=== PATIENT | female | born 1955 | race Caucasian/White ===

== ENCOUNTER 2022-11-05 12:29 | Emergency (ER) | payer MEDICARE, BC, SELFPAY ==
[2022-11-05 12:46] VITALS: BP 137/93; PULSE 81; RESP 20; TEMP 36.7; O2SAT 95; BMI 52.3
--- NOTE | 2022-11-05 12:52 | XR_ITS ---
The [place] [id number] Patient Name: MIGUEL ALCOCER MRN: [id number] date: 1955 Sex: F Assigned Patient Location: ER Current Patient Location: ER Accession/Order Number: [id number] Exam Date: 11/05/2022 13:15 Report Date: 11/05/2022 14:23 At the request of: LEIGH SHI Procedure: XR lumbar spine 2-3V XR lumbar spine 2-3V, 11/05/2022 1:15 PM EDT INDICATION: Low back pain. Fall one week ago COMPARISON: No prior images or reports available for comparison at the time of this dictation. TECHNIQUE: 3 views of the lumbar spine FINDINGS: 5 lumbar vertebrae. Multilevel degenerative disc disease. Mild chronic appearing compression deformity T12 vertebral body. No acute fracture or dislocation. Facet hypertrophy L5/S1. No suspicious osseous lesion. Cholecystectomy clips right upper quadrant. 5.4 cm round calcified nodule left upper quadrant. Calcified phleboliths within the pelvis bilaterally. IMPRESSION: 1. No acute fracture or dislocation. 2. Spondylosis throughout visualized portions of the spine with likely neural foraminal stenosis L5/S1. 3. Calcified left upper quadrant mass likely calcified splenic artery aneurysm. Electronically authenticated by: LAURA ROMANO Date: 11/05/2022 14:23
--- NOTE | 2022-11-05 15:24 | CT_ITS ---
The [address] [address] Patient Name: MIGUEL ALCOCER MRN: [id number] date: 1955 Sex: F Assigned Patient Location: ER Current Patient Location: ER Accession/Order Number: [id number] Exam Date: 11/05/2022 15:35 Report Date: 11/05/2022 15:59 At the request of: LEIGH SHI Procedure: CT lumbar spine wo con EXAM: CT scan of the lumbar spine without contrast. Dose reduction technique used: Automated exposure control and/or adjustment of the mA and/or kV according to patient size and/or use of iterative reconstruction technique. REASON FOR EXAM: Back pain COMPARISON: FINDINGS: T12 inferior endplate compression fracture is acute or subacute and has mild height loss. No lumbar spine fractures. Grade 1 retrolisthesis of L1 on L2 and L2 on L3. Degenerative changes throughout the lumbar spine. Spinal canal stenosis at the L2-L3 level is likely moderate. L4-L5 spinal canal stenosis is likely moderate. No definite severe spinal canal stenoses. Multilevel bilateral mild and moderate neural foraminal stenoses. Peripherally calcified splenic cyst. Remainder unremarkable. IMPRESSION: 1. T12 inferior endplate compression fracture is either acute or subacute. 2. Otherwise, no acute lumbar spine abnormalities. 3. L2-L3 and L4-5 spinal canal stenoses are moderate. Electronically authenticated by: LUCÍA DHALIWAL Date: 11/05/2022 15:59
[2022-11-05 15:58] VITALS: BP 115/74; PULSE 64; RESP 18; O2SAT 99
--- NOTE | 2022-11-05 16:04 | ED_ITS ---
HPI - General Adult General Chief complaint: Fall Stated complaint: BACK PAIN Time Seen by Provider: 11/05/22 15:24 Source: patient Mode of arrival: walk-in Limitations: no limitations History of Present Illness HPI narrative: Patient process the emergency department complaining of low back pain. Patient states she was out in the yard doing yard work and pulling weeds and she was pulling at [place] and fell backwards landing on her back. She did not hit her head or have loss of consciousness. She was able to get up and has been able to walk without any problems. She denies any paresthesias, or weakness. She denies any urinary, or bowel incontinence, retention. She denies any lower extremity edema, or cramping. The patient states that she has pain to her low back and is getting worse as the days go by. She denies any previous injury.She denies any flank pain, hematuria, dysuria. Related Data Previous Rx's Medication Instructions Recorded hydrocodone 5 mg-acetaminophen 325 1 tab PO Q6H PRN pain #15 tabs 11/05/22 mg tablet Allergies Allergy/AdvReac Type Severity Reaction Status Date / Time codeine Allergy Severe Verified 11/05/22 12:46 Review of Systems ROS Status of ROS 10 or more systems reviewed and unremarkable except as noted in history and below [facility] Social History Smoking status: Never smoker Exam Narrative Exam Narrative: Nurses notes and vital signs reviewed and patient is not hypoxic. General: Nontoxic, Well-appearing and in no apparent distress. Skin: Warm, dry, no pallor noted. No Rash Head: Normocephalic, atraumatic. Neck: Supple, non-tender. Eye: Pupils are equal, round and EOMI. No scleral icterus. Ears, Nose, Mouth, and Throat: TM clear, no posterior oropharynx erythema or nasal mucosal hypertrophy, uvula is mid-line Oral mucosa is moist Cardiovascular: Regular Rate and Rhythm without murmur, gallop or rub. Respiratory: No accessory muscle use or respiratory distress. Lungs are clear to auscultation, no wheezing, rales or rhonchi Chest Wall: no tenderness Back: L1 Tenderness to palpation, Mild to moderate L4- L5 lumbar vertebral tenderness.No erythema, ecchymosis, or step-offs noted. No CVA tenderness Musculoskeletal: normal ROM, no calf or popliteal tenderness, no lower extremity edema/swelling GI: Obese,Abdomen is soft, non-distended. Normal bowel sounds. No masses appreciated. No tenderness to palpation. No rebound, guarding, or rigidity noted. Neurological: A&O x4. No cranial nerve dysfunction observed. No truncal ataxia. Moves all extremities. Sensation intact. Psychiatric: Cooperative and interactive. Normal mood and affect. Constitutional Vital Signs - 24 hr 11/05/22 12:46 11/05/22 15:58 Temperature 98.1 F Pulse Rate [Monitor] 81 64 Respiratory Rate 20 18 Blood Pressure [Left Arm] 137/93 H 115/74 Pulse Oximetry 95 99 Oxygen Delivery Method Room Air Room Air Course Course Hospital Course: pt drove herself. She was given an injection of Toradol. The patient had a CT scan and of the lumbar spine which showed a compression fracture. Patient is given a prescription for [place], or sweats checked. She is nontoxic, stable for outpatient follow-up and treatment. At this time the patient is without objective evidence of an acute process requiring hospitalization or inpatient management. The patient has remained hemodynamically stable. No additional indication for emergent studies at this time. I answered all questions. Discussed discharge instructions including standard anticipatory guidance and what should prompt a return to the emergency department, including if they get worse are not getting better or develops any new or concerning symptoms. I've given them specific time frame in which to follow-up, and who to follow-up with. The patient demonstrates understanding. Patient is nontoxic and stable for discharge with outpatient follow-up. This note was created with the assistance of a speech recognition program. Although the intention is to generate documents that actually reflects the content of the visit, no guarantees can be provided that every mistake has been identified and corrected by editing. Vital Signs Vital signs: Vital Signs Temperature 98.1 F 11/05/22 12:46 Pulse Rate 81 11/05/22 12:46 Respiratory Rate 20 11/05/22 12:46 Blood Pressure 137/93 H 11/05/22 12:46 Pulse Oximetry 95 11/05/22 12:46 Oxygen Delivery Method Room Air 11/05/22 12:46 Temperature 98.1 F 11/05/22 12:46 Pulse Rate 64 11/05/22 15:58 Respiratory Rate 18 11/05/22 15:58 Blood Pressure 115/74 11/05/22 15:58 Pulse Oximetry 99 11/05/22 15:58 Oxygen Delivery Method Room Air 11/05/22 15:58 Medical Decision Making Imaging Data CT lumbar spine: Radiologist's impression: The [address] [address] Patient Name: MIGUEL ALCOCER MRN: [id number] date: 1955 Sex: F Assigned Patient Location: ER Current Patient Location: ER Accession/Order Number: [id number] Exam Date: 11/05/2022 15:35 Report Date: 11/05/2022 15:59 At the request of: LEIGH SHI Procedure: CT lumbar spine wo con EXAM: CT scan of the lumbar spine without contrast. Dose reduction technique used: Automated exposure control and/or adjustment of the mA and/or kV according to patient size and/or use of iterative reconstruction technique. REASON FOR EXAM: Back pain COMPARISON: FINDINGS: T12 inferior endplate compression fracture is acute or subacute and has mild height loss. No lumbar spine fractures. Grade 1 retrolisthesis of L1 on L2 and L2 on L3. Degenerative changes throughout the lumbar spine. Spinal canal stenosis at the L2-L3 level is likely moderate. L4-L5 spinal canal stenosis is likely moderate. No definite severe spinal canal stenoses. Multilevel bilateral mild and moderate neural foraminal stenoses. Peripherally calcified splenic cyst. Remainder unremarkable. IMPRESSION: 1. T12 inferior endplate compression fracture is either acute or subacute. 2. Otherwise, no acute lumbar spine abnormalities. 3. L2-L3 and L4-5 spinal canal stenoses are moderate. Electronically authenticated by: LUCÍA DHALIWAL Date: 11/05/2022 15:59 Discharge Plan Discharge Chief Complaint: Fall Clinical Impression: Foraminal stenosis of lumbar region, Compression fracture Patient Disposition: Home, Self-Care Time of Disposition Decision: 16:12 Condition: Good Mode of Transportation: Private Vehicle Prescriptions / Home Meds: New hydrocodone-acetaminophen 5-325 mg tablet 1 tab PO Q6H PRN (Reason: pain) Qty: 15 0RF Instructions: Lumbar Spinal Stenosis (ED) Stand Alone Forms: Portal Instructions Referrals: Klaus Parra MD [Primary Care Provider] - 1 week Discharge Date/Time: 11/05/22 16:33
== END 2022-11-05 16:33 | disposition home or self-care (01) ==
PROVIDERS: Emergency Provider Emergency Medicine; PCP Family Medicine
DX: S22.089A Unspecified fracture of T11-T12 vertebra, initial encounter for closed fracture (principal); M48.061 Spinal stenosis, lumbar region without neurogenic claudication; W19.XXXA Unspecified fall, initial encounter; Y93.H2 Activity, gardening and landscaping
CPT/HCPCS: 72100; 72131; 99284

== ENCOUNTER 2023-02-27 08:47 | Outpatient (OUT) | payer MEDICARE, BC, SELFPAY ==
--- NOTE | 2023-02-27 09:10 | XR_ITS ---
[address] [address] Patient Name: MIGUEL ALCOCER MRN: [id number] date: 1955 Sex: F Assigned Patient Location: [facility] Current Patient Location: [facility] Accession/Order Number: [id number] Exam Date: 02/27/2023 09:00 Report Date: 02/27/2023 09:20 At the request of: TEDDY FINK Procedure: XR DEXA axial skeleton EXAMINATION: XR DEXA axial skeleton HISTORY: M85.80 OSTEOPENIA COMPARISON: DEXA bone densitometry 02/18/2021 TECHNIQUE: Dual-energy X-ray absorptiometry (DXA) was performed. FINDINGS: SPINE ANALYSIS: Average bone mineral density is 1.168 g/cm2. T-score (standard deviation relative to young adult mean): -0.1 . -0.6% change since prior study. HIP ANALYSIS: Lowest bone mineral density is within the right femoral neck, 0.774 g/cm2. T-score (standard deviation relative to young adult mean): -1.9 . -0.2% change since prior study. XR/XR DEXA axial skeleton IMPRESSION: World [employer] Organization Classification: Osteopenia - Moderate Fracture Risk Electronically authenticated by: AMBER JUARES Date: 02/27/2023 09:20
== END 2023-02-27 08:48 | disposition home or self-care (01) ==
LOC: RAD 08:47
PROVIDERS: PCP Family Medicine; Visit Provider Family Medicine
DX: M85.80 Other specified disorders of bone density and structure, unspecified site (principal); M81.0 Age-related osteoporosis without current pathological fracture
CPT/HCPCS: 77080

== ENCOUNTER 2023-08-17 10:56 | Outpatient (OUT) | payer MEDICARE, BC, SELFPAY ==
--- NOTE | 2023-08-17 11:02 | XR_ITS ---
The [place] [id number] Patient Name: MIGUEL ALCOCER MRN: [id number] date: 1955 Sex: F Assigned Patient Location: [facility] Current Patient Location: Accession/Order Number: [id number] Exam Date: 08/17/2023 11:10 Report Date: 08/18/2023 07:55 At the request of: TEDDY FINK Procedure: XR shoulder LT min 2V PROCEDURE: XR shoulder LT min 2V HISTORY: Pain In Left Shoulder M25.512 , chronic pain increasing in severity COMPARISON: None. FINDINGS: BONES:Mild degenerative changes of acromioclavicular joint. Unremarkable humeral head and glenoid. No fracture, dislocation, or bone lesion. SOFT TISSUES:No visible soft tissue swelling. EFFUSION:None visible. OTHER: Negative. XR/XR shoulder LT min 2V IMPRESSION: 1. Mild degenerative changes. Electronically authenticated by: AMBER JUARES Date: 08/18/2023 07:55
--- NOTE | 2023-08-17 11:02 | XR_ITS ---
The [address] [address] Patient Name: MIGUEL ALCOCER MRN: [id number] date: 1955 Sex: F Assigned Patient Location: [facility] Current Patient Location: [facility] Accession/Order Number: [id number] Exam Date: 08/17/2023 11:10 Report Date: 08/18/2023 07:56 At the request of: TEDDY FINK Procedure: XR knee RT 3V PROCEDURE: XR knee RT 3V HISTORY: Knee Pain , chronic pain increasing in severity COMPARISON: None. FINDINGS: BONES:Marked narrowing of the medial joint space and suspected moderate marked narrowing of the anterior joint space. Large periarticular degenerative osteophytes involving all 3 compartments. No fracture, dislocation, bone lesion. SOFT TISSUES:No visible soft tissue swelling. EFFUSION:None visible. OTHER: Negative. XR/XR knee RT 3V IMPRESSION: 1. Marked degenerative joint disease. Electronically authenticated by: AMBER JUARES Date: 08/18/2023 07:56
== END 2023-08-17 10:57 | disposition home or self-care (01) ==
PROVIDERS: PCP Family Medicine; Visit Provider Family Medicine
DX: M25.512 Pain in left shoulder (principal); M19.90 Unspecified osteoarthritis, unspecified site; M17.11 Unilateral primary osteoarthritis, right knee
CPT/HCPCS: 73030; 73562

== ENCOUNTER 2023-08-23 09:26 | Day surgery (SDC) | payer MEDICARE, BC, SELFPAY ==
--- NOTE | 2023-08-23 09:35 | MR_ITS ---
[place] [id number] Patient Name: MIGUEL ALCOCER MRN: [id number] date: 1955 Sex: F Assigned Patient Location: MRI Current Patient Location: MRI Accession/Order Number: [id number] Exam Date: 08/23/2023 10:45 Report Date: 08/23/2023 15:33 At the request of: TEDDY FINK Procedure: MR shoulder LT w con EXAMINATION: MR shoulder LT w con HISTORY: left shoulder pain M25.512 COMPARISON: No relevant comparison available. TECHNIQUE: A variety of imaging planes and parameters were utilized for visualization of suspected pathology. Images were performed without and intra-articular Dotarem. FINDINGS: ROTATOR CUFF REGION CUFF TENDONS: A full thickness tear involves the supraspinatus and subscapularis tendons, measuring 2.9 cm with retraction of the supraspinatus tendon CUFF MUSCLES: Marked supraspinatus atrophy consistent with a chronic tear DELTOID: Normal. No significant atrophy or tear. LONG BICEPS TENDON: Increased signal intensity in the biceps tendon indicates tendon degeneration and/or tendinitis. No amanda tear is seen. LABRUM/BICEPS ANCHOR SUPERIOR: Normal. No visible labral tear or biceps anchor pathology. ANTERIOR/INFERIOR: Attenuation consistent with a patient of this age. POSTERIOR: Normal. No posterior labrum abnormality. CAPSULE ANTERIOR/INFERIOR: Normal. No visible capsular laxity or thickening. Type I origin of the middle glenohumeral ligament. POSTERIOR: Normal. No visible capsular laxity or thickening. AC JOINT REGION AC JOINT: Mild osteoarthropathy with mild narrowing of the underlying coracoacromial arch. AC LIGAMENTS: Normal acromioclavicular ligament. CC LIGAMENTS: Normal coracoclavicular ligaments. ACROMION: Normal horizontal (Type I) configuration. SUBACROMIAL BURSA: IV contrast extending into the bursa from rotator cuff tear HYALINE CARTILAGE: Mild diffuse humeral and glenoid cartilage thinning. OTHER BONES: Normal proximal humerus, glenoid, and coracoid. OTHER OBSERVATIONS: Negative. No other significant findings or glenohumeral effusion. MR/MR shoulder LT w con IMPRESSION: Large full-thickness rotator cuff tear with retraction of the supraspinatus tendon and atrophy of the supraspinatus muscle Mild glenohumeral and acromioclavicular joint osteoarthritis Electronically authenticated by: TERRIE NEW Date: 08/23/2023 15:33
--- NOTE | 2023-08-23 09:35 | FL_ITS ---
[address] [address] Patient Name: MIGUEL ALCOCER MRN: [id number] date: 1955 Sex: F Assigned Patient Location: MRI Current Patient Location: Accession/Order Number: [id number] Exam Date: 08/23/2023 09:45 Report Date: 08/23/2023 11:14 At the request of: TEDDY FINK Procedure: FL arthrogram shoulder EXAMINATION: FL arthrogram shoulder, FL guided needle placement HISTORY: Pain COMPARISON: No relevant comparison available. TECHNIQUE: An arthrogram was performed under fluoroscopic guidance using non-ionic contrast material in the usual sterile manner after obtaining informed consent. Standard level fluoroscopic mode of operation utilized. FINDINGS: JOINT: Shoulder NEEDLE: 25 gauge, 3.5 spinal needle. MEDICATION: 10 mL injected into joint space consisting of a mixture of 10 cc normal saline, 5 cc Omnipaque-300, 5 cc 1% Xylocaine, and 0.2 cc Dotarem. TECHNIQUE: Anterior approach under fluoroscopic guidance. CLINICAL: 5 out of 10 pain before the injection. 3 out of 10 pain following the injection. COMPLICATIONS: None. BONES: No fracture. Extensive osteoarthritis. High riding humeral head. BURSA: Extension of contrast into the subacromial subdeltoid bursa consistent with rotator cuff tear OTHER: Negative. FL/FL arthrogram shoulder IMPRESSION: 1. Technically successful arthrogram without complication. 2. Please see separate MRI report. Electronically authenticated by: TERRIE NEW Date: 08/23/2023 11:14
--- OUTSIDE RECORDS SUMMARY | 2023-08-23 09:39 | XMS_ITS | CCD ---
Author Organization [facility] Care Team Providers Care Ball Maker Name Role Phone JOSEFY ., DR ESPINAL Admitting Unavailable HOY ., DR ESPINAL Attending Unavailable HOY ., DR ESPINAL Primary Care Unavailable HOY ., DR ESPINAL Consulting Unavailable WEST, DR TERRIE Maldonado Consulting Unavailable HOY ., DR ESPINAL Admitting Unavailable HOY ., DR ESPINAL Attending Unavailable HOY ., DR ESPINAL Primary Care Unavailable HOY ., DR ESPINAL Consulting Unavailable HOY ., DR ESPINAL Admitting Unavailable HOY ., DR ESPINAL Attending Unavailable HOY ., DR ESPINAL Primary Care Unavailable HOY ., DR ESPINAL Consulting Unavailable Allergies Allergy Classification Reported Allergen(s) Allergy Type Date of Onset Reaction(s) Facility (1 source) Amoxicillin Drug Allergy 04-25-2014 [facility] Repository (1 source) Codeine Drug Allergy 04-25-2014 [facility] Repository (1 source) Morphine Drug Allergy 04-25-2014 [facility] Repository Problems Active Problems Problem Classification Problem Date Documented Da te Episodic/Chronic Disorders of lipid metabolism (4 sources) Hyperlipidemia, unspecified; Translations: [HYPERLIPIDEMIA UNSPECIFIED] Onset: 10-14-2021 Chronic Nutritional deficiencies (1 source) Vitamin D deficiency, unspecified; Translations: [VITAMIN D DEFICIENCY UNSPECIFIED] Onset: 10-20-2021 Chronic Other screening for suspected conditions (not mental disorders or infectious disease) (5 sources) Encounter for screening mammogram for malignant neoplasm of breast; Translations: [Encounter for screening for malignant neoplasm of rectum] Onset: 10-20-2021 Episodic Residual codes; unclassified (1 source) Family history of malignant neoplasm of breast; Translations: [FAMILY HX MALIG NEOPLASM OF BREAST] Onset: 08-16-2022 Episodic Residual codes; unclassified (1 source) Family history of malignant neoplasm of other organs or systems; Translations: [FAM HX MALIG NEOPLASM OTH ORGN/SYS] Onset: 03-14-2023 Episodic Unclassified (2 sources) CONTACT W/AND (SUSP) EXPOS COVID-19; Translations: [CONTACT W/AND (SUSP) EXPOS COVID-19] Onset: 01-21-2022 Viral infection (1 source) COVID-19; Translations: [COVID-19] Onset: 01-21-2022 Past or Other Problems Problem Classification Problem Date Documented Da te Episodic/Chronic Acute bronchitis (1 source) Acute bronchitis, unspecified; Translations: [ACUTE BRONCHITIS UNSPECIFIED] Onset: 01-21-2022 Episodic Diabetes mellitus without complication (1 source) Other abnormal glucose; Translations: [OTHER ABNORMAL GLUCOSE] Onset: 10-20-2021 Episodic Malaise and fatigue (1 source) Other fatigue; Translations: [OTHER FATIGUE] Onset: 10-20-2021 Episodic Unclassified (1 source) CONTACT W/AND (SUSP) EXPOS COVID-19; Translations: [CONTACT W/AND (SUSP) EXPOS COVID-19] Onset: 01-20-2022 Results Test Name Value Interpretation Reference Range Facility MG MAMM SCREEN 3D NIKKO CADon 08-15-2022 MG MAMM SCREEN 3D NIKKO CAD Patient: MIGUEL ALCOCER Exam Date: 08/15/2022 : 1955 Gender:F Ordering : DR TEDDY FINK . Admission #: [id number] Family : Order #: [id number] CLICK HERE TO VIEW EXAM RADIOLOGY REPORT PROCEDURE: MAMMOGRAM SCREENING 3D BILATERAL CAD COMPARISON: MG MAMM SCREEN NIKKO W CAD, 07/10/2020. MG MAMM SCREEN 3D NIKKO CAD, 08/12/2021. INDICATIONS: Screening mammography Calculator Name NCI Breast Cancer Risk Assessment Tool 5 Year Breast Cancer Risk 3.00% Lifetime Breast Cancer Risk 10.80% Personal Breast Cancer No Personal Ovarian Cancer No Treatments None Family Cancers Sister with breast cancer at age 46; Father with brain cancer at age 49. LOCATION: [facility] BREAST COMPOSITION: Scattered areas fibroglandular density. FINDINGS: DIAGNOSTIC CATEGORY 2--BENIGN FINDING. NO CHANGE FROM COMPARISON. Scattered benign-appearing nodules are present. Scattered benign-appearing calcifications are present. Scattered benign-appearing lymph nodes are present. RIGHT BREAST: No significant suspicious finding. LEFT BREAST: No significant suspicious finding. RECOMMENDATIONS: ROUTINE MAMMOGRAM AND CLINICAL EVALUATION IN 12 MONTHS. PLEASE NOTE: A NORMAL MAMMOGRAM DOES NOT EXCLUDE THE POSSIBILITY OF BREAST CANCER. A CLINICALLY SUSPICIOUS PALPABLE LUMP SHOULD BE BIOPSIED. Dictated by: Terrie Oro MD on 08/15/2022 at 11:13 Approved by: Terrie Oro MD on 08/15/2022 at 11:16 Normal [facility] Covid-19 PCR (CVDTBH)on 01-03 SARS-CoV-2 (COVID-19) RNA MARITZA+probe Ql (Unsp spec) Detected Critically abnormal NOT DETECTED [facility] Comment on above: Result Comment: This test is not yet approved or cleared by the [place] FDA. When there are no FDA-approved or cleared tests available, and other criteria are met, FDA can make tests available under an emergency access mechanism called an Emergency Use Authorization (EUA). The EUA for this test is supported by the [employer] Spr[employer] of Health and Human Service's (HHS's) declaration that circumstances exist to justify the emergency use of in vitro diagnostics for the detection and/or diagnosis of the virus that causes COVID-19. This EUA will remain in effect (meaning this test can be used) for the duration of the COVID-19 declaration justifying emergency of IVDs, unless it is terminated or revoked by FDA (after which the test may no longer be used). Performed By: #### C VDTBH #### [facility] [address] [place] [address] Dr. Tristan Craft CBC AUTO DIFFon 10-14-2021 BASO # 0.1 103/ul Normal 0.0-0.1 [facility] Comment on above: Performed By: #### C BC #### [facility] [address] [place] [address] Dr. Tristan Craft Basophils/100 WBC (Bld) 0.5 % Normal 0.2-2.0 [facility] Comment on above: Performed By: #### C BC #### [facility] [address] [place] [address] Dr. Tristan Craft EO # 0.2 103/ul Normal 0.0-0.7 [facility] Comment on above: Performed By: #### C BC #### [facility] [address] [place] [address] Dr. Tristan Craft Eosinophils/100 WBC (Bld) 1.6 % Normal 0.9-7.0 [facility] Comment on above: Performed By: #### C BC #### [facility] [address] [place] [address] Dr. Tristan Craft Erythrocyte distribution width (RBC) [Ratio] 14.3 % Normal 11.0-15.0 [facility] Comment on above: Performed By: #### C BC #### [facility] [address] [place] [address] Dr. Tristan Craft Hematocrit (Bld) [Volume fraction] 45.7 % Normal 36.0-48.0 [facility] Comment on above: Performed By: #### C BC #### [facility] [address] [place] [address] Dr. Tristan Craft Hemoglobin (Bld) [Mass/Vol] 14.3 g/dL Normal 12.0-16.0 [facility] Comment on above: Performed By: #### C BC #### [facility] [address] [place] [address] Dr. Tristan Craft IG # 0.03 10e3/ul Normal 0.00-0.03 [facility] Comment on above: Performed By: #### C BC #### [facility] [address] [place] [address] Dr. Tristan Craft IG % 0.3 % Normal 0.0-0.5 [facility] Comment on above: Performed By: #### C BC #### [facility] [address] [place] [address] Dr. Tristan Craft LYMPH # 2.5 103/ul Normal 1.2-3.8 [facility] Comment on above: Performed By: #### C BC #### [facility] [address] [place] [address] Dr. Tristan Craft Lymphocytes/100 WBC (Bld) 26.7 % Normal 20.5-60.0 [facility] Comment on above: Performed By: #### C BC #### [facility] [address] [place] [address] Dr. Tristan Craft MANUAL DIFF REQ NO Normal [facility] Comment on above: Performed By: #### C BC #### [facility] [address] [place] [address] Dr. Tristan Craft MCH (RBC) [Entitic mass] 27.8 pg Normal 26.7-34.0 [facility] Comment on above: Performed By: #### C BC #### [facility] [address] [place] [address] Dr. Tristan Craft MCHC (RBC) [Mass/Vol] 31.3 g/dL Normal 29.9-35.2 [facility] Comment on above: Performed By: #### C BC #### [facility] [address] [place] [address] Dr. Tristan Craft MCV (RBC) [Entitic vol] 88.9 fL Normal 81.0-99.0 [facility] Comment on above: Performed By: #### C BC #### [facility] [address] [place] [address] Dr. Tristan Craft MONO # 0.8 103/ul Normal 0.3-0.8 [facility] Comment on above: Performed By: #### C BC #### [facility] [address] [place] [address] Dr. Tristan Craft Monocytes/100 WBC (Bld) 8.0 % Normal 1.7-12.0 [facility] Comment on above: Performed By: #### C BC #### [facility] [address] [place] [address] Dr. Tristan Craft NEUT # 5.9 103/ul Normal 1.4-6.5 [facility] Comment on above: Performed By: #### C BC #### [facility] [address] [place] [address] Dr. Tristan Craft Neutrophils/100 WBC (Bld) 62.9 % Normal 43.0-75.0 [facility] Comment on above: Performed By: #### C BC #### [facility] [address] [place] [address] Dr. Tristan Craft Platelet mean volume (Bld) [Entitic vol] 10.4 fL Normal 9.5-13.5 [facility] Comment on above: Performed By: #### C BC #### [facility] [address] [place] [address] Dr. Tristan Craft PLT 302 103/ul Normal 150-450 [facility] Comment on above: Performed By: #### C BC #### [facility] [address] [address] [address] Tristan Craft RBC 5.14 106/ul Normal 4.20-5.40 [facility] Comment on above: Performed By: #### C BC #### [facility] [address] [address] [address] Tristan Craft WBC 9.3 103/ul Normal 4.0-11.0 [facility] Comment on above: Performed By: #### C BC #### [facility] [address] [place] [address] Dr. Tristan Craft FREE T3on 10-14-2021 FREE T3 2.03 pg/mlL Critically low 2.18-3.98 [facility] Comment on above: Performed By: #### T 4, CMP, TSH, LIPID, FT3 #### [facility] [address] [place] [address] Dr. Tristan Craft GLYCOHEMOGLOBIN A1Con 2021 ADA RECOMMENDATION SEE BELOW Normal [facility] Comment on above: Result Comment: ADA RECOMMENDED LIMIT 4.0 - 6.0 ADA THERAPEUTIC TARGET < 7.0 ACTION SUGGESTED > 7.0 Performed By: #### A 1C #### [facility] [address] [place] [address] Dr. Tristan Craft Glucose [Mass/Vol] 123 mg/dL Normal [facility] Comment on above: Performed By: #### A 1C #### [facility] [address] [place] [address] Dr. Tristan Craft HbA1c (Bld) [Mass fraction] 5.9 % Normal 4.5-6.2 [facility] Comment on above: Performed By: #### A 1C #### [facility] [address] [place] [address] Dr. Tristan Craft LIPID PROFILEon 10-14-2021 CHOL-HDL RATIO NORM SEE BELOW Normal [facility] Comment on above: Result Comment: 3.3 - 4.4 LOW RISK 4.4 - 7.1 AVERAGE RISK 7.1 - 11.0 MODERATE RISK >11.0 HIGH RISK Performed By: #### T 4, CMP, TSH, LIPID, FT3 #### [facility] [address] [address] [address] Tristan Craft Cholesterol [Mass/Vol] 126 mg/dL Normal <=200 [facility] Comment on above: Performed By: #### T 4, CMP, TSH, LIPID, FT3 #### [facility] [address] [address] [address] Tristan Craft Cholesterol in HDL [Mass/Vol] 53 mg/dL Normal 40-60 [facility] Comment on above: Performed By: #### T 4, CMP, TSH, LIPID, FT3 #### [facility] [address] [address] [address] Tristan Craft Cholesterol in LDL [Mass/Vol] 45.0 mg/dL Normal [facility] Comment on above: Performed By: #### T 4, CMP, TSH, LIPID, FT3 #### [facility] [address] [address] [address] Tristan Craft Cholesterol.total/Ch olesterol in HDL [Mass ratio] 2.4 {ratio} Normal [facility] Comment on above: Performed By: #### T 4, CMP, TSH, LIPID, FT3 #### [facility] [address] [address] [address] Tristan Craft HDL NORMAL > or = 60 mg/dl - LOW CARDIOVASCULAR RISK <40 mg/dl - HIGH CARDIOVASCULAR RISK Normal [facility] Comment on above: Performed By: #### T 4, CMP, TSH, LIPID, FT3 #### [facility] [address] [address] [address] Tristan Craft LDL CALC NORMAL SEE BELOW Normal [facility] Comment on above: Result Comment: <100 mg/dl OPTIMAL 100 - 129 mg/dl NEAR OR ABOVE OPTIMAL 130 - 159 mg/dl BORDERLINE HIGH 160 - 189 mg/dl HIGH >190 mg/dl VERY HIGH Performed By: #### T 4, CMP, TSH, LIPID, FT3 #### [facility] [address] [address] [address] Tristan Craft Triglyceride [Mass/Vol] 140 mg/dL Normal <=150 [facility] Comment on above: Performed By: #### T 4, CMP, TSH, LIPID, FT3 #### [facility] [address] [address] [address] Tristan Craft VLDL CALC 28.0 mg/dL Normal [facility] Comment on above: Performed By: #### T 4, CMP, TSH, LIPID, FT3 #### [facility] [address] [address] [address] Tristan Craft PROF 14(COMP METB)on 022 Albumin [Mass/Vol] 3.8 g/dL Normal 3.4-5.0 [facility] Comment on above: Performed By: #### T 4, CMP, TSH, LIPID, FT3 #### [facility] [address] [address] [address] Tristan Craft Albumin/Globulin [Mass ratio] 1.1 {ratio} Normal [facility] Comment on above: Performed By: #### T 4, CMP, TSH, LIPID, FT3 #### [facility] [address] [address] [address] Tristan Craft ALP [Catalytic activity/Vol] 87 U/L Normal 46-116 [facility] Comment on above: Performed By: #### T 4, CMP, TSH, LIPID, FT3 #### [facility] [address] [address] [address] Tristan Craft ALT [Catalytic activity/Vol] 24 U/L Normal 14-59 [facility] Comment on above: Performed By: #### T 4, CMP, TSH, LIPID, FT3 #### [facility] [address] [address] [address] Tristan Craft Anion gap [Moles/Vol] 12.9 mmol/L Normal [facility] Comment on above: Performed By: #### T 4, CMP, TSH, LIPID, FT3 #### [facility] [address] [address] [address] Tristan Craft AST [Catalytic activity/Vol] 20 U/L Normal 15-37 [facility] Comment on above: Performed By: #### T 4, CMP, TSH, LIPID, FT3 #### [facility] [address] [address] [address] Tristan Craft Bilirubin [Mass/Vol] 0.5 mg/dL Normal 0.2-1.0 [facility] Comment on above: Performed By: #### T 4, CMP, TSH, LIPID, FT3 #### [facility] [address] [place] [address] Dr. Tristan Craft Calcium [Mass/Vol] 8.6 mg/dL Normal 8.5-10.1 [facility] Comment on above: Performed By: #### T 4, CMP, TSH, LIPID, FT3 #### [facility] [address] [place] [address] Dr. Tristan Craft Chloride [Moles/Vol] 101 mmol/L Normal 98-107 [facility] Comment on above: Performed By: #### T 4, CMP, TSH, LIPID, FT3 #### [facility] [address] [place] [address] Dr. Tristan Craft CO2 [Moles/Vol] 27.7 mmol/L Normal 21.0-32.0 [facility] Comment on above: Performed By: #### T 4, CMP, TSH, LIPID, FT3 #### [facility] [address] [place] [address] Dr. Tristan Craft Creatinine [Mass/Vol] 0.93 mg/dL Normal 0.55-1.02 [facility] Comment on above: Performed By: #### T 4, CMP, TSH, LIPID, FT3 #### [facility] [address] [place] [address] Dr. Tristan Craft EGFR-AF FINNISH >60 Normal >=60 [facility] Comment on above: Performed By: #### T 4, CMP, TSH, LIPID, FT3 #### [facility] [address] [place] [address] Dr. Tristan Craft EGFR-NON AF FINNISH =60 Normal >=60 [facility] Comment on above: Performed By: #### T 4, CMP, TSH, LIPID, FT3 #### [facility] [address] [place] [address] Dr. Tristan Craft Globulin (S) [Mass/Vol] 3.6 g/dL Normal [facility] Comment on above: Performed By: #### T 4, CMP, TSH, LIPID, FT3 #### [facility] [address] [place] [address] Dr. Tristan Craft Glucose [Mass/Vol] 108 mg/dL Critically high 74-106 [facility] Comment on above: Performed By: #### T 4, CMP, TSH, LIPID, FT3 #### [facility] [address] [place] [address] Dr. Tristan Craft Potassium [Moles/Vol] 3.6 mmol/L Normal 3.5-5.1 [facility] Comment on above: Performed By: #### T 4, CMP, TSH, LIPID, FT3 #### [facility] [address] [place] [address] Dr. Tristan Craft Protein [Mass/Vol] 7.4 g/dL Normal 6.4-8.2 [facility] Comment on above: Performed By: #### T 4, CMP, TSH, LIPID, FT3 #### [facility] [address] [place] [address] Dr. Tristan Craft Sodium [Moles/Vol] 138 mmol/L Normal 136-145 [facility] Comment on above: Performed By: #### T 4, CMP, TSH, LIPID, FT3 #### [facility] [address] [place] [address] Dr. Tristan Craft Urea nitrogen [Mass/Vol] 18.0 mg/dL Normal 7.0-18.0 [facility] Comment on above: Performed By: #### T 4, CMP, TSH, LIPID, FT3 #### [facility] [address] [place] [address] Dr. Tristan Craft Urea nitrogen/Creatinine [Mass ratio] 19.4 mg/mg Normal [facility] Comment on above: Performed By: #### T 4, CMP, TSH, LIPID, FT3 #### [facility] [address] [place] [address] Dr. Tristan Craft T4on 10-14-2021 T4 [Mass/Vol] 6.80 ug/dL Normal 4.80-13.90 [facility] Comment on above: Performed By: #### T 4, CMP, TSH, LIPID, FT3 #### [facility] [address] [place] [address] Dr. Tristan Craft TSHon 10-14-2021 TSH 2.277 uIU/mL Normal 0.358-3.740 [facility] Comment on above: Performed By: #### T 4, CMP, TSH, LIPID, FT3 #### [facility] [address] [place] [address] Dr. Tristan Craft TSH RANGE SEE BELOW Normal [facility] Comment on above: Result Comment: <0.3 4 UIU/ml HYPERTHYROID 0.34-5.60 UIU/ml EUTHYROID >5.60 UIU/ml HYPOTHYROID Performed By: #### T 4, CMP, TSH, LIPID, FT3 #### [facility] [address] [place] [address] Dr. Tristan Craft VITAMIN D 25 OHon 10-14-2021 VIT D 25-OH 37.9 ng/mL Normal [facility] Comment on above: Performed By: #### V ITAD #### [facility] [address] [place] [address] Dr. Tristan Craft VIT D RANGES SEE BELOW Normal [facility] Comment on above: Result Comment: <20 ng/mL Vit D deficient 20 - <30 ng/mL Vit D insufficient 30 - 100 ng/mL Vit D sufficient >100 ng/mL Potential Toxicity Performed By: #### V ITAD #### [facility] [address] [place] [address] Dr. Tristan Craft Encounters Encounter Date Encounter Type Care Provider Facility Start: 08-15-2022 End: 08-16-[address] TEDDY FINK . Facility:[facility] Start: 01-20-2022 End: 01-20-[address] TEDDY FINK . Facility[facility] Start: 10-14-2021 End: 10-15-[address] TEDDY FINK . Facility[facility] Payers Date Payer Category Payer Medicare [id number] 1961 Unknown [id number] 1955 Unknown [id number] 1955 Unknown [id number] [id number] 1955 Unknown [id number] Summary Purpose Family History No Family History Records Found Advance Directives No Advanced Directives Records Found Additional Source Comments INFORMATION SOURCE (unrecogn ized section and content) DATE CREATED AUTHOR 08/16/2022 [facility] FOR RECORDS PERTAINING TO PATIENTS WHO ARE OR HAVE BEEN ENROLLED IN A CHEMICAL DEPENDENCY/SUBSTANCEABUSE PROGRAM, SOME INFORMATION MAY BE OMITTED. This clinical summary was aggregated from multiple sources. Caution should be exercised in using it in the provision of clinical care. This summary normalizes information from multiple sources, and as a consequence, information in this document may materially change the coding, format and clinical context of patient data. In addition, data may be omitted in some cases. CLINICAL DECISIONS SHOULD BE BASED ON THE PRIMARY CLINICAL RECORDS. [facility] [employer] provides no warranty or guarantee of the accuracy or completeness of information in this document.
--- NOTE | 2023-08-23 09:42 | FL_ITS ---
[address] [address] Patient Name: MIGUEL ALCOCER MRN: [id number] date: 1955 Sex: F Assigned Patient Location: MRI Current Patient Location: Accession/Order Number: [id number] Exam Date: 08/23/2023 09:45 Report Date: 08/23/2023 11:14 At the request of: TEDDY FINK Procedure: FL guided needle placement EXAMINATION: FL arthrogram shoulder, FL guided needle placement HISTORY: Pain COMPARISON: No relevant comparison available. TECHNIQUE: An arthrogram was performed under fluoroscopic guidance using non-ionic contrast material in the usual sterile manner after obtaining informed consent. Standard level fluoroscopic mode of operation utilized. FINDINGS: JOINT: Shoulder NEEDLE: 25 gauge, 3.5 spinal needle. MEDICATION: 10 mL injected into joint space consisting of a mixture of 10 cc normal saline, 5 cc Omnipaque-300, 5 cc 1% Xylocaine, and 0.2 cc Dotarem. TECHNIQUE: Anterior approach under fluoroscopic guidance. CLINICAL: 5 out of 10 pain before the injection. 3 out of 10 pain following the injection. COMPLICATIONS: None. BONES: No fracture. Extensive osteoarthritis. High riding humeral head. BURSA: Extension of contrast into the subacromial subdeltoid bursa consistent with rotator cuff tear OTHER: Negative. FL/FL guided needle placement IMPRESSION: 1. Technically successful arthrogram without complication. 2. Please see separate MRI report. Electronically authenticated by: TERRIE NEW Date: 08/23/2023 11:14
[2023-08-23] MEDS: LIDOCAINE HCL 20 ML, SODIUM BICARBONATE 2 MEQ INJ (10:25)
--- NOTE | 2023-08-23 10:59 | SUR.PREOP ---
08/21/23 Pt instructed on procedure, date, time, and prep. Pt made aware to hold Eliquis until after procedure.
== END 2023-08-23 10:45 | disposition home or self-care (01) ==
LOC: MRI 09:27
PROVIDERS: Radiology Diagnostic Radiology; PCP Family Medicine; Visit Provider Family Medicine
DX: M25.512 Pain in left shoulder (principal); M75.102 Unspecified rotator cuff tear or rupture of left shoulder, not specified as traumatic; M19.012 Primary osteoarthritis, left shoulder
CPT/HCPCS: 23350; 73222; 77002; A9575; Q9967

== ENCOUNTER 2023-08-25 09:50 | Outpatient (OUT) | payer MEDICARE, BC, SELFPAY ==
--- NOTE | 2023-08-25 09:53 | MM_ITS ---
Patient Name: MIGUEL ALCOCER MR#: [id number] : 1955 Exam Date: 08/25/2023 Ordering Doctor: DR Klaus Parra . RADIOLOGY REPORT PROCEDURE: MM TOMOSYNTHESIS SCREENING BI COMPARISON: MG MAMM SCREEN 3D NIKKO CAD, 08/15/2022. MG MAMM SCREEN 3D NIKKO CAD, 08/12/2021. MG MAMM SCREEN NIKKO W CAD, 07/10/2020. MG MAMM NIKKO SCRN W CAD DIG, 08/20/2013. INDICATIONS: Screening Calculator Name NCI Breast Cancer Risk Assessment Tool 5 Year Breast Cancer Risk 3.00% Lifetime Breast Cancer Risk 10.30% Personal Breast Cancer No Personal Ovarian Cancer No Treatments None Family Cancers Sister with breast cancer at age 46; Father with brain cancer at age 49. LOCATION: [facility] BREAST COMPOSITION: Scattered areas fibroglandular density. FINDINGS: DIAGNOSTIC CATEGORY 2--BENIGN FINDING: RIGHT BREAST: No significant suspicious finding. Scattered benign-appearing nodules are present. Scattered benign-appearing calcifications are present. No significant change has occurred. LEFT BREAST: No significant suspicious finding. Scattered benign-appearing nodules are present. Scattered benign-appearing calcifications are present. No significant change has occurred. RECOMMENDATIONS: ROUTINE MAMMOGRAM AND CLINICAL EVALUATION IN 12 MONTHS. PLEASE NOTE: A NORMAL MAMMOGRAM DOES NOT EXCLUDE THE POSSIBILITY OF BREAST CANCER. A CLINICALLY SUSPICIOUS PALPABLE LUMP SHOULD BE BIOPSIED. Dictated by: Jesu Bender M.D. on 08/25/2023 at 15:09 Approved by: Jesu Bender M.D. on 08/25/2023 at 15:12
--- OUTSIDE RECORDS SUMMARY | 2023-08-25 09:55 | XMS_ITS | CCD ---
Author Organization [facility] Care Team Providers Care Pastoral Worker Name Role Phone JOSEFY ., DR ESPINAL [...] (1 source) Amoxicillin Drug Allergy 04-25-2014 [facility] Repository (1 source) Codeine Drug Allergy 04-25-2014 [facility] Rep[facility] (1 source) Morphine Drug Allergy 04-25-2014 [facility] Rep[facility] Problems Active Problems Problem [...] : DR TEDDY FINK . Admission #: [id number] Family : Order #: [id number] CLICK HERE TO VIEW EXAM RADIOLOGY REPORT [...] brain cancer at age 47. LOCATION: [facility] BREAST COMPOSITION: Scattered areas fibroglandular [...] MD on 08/15/2022 at 11:16 Normal [facility] Covid-19 PCR (CVDTBH)on 01-03 SARS-CoV-2 (COVID-19) RNA MARITZA+probe Ql (Unsp spec) Detected Critically abnormal NOT DETECTED [facility] Comment on above: Result Comment: This test is not yet approved or cleared by the [place] FDA. When there are no FDA-approved or cleared tests available, and other criteria are met, FDA can make tests available under an emergency access mechanism called an Emergency Use Authorization (EUA). The EUA for this test is supported by the [employer] of Health and Human Service's (HHS's) declaration [...] used). Performed By: #### C VDTBH #### [facility] [address] [place] [address] Dr. Tristan Craft CBC AUTO DIFFon 10-14-2021 BASO # 0.1 103/ul Normal 0.0-0.1 [facility] Comment on above: Performed By: #### C BC #### [facility] [address] [place] [address] Dr. Tristan Craft Basophils/100 WBC (Bld) 0.5 % Normal 0.2-2.0 [facility] Comment on above: Performed By: #### C BC #### [facility] [address] [place] [address] Dr. Tristan Craft EO # 0.2 103/ul Normal 0.0-0.7 [facility] Comment on above: Performed By: #### C BC #### [facility] [address] [place] [address] Dr. Tristan rCaft Eosinophils/100 WBC (Bld) 1.6 % Normal 0.9-7.0 [facility] Comment on above: Performed By: #### C BC #### [facility] [address] [place] [address] Dr. Tristan Craft Erythrocyte distribution width (RBC) [Ratio] 14.3 % Normal 11.0-15.0 [facility] Comment on above: Performed By: #### C BC #### [facility] [address] [place] [address] Dr. Tristan Craft Hematocrit (Bld) [Volume fraction] 45.7 % Normal 36.0-48.0 [facility] Comment on above: Performed By: #### C BC #### [facility] [address] [place] [address] Dr. Tristan Craft Hemoglobin (Bld) [Mass/Vol] 14.3 g/dL Normal 12.0-16.0 [facility] Comment on above: Performed By: #### C BC #### [facility] [address] [place] [address] Dr. Tristan Craft IG # 0.03 10e3/ul Normal 0.00-0.03 [facility] Comment on above: Performed By: #### C BC #### [facility] [address] [place] [address] Dr. Tristan Craft IG % 0.3 % Normal 0.0-0.5 [facility] Comment on above: Performed By: #### C BC #### [facility] [address] [place] [address] Dr. Tristan Craft LYMPH # 2.5 103/ul Normal 1.2-3.8 [facility] Comment on above: Performed By: #### C BC #### [facility] [address] [place] [address] Dr. Tristan Craft Lymphocytes/100 WBC (Bld) 26.7 % Normal 20.5-60.0 [facility] Comment on above: Performed By: #### C BC #### [facility] [address] [place] [address] Dr. Tristan Craft MANUAL DIFF REQ NO Normal [facility] Comment on above: Performed By: #### C BC #### [facility] [address] [place] [address] Dr. Tristan Craft MCH (RBC) [Entitic mass] 27.8 pg Normal 26.7-34.0 [facility] Comment on above: Performed By: #### C BC #### [facility] [address] [place] [address] Dr. Tristan Craft MCHC (RBC) [Mass/Vol] 31.3 g/dL Normal 29.9-35.2 [facility] Comment on above: Performed By: #### C BC #### [facility] [address] [place] [address] Dr. Tristan Craft MCV (RBC) [Entitic vol] 88.9 fL Normal 81.0-99.0 [facility] Comment on above: Performed By: #### C BC #### [facility] [address] [place] [address] Dr. Tristan Craft MONO # 0.8 103/ul Normal 0.3-0.8 [facility] Comment on above: Performed By: #### C BC #### [facility] [address] [place] [address] Dr. Tristan Craft Monocytes/100 WBC (Bld) 8.0 % Normal 1.7-12.0 [facility] Comment on above: Performed By: #### C BC #### [facility] [address] [place] [address] Dr. Tristan Craft NEUT # 5.9 103/ul Normal 1.4-6.5 [facility] Comment on above: Performed By: #### C BC #### [facility] [address] [place] [address] Dr. Tristan Craft Neutrophils/100 WBC (Bld) 62.9 % Normal 43.0-75.0 [facility] Comment on above: Performed By: #### C BC #### [facility] [address] [place] [address] Dr. Tristan Craft Platelet mean volume (Bld) [Entitic vol] 10.4 fL Normal 9.5-13.5 [facility] Comment on above: Performed By: #### C BC #### [facility] [address] [place] [address] Dr. Tristan Craft PLT 302 103/ul Normal 150-450 [facility] Comment on above: Performed By: #### C BC #### [facility] [address] [address] [address] Tristan Craft RBC 5.14 106/ul Normal 4.20-5.40 [facility] Comment on above: Performed By: #### C BC #### [facility] [address] [address] [address] Tristan Craft WBC 9.3 103/ul Normal 4.0-11.0 [facility] Comment on above: Performed By: #### C BC #### [facility] [address] [place] [address] Dr. Tristan Craft FREE T3on 10-14-2021 FREE T3 2.03 pg/mlL Critically low 2.18-3.98 [facility] Comment on above: Performed By: #### T 4, CMP, TSH, LIPID, FT3 #### [facility] [address] [place] [address] Dr. Tristan Craft GLYCOHEMOGLOBIN A1Con 2021 ADA RECOMMENDATION SEE BELOW Normal [facility] Comment on above: Result Comment: ADA RECOMMENDED LIMIT 4.0 - 6.0 ADA THERAPEUTIC TARGET < 7.0 ACTION SUGGESTED > 7.0 Performed By: #### A 1C #### [facility] [address] [place] [address] Dr. Tristan Craft Glucose [Mass/Vol] 123 mg/dL Normal [facility] Comment on above: Performed By: #### A 1C #### [facility] [address] [place] [address] Dr. Tristan Craft HbA1c (Bld) [Mass fraction] 5.9 % Normal 4.5-6.2 [facility] Comment on above: Performed By: #### A 1C #### [facility] [address] [place] [address] Dr. Tristan Craft LIPID PROFILEon 10-14-2021 CHOL-HDL RATIO NORM SEE BELOW Normal [facility] Comment on above: Result Comment: 3.3 - 4.4 LOW RISK 4.4 - 7.1 AVERAGE RISK 7.1 - 11.0 MODERATE RISK >11.0 HIGH RISK Performed By: #### T 4, CMP, TSH, LIPID, FT3 #### [facility] [address] [address] [address] Tristan Craft Cholesterol [Mass/Vol] 126 mg/dL Normal <=200 [facility] Comment on above: Performed By: #### T 4, CMP, TSH, LIPID, FT3 #### [facility] [address] [address] [address] Tristan Craft Cholesterol in HDL [Mass/Vol] 53 mg/dL Normal 40-60 [facility] Comment on above: Performed By: #### T 4, CMP, TSH, LIPID, FT3 #### [facility] [address] [address] [address] Tristan Craft Cholesterol in LDL [Mass/Vol] 45.0 mg/dL Normal [facility] Comment on above: Performed By: #### T 4, CMP, TSH, LIPID, FT3 #### [facility] [address] [address] [address] Tristan Craft Cholesterol.total/Ch olesterol in HDL [Mass ratio] 2.4 {ratio} Normal [facility] Comment on above: Performed By: #### T 4, CMP, TSH, LIPID, FT3 #### [facility] [address] [address] [address] Tristan Craft HDL NORMAL > or = 60 mg/dl - LOW CARDIOVASCULAR RISK <40 mg/dl - HIGH CARDIOVASCULAR RISK Normal [facility] Comment on above: Performed By: #### T 4, CMP, TSH, LIPID, FT3 #### [facility] [address] [address] [address] Tristan Craft LDL CALC NORMAL SEE BELOW Normal [facility] Comment on above: Result Comment: <100 mg/dl OPTIMAL 100 - 129 mg/dl NEAR OR ABOVE OPTIMAL 130 - 159 mg/dl BORDERLINE HIGH 160 - 189 mg/dl HIGH >190 mg/dl VERY HIGH Performed By: #### T 4, CMP, TSH, LIPID, FT3 #### [facility] [address] [address] [address] Tristan Craft Triglyceride [Mass/Vol] 140 mg/dL Normal <=150 [facility] Comment on above: Performed By: #### T 4, CMP, TSH, LIPID, FT3 #### [facility] [address] [address] [address] Tristan Craft VLDL CALC 28.0 mg/dL Normal [facility] Comment on above: Performed By: #### T 4, CMP, TSH, LIPID, FT3 #### [facility] [address] [address] [address] Tristan Craft PROF 14(COMP METB)on 022 Albumin [Mass/Vol] 3.8 g/dL Normal 3.4-5.0 [facility] Comment on above: Performed By: #### T 4, CMP, TSH, LIPID, FT3 #### [facility] [address] [address] [address] Tristan Craft Albumin/Globulin [Mass ratio] 1.1 {ratio} Normal [facility] Comment on above: Performed By: #### T 4, CMP, TSH, LIPID, FT3 #### [facility] [address] [address] [address] Tristan Craft ALP [Catalytic activity/Vol] 87 U/L Normal 46-116 [facility] Comment on above: Performed By: #### T 4, CMP, TSH, LIPID, FT3 #### [facility] [address] [address] [address] Tristan Craft ALT [Catalytic activity/Vol] 24 U/L Normal 14-59 [facility] Comment on above: Performed By: #### T 4, CMP, TSH, LIPID, FT3 #### [facility] [address] [address] [address] Tristan Craft Anion gap [Moles/Vol] 12.9 mmol/L Normal [facility] Comment on above: Performed By: #### T 4, CMP, TSH, LIPID, FT3 #### [facility] [address] [address] [address] Tristan Craft AST [Catalytic activity/Vol] 20 U/L Normal 15-37 [facility] Comment on above: Performed By: #### T 4, CMP, TSH, LIPID, FT3 #### [facility] [address] [address] [address] Tristan Craft Bilirubin [Mass/Vol] 0.5 mg/dL Normal 0.2-1.0 [facility] Comment on above: Performed By: #### T 4, CMP, TSH, LIPID, FT3 #### [facility] [address] [place] [address] Dr. Tristan Craft Calcium [Mass/Vol] 8.6 mg/dL Normal 8.5-10.1 [facility] Comment on above: Performed By: #### T 4, CMP, TSH, LIPID, FT3 #### [facility] [address] [place] [address] Dr. Tristan Craft Chloride [Moles/Vol] 101 mmol/L Normal 98-107 [facility] Comment on above: Performed By: #### T 4, CMP, TSH, LIPID, FT3 #### [facility] [address] [place] [address] Dr. Tristan Craft CO2 [Moles/Vol] 27.7 mmol/L Normal 21.0-32.0 [facility] Comment on above: Performed By: #### T 4, CMP, TSH, LIPID, FT3 #### [facility] [address] [place] [address] Dr. Tristan Craft Creatinine [Mass/Vol] 0.93 mg/dL Normal 0.55-1.02 [facility] Comment on above: Performed By: #### T 4, CMP, TSH, LIPID, FT3 #### [facility] [address] [place] [address] Dr. Tristan Craft EGFR-AF KAZAKH >60 Normal >=60 [facility] Comment on above: Performed By: #### T 4, CMP, TSH, LIPID, FT3 #### [facility] [address] [place] [address] Dr. Tristan Craft EGFR-NON AF KAZAKH =60 Normal >=60 [facility] Comment on above: Performed By: #### T 4, CMP, TSH, LIPID, FT3 #### [facility] [address] [place] [address] Dr. Tristan Craft Globulin (S) [Mass/Vol] 3.6 g/dL Normal [facility] Comment on above: Performed By: #### T 4, CMP, TSH, LIPID, FT3 #### [facility] [address] [place] [address] Dr. Tristan Craft Glucose [Mass/Vol] 108 mg/dL Critically high 74-106 [facility] Comment on above: Performed By: #### T 4, CMP, TSH, LIPID, FT3 #### [facility] [address] [place] [address] Dr. Tristan Craft Potassium [Moles/Vol] 3.6 mmol/L Normal 3.5-5.1 [facility] Comment on above: Performed By: #### T 4, CMP, TSH, LIPID, FT3 #### [facility] [address] [place] [address] Dr. Tristan Craft Protein [Mass/Vol] 7.4 g/dL Normal 6.4-8.2 [facility] Comment on above: Performed By: #### T 4, CMP, TSH, LIPID, FT3 #### [facility] [address] [place] [address] Dr. Tristan Craft Sodium [Moles/Vol] 138 mmol/L Normal 136-145 [facility] Comment on above: Performed By: #### T 4, CMP, TSH, LIPID, FT3 #### [facility] [address] [place] [address] Dr. Tristan Craft Urea nitrogen [Mass/Vol] 18.0 mg/dL Normal 7.0-18.0 [facility] Comment on above: Performed By: #### T 4, CMP, TSH, LIPID, FT3 #### [facility] [address] [place] [address] Dr. Tristan Carft Urea nitrogen/Creatinine [Mass ratio] 19.4 mg/mg Normal [facility] Comment on above: Performed By: #### T 4, CMP, TSH, LIPID, FT3 #### [facility] [address] [place] [address] Dr. Tristan Craft T4on 10-14-2021 T4 [Mass/Vol] 6.80 ug/dL Normal 4.80-13.90 [facility] Comment on above: Performed By: #### T 4, CMP, TSH, LIPID, FT3 #### [facility] [address] [place] [address] Dr. Tristan Craft TSHon 10-14-2021 TSH 2.277 uIU/mL Normal 0.358-3.740 [facility] Comment on above: Performed By: #### T 4, CMP, TSH, LIPID, FT3 #### [facility] [address] [place] [address] Dr. Tristan Craft TSH RANGE SEE BELOW Normal [facility] Comment on above: Result Comment: <0.3 4 UIU/ml HYPERTHYROID 0.34-5.60 UIU/ml EUTHYROID >5.60 UIU/ml HYPOTHYROID Performed By: #### T 4, CMP, TSH, LIPID, FT3 #### [facility] [address] [place] [address] Dr. Tristan Craft VITAMIN D 25 OHon 10-14-2021 VIT D 25-OH 37.9 ng/mL Normal [facility] Comment on above: Performed By: #### V ITAD #### [facility] [address] [place] [address] Dr. Tristan Craft VIT D RANGES SEE BELOW Normal [facility] Comment on above: Result Comment: <20 ng/mL Vit D deficient 20 - <30 ng/mL Vit D insufficient 30 - 100 ng/mL Vit D sufficient >100 ng/mL Potential Toxicity Performed By: #### V ITAD #### [facility] [address] [place] [address] Dr. Tristan Craft Encounters Encounter Date Encounter Type Care Provider Facility Start: 08-15-2022 End: 08-16-[address] TEDDY FINK . Facility[facility] Start: 01-20-2022 End: 01-20-[address] TEDDY FINK . Facility[facility] Start: 10-14-2021 End: 10-15-[address] TEDDY FINK . Facility[facility] Payers Date Payer Category Payer Medicare [id number] 1961 Unknown [id number] 1955 Unknown [id number] [id number] [id number] 1955 Unknown [id number] 1955 Unknown [id number] [id number] Summary Purpose Family History No Family History Records Found Advance Directives No Advanced Directives Records Found Additional Source Comments INFORMATION SOURCE (unrecogn ized section and content) DATE CREATED AUTHOR 08/16/2022 [facility] FOR RECORDS PERTAINING TO PATIENTS WHO ARE [...] BE BASED ON THE PRIMARY CLINICAL RECORDS. [facility] [employer] provides no warranty or guarantee of the accuracy or completeness of information in this document.
== END 2023-08-25 09:51 | disposition home or self-care (01) ==
LOC: MAMMO 09:50
PROVIDERS: PCP Family Medicine; Visit Provider Family Medicine
DX: Z12.31 Encounter for screening mammogram for malignant neoplasm of breast (principal); Z80.3 Family history of malignant neoplasm of breast; Z80.8 Family history of malignant neoplasm of other organs or systems
CPT/HCPCS: 77063; 77067

== ENCOUNTER 2023-10-02 11:55 | Outpatient (OUT) | payer MEDICARE, BC, SELFPAY ==
--- NOTE | 2023-10-02 12:00 | XR_ITS ---
[address] [address] Patient Name: MIGUEL ALCOCER MRN: [id number] date: 1955 Sex: F Assigned Patient Location: [facility] Current Patient Location: Accession/Order Number: [id number] Exam Date: 10/02/2023 12:05 Report Date: 10/03/2023 07:36 At the request of: TEDDY FINK Procedure: XR wrist RT min 3V PROCEDURE: XR wrist RT min 3V COMPARISON: None. HISTORY: right wrist pain M25.531 FINDINGS: BONES:No acute fracture or dislocation. Severe osteoarthritis at the first carpometacarpal joint with joint collapse bony remodeling and marginal osteophyte formation. SOFT TISSUES:Negative. No visible soft tissue swelling. EFFUSION:None visible. OTHER: Negative. XR/XR wrist RT min 3V IMPRESSION: Severe osteoarthritis first carpal metacarpal joint Electronically authenticated by: TERRIE NEW Date: 10/03/2023 07:36
== END 2023-10-02 11:56 | disposition home or self-care (01) ==
LOC: RAD 11:56
PROVIDERS: PCP Family Medicine; Visit Provider Family Medicine
DX: M25.531 Pain in right wrist (principal); M18.9 Osteoarthritis of first carpometacarpal joint, unspecified
CPT/HCPCS: 73110

== ENCOUNTER 2023-10-11 07:53 | Outpatient (RCR) | payer MEDICARE, BC, SELFPAY | END 2023-11-17 11:45 | disposition home or self-care (01) | LOC: PT 07:53 | PROVIDERS: PCP Family Medicine; Visit Provider Family Medicine | DX: R26.89 Other abnormalities of gait and mobility (principal) | CPT/HCPCS: 97110; 97112; 97162; 97530 ==

== ENCOUNTER 2023-10-17 11:21 | Outpatient (OUT) | payer MEDICARE, BC, SELFPAY ==
[2023-10-17 12:05] LABS: Basophils Absolute Auto 0.1 10^3/uL (0.0-0.1); Basophils Percent Auto 0.6 % (0.2-2.0); Eosinophils Absolute Auto 0.2 10^3/uL (0.0-0.7); Eosinophils Percent Auto 2.2 % (0.9-7.0); Hematocrit 41.5 % (36.0-48.0); Hemoglobin 12.7 g/dL (12.0-16.0); Immature Granulocytes Abs Auto 0.04 10^3/uL (0.00-0.03); Immature Granulocytes Pct Auto 0.5 % (0.0-0.5); Lymphocytes Absolute Auto 1.9 10^3/uL (1.2-3.8); Lymphocytes Percent Auto 22.4 % (20.5-60.0); Mean Corpuscular HGB Conc 30.6 g/dL (29.9-35.2); Mean Corpuscular Hemoglobin 27.6 pg (26.7-34.0); Mean Corpuscular Volume 90.2 fL (81.0-99.0); Mean Platelet Volume 10.3 fL (9.5-13.5); Monocytes Absolute Auto 0.7 10^3/uL (0.3-0.8); Monocytes Percent Auto 8.1 % (1.7-12.0); Neutrophils Absolute Auto 5.5 10^3/uL (1.4-6.5); Neutrophils Percent Auto 66.2 % (43.0-75.0); Platelet Count 245 10^3/uL (150-450); Red Cell Distribution Width 15.5 % (11.0-15.0); White Blood Count 8.4 10^3/uL (4.0-11.0)
[2023-10-17 12:19] LABS: Estimated Average Glucose 114 mg/dL; Glycohemoglobin A1C 5.6 % (4.5-6.2)
[2023-10-17 12:36] LABS: Alanine Aminotransferase 24 U/L (14-59); Albumin Globulin Ratio 1.1; Albumin Level 3.9 g/dL (3.4-5.0); Alkaline Phosphatase 107 U/L (46-116); Anion Gap 12.1; Aspartate Amino Transferase 19 U/L (15-37); BUN Creatinine Ratio 20.2; Bilirubin Total 0.5 mg/dL (0.2-1.0); Calcium 9.5 mg/dL (8.5-10.1); Carbon Dioxide 29.9 mmol/L (21.0-32.0); Chloride 101 mmol/L (98-107); Chol HDL Ratio 2.5; Cholesterol 165 mg/dL (<=200); Estimated GFR (African America >60 (>=60); Estimated GFR (Non-African Ame >60 (>=60); Free T3 2.38 pg/mL (2.18-3.98); Globulin 3.5 g/dL; Glucose 97 mg/dL (74-106); HDL Cholesterol 67 mg/dL (40-60); Sodium 139 mmol/L (136-145); Thyroid Stimulating Hormone 1.995 uIU/mL (0.358-3.740); Total Protein 7.4 g/dL (6.4-8.2); Triglycerides 175 mg/dL (<=150)
== END 2023-10-17 11:22 | disposition home or self-care (01) ==
LOC: LAB 11:23
PROVIDERS: PCP Family Medicine; Visit Provider Family Medicine
DX: I48.0 Paroxysmal atrial fibrillation (principal); K21.9 Gastro-esophageal reflux disease without esophagitis; I10 Essential (primary) hypertension; E03.9 Hypothyroidism, unspecified
CPT/HCPCS: 36415; 80053; 80061; 83036; 84436; 84443; 84481; 85025

== ENCOUNTER 2024-03-13 08:15 | Outpatient (OUT) | payer MEDICARE, BC, SELFPAY ==
--- OUTSIDE RECORDS SUMMARY | 2024-03-13 08:19 | XMS_ITS | CCD ---
Author Organization [facility] Care Team Providers Care Forensic Accountant Name Role Phone ALEKS ., DR ESPINAL Admitting Unavailable HOY ., DR ESPINAL Attending Unavailable HOY ., DR ESPINAL Primary Care Unavailable HOY ., DR ESPINAL Consulting Unavailable CENTERTON, DR TERRIE Maldonado Consulting Unavailable HOY ., DR ESPINAL Admitting Unavailable HOY ., DR ESPINAL Attending Unavailable HOY ., DR ESPINAL Primary Care Unavailable HOY ., DR ESPINAL Consulting Unavailable HOY ., DR ESPINAL Admitting Unavailable HOY ., DR ESPINAL Attending Unavailable HOY ., DR ESPINAL Primary Care Unavailable HOY ., DR ESPINAL Consulting Unavailable MD Teddy Fink Primary Care Provider [phone] JUANCARLOS Smith Attending Provider NAGA ANGELES Referring Unavailable HOY, TEDDY M Primary Care Unavailable NAGA ANGELES Referring Unavailable HOY, TEDDY M Primary Care Unavailable NAGA ANGELES Admitting Unavailable NAGA ANGELES Attending Unavailable HOY, TEDDY M Primary Care Unavailable TERRIE JOYCE Attending Unavailable HOY, TEDDY M Primary Care Unavailable HOY, TEDDY M Referring Unavailable HOY, TEDDY M Primary Care Unavailable NAGA ANGELES Admitting Unavailable NAGA ANGELES Attending Unavailable HOY, TEDDY M Primary Care Unavailable TERRIE JOYCE Attending Unavailable HOY, TEDDY M Primary Care Unavailable Allergies Allergy Classification Reported Allergen(s) Allergy Type Date of Onset Reaction(s) Facility (3 sources) Amoxicillin Drug Allergy 4 Unknown Reaction [facility] Repository (4 sources) Codeine; Translations: [CODEINE] Drug Allergy 4 Hives [facility] Repository (3 sources) Morphine Drug Allergy 4 Unknown Reaction [facility] Repository (1 source) Penicillins; Translations: [PENICILLINS] Propensity to adverse reactions to drug (disorder) 3 [facility] Repository Medications Current Medications Medication Drug Class(es) Dates Sig (Normalized) Sig (Original) alendronic acid 70 mg oral tablet (2 sources) Bisphosphonate Start: 09-23-2023 take 70 mg by mouth every week Alendronate Active 70 MG PO every week September 23, 2023 12:00am amitriptyline hydrochloride 25 mg oral tablet (2 sources) Tricyclic Antidepressant Start: 09-23-2023 take 25 mg by mouth once daily at bedtime Amitriptyline Active 25 MG PO Daily at bedtime September 23, 2023 12:00am amLODIPine 2.5 mg oral tablet (2 sources) Dihydropyridine Calcium Channel Job Start: 09-23-2023 take 2.5 mg by mouth twice daily Amlodipine Active 2.5 MG PO Twice daily September 23, 2023 12:00am apixaban 5 mg oral tablet (2 sources) Factor Xa Inhibitor Start: 09-23-2023 take 5 mg by mouth twice daily Apixaban Active 5 MG PO Twice daily September 23, 2023 12:00am atorvastatin 20 mg oral tablet (2 sources) HMG-CoA Reductase Inhibitor Start: 09-23-2023 take 20 mg by mouth once daily Atorvastatin Active 20 MG PO Daily September 23, 2023 12:00am celecoxib 100 mg oral capsule (2 sources) Nonsteroidal Anti-inflammatory Drug Start: 09-23-2023 take 100 mg by mouth once Celecoxib Active 100 MG PO Once September 23, 2023 12:00am cholecalciferol 0.125 mg oral capsule (2 sources) Vitamin D Start: 09-23-2023 take 125 ug by mouth once daily Cholecalciferol (Vitamin D3) Active 125 MCG PO Daily September 23, 2023 12:00am levothyroxine sodium 0.075 mg oral tablet (2 sources) l-Thyroxine Start: 09-23-2023 take 75 ug by mouth once daily Levothyroxine Active 75 MCG PO Daily September 23, 2023 12:00am liothyronine sodium 0.025 mg oral tablet (2 sources) l-Triiodothyronine Start: 09-23-2023 take 25 ug by mouth once daily Liothyronine Active 25 MCG PO Daily September 23, 2023 12:00am minocycline 100 mg oral capsule (2 sources) Tetracycline-class Drug Start: 09-23-2023 take 100 mg by mouth once daily Minocycline Active 100 MG PO Daily September 23, 2023 12:00am pantoprazole 40 mg delayed release oral tablet (2 sources) Proton Pump Inhibitor Start: 09-23-2023 Pantoprazole Active MG PO September 23, 2023 12:00am propranolol hydrochloride 20 mg oral tablet (2 sources) beta-Adrenergic Job Start: 09-23-2023 take 20 mg by mouth once Propranolol Active 20 MG PO Once September 23, 2023 12:00am sertraline 100 mg oral tablet (2 sources) Serotonin Reuptake Inhibitor Start: 09-23-2023 take 200 mg by mouth once daily Sertraline Active 200 MG PO Daily September 23, 2023 12:00am Vitamins A,C,Y-Rvzf-Onfqqg (Preservision Areds) 4,296 mcg-226 mg-90 mg capsule (2 sources) Start: 09-23-2023 take 1 capsule by mouth twice daily Vitamins A,C,X-Sycu-Rtwwkb (Preservision Areds) 4,296 mcg-226 mg-90 mg capsule Active 1 CAP PO Twice daily September 23, 2023 12:00am Problems Active Problems Problem Classification Problem Date Documented Da te Episodic/Chronic Cataract (1 source) Cataract Onset: 01-11-2024 Disorders of lipid metabolism (4 sources) Hyperlipidemia, unspecified; Translations: [HYPERLIPIDEMIA UNSPECIFIED] Onset: 10-14-2021 Chronic Essential hypertension (1 source) Essential (primary) hypertension; Translations: [Essential (primary) hypertension] Onset: 12-26-2023 Chronic Nutritional deficiencies (1 source) Vitamin D [...] : DR TEDDY FINK . Admission #: [id number] Family : Order #: [id number] CLICK HERE TO VIEW EXAM RADIOLOGY REPORT [...] brain cancer at age 47. LOCATION: [facility] BREAST COMPOSITION: Scattered areas fibroglandular [...] MD on 08/15/2022 at 11:16 Normal [facility] Covid-19 PCR (CVDTBH)on 01-03 SARS-CoV-2 (COVID-19) RNA MARITZA+probe Ql (Unsp spec) Detected Critically abnormal NOT DETECTED [facility] Comment on above: Result Comment: This test is not yet approved or cleared by the [place] FDA. When there are no FDA-approved or cleared tests available, and other criteria are met, FDA can make tests available under an emergency access mechanism called an Emergency Use Authorization (EUA). The EUA for this test is supported by the Corporate Relations Manager of Health and Human Service's (HHS's) declaration [...] used). Performed By: #### C VDTBH #### [facility] [address] [place] [address] Dr. Tristan Craft CBC AUTO DIFFon 10-14-2021 BASO # 0.1 103/ul Normal 0.0-0.1 [facility] Comment on above: Performed By: #### C BC #### [facility] [address] [place] [address] Dr. Tristan Craft Basophils/100 WBC (Bld) 0.5 % Normal 0.2-2.0 [facility] Comment on above: Performed By: #### C BC #### [facility] [address] [place] [address] Dr. Tristan Craft EO # 0.2 103/ul Normal 0.0-0.7 [facility] Comment on above: Performed By: #### C BC #### [facility] [address] [place] [address] Dr. Tristan Craft Eosinophils/100 WBC (Bld) 1.6 % Normal 0.9-7.0 [facility] Comment on above: Performed By: #### C BC #### [facility] [address] [place] [address] Dr. Tristan Craft Erythrocyte distribution width (RBC) [Ratio] 14.3 % Normal 11.0-15.0 [facility] Comment on above: Performed By: #### C BC #### [facility] [address] [place] [address] Dr. Tristan Craft Hematocrit (Bld) [Volume fraction] 45.7 % Normal 36.0-48.0 [facility] Comment on above: Performed By: #### C BC #### [facility] [address] [place] [address] Dr. Tristan Craft Hemoglobin (Bld) [Mass/Vol] 14.3 g/dL Normal 12.0-16.0 [facility] Comment on above: Performed By: #### C BC #### [facility] [address] [place] [address] Dr. Tristan Craft IG # 0.03 10e3/ul Normal 0.00-0.03 [facility] Comment on above: Performed By: #### C BC #### [facility] [address] [place] [address] Dr. Tristan Craft IG % 0.3 % Normal 0.0-0.5 [facility] Comment on above: Performed By: #### C BC #### [facility] [address] [place] [address] Dr. Tristan Craft LYMPH # 2.5 103/ul Normal 1.2-3.8 [facility] Comment on above: Performed By: #### C BC #### [facility] [address] [place] [address] Dr. Tristan Craft Lymphocytes/100 WBC (Bld) 26.7 % Normal 20.5-60.0 [facility] Comment on above: Performed By: #### C BC #### [facility] [address] [place] [address] Dr. Tristan Craft MANUAL DIFF REQ NO Normal [facility] Comment on above: Performed By: #### C BC #### [facility] [address] [place] [address] Dr. Tristan Craft MCH (RBC) [Entitic mass] 27.8 pg Normal 26.7-34.0 [facility] Comment on above: Performed By: #### C BC #### [facility] [address] [place] [address] Dr. Tristan Craft MCHC (RBC) [Mass/Vol] 31.3 g/dL Normal 29.9-35.2 [facility] Comment on above: Performed By: #### C BC #### [facility] [address] [place] [address] Dr. Tristan Craft MCV (RBC) [Entitic vol] 88.9 fL Normal 81.0-99.0 [facility] Comment on above: Performed By: #### C BC #### [facility] [address] [place] [address] Dr. Tristan Craft MONO # 0.8 103/ul Normal 0.3-0.8 [facility] Comment on above: Performed By: #### C BC #### [facility] [address] [place] [address] Dr. Tristan Craft Monocytes/100 WBC (Bld) 8.0 % Normal 1.7-12.0 [facility] Comment on above: Performed By: #### C BC #### [facility] [address] [place] [address] Dr. Tristan Craft NEUT # 5.9 103/ul Normal 1.4-6.5 [facility] Comment on above: Performed By: #### C BC #### [facility] [address] [place] [address] Dr. Tristan Craft Neutrophils/100 WBC (Bld) 62.9 % Normal 43.0-75.0 [facility] Comment on above: Performed By: #### C BC #### [facility] [address] [place] [address] Dr. Tristan Craft Platelet mean volume (Bld) [Entitic vol] 10.4 fL Normal 9.5-13.5 [facility] Comment on above: Performed By: #### C BC #### [facility] [address] [place] [address] Dr. Tristan Craft PLT 302 103/ul Normal 150-450 [facility] Comment on above: Performed By: #### C BC #### [facility] [address] [address] [address] Tristan Craft RBC 5.14 106/ul Normal 4.20-5.40 [facility] Comment on above: Performed By: #### C BC #### [facility] [address] [address] [address] Tristan Craft WBC 9.3 103/ul Normal 4.0-11.0 [facility] Comment on above: Performed By: #### C BC #### [facility] [address] [place] [address] Dr. Tristan Craft FREE T3on 10-14-2021 FREE T3 2.03 pg/mlL Critically low 2.18-3.98 [facility] Comment on above: Performed By: #### T 4, CMP, TSH, LIPID, FT3 #### [facility] [address] [place] [address] Dr. Tristan Craft GLYCOHEMOGLOBIN A1Con 2021 ADA RECOMMENDATION SEE BELOW Normal [facility] Comment on above: Result Comment: ADA RECOMMENDED LIMIT 4.0 - 6.0 ADA THERAPEUTIC TARGET < 7.0 ACTION SUGGESTED > 7.0 Performed By: #### A 1C #### [facility] [address] [place] [address] Dr. Tristan Craft Glucose [Mass/Vol] 123 mg/dL Normal [facility] Comment on above: Performed By: #### A 1C #### [facility] [address] [place] [address] Dr. Tristan Craft HbA1c (Bld) [Mass fraction] 5.9 % Normal 4.5-6.2 [facility] Comment on above: Performed By: #### A 1C #### [facility] [address] [place] [address] Dr. Tristan Craft LIPID PROFILEon 10-14-2021 CHOL-HDL RATIO NORM SEE BELOW Normal [facility] Comment on above: Result Comment: 3.3 - 4.4 LOW RISK 4.4 - 7.1 AVERAGE RISK 7.1 - 11.0 MODERATE RISK >11.0 HIGH RISK Performed By: #### T 4, CMP, TSH, LIPID, FT3 #### [facility] [address] [address] [address] Tristan Craft Cholesterol [Mass/Vol] 126 mg/dL Normal <=200 [facility] Comment on above: Performed By: #### T 4, CMP, TSH, LIPID, FT3 #### [facility] [address] [address] [address] Tristan Craft Cholesterol in HDL [Mass/Vol] 53 mg/dL Normal 40-60 [facility] Comment on above: Performed By: #### T 4, CMP, TSH, LIPID, FT3 #### [facility] [address] [address] [address] Tristan Craft Cholesterol in LDL [Mass/Vol] 45.0 mg/dL Normal [facility] Comment on above: Performed By: #### T 4, CMP, TSH, LIPID, FT3 #### [facility] [address] [address] [address] Tristan Craft Cholesterol.total/Ch olesterol in HDL [Mass ratio] 2.4 {ratio} Normal [facility] Comment on above: Performed By: #### T 4, CMP, TSH, LIPID, FT3 #### [facility] [address] [address] [address] Tristan Craft HDL NORMAL > or = 60 mg/dl - LOW CARDIOVASCULAR RISK <40 mg/dl - HIGH CARDIOVASCULAR RISK Normal [facility] Comment on above: Performed By: #### T 4, CMP, TSH, LIPID, FT3 #### [facility] [address] [address] [address] Tristan Craft LDL CALC NORMAL SEE BELOW Normal [facility] Comment on above: Result Comment: <100 mg/dl OPTIMAL 100 - 129 mg/dl NEAR OR ABOVE OPTIMAL 130 - 159 mg/dl BORDERLINE HIGH 160 - 189 mg/dl HIGH >190 mg/dl VERY HIGH Performed By: #### T 4, CMP, TSH, LIPID, FT3 #### [facility] [address] [address] [address] Tristan Craft Triglyceride [Mass/Vol] 140 mg/dL Normal <=150 [facility] Comment on above: Performed By: #### T 4, CMP, TSH, LIPID, FT3 #### [facility] [address] [address] [address] Tristan Craft VLDL CALC 28.0 mg/dL Normal [facility] Comment on above: Performed By: #### T 4, CMP, TSH, LIPID, FT3 #### [facility] [address] [address] [address] Tristan Craft PROF 14(COMP METB)on 022 Albumin [Mass/Vol] 3.8 g/dL Normal 3.4-5.0 [facility] Comment on above: Performed By: #### T 4, CMP, TSH, LIPID, FT3 #### [facility] [address] [address] [address] Tristan Craft Albumin/Globulin [Mass ratio] 1.1 {ratio} Normal [facility] Comment on above: Performed By: #### T 4, CMP, TSH, LIPID, FT3 #### [facility] [address] [address] [address] Tristan Craft ALP [Catalytic activity/Vol] 87 U/L Normal 46-116 [facility] Comment on above: Performed By: #### T 4, CMP, TSH, LIPID, FT3 #### [facility] [address] [address] [address] Tristan Craft ALT [Catalytic activity/Vol] 24 U/L Normal 14-59 [facility] Comment on above: Performed By: #### T 4, CMP, TSH, LIPID, FT3 #### [facility] [address] [address] [address] Tristan Craft Anion gap [Moles/Vol] 12.9 mmol/L Normal [facility] Comment on above: Performed By: #### T 4, CMP, TSH, LIPID, FT3 #### [facility] [address] [address] [address] Tristan Craft AST [Catalytic activity/Vol] 20 U/L Normal 15-37 [facility] Comment on above: Performed By: #### T 4, CMP, TSH, LIPID, FT3 #### [facility] [address] [address] [address] Tristan Craft Bilirubin [Mass/Vol] 0.5 mg/dL Normal 0.2-1.0 [facility] Comment on above: Performed By: #### T 4, CMP, TSH, LIPID, FT3 #### [facility] [address] [place] [address] Dr. Tristan Craft Calcium [Mass/Vol] 8.6 mg/dL Normal 8.5-10.1 [facility] Comment on above: Performed By: #### T 4, CMP, TSH, LIPID, FT3 #### [facility] [address] [place] [address] Dr. Tristan Craft Chloride [Moles/Vol] 101 mmol/L Normal 98-107 [facility] Comment on above: Performed By: #### T 4, CMP, TSH, LIPID, FT3 #### [facility] [address] [place] [address] Dr. Tristan Craft CO2 [Moles/Vol] 27.7 mmol/L Normal 21.0-32.[address] [facility] Comment on above: Performed By: #### T 4, CMP, TSH, LIPID, FT3 #### [facility] [address] [place] [address] Dr. Tristan Craft Creatinine [Mass/Vol] 0.93 mg/dL Normal 0.55-1.02 [facility] Comment on above: Performed By: #### T 4, CMP, TSH, LIPID, FT3 #### [facility] [address] [place] [address] Dr. Tristan Craft EGFR-AF HONG KONGER >60 Normal >=[address] [facility] Comment on above: Performed By: #### T 4, CMP, TSH, LIPID, FT3 #### [facility] [address] [place] [address] Dr. Tristan Craft EGFR-NON AF [place]ER =60 Normal >=60 [facility] Comment on above: Performed By: #### T 4, CMP, TSH, LIPID, FT3 #### [facility] [address] [place] [address] Dr. Tristan Craft Globulin (S) [Mass/Vol] 3.6 g/dL Normal [facility] Comment on above: Performed By: #### T 4, CMP, TSH, LIPID, FT3 #### [facility] [address] [place] [address] Dr. Tristan Craft Glucose [Mass/Vol] 108 mg/dL Critically high 74-106 [facility] Comment on above: Performed By: #### T 4, CMP, TSH, LIPID, FT3 #### [facility] [address] [place] [address] Dr. Tristan Craft Potassium [Moles/Vol] 3.6 mmol/L Normal 3.5-5.1 [facility] Comment on above: Performed By: #### T 4, CMP, TSH, LIPID, FT3 #### [facility] [address] [place] [address] Dr. Tristan Craft Protein [Mass/Vol] 7.4 g/dL Normal 6.4-8.2 [facility] Comment on above: Performed By: #### T 4, CMP, TSH, LIPID, FT3 #### [facility] [address] [place] [address] Dr. Tristan Craft Sodium [Moles/Vol] 138 mmol/L Normal 136-145 [facility] Comment on above: Performed By: #### T 4, CMP, TSH, LIPID, FT3 #### [facility] [address] [place] [address] Dr. Tristan Craft Urea nitrogen [Mass/Vol] 18.0 mg/dL Normal 7.0-18.0 [facility] Comment on above: Performed By: #### T 4, CMP, TSH, LIPID, FT3 #### [facility] [address] [place] [address] Dr. Tristan Craft Urea nitrogen/Creatinine [Mass ratio] 19.4 mg/mg Normal [facility] Comment on above: Performed By: #### T 4, CMP, TSH, LIPID, FT3 #### [facility] [address] [place] [address] Dr. Tristan Craft T4on 10-14-2021 T4 [Mass/Vol] 6.80 ug/dL Normal 4.80-13.90 [facility] Comment on above: Performed By: #### T 4, CMP, TSH, LIPID, FT3 #### [facility] [address] [place] [address] Dr. Tristan Craft TSHon 10-14-2021 TSH 2.277 uIU/mL Normal 0.358-3.740 [facility] Comment on above: Performed By: #### T 4, CMP, TSH, LIPID, FT3 #### [facility] [address] [place] [address] Dr. Tristan Craft TSH RANGE SEE BELOW Normal [facility] Comment on above: Result Comment: <0.3 4 UIU/ml HYPERTHYROID 0.34-5.60 UIU/ml EUTHYROID >5.60 UIU/ml HYPOTHYROID Performed By: #### T 4, CMP, TSH, LIPID, FT3 #### [facility] [address] [place] [address] Dr. Tristan Craft VITAMIN D 25 OHon 10-14-2021 VIT D 25-OH 37.9 ng/mL Normal [facility] Comment on above: Performed By: #### V ITAD #### [facility] [address] [place] [address] Dr. Tristan Craft VIT D RANGES SEE BELOW Normal [facility] Comment on above: Result Comment: <20 ng/mL Vit D deficient 20 - <30 ng/mL Vit D insufficient 30 - 100 ng/mL Vit D sufficient >100 ng/mL Potential Toxicity Performed By: #### V ITAD #### [facility] [address] [place] [address] Dr. Tristan Craft Vital Signs Date Time Vital Sign Value Performing Clinician Faci lity 09-23-2023 09:56-0400 Body height 157.48 cm MD Teddy Fink Work Phone: [facility] 09-23-2023 09:56-0400 Body temperature 97.9 [degF] MD Teddy Fink Work Phone: [facility] 09-23-2023 09:56-0400 Diastolic blood pressure 68 mm[Hg] MD Teddy Fink Work Phone: [facility] 09-23-2023 09:56-0400 Heart rate 59 /min MD Teddy Fink Work Phone: [facility] 09-23-2023 09:56-0400 Respiratory rate 16 /min MD Teddy Fink Work Phone: [facility] 09-23-2023 09:56-0400 SaO2% (BldA) [Mass fraction] 99 % MD Teddy Fink Work Phone: [facility] 09-23-2023 09:56-0400 Systolic blood pressure 116 mm[Hg] MD Teddy Fink Work Phone: [facility] Encounters Encounter Date Encounter Type Care Provider Facility Start: 02-01-2024 End: 02-01-2024 Evaluation and management of inpatient [facility] Start: 02-01-2024 End: 02-01-2024 Evaluation and management of inpatient NAGA E [facility] Start: 01-31-2024 End: 01-31-2024 ambulatory [facility] Start: 01-11-2024 End: 01-11-2024 Evaluation and management of inpatient [facility] Start: 01-11-2024 End: 01-11-2024 Evaluation and management of inpatient N[facility] E [facility] Start: 12-26-2023 End: 12-26-2023 [facility] Start: 12-26-2023 Encounter for other preprocedural examination [facility] Start: 09-23-2023 End: 09-23-2023 ambulatory MD Teddy Fink Work Phone: [facility] Work Phone: Start: 09-23-2023 End: 09-23-2023 Patient encounter procedure MD Teddy Fink Work Phone: [facility] Work Phone: Start: 08-15-2022 End: 08-16-[address] TEDDY FINK . Facility:[facility] Start: 01-20-2022 End: 01-20-[address] TEDDY FINK . Facility:[facility] Start: 10-14-2021 End: 10-15-[address] TEDDY FINK . Facility: Procedures Date Procedure Procedure Detail Performing Clinician Start: 09-23-2023 Plain X-ray of right hand MD Teddy Fink Work Phone: Payers Date Payer Category Payer Medicare [id number] 1961 Unknown [id number] 1955 Unknown [id number] 2.16.84 [id number] 1955 Unknown [id number] 2.16.84 [id number] 1955 Unknown [id number] 2.16.84 [id number] 1953 Unknown [id number] 2.16.8 [id number] 1953 Unknown [id number] 2.16.8 [id number] 1953 Unknown [id number] 2.16.8 [id number] 1953 Unknown [id number] 2.16.8 [id number] 1953 Unknown [id number] 2.16.8 [id number] 1953 Unknown [id number] 2.16.8 [id number] 1953 Unknown [id number] 2.16.8 [id number] 1953 Unknown [id number] 2.16.8 [id number] 1953 Unknown [id number] 2.16.8 [id number] Unknown [facility] [id number] Social History Date Type Detail Facility Start: 09-23-2023 Tobacco smoking stat [facility] Never smoked tobacco (finding) [facility] Start: 1955 Sex Assigned At Female F [facility] Evaluation note Note Date & Type Note Facility Evaluation note No assessment information availa [facility] Work Phone: Summary Purpose Family History No Family History Records Found Relationship Condition Age at Onset Recorded Date/T michelle Not Specified High blood cholesterol Unknown father Unknown family member Unknown Advance Directives No Advanced Directives Records Found Advance Directive Response Recorded Date/ Time Advance Directives No October 29 2:58pm Chief Complaint and Reason for Visit Chief Complaint Right wrist pain, s/ p fall at home W19.XXXA - Unspecified fall, initial encounter Additional Source Comments INFORMATION SOURCE (unrecogn ized section and content) DATE CREATED AUTHOR 08/16/2022 [facility] DATE CREATED AUTHOR AUTHOR'S ORGANIZ ATION 02/02/2024 [facility] Care Teams (unrecognized sec tion and content) Team Status: Active Member Role Status Dates Teddy Fikn MD Primary Care Provider Active Team Status: Inactive Member Role Status Dates Viola Smith APRN Attending Provider Active Start: September 23, 2023 End: September 23, 2023 Teddy Fink MD Primary Care Provider Active Start: September 23, 2023 End: September 23, 2023 Team Status: Active Member Role Status Dates Teddy Fink MD Primary Care Provider Active Start: September 23, 2023 Viola Smith APRN Attending Provider Active Start: September 23, 2023 Team Status: Inactive Member Role Status Dates Teddy Fink MD Primary Care Provider Active Start: September 23, 2023 End: September 23, 2023 Viola Smith APRN Attending Provider Active Start: September 23, 2023 End: September 23, 2023 Goals (unrecognized section and content) Goals may be documented in a n alternate sectionGoals may be documented in an alternate section FOR RECORDS PERTAINING TO PATIENTS WHO ARE [...] BE BASED ON THE PRIMARY CLINICAL RECORDS. [facility] [employer] provides no warranty or guarantee of the accuracy or completeness of information in this document.
[2024-03-13 08:35] LABS: Basophils Percent Auto 0.4 % (0.2-2.0); Eosinophils Absolute Auto 0.2 10^3/uL (0.0-0.7); Eosinophils Percent Auto 1.6 % (0.9-7.0); Hematocrit 41.9 % (36.0-48.0); Hemoglobin 13.5 g/dL (12.0-16.0); Immature Granulocytes Abs Auto 0.04 10^3/uL (0.00-0.03); Immature Granulocytes Pct Auto 0.4 % (0.0-0.5); Lymphocytes Percent Auto 18.7 % (20.5-60.0); Mean Corpuscular HGB Conc 32.2 g/dL (29.9-35.2); Mean Corpuscular Hemoglobin 28.7 pg (26.7-34.0); Mean Platelet Volume 9.9 fL (9.5-13.5); Monocytes Absolute Auto 0.9 10^3/uL (0.3-0.8); Monocytes Percent Auto 7.9 % (1.7-12.0); Neutrophils Absolute Auto 7.7 10^3/uL (1.4-6.5); Platelet Count 210 10^3/uL (150-450); Red Blood Count 4.71 10^6/uL (4.20-5.40); Red Cell Distribution Width 14.6 % (11.0-15.0); White Blood Count 10.9 10^3/uL (4.0-11.0)
[2024-03-13 08:59] LABS: Free T4 1.11 ng/dL (0.76-1.46)
--- NOTE | 2024-03-13 09:00 | CA_ITS ---
Patient Name: MIGUEL ALCOCER MR#: [id number] : 1955 Exam Date: 03/13/2024 Ordering Doctor: DR TDEDY FINK . ECHOCARDIOGRAM REPORT PROCEDURE: CA ECHO DOPPLER COMPLETE INDICATIONS: Atrial fibrillation, hypertension COMPARISON: None. DESCRIPTION: COMPLETE ECHOCARDIOGRAM Real-time transthoracic echocardiography with 2D, M-mode, spectral and color flow Doppler performed. QUALITY: Technical quality was good. LEFT VENTRICLE: Normal chamber size. Proximal septal hypertrophy (sigmoid septum). LV EF: Global left ventricular systolic function is difficult to assess but appears reduced; visually estimated ejection fraction is 40 to 45%. Unable to assess regional wall motion abnormality; consider contrast study for better delineation of endocardial borders. DIASTOLIC: Not adequately assessed due to heart rhythm. ATRIAL SEPTUM: Inadequately seen. LEFT ATRIUM: Normal chamber size. RIGHT ATRIUM: Mild dilatation. RIGHT VENTRICLE: Upper normal limits in size. Decreased right ventricular systolic function. TRICUSPID VALVE: Normal mobility and thickness. Mild regurgitation. Doppler studies reveal moderately (45-60) elevated right sided pressures. RVSP 53 mmHg MITRAL VALVE: Normal mobility and thickness. No evidence of mitral valve stenosis. There is no mitral annular calcification. Mild to moderate mitral regurgitation. AORTIC VALVE: Normal trileaflet appearance. No visible sclerosis. Normal leaflet mobility. No evidence of aortic valve stenosis. No aortic regurgitation. AORTIC ROOT: Normal diameter and appearance. Ascending aorta is normal in size. PULMONIC VALVE: Normal thickness and mobility. No stenosis. No regurgitation. PERICARDIUM: No evidence of pericardial effusion. IVC: IVC is mildly dilated with no collapse. CONCLUSION: 1. Global left ventricular systolic function is difficult to assess but appears reduced; visually estimated ejection fraction is 40 to 45% 2. The right ventricle is upper normal limits in size with reduced systolic function 3. The right atrium is dilated 4. Mild tricuspid regurgitation 5. Moderately elevated right ventricular systolic pressure; RVSP 53 mmHg 6. Mild to moderate mitral regurgitation Adult Echocardiography Procedure Report Left Ventricle LVEDD (3.7 - 5.6 cm): 4.42 cm LVESD (2.2 - 4.0 cm): 3.59 cm LVIVS thickness (0.6 - 1.2 cm): 1.35 cm LVPW thickness (0.5 - 1.0 cm): 0.94 cm LVOT Max Gradient: 3.13 mm[Hg] LVOT Area (cm2): 0.89 m/s Peak Velocity (LVOT): 0.89 m/s LVOT Diameter 1.74 cm Left Atrium LA Volume Index (2D A2C): 28.81 ml/m2 Left Atrium Systolic Dimension: 4.36 cm Mitral Valve Mitral Valve E-Wave Peak Velocity: 0.99 m/s Right Ventricle Aorta AO Root Diam: 2.96 cm Ascending Ao Diam: 2.39 cm Aortic Valve AoV Area (Peak Jerzy): 1.55 cm2, 1.55 cm2 Peak Velocity(Antegrade Flow): 1.35 m/s Peak Gradient(Antegrade Flow): 7.32 mm[Hg] Tricuspid Valve Peak Velocity (Regurgitant Flow): 2.76 m/s, 3.06 m/s Pulmonic Valve Peak Velocity: 0.90 m/s Peak Gradient: 3.53 mm[Hg], 2.92 mm[Hg] Right Atrium Right Atrium Systolic Pressure: 54.35 ml, 54.35 ml Dictated by: Janiya Carlson M.D. on 03/13/2024 at 17:25 Approved by: Janiya Carlson M.D. on 03/13/2024 at 17:30
[2024-03-13 09:33] LABS: Anion Gap 14.3; Carbon Dioxide 26.8 mmol/L (21.0-32.0); Chloride 100 mmol/L (98-107); Glucose 91 mg/dL (74-106); Potassium 4.1 mmol/L (3.5-5.1); Sodium 137 mmol/L (136-145)
[2024-03-13 09:34] LABS: Alanine Aminotransferase 21 U/L (14-59); Albumin Globulin Ratio 1.2; Albumin Level 3.9 g/dL (3.4-5.0); Alkaline Phosphatase 99 U/L (46-116); Aspartate Amino Transferase 18 U/L (15-37); BUN Creatinine Ratio 21.2; Bilirubin Total 0.7 mg/dL (0.2-1.0); Calcium 9.1 mg/dL (8.5-10.1); Estimated GFR (African America >60 (>=60 mL/min/1.73m^2); Estimated GFR (Non-African Ame 55 (>=60 mL/min/1.73m^2); Globulin 3.2 g/dL; Total Protein 7.1 g/dL (6.4-8.2)
[2024-03-13 09:35] LABS: Thyroid Stimulating Hormone 3.446 uIU/mL (0.358-3.740)
== END 2024-03-13 08:16 | disposition home or self-care (01) ==
LOC: CARD 08:16
PROVIDERS: PCP Family Medicine; Visit Provider Family Medicine
DX: I48.0 Paroxysmal atrial fibrillation (principal); I50.30 Unspecified diastolic (congestive) heart failure; I11.0 Hypertensive heart disease with heart failure
CPT/HCPCS: 36415; 80053; 83880; 84439; 84443; 85025; 93306

== ENCOUNTER 2024-05-22 12:24 | Outpatient (OUT) | payer MEDICARE, BC, SELFPAY ==
--- OUTSIDE RECORDS SUMMARY | 2024-05-22 12:47 | XMS_ITS | CCD ---
Author Organization [facility] Care Team Providers Care Club Waiter/Waitress Name Role Phone ALEKS ., DR ESPINAL Admitting Unavailable HOY ., DR ESPINAL Attending Unavailable HOY ., DR ESPINAL Primary Care Unavailable HOY ., DR ESPINAL Consulting Unavailable ALLEN, DR TERRIE Maldonado Consulting Unavailable HOY ., DR ESPINAL Admitting Unavailable HOY ., DR ESPINAL Attending Unavailable HOY ., DR ESPINAL Primary Care Unavailable HOY ., DR ESPINAL Consulting Unavailable HOY ., DR ESPINAL Admitting Unavailable HOY ., DR ESPINAL Attending Unavailable HOY ., DR ESPINAL Primary Care Unavailable HOY ., DR ESPINAL Consulting Unavailable MD Teddy Parra Primary Care Provider [phone] JUANCARLOS Smith Attending Provider [phone] [place], EHAB Attending Unavailable GALE, JEN Referring Unavailable [place]WY, EHAB Admitting Unavailable [place], EHAB Attending Unavailable NAGA ANGELES Referring Unavailable HOY, TEDDY M Primary Care Unavailable NAGA ANGELES Referring Unavailable HOY, TEDDY M Primary Care Unavailable NAGA ANGELES Admitting Unavailable NAGA ANGELES Attending Unavailable HOY, TEDDY M Primary Care Unavailable TERRIE JOYCE Attending Unavailable HOY, TEDDY M Primary Care Unavailable HOY, TEDDY M Referring Unavailable HOY, TEDDY M Primary Care Unavailable BRIDGETTE NAGA E Admitting Unavailable NAGA ANGELES E Attending Unavailable HOY, TEDDY M Primary Care Unavailable TERRIE OJYCE Attending Unavailable HOY, TEDDY M Primary Care Unavailable ELTAHAWY, EHAB A. Referring Unavailable HOY, TEDDY M Primary Care Unavailable HOY, TEDDY M Referring Unavailable HOY, TEDDY M Primary Care Unavailable Allergies Allergy Classification Reported Allergen(s) Allergy Type Date of Onset Reaction(s) Facility (3 sources) Amoxicillin Drug Allergy 4 Unknown Reaction [facility] Repository (5 sources) Codeine; Translations: [CODEINE] Drug Allergy 4 Hives [facility] Repository (3 sources) Morphine Drug Allergy 4 Unknown Reaction [facility] Repository (2 sources) Penicillins; Translations: [PENICILLINS] Propensity to adverse reactions to drug (disorder) 3 [facility] Repository Medications Current Medications Medication Drug Class(es) [...] PO Daily September 23, 2023 12:00am Vitamins A,C,O-Hvra-Snuwom (Preservision Areds) 4,296 mcg-226 mg-90 mg capsule (2 sources) Start: 09-23-2023 take 1 capsule by mouth twice daily Vitamins A,C,X-Yaqu-Oufvsc (Preservision Areds) 4,296 mcg-226 mg-90 mg capsule Active 1 CAP PO Twice daily September 23, 2023 12:00am Problems Active Problems Problem Classification Problem Date Documented Da te Episodic/Chronic Cardiac dysrhythmias (2 sources) Paroxysmal atrial fibrillation; Translations: [Paroxysmal atrial fibrillation] Onset: 04-08-2024 Chronic Cataract (1 source) Cataract Onset: 01-11-2024 Congestive heart failure; nonhypertensive (4 sources) Acute on chronic diastolic (congestive) heart failure; Translations: [Acute systolic (congestive) heart failure] Onset: 04-19-2024 Chronic Coronary atherosclerosis and other heart disease (3 sources) Unstable angina; Translations: [Unstable angina] Onset: 04-08-2024 Chronic Disorders of lipid metabolism (4 sources) Hyperlipidemia, unspecified; Translations: [HYPERLIPIDEMIA UNSPECIFIED] Onset: 10-14-2021 Chronic Essential hypertension (1 source) Essential (primary) hypertension; Translations: [Essential (primary) hypertension] Onset: 12-26-2023 Chronic Nutritional deficiencies (1 source) Vitamin D deficiency, unspecified; Translations: [VITAMIN D DEFICIENCY UNSPECIFIED] Onset: 10-20-2021 Chronic Other gastrointestinal disorders (2 sources) Intra-abdominal and pelvic swelling, mass and lump, unspecified site; Translations: [Intra-abdominal and pelvic swelling, mass and lump, unspecified site] Onset: 04-19-2024 Episodic Other screening for suspected conditions (not mental disorders or infectious disease) (7 sources) Encounter for screening mammogram for malignant [...] [FAM HX MALIG NEOPLASM OTH ORGN/SYS] Onset: 08-16-2022 Episodic Unclassified (2 sources) CONTACT W/AND (SUSP) [...] Test Name Value Interpretation Reference Range Facility BASIC METABOLIC PANLon 04-29 Anion gap [Moles/Vol] 11 mmol/L Normal 5-15 [facility] Comment on above: Performed By: #### B HAZEL #### [facility] ([id number]) [address], [address] [place] [address] Calcium [Mass/Vol] 8.9 mg/dL Normal 8.5-10.5 [facility] Comment on above: Performed By: #### B MP #### [facility] ([id number]) [address], [address] [place] [address] Chloride [Moles/Vol] 104 mmol/L Normal 98-109 [facility] Comment on above: Performed By: #### B MP #### [facility] ([id number]) [address], [address] [place] [address] CO2 [Moles/Vol] 21 mmol/L Low 22-32 [facility] Comment on above: Performed By: #### B MP #### [facility] ([id number]) [address], [address] [place] [address] Creatinine [Mass/Vol] 0.88 mg/dL Normal 0.40-1.00 [facility] Comment on above: Result Comment: METH OD TRACEABLE TO IDMS STANDARD Performed By: #### B MP #### [facility] ([id number]) [address], [address] [place] [address] GFR/1.73 sq M.predicted among non-blacks MDRD (S/P/Bld) [Vol rate/Area] 70 mL/min/{1.73_m2} Normal >59 [facility] Comment on above: Result Comment: Reported eGFR is based on the CKD-EPI 2020 equation that does not use a race coefficient. Performed By: #### B MP #### [facility] ([id number]) [address], [address] [place] [address] Glucose [Mass/Vol] 100 mg/dL High 65-99 [facility] Comment on above: Performed By: #### B MP #### [facility] ([id number]) [address], [address] [place] [address] Potassium [Moles/Vol] 5.3 mmol/L High 3.5-5.0 [facility] Comment on above: Result Comment: SPEC IMEN HEMOLYZED, RESULTS INCREASED MODERATELY HEMOLYZED Performed By: #### B MP #### [facility] ([id number]) [address], [address] [place] [address] Sodium [Moles/Vol] 136 mmol/L Normal 134-146 [facility] Comment on above: Performed By: #### B MP #### [facility] ([id number]) [address], [address] [place] [address] Urea nitrogen [Mass/Vol] 24 mg/dL Normal 5-27 [facility] Comment on above: Performed By: #### B MP #### [facility] ([id number]) [address], [address] [place] [address] [facility] 04-19-2024 ANES Attestation signed by Janiya Jensen MD at 04/19/2024 8:07 AM Janiya Jensen MD, MPH, [facility], [facility], [facility] Interventional Cardiology Pager Email: [email or web address] Patient: Romana Holcomb Nathalia Procedure Information Date/Time: 04/19/24829 Procedure: Coronary angiography Location: [facility] 3 / [facility] (Cath) Providers: Janiya Jensen MD Clinical information reviewed: Allergies Meds OB Status Physical Exam Airway Mallampati: III TM distance: >3 FB Neck ROM: full Cardiovascular Rhythm: regular Rate: normal Dental Pulmonary Abdominal Anesthesia Plan ASA 3 (Conscious sedation) Anesthetic plan and risks discussed with patient. Use of blood products discussed with patient who consented to blood products. Plan discussed with attending. Additional Equipment Requests Normal [facility] Abstracton 04-19-2024 Abstract [id number] Romana Alcocer 1955 F Date Provider Department Center 04/19/2024 3244-WALE MARCANO MC [facility] Family History Problem Relation Age of Onset Coronary artery disease Mother Other Mother Family Status - Relation Status Age at Mother Normal [facility] CT ABDOMEN PELVIS W IV CONTR Goyo 04-19-2024 CT ABDOMEN PELVIS W IV CONTRAST STUDY: ABDOMEN AND PELVIS CT WITH CONTRAST HISTORY: Abdominal mass COMPARISON: None. TECHNIQUE: Routine CT abdomen and pelvis was performed with contrast. All CT scans at this facility use dose modulation, iterative reconstruction, and/or weight based dosing when appropriate to reduce radiation dose to as low as reasonably achievable. FINDINGS: Visualized lung bases are unremarkable. There is a peripherally calcified cystic lesion in the spleen measuring 5.4 cm. The spleen is not enlarged. Status post cholecystectomy. The liver, adrenal glands, pancreas, and kidneys are unremarkable. No enlarged abdominal or pelvic lymph nodes. Small focus of air in the bladder likely related to recent catheterization. Excreted contrast in the collecting systems and bladder. The small and large bowel are of normal caliber with no evidence of bowel wall thickening. Colonic diverticulosis without acute inflammation. No free fluid in the abdomen or pelvis. No free intraperitoneal air. Visualized body wall structures are unremarkable. Multilevel degenerative changes in the spine. IMPRESSION: * Peripherally calcified cystic lesion in the spleen measuring 5.4 cm, which has benign imaging features. * Otherwise unremarkable abdomen/pelvis CT. Electronically signed: Nam Mcintosh MD. Not Vldtd Invalid [facility]ation [facility] HP Attestation signed by Janiya Jensen MD at 04/19/2024 8:06 AM By using the attestations below, the signing clinician agrees that I have read and verify that the documentation has been personally reviewed by me and ensure that the documentation accurately reflects the encounter. GC: I personally saw this patient on the day of the encounter, performed the terry portion(s) of the service and participated in the management and confirm the resident's documentation. Please note there may be an additional personal documentation from me. Additional Comments: Janiya Jensen MD, MPH, [facility], [facility], [facility] Interventional Cardiology Pager Email: [email or web address] H&P reviewed. The patient was examined and there are no changes to the H&P. The procedure was explained to the patient. The risks and benefits of the procedure were explained to the patient who showed understanding and with full capacity elected to proceed with the procedure. All questions were addressed and answered. Jen Gale MD Librarian Assistant - PGY6 [facility] NURSNOTEon 04-19-2024 NURSNOTE RN educated pt on d/c instructions. This included: site care, limited physical activity, resume normal diet, future appointments, medications, and moderate sedation instructions. RN educated pt on when to notify physician and when to go to the hospital. RN encouraged pt to voice any questions or concerns, and answered any questions or concerns if pt verbalized. Pt was wheeled off of unit with all of belongings. [facility] Orders Onlyon 04-19-2024 Orders Only [id number] Romana Alcocer 1955 F Date Provider Department Center 04/19/2024 ALFREDITO BRAMBILA [facility] Family History Problem Relation Age of Onset Coronary artery disease Mother Other Mother Family Status - Relation Status Age at Mother Normal [facility] BASIC METABOLIC PANLon 04-15 Anion gap [Moles/Vol] 10 mmol/L Normal 5-15 [facility] Comment on above: Performed By: #### C BCA, BMP #### [facility] ([id number]) [address], [address] [place] [address] Calcium [Mass/Vol] 9.6 mg/dL Normal 8.5-10.5 [facility] Comment on above: Performed By: #### C BCA, BMP #### [facility] ([id number]) [address], [address] [place] [address] Chloride [Moles/Vol] 102 mmol/L Normal 98-109 [facility] Comment on above: Performed By: #### C BCA, BMP #### [facility] ([id number]) [address], [address] [place] [address] CO2 [Moles/Vol] 28 mmol/L Normal 22-32 [facility] Comment on above: Performed By: #### C BCA, BMP #### [facility] ([id number]) [address], [address] [place] [address] Creatinine [Mass/Vol] 0.88 mg/dL Normal 0.40-1.00 [facility] Comment on above: Result Comment: METH OD TRACEABLE TO IDMS STANDARD Performed By: #### C BCA, BMP #### [facility] ([id number]) [address], [address] [place] [address] GFR/1.73 sq M.predicted among non-blacks MDRD (S/P/Bld) [Vol rate/Area] 70 mL/min/{1.73_m2} Normal >59 [facility] Comment on above: Result Comment: Reported eGFR is based on the CKD-EPI 2020 equation that does not use a race coefficient. Performed By: #### C TEMI, BMP #### [facility] ([id number]) [address], [address] [place] [address] Glucose [Mass/Vol] 88 mg/dL Normal 65-99 [facility] Comment on above: Performed By: #### C TEMI, BMP #### [facility] ([id number]) [address], [address] [place] [address] Potassium [Moles/Vol] 4.1 mmol/L Normal 3.5-5.0 [facility] Comment on above: Performed By: #### C TEMI, BMP #### [facility] ([id number]) [address], [address] [place] [address] Sodium [Moles/Vol] 140 mmol/L Normal 134-146 [facility] Comment on above: Performed By: #### Buster MEMBRENO, BMP #### [facility] ([id number]) [address], [address] [place] [address] Urea nitrogen [Mass/Vol] 24 mg/dL Normal 5-27 [facility] Comment on above: Performed By: #### C TEMI, BMP #### [facility] ([id number]) [address], [address] [place] [address] CBC AND AUTO DIFFon 11-11-20 24 ABSOLUTE BASOPHIL 0.0 X10E9/L Normal 0.0-0.2 [facility] Comment on above: Performed By: #### C BCA, BMP #### [facility] ([id number]) [address] [address] [place] [address] ABSOLUTE NEUTROPHIL 4.5 X10E9/L Normal 1.5-6.6 [facility] Comment on above: Performed By: #### C TEMI, BMP #### [facility] ([id number]) [address], [address] [place] [address] Basophils/100 WBC (Bld) 0.5 % Normal [facility] Comment on above: Performed By: #### C TEMI, BMP #### [facility] ([id number]) [address], [address] [place] [address] Eosinophils (Bld) [#/Vol] 0.1 10*3/uL Normal 0.0-0.4 [facility] Comment on above: Performed By: #### C TEMI, BMP #### [facility] ([id number]) [address], [address] [place] [address] Eosinophils/100 WBC (Bld) 1.8 % Normal [facility] Comment on above: Performed By: #### C TEMI, BMP #### [facility] ([id number]) [address], [address] [place] [address] Erythrocyte distribution width (RBC) [Ratio] 15.7 % High 11.5-15.0 [facility] Comment on above: Performed By: #### C TEMI, BMP #### [facility] ([id number]) [address], [address] [place] [address] Hematocrit (Bld) [Volume fraction] 43.2 % Normal 35-47 [facility] Comment on above: Performed By: #### C TEMI, BMP #### [facility] ([id number]) [address], [address] [place] [address] Hemoglobin (Bld) [Mass/Vol] 13.9 g/dL Normal 11.7-15.5 [facility] Comment on above: Performed By: #### C BCA, BMP #### [facility] ([id number]) [address], [address] [place] [address] Lymphocytes (Bld) [#/Vol] 1.8 10*3/uL Normal 1.0-3.5 [facility] Comment on above: Performed By: #### C TEMI, BMP #### [facility] ([id number]) [address], [address] [place] [address] Lymphocytes/100 WBC (Bld) 24.9 % Normal [facility] Comment on above: Performed By: #### C TEMI, BMP #### [facility] ([id number]) [address], [address] [place] [address] MCH (RBC) [Entitic mass] 28.1 pg Normal 27-34 [facility] Comment on above: Performed By: #### C TEMI, BMP #### [facility] ([id number]) [address], [address] [place] [address] MCHC (RBC) [Mass/Vol] 32.1 g/dL Normal 32-36 [facility] Comment on above: Performed By: #### C TEMI, BMP #### [facility] ([id number]) [address], [address] [place] [address] MCV (RBC) [Entitic vol] 88 fL Normal 80-100 [facility] Comment on above: Performed By: #### C TEMI, BMP #### [facility] ([id number]) [address] [place] [address] Monocytes (Bld) [#/Vol] 0.7 10*3/uL Normal 0-0.9 [facility] Comment on above: Performed By: #### C BCA, BMP #### [facility] ([id number]) [address], [address] [place] [address] Monocytes/100 WBC (Bld) 9.3 % Normal [facility] Comment on above: Performed By: #### C BCA, BMP #### [facility] ([id number]) [address], [address] [place] [address] Neutrophils/100 WBC (Bld) 63.5 % Normal [facility] Comment on above: Performed By: #### Buster MEMBRENO, BMP #### [facility] ([id number]) [address], [facility] [address] [place] [address] Platelet mean volume (Bld) [Entitic vol] 8.9 fL Normal 7-12 [facility] Comment on above: Performed By: #### Buster MEMBRENO, BMP #### [facility] ([id number]) [address] [address] Platelets (Bld) [#/Vol] 234 10*3/uL Normal 150-450 [facility] Comment on above: Performed By: #### Buster MEMBRENO, BMP #### [facility] ([id number]) [address] [address] RBC COUNT 4.94 X10E12/L Normal 3.80-5.20 [facility] Comment on above: Performed By: #### Buster MEMBRENO, BMP #### [facility] ([id number]) [address], [address] [address] WBC (Bld) [#/Vol] 7.2 10*3/uL Normal 4.0-11.0 [facility] Comment on above: Performed By: #### Buster MEMBRENO, BMP #### [facility] ([id number]) [address] [address] [facility] 04-08-2024 [facility] Cardiology Clinic Note Chief Complaint: New patient here to establish care. Ref from Dr. Parra for abnormal echo performed last month. 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 Patient says she gets chest pain every now and then . Dr. Parra recently gave her lasix and potassium for LE edema, but she hasn't had to take any because this has resolved. Admits to LO. Takes Eliquis for afib and says she's had hematuria for years . HPI: Romana Alcocer is a 69 y.o. female With a history of persistent atrial fibrillation, hypothyroidism, hypertension and dyslipidemia here to establish care Apparently, she has known about this atrial fibrillation for at least 2 to 3 years. She has not had the prior LUIS's or attempts at cardioversion. She was placed on Eliquis a number of years ago. She has had a stress test many years ago but denies a history of cardiac catheterization. She has no known history of congestive heart failure, hypertension is an apparently new diagnosis, she is not diabetic. She has never had strokes or transient ischemic attacks. No known history of myocardial infarction. Family history: She has a strong family history of premature coronary artery disease. Cardiology ROS: Review of Systems Cardiovascular: Positive for chest pain and dyspnea on exertion. Genitourinary: Positive for hematuria. Neurological: Positive for loss of balance. All other systems reviewed and are negative. Past Medical History She has no past medical history on file. Surgical History She has no past surgical history on file. Social History She has no history on file for tobacco use, alcohol use, and drug use. Family History No family history on file. Allergies Patient has no allergy information on record. Medications No current outpatient medications on file. Last Recorded Vitals BP (!) 126/92 (BP Location: Right wrist, Patient Position: Sitting) Pulse 98 Ht 1.549 m (5' 1 ) Wt 125 kg (275 lb) SpO2 98% BMI 51.96 kg/m??? Physical Examination: GENERAL: alert and oriented x3, well developed, in no acute distress. HEAD: atraumatic, normocephalic. EYES: DOMI, EOMI. NECK: trachea midline, no JVD present, no carotid bruits present. CARDIAC: S1, S2 present. RRR. No murmur, rubs, or gallops. RESPIRATORY: CTAB, no increased effort of breathing, no rales, rhonchi, or wheezing. ABDOMEN: soft, nontender, nondistended. EXTREMITIES: no lower extremity edema, peripheral pulses are 2+ bilaterally. No rash/skin discoloration present. NEURO: strength/sensation equal and symmetric in bilateral upper and lower extremities. PSYCH: appropriate mood, affect, and judgement. Investigations: Labs 10/2023: BUN 17, creatinine 0.84 HbA1c 5.6 LFTs are normal Triglycerides 175, LDL 63, 67 EKG 12/2023: Atrial fibrillation, anterior infarct age-indeterminate, prolonged QT interval Echocardiogram 04/04/2024: Global left ventricular systolic function is difficult to assess but appears reduced; visually estimated ejection fraction is 40 to 45% The right ventricle is upper normal limits in size with reduced systolic function The right atrium is dilated Mild tricuspid regurgitation Moderately elevated right ventricular systolic pressure; RVSP 53 mmHg Mild to moderate mitral regurgitation Assessment: Persistent atrial fibrillation; the patient is on Eliquis 5 mg twice daily 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) Pulmonary hypertension; RVSP 53 mmHg Mild to moderate mitral regurgitation Chest pain Dyspnea on exertion Dyslipidemia Hypertension Hematuria Morbid obesity; BMI above 50 Plan: Given her risk factor profile, the abnormal EKG and abnormal echocardiogram, I recommended proceeding with cardiac catheterization Routine labs We will schedule her for a right heart catheterization via right internal jugular approach and coronary angiography via left radial approach She will need optimization of medical management for her heart failure after the cardiac catheterization Depending on the findings, she may require further investigations and treatment for her persistent atrial fibrillation namely consideration of A-fib ablation. Her BMI may be prohibitive. Further recommendations pending the cardiac catheterization Janiya Jensen MD, MPH, [facility], [facility], [facility] Interventional Cardiology Pager Email: [email or web address] Normal [facility] Office Visiton 04-08-2024 Follow-up visit [id number] Romana Alcocer 1955 F Date Provider Department Center 04/08/2024 Cody-JANIYA JENSEN ARIELA Doherty Family History Problem Relation Age of Onset Coronary artery disease Mother Other Mother Family Status - Relation Status Age at Mother Level of Service:06278 [place] OFFICE/OUTPATIENT NEW HIGH MDM 60 MINUTES Normal [facility] Orders Onlyon 04-08-2024 Orders Only [id number] Romana Alcocer 1955 F Date Provider Department Center 04/08/2024 TOBI FLORES Family History Problem Relation Age of Onset Coronary artery disease Mother Other Mother Family Status - Relation Status Age at Mother Normal [facility] MG MAMM SCREEN 3D NIKKO CADon 08-15-2022 MG MAMM SCREEN 3D NIKKO CAD Patient: ROMANA ALCOCER Exam Date: 08/15/2022 : 1955 Gender:F Ordering : DR TEDDY PARRA . Admission #: [id number] Family : Order #: [id number] CLICK HERE TO VIEW EXAM RADIOLOGY REPORT [...] brain cancer at age 47. LOCATION: [facility] BREAST COMPOSITION: Scattered areas fibroglandular density. FINDINGS: [...] MD on 08/15/2022 at 11:16 Normal [facility] Covid-19 PCR (CVDTB)on 01-03 SARS-CoV-2 (COVID-19) RNA MARITZA+probe Ql (Unsp spec) Detected Critically abnormal NOT DETECTED [facility] Comment on above: Result Comment: This test is not yet approved or cleared by the [place] FDA. When there are no FDA-approved or cleared tests available, and other criteria are met, FDA can make tests available under an emergency access mechanism called an Emergency Use Authorization (EUA). The EUA for this test is supported by the [place] of Health and Human Service's (HHS's) declaration [...] longer be used). Performed By: #### C VDTB #### [facility] [address] [place] [address] Dr. Tristan Craft CBC AUTO DIFFon 10-14-2021 BASO # 0.1 103/ul Normal 0.0-0.1 [facility] Comment on above: Performed By: #### C BC #### [facility] [address] [place] [address] Dr. Tristan Craft Basophils/100 WBC (Bld) 0.5 % Normal 0.2-2.0 [facility] Comment on above: Performed By: #### C BC #### [facility] [address] [place] [address] Dr. Tristan Craft EO # 0.2 103/ul Normal 0.0-0.7 [facility] Comment on above: Performed By: #### C BC #### [facility] [address] [place] [address] Dr. Tristan Craft Eosinophils/100 WBC (Bld) 1.6 % Normal 0.9-7.0 [facility] Comment on above: Performed By: #### C BC #### [facility] [address] [place] [address] Dr. Tristan Craft Erythrocyte distribution width (RBC) [Ratio] 14.3 % Normal 11.0-15.0 [facility] Comment on above: Performed By: #### C BC #### [facility] [address] [place] [address] Dr. Tristan Craft Hematocrit (Bld) [Volume fraction] 45.7 % Normal 36.0-48.0 [facility] Comment on above: Performed By: #### C BC #### [facility] [address] [place] [address] Dr. Tristan Craft Hemoglobin (Bld) [Mass/Vol] 14.3 g/dL Normal 12.0-16.0 [facility] Comment on above: Performed By: #### C BC #### [facility] [address] [address] [address] Tristan Craft IG # 0.03 10e3/ul Normal 0.00-0.03 [facility] Comment on above: Performed By: #### C BC #### [facility] [address] [address] [address] Tristan Craft IG % 0.3 % Normal 0.0-0.5 [facility] Comment on above: Performed By: #### C BC #### [facility] [address] [place] [address] Dr. Tristan Craft LYMPH # 2.5 103/ul Normal 1.2-3.8 [facility] Comment on above: Performed By: #### C BC #### [facility] [address] [place] [address] Dr. Tristan Craft Lymphocytes/100 WBC (Bld) 26.7 % Normal 20.5-60.0 [facility] Comment on above: Performed By: #### C BC #### [facility] [address] [place] [address] Dr. Tristan Craft MANUAL DIFF REQ NO Normal [facility] Comment on above: Performed By: #### C BC #### [facility] [address] [place] [address] Dr. Tristan Craft MCH (RBC) [Entitic mass] 27.8 pg Normal 26.7-34.0 [facility] Comment on above: Performed By: #### C BC #### [facility] [address] [place] [address] Dr. Tristan Cratf MCHC (RBC) [Mass/Vol] 31.3 g/dL Normal 29.9-35.2 [facility] Comment on above: Performed By: #### C BC #### [facility] [address] [place] [address] Dr. Tristan Craft MCV (RBC) [Entitic vol] 88.9 fL Normal 81.0-99.0 [facility] Comment on above: Performed By: #### C BC #### [facility] [address] [place] [address] Dr. Tristan Craft MONO # 0.8 103/ul Normal 0.3-0.8 [facility] Comment on above: Performed By: #### C BC #### [facility] [address] [place] [address] Dr. Tristan Craft Monocytes/100 WBC (Bld) 8.0 % Normal 1.7-12.0 [facility] Comment on above: Performed By: #### C BC #### [facility] [address] [place] [address] Dr. Tristan Craft NEUT # 5.9 103/ul Normal 1.4-6.5 [facility] Comment on above: Performed By: #### C BC #### [facility] [address] [place] [address] Dr. Tristan Craft Neutrophils/100 WBC (Bld) 62.9 % Normal 43.0-75.0 [facility] Comment on above: Performed By: #### C BC #### [facility] [address] [place] [address] Dr. Tristan Craft Platelet mean volume (Bld) [Entitic vol] 10.4 fL Normal 9.5-13.5 [facility] Comment on above: Performed By: #### C BC #### [facility] [address] [place] [address] Dr. Tristan Craft PLT 302 103/ul Normal 150-450 [facility] Comment on above: Performed By: #### C BC #### [facility] [address] [place] [address] Dr. Tristan Craft RBC 5.14 106/ul Normal 4.20-5.40 [facility] Comment on above: Performed By: #### C BC #### [facility] [address] [place] [address] Dr. Tristan Craft WBC 9.3 103/ul Normal 4.0-11.0 [facility] Comment on above: Performed By: #### C BC #### [facility] [address] [place] [address] Dr. Tristan Craft FREE T3on 10-14-2021 FREE T3 2.03 pg/mlL Critically low 2.18-3.98 [facility] Comment on above: Performed By: #### T 4, CMP, TSH, LIPID, FT3 #### [facility] [address] [address] [address] Tristan Craft GLYCOHEMOGLOBIN A1Con 2021 ADA RECOMMENDATION SEE BELOW Normal [facility] Comment on above: Result Comment: ADA RECOMMENDED LIMIT 4.0 - 6.0 ADA THERAPEUTIC TARGET < 7.0 ACTION SUGGESTED > 7.0 Performed By: #### A 1C #### [facility] [address] [address] [address] Tristan Craft Glucose [Mass/Vol] 123 mg/dL Normal [facility] Comment on above: Performed By: #### A 1C #### [facility] [address] [address] [address] Tristan Craft HbA1c (Bld) [Mass fraction] 5.9 % Normal 4.5-6.2 [facility] Comment on above: Performed By: #### A 1C #### [facility] [address] [address] [address] Tristan Craft LIPID PROFILEon 10-14-2021 CHOL-HDL RATIO NORM SEE BELOW Normal [facility] Comment on above: Result Comment: 3.3 - 4.4 LOW RISK 4.4 - 7.1 AVERAGE RISK 7.1 - 11.0 MODERATE RISK >11.0 HIGH RISK Performed By: #### T 4, CMP, TSH, LIPID, FT3 #### [facility] [address] [address] [address] Tristan Craft Cholesterol [Mass/Vol] 126 mg/dL Normal <=200 [facility] Comment on above: Performed By: #### T 4, CMP, TSH, LIPID, FT3 #### [facility] [address] [address] [address] Tristan Craft Cholesterol in HDL [Mass/Vol] 53 mg/dL Normal 40-60 [facility] Comment on above: Performed By: #### T 4, CMP, TSH, LIPID, FT3 #### [facility] [address] [address] [address] Tristan Craft Cholesterol in LDL [Mass/Vol] 45.0 mg/dL Normal [facility] Comment on above: Performed By: #### T 4, CMP, TSH, LIPID, FT3 #### [facility] [address] [place] [address] Dr. Tristan Craft Cholesterol.total/Ch olesterol in HDL [Mass ratio] 2.4 {ratio} Normal [facility] Comment on above: Performed By: #### T 4, CMP, TSH, LIPID, FT3 #### [facility] [address] [address] [address] Tristan Craft HDL NORMAL > or = 60 mg/dl - LOW CARDIOVASCULAR RISK <40 mg/dl - HIGH CARDIOVASCULAR RISK Normal [facility] Comment on above: Performed By: #### T 4, CMP, TSH, LIPID, FT3 #### [facility] [address] [place] [address] Dr. Tristan Craft LDL CALC NORMAL SEE BELOW Normal [facility] Comment on above: Result Comment: <100 mg/dl OPTIMAL 100 - 129 mg/dl NEAR OR ABOVE OPTIMAL 130 - 159 mg/dl BORDERLINE HIGH 160 - 189 mg/dl HIGH >190 mg/dl VERY HIGH Performed By: #### T 4, CMP, TSH, LIPID, FT3 #### [facility] [address] [place] [address] Dr. Tristan Craft Triglyceride [Mass/Vol] 140 mg/dL Normal <=150 [facility] Comment on above: Performed By: #### T 4, CMP, TSH, LIPID, FT3 #### [facility] [address] [place] [address] Dr. Tristan Craft VLDL CALC 28.0 mg/dL Normal [facility] Comment on above: Performed By: #### T 4, CMP, TSH, LIPID, FT3 #### [facility] [address] [place] [address] Dr. Tristan Craft PROF 14(COMP METB)on 022 Albumin [Mass/Vol] 3.8 g/dL Normal 3.4-5.0 [facility] Comment on above: Performed By: #### T 4, CMP, TSH, LIPID, FT3 #### [facility] [address] [place] [address] Dr. Tristan Craft Albumin/Globulin [Mass ratio] 1.1 {ratio} Normal [facility] Comment on above: Performed By: #### T 4, CMP, TSH, LIPID, FT3 #### [facility] [address] [place] [address] Dr. Tristan Craft ALP [Catalytic activity/Vol] 87 U/L Normal 46-116 [facility] Comment on above: Performed By: #### T 4, CMP, TSH, LIPID, FT3 #### [facility] [address] [place] [address] Dr. Tristan Craft ALT [Catalytic activity/Vol] 24 U/L Normal 14-59 [facility] Comment on above: Performed By: #### T 4, CMP, TSH, LIPID, FT3 #### [facility] [address] [place] [address] Dr. Tristan Craft Anion gap [Moles/Vol] 12.9 mmol/L Normal [facility] Comment on above: Performed By: #### T 4, CMP, TSH, LIPID, FT3 #### [facility] [address] [place] [address] Dr. Tristan Craft AST [Catalytic activity/Vol] 20 U/L Normal 15-37 [facility] Comment on above: Performed By: #### T 4, CMP, TSH, LIPID, FT3 #### [facility] [address] [place] [address] Dr. Tristan Craft Bilirubin [Mass/Vol] 0.5 mg/dL Normal 0.2-1.0 [facility] Comment on above: Performed By: #### T 4, CMP, TSH, LIPID, FT3 #### [facility] [address] [place] [address] Dr. Tristan Craft Calcium [Mass/Vol] 8.6 mg/dL Normal 8.5-10.1 [facility] Comment on above: Performed By: #### T 4, CMP, TSH, LIPID, FT3 #### [facility] [address] [address] [address] Tristan Craft Chloride [Moles/Vol] 101 mmol/L Normal 98-107 [facility] Comment on above: Performed By: #### T 4, CMP, TSH, LIPID, FT3 #### [facility] [address] [place] [address] Dr. Tristan Craft CO2 [Moles/Vol] 27.7 mmol/L Normal 21.0-32.0 [facility] Comment on above: Performed By: #### T 4, CMP, TSH, LIPID, FT3 #### [facility] [address] [place] [address] Dr. Tristan Craft Creatinine [Mass/Vol] 0.93 mg/dL Normal 0.55-1.02 [facility] Comment on above: Performed By: #### T 4, CMP, TSH, LIPID, FT3 #### [facility] [address] [place] [address] Dr. Tristan Craft EGFR-AF ZAMBIAN >60 Normal >=60 [facility] Comment on above: Performed By: #### T 4, CMP, TSH, LIPID, FT3 #### [facility] [address] [place] [address] Dr. Tristan Craft EGFR-NON AF ZAMBIAN =60 Normal >=60 [facility] Comment on above: Performed By: #### T 4, CMP, TSH, LIPID, FT3 #### [facility] [address] [place] [address] Dr. Tristan Craft Globulin (S) [Mass/Vol] 3.6 g/dL Normal [facility] Comment on above: Performed By: #### T 4, CMP, TSH, LIPID, FT3 #### [facility] [address] [place] [address] Dr. Tristan Craft Glucose [Mass/Vol] 108 mg/dL Critically high 74-106 [facility] Comment on above: Performed By: #### T 4, CMP, TSH, LIPID, FT3 #### [facility] [address] [place] [address] Dr. Tristan Craft Potassium [Moles/Vol] 3.6 mmol/L Normal 3.5-5.1 [facility] Comment on above: Performed By: #### T 4, CMP, TSH, LIPID, FT3 #### [facility] [address] [place] [address] Dr. Tristan Craft Protein [Mass/Vol] 7.4 g/dL Normal 6.4-8.2 [facility] Comment on above: Performed By: #### T 4, CMP, TSH, LIPID, FT3 #### [facility] [address] [place] [address] Dr. Tristan Craft Sodium [Moles/Vol] 138 mmol/L Normal 136-145 [facility] Comment on above: Performed By: #### T 4, CMP, TSH, LIPID, FT3 #### [facility] [address] [place] [address] Dr. Tristan Craft Urea nitrogen [Mass/Vol] 18.0 mg/dL Normal 7.0-18.0 [facility] Comment on above: Performed By: #### T 4, CMP, TSH, LIPID, FT3 #### [facility] [address] [place] [address] Dr. Tristan Craft Urea nitrogen/Creatinine [Mass ratio] 19.4 mg/mg Normal [facility] Comment on above: Performed By: #### T 4, CMP, TSH, LIPID, FT3 #### [facility] [address] [place] [address] Dr. Tristan Craft T4on 10-14-2021 T4 [Mass/Vol] 6.80 ug/dL Normal 4.80-13.90 [facility] Comment on above: Performed By: #### T 4, CMP, TSH, LIPID, FT3 #### [facility] [address] [place] [address] Dr. Tristan Craft TSHon 10-14-2021 TSH 2.277 uIU/mL Normal 0.358-3.740 [facility] Comment on above: Performed By: #### T 4, CMP, TSH, LIPID, FT3 #### [facility] [address] [place], [place] [id number] Dr. Tristan Craft TSH RANGE SEE BELOW Normal [facility] Comment on above: Result Comment: <0.3 4 UIU/ml HYPERTHYROID 0.34-5.60 UIU/ml EUTHYROID >5.60 UIU/ml HYPOTHYROID Performed By: #### T 4, CMP, TSH, LIPID, FT3 #### [facility] [address] [place] [address] Dr. Tristan Craft VITAMIN D 25 OHon 10-14-2021 VIT D 25-OH 37.9 ng/mL Normal [facility] Comment on above: Performed By: #### V ITAD #### [facility] [address] [place] [address] Dr. Tristan Craft VIT D RANGES SEE BELOW Normal [facility] Comment on above: Result Comment: <20 ng/mL Vit D deficient 20 - <30 ng/mL Vit D insufficient 30 - 100 ng/mL Vit D sufficient >100 ng/mL Potential Toxicity Performed By: #### V ITAD #### [facility] [address] [place] [address] Dr. Tristan Craft Vital Signs Date Time Vital Sign Value Performing Clinician Faci lity 09-23-2023 09:56-0400 Body height 157.48 cm MD Teddy Parra Work Phone: [facility] 09-23-2023 09:56-0400 Body temperature 97.9 [degF] MD Teddy Parra Work Phone: [facility] 09-23-2023 09:56-0400 Diastolic blood pressure 68 mm[Hg] MD Teddy Parra Work Phone: [facility] 09-23-2023 09:56-0400 Heart rate 59 /min MD Teddy Parra Work Phone: [facility] 09-23-2023 09:56-0400 Respiratory rate 16 /min MD Teddy Parra Work Phone: [facility] 09-23-2023 09:56-0400 SaO2% (BldA) [Mass fraction] 99 % MD Teddy Parra Work Phone: [facility] 09-23-2023 [id number] Systolic blood pressure 116 mm[Hg] MD Teddy Parra Work Phone: [facility] Encounters Encounter Date Encounter Type Care Provider Facility Start: 04-29-2024 End: 04-29-2024 ambulatory [facility] Start: 04-19-2024 End: 04-19-2024 ambulatory [facility] [place] Start: 04-19-2024 End: 04-19-2024 ambulatory [facility] Start: 04-15-2024 End: 04-15-2024 ambulatory [facility] Start: 04-08-2024 End: 04-08-2024 ambulatory [facility] Start: 02-01-2024 End: 02-01-2024 Evaluation and management of inpatient [facility] Start: 02-01-2024 End: 02-01-2024 Evaluation and management of inpatient [facility] Start: 01-31-2024 End: 01-31-2024 ambulatory [facility] Start: 01-11-2024 End: 01-11-2024 Evaluation and management of inpatient [facility] Start: 01-11-2024 End: 01-11-2024 Evaluation and management of inpatient [facility] Start: 12-26-2023 End: 12-26-2023 ambulatory [facility] Start: 12-26-2023 Encounter for other preprocedural examination [facility] Start: 09-23-2023 End: 09-23-2023 ambulatory MD Teddy Parra Work Phone: [facility] Work Phone: Start: 09-23-2023 End: 09-23-2023 Patient encounter procedure MD Teddy Parra Work Phone: [facility] Work Phone: Start: 08-15-2022 End: 08-16-[address] TEDDY PARRA . Facility:[facility] Start: 01-20-2022 End: 01-20-[address] TEDDY PARRA . Facility:[facility] Start: 10-14-2021 End: 10-15-[address] TEDDY PARRA . Facility:[facility] Procedures Date Procedure Procedure Detail Performing Clinician Start: 09-23-2023 Plain X-ray of right hand MD Teddy Parra Work Phone: Payers Date Payer Category Payer Medicare [id number] 1961 Unknown [id number] 1955 Unknown [id number] 2.16.84 [id number] 1955 Unknown [id number] 2.16.84 [id number] 1953 Unknown [id number] 2.16.84 [id number] 1953 Unknown [id number] 2.16.8 [id number] 1953 Unknown [id number] 2.16.8 [id number] 1953 Unknown [id number] 2.16.8 [id number] 1953 Unknown [id number] 2.16.8 [id number] 1953 Unknown [id number] 2.16.8 [id number] 1953 Unknown [id number] 2.16.8 [id number] 1953 Unknown [id number] 2.16.8 [id number] 1953 Unknown [id number] 2.16.8 [id number] 1953 Unknown [id number] 2.16.8 [id number] 1953 Unknown [id number] 2.16.8 [id number] 1953 Unknown [id number] 2.16.8 [id number] Unknown [facility] [id number] Social History Date Type Detail Facility Start: [facility]23-[facility]23 [facility] Start: 1955 Sex Assigned At Female F [facility] Progress note 04-19-2024 Note Date & Type Note Facility 04-19-2024 Note Cardiovascular Labor atory Report FINAL IMPRESSIONS: Mild coronary artery disease Mildly reduced global left ventricular systolic function by noninvasive imaging Mildly elevated right ventricular systolic pressure and pulmonary capillary wedge pressure consistent with biventricular congestive failure Elevated transpulmonary gradient along with elevated wedge consistent with combined pre and postcapillary pulmonary hypertension Mildly reduced cardiac output/cardiac index Fluoroscopic evidence of a calcified circular abdominal mass RECOMMENDATIONS: The patient will undergo an abdominal and pelvic CT scan with and without contrast for further evaluation of the abdominal abnormality seen on fluoroscopy Aggressive cardiovascular risk factor modification Optimal medical therapy for coronary artery disease should include aspirin and moderate intensity statin therapy Guideline directed medical therapy for heart failure with midrange ejection fraction should include a beta-job, a RAAS inhibitor/ARNI, an SGLT2 inhibitor and spironolactone Will start the patient on Lasix 20 mg daily and obtain a BMP in a week Further investigations and management for nonischemic etiologies of the patient's cardiomyopathy as clinically appropriate She is to follow-up with Dr. Jensen in the [facility] in the next 1 to 2 months PROCEDURES: Ultrasound-guided access to the right internal jugular vein, right heart catheterization, ultrasound-guided access to the left radial artery, bilateral selective coronary angiography METHODS: After risks, benefits, and alternatives were explained, written informed consent was obtained. The patient was prepped and draped in usual sterile fashion over the right neck and left radial regions. Using 1% lidocaine solution, local infiltration anesthesia was achieved. Using a modified Seldinger technique, a micropuncture kit, and under ultrasound guidance, access to the right internal jugular vein was obtained. A 6 [place]ander 11 cm sheath was inserted without difficulty. Right heart catheterization was performed using a Waters catheter via the venous sheath. Pressures were measured in the right atrium, right ventricle, pulmonary artery, and pulmonary capillary wedge positions. Oxygen saturations were obtained and cardiac output/cardiac index was calculated using the modified Breann principle. The Waters catheter was removed. The jugular sheath was removed with application of manual pressure to achieve optimal hemostasis. Local infiltration anesthesia was achieved of the left wrist. Using a micropuncture kit, and under ultrasound-guided access of the left radial artery was obtained. A 6 [place] glide sheath was inserted without difficulty. Difficulty advancing the Martinez wire around the left subclavian was encountered; angiography was performed. A soft angled Glidewire was used to traverse the tortuosity. Bilateral selective coronary angiography was performed using JL4 and AL1 catheters. Number of catheters were unsuccessful in engaging the right coronary artery including a JR4 and a 3 DRC. Ultimately the AL-1 was successful in engaging the right coronary artery. Cineangiography was performed in the anteroposterior projection given the appearance of a calcified abnormality in the abdomen. After reviewing the images, it was elected to conclude the procedure. All catheters were removed. The radial sheath was removed with application of a TR band per protocol to achieve optimal hemostasis. Overall the patient tolerated the procedure well. There were no overt complications. He was to be transferred to the holding area in stable condition. FINDINGS: Hemodynamics: RA 14 RV 42/12, 16 PA 42/29 [34] PCWP 17 TPG 17 AO 120/73 [93] Cardiac output /cardiac index 4.34/2.0 AO sat /PA sat 99%/66% LEFT VENTRICULOGRAPHY: This was not performed; ejection fraction is 45% by echocardiography CORONARY ARTERIES: Left main coronary artery: This arises from the left coronary cusp, it bifurcates into the left anterior descending and left circumflex coronary arteries. It is free of significant stenosis Left anterior descending coronary artery: This shows mild plaque and luminal irregularities throughout. There is calcification seen in the midportion. Left circumflex coronary artery: This is angiographically nonobstructive with minimal luminal irregularities. Right coronary artery: This arises from the anterior portion of the right coronary cusp. It is a dominant vessel giving rise to the posterior descending and posterolateral branches. It is angiographically nonobstructive. FLUOROSCOPY: Cine angiography reveals a circular, calcified mass to the left of the spine and just beneath the diaphragm. Differential diagnosis includes a pancreatic cyst, a gastric mass versus a hepatic or splenic abnormality. A CT scan of the abdomen and pelvis was to be ordered. INDICATIONS: (more content not included)... [facility] Progress note 04-08-2024 Note Date & Type Note Facility 04-08-2024 Note [facility] Cardiology Clinic Note Chief Complaint: New patient here to establish care. Ref from Dr. Parra for abnormal echo performed last month. 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 Patient says she gets chest pain every now and then . Dr. Parra recently gave her lasix and potassium for LE edema, but she hasn't had to take any because this has resolved. Admits to LO. Takes Eliquis for afib and says she's had hematuria for years . HPI: Romana Alcocer is a 69 y.o. female With a history of persistent atrial fibrillation, hypothyroidism, hypertension and dyslipidemia here to establish care Apparently, she has known about this atrial fibrillation for at least 2 to 3 years. She has not had the prior LUIS's or attempts at cardioversion. She was placed on Eliquis a number of years ago. She has had a stress test many years ago but denies a history of cardiac catheterization. She has no known history of congestive heart failure, hypertension is an apparently new diagnosis, she is not diabetic. She has never had strokes or transient ischemic attacks. No known history of myocardial infarction. Family history: She has a strong family history of premature coronary artery disease. Cardiology ROS: Review of Systems Cardiovascular: Positive for chest pain and dyspnea on exertion. Genitourinary: Positive for hematuria. Neurological: Positive for loss of balance. All other systems reviewed and are negative. Past Medical History She has no past medical history on file. Surgical History She has no past surgical history on file. Social History She has no history on file for tobacco use, alcohol use, and drug use. Family History No family history on file. Allergies Patient has no allergy information on record. Medications No current outpatient medications on file. Last Recorded Vitals BP (!) 126/92 (BP Location: Right wrist, Patient Position: Sitting) Pulse 98 Ht 1.549 m (5' 1 ) Wt 125 kg (275 lb) SpO2 98% BMI 51.96 kg/m??? Physical Examination: GENERAL: alert and oriented x3, well developed, in no acute distress. HEAD: atraumatic, normocephalic. EYES: DOMI, EOMI. NECK: trachea midline, no JVD present, no carotid bruits present. CARDIAC: S1, S2 present. RRR. No murmur, rubs, or gallops. RESPIRATORY: CTAB, no increased effort of breathing, no rales, rhonchi, or wheezing. ABDOMEN: soft, nontender, nondistended. EXTREMITIES: no lower extremity edema, peripheral pulses are 2+ bilaterally. No rash/skin discoloration present. NEURO: strength/sensation equal and symmetric in bilateral upper and lower extremities. PSYCH: appropriate mood, affect, and judgement. Investigations: Labs 10/2023: BUN 17, creatinine 0.84 HbA1c 5.6 LFTs are normal Triglycerides 175, LDL 63, 67 EKG 12/2023: Atrial fibrillation, anterior infarct age-indeterminate, prolonged QT interval Echocardiogram 04/04/2024: Global left ventricular systolic function is difficult to assess but appears reduced; visually estimated ejection fraction is 40 to 45% The right ventricle is upper normal limits in size with reduced systolic function The right atrium is dilated Mild tricuspid regurgitation Moderately elevated right ventricular systolic pressure; RVSP 53 mmHg Mild to moderate mitral regurgitation Assessment: Persistent atrial fibrillation; the patient is on Eliquis 5 mg twice daily 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) Pulmonary hypertension; RVSP 53 mmHg Mild to moderate mitral regurgitation Chest pain Dyspnea on exertion Dyslipidemia Hypertension Hematuria Morbid obesity; BMI above 50 Plan: Given her risk factor profile, the abnormal EKG and abnormal echocardiogram, I recommended proceeding with cardiac catheterization Routine labs We will schedule her for a right heart catheterization via right internal jugular approach and coronary angiography via left radial approach She will need optimization of medical management for her heart failure after the cardiac catheterization Depending on the findings, she may require further investigations and treatment for her persistent atrial fibrillation namely consideration of A-fib ablation. Her BMI may be prohibitive. Further recommendations pending the cardiac catheterization Janiya Jensen MD, MPH, FACC, [facility], [facility] Interventional Cardiology Pager Email: [email or web address] Evaluation note Note Date & Type Note Facility Evaluation note [facility]: Summary Purpose Family History [...] and content) DATE CREATED AUTHOR 08/16/2022 [facility] DATE CREATED AUTHOR AUTHOR'S ORGANIZ ATION 04/23/2024 [facility] DATE CREATED AUTHOR AUTHOR'S ORGANIZ ATION 05/01/[address] [facility] Care Teams (unrecognized sec tion and content) Team Status: Active Member Role Status Ant Parra MD Primary Care Provider Active Team Status: Inactive Member Role Status Dates Viola Smith APRN Attending Provider Active Start: September 23, 2023 End: September 23, 2023 Teddy Parra MD Primary Care Provider Active Start: September 23, 2023 End: September 23, 2023 Team Status: Active Member Role Status Dates Teddy Parra MD Primary Care Provider Active Start: September 23, 2023 Voila Smith APRN Attending Provider Active Start: September 23, 2023 Team Status: Inactive Member Role Status Dates Teddy Parra MD Primary Care Provider Active Start: September [...] BE BASED ON THE PRIMARY CLINICAL RECORDS. [facility] provides no warranty or guarantee of the accuracy or completeness of information in this document.
--- NOTE | 2024-05-22 12:48 | MR_ITS ---
[address] [address] Patient Name: MIGUEL ALCOCER MRN: [id number] date: 1955 Sex: F Assigned Patient Location: LAB Current Patient Location: Accession/Order Number: [id number] Exam Date: 05/22/2024 13:00 Report Date: 05/23/2024 06:31 At the request of: TEDDY FINK Procedure: MR abdomen wo/w con EXAMINATION: MR abdomen wo/w con HISTORY: lesion of spleen D73.89 COMPARISON: CT lumbar spine 11/05/2022 TECHNIQUE: A comprehensive MRI examination of the abdomen was performed to optimize visualization of suspected pathology. Images were obtained with and/or without intravenous Dotarem contrast as indicated by exam type. FINDINGS: LIVER: No enlargement, atrophy, abnormal signal, or significant focal lesion. BILIARY: Cholecystectomy. PANCREAS: No lesion, fluid collection, ductal dilatation, or atrophy. SPLEEN: 5.2 cm smoothly circumscribed thin-walled, nonenhancing, proteinaceous cyst within posterior spleen. KIDNEYS: No mass or obstruction. ADRENALS: No mass or enlargement. AORTA/VASCULAR: No aneurysm or dissection. RETROPERITONEUM: No mass or adenopathy. BOWEL/MESENTERY: No visible mass, obstruction, or bowel wall thickening. ABDOMINAL WALL: No mass or hernia. BONES: No bony lesion or fracture. LUNG BASES: No visible pleural disease. Lung bases not well assessed with MRI. OTHER: Negative. MR/MR abdomen wo/w con IMPRESSION: 1. Benign-appearing cyst/proteinaceous cyst within spleen favoring benign etiology. Electronically authenticated by: AMBER JUARES Date: 05/23/2024 06:31
[2024-05-22 13:01] LABS: Estimated GFR (African America >60 (>=60 mL/min/1.73m^2); Estimated GFR (Non-African Ame 55 (>=60 mL/min/1.73m^2)
== END 2024-05-22 12:25 | disposition home or self-care (01) ==
LOC: LAB 12:25
PROVIDERS: PCP Family Medicine; Visit Provider Family Medicine
DX: Z01.812 Encounter for preprocedural laboratory examination (principal); D73.89 Other diseases of spleen; I11.9 Hypertensive heart disease without heart failure
CPT/HCPCS: 36415; 74183; 82565; 84132; 84520; A9575

== ENCOUNTER 2024-08-27 10:35 | Outpatient (OUT) | payer MEDICARE, BC, SELFPAY ==
--- NOTE | 2024-08-27 10:37 | MM_ITS ---
Patient Name: MIGUEL ALCOCER MR#: [id number] : 1955 Exam Date: 08/27/2024 Ordering Doctor: DR Klaus Parra . RADIOLOGY REPORT PROCEDURE: MM TOMOSYNTHESIS SCREENING BI COMPARISON: MM TOMOSYNTHESIS SCREENING BI, 08/25/2023. MG MAMM SCREEN 3D NIKKO CAD, 08/15/2022. MG MAMM SCREEN 3D NIKKO CAD, 08/12/2021. MG MAMM NIKKO SCRN W CAD DIG, 08/20/2013. INDICATIONS: Screening Calculator Name NCI Breast Cancer Risk Assessment Tool 5 Year Breast Cancer Risk 3.00% Lifetime Breast Cancer Risk 9.90% Personal Breast Cancer No Personal Ovarian Cancer No Treatments None Family Cancers Sister with breast cancer at age 46; Father with brain cancer at age 49. LOCATION: [facility] BREAST COMPOSITION: There are scattered areas of fibroglandular density. FINDINGS: Scattered benign-appearing nodules are present. Scattered benign-appearing calcifications are present. DIAGNOSTIC CATEGORY 2--BENIGN FINDING: RECOMMENDATIONS: ROUTINE MAMMOGRAM AND CLINICAL EVALUATION IN 12 MONTHS. PLEASE NOTE: A NORMAL MAMMOGRAM DOES NOT EXCLUDE THE POSSIBILITY OF BREAST CANCER. A CLINICALLY SUSPICIOUS PALPABLE LUMP SHOULD BE BIOPSIED. Dictated by: David Jimenez DO on 08/27/2024 at 13:21 Approved by: David Jimenez DO on 08/27/2024 at 13:30
== END 2024-08-27 10:36 | disposition home or self-care (01) ==
LOC: MAMMO 10:35
PROVIDERS: PCP Family Medicine; Visit Provider Family Medicine
DX: Z12.31 Encounter for screening mammogram for malignant neoplasm of breast (principal); Z80.3 Family history of malignant neoplasm of breast; Z80.8 Family history of malignant neoplasm of other organs or systems
CPT/HCPCS: 77063; 77067

== ENCOUNTER 2024-09-19 09:40 | Outpatient (OUT) | payer MEDICARE, BC, SELFPAY ==
--- OUTSIDE RECORDS SUMMARY | 2024-09-19 09:46 | XMS_ITS | CCD ---
Author Organization [facility] CliniSyvt Care Team Providers Care Escrow Processor Name Role Phone ALEKS ., DR ESPINAL Admitting Unavailable HOY ., DR ESPINAL Attending Unavailable HOY ., DR ESPINAL Primary Care Unavailable HOY ., DR ESPINAL Consulting Unavailable [place], DR TERRIE Maldonado Consulting Unavailable HOY ., DR ESPINAL Admitting Unavailable HOY ., DR ESPINAL Attending Unavailable HOY ., DR ESPINAL Primary Care Unavailable HOY ., DR ESPINAL Consulting Unavailable HOY ., DR ESPINAL Admitting Unavailable HOY ., DR ESPINAL Attending Unavailable HOY ., DR ESPINAL Primary Care Unavailable HOY ., DR ESPINAL Consulting Unavailable MD Teddy Parra Primary Care Provider [phone] JUANCARLOS Smith Attending Provider NAGA ANGELES Referring [...] TEDDY M Primary Care Unavailable [place], EHAB Admitting Unavailable [place], EHAB Attending Unavailable JEN GALE Referring Unavailable [place], EHAB Attending Unavailable HEATHER ARROYO Attending Unavailable [place], EHAB Attending Unavailable Allergies Allergy Classification Reported Allergen(s) Allergy Type Date of Onset Reaction(s) Facility (3 sources) Amoxicillin Drug Allergy 4 Unknown Reaction [facility] Repository (5 sources) Codeine; Translations: [CODEINE] Drug Allergy 4 Hives [facility] Repository (3 sources) Morphine Drug Allergy 4 Unknown Reaction [facility] Repository (2 sources) Penicillins; Translations: [PENICILLINS] Propensity [...] PO Daily September 23, 2023 12:00am Vitamins A,C,X-Mhxb-Irhjqo (Preservision Areds) 4,296 mcg-226 mg-90 mg capsule (2 sources) Start: 09-23-2023 take 1 capsule by mouth twice daily Vitamins A,C,B-Cmio-Rdzygk (Preservision Areds) 4,296 mcg-226 mg-90 mg capsule [...] Chronic Coronary atherosclerosis and other heart disease (5 sources) Unstable angina; Translations: [Atherosclerotic heart disease of [place] coronary artery without angina pectoris] Onset: 04-08-2024 Chronic Disorders of lipid metabolism (4 sources) Hyperlipidemia, unspecified; Translations: [HYPERLIPIDEMIA UNSPECIFIED] Onset: 10-14-2021 Chronic Essential hypertension (1 source) Essential (primary) hypertension; Translations: [Essential (primary) hypertension] Onset: 12-26-2023 Chronic Hypertension with complications and secondary hypertension (2 sources) Hypertensive heart disease without heart failure; Translations: [Hypertensive heart disease without heart failure] Onset: 05-22-2024 Chronic Nutritional deficiencies (1 source) Vitamin D deficiency, unspecified; Translations: [VITAMIN D DEFICIENCY UNSPECIFIED] Onset: 10-20-2021 Chronic Residual codes; unclassified (1 source) Family history [...] fatigue; Translations: [OTHER FATIGUE] Onset: 10-20-2021 Episodic Other gastrointestinal disorders (2 sources) Intra-abdominal and pelvic swelling, mass and lump, unspecified site; Translations: [Intra-abdominal and pelvic swelling, mass and lump, unspecified site] Onset: 04-19-2024 Episodic Other screening for suspected conditions (not mental disorders or infectious disease) (7 sources) Encounter for screening mammogram for malignant neoplasm of breast; Translations: [Encounter for screening for malignant neoplasm of rectum] Onset: 10-20-2021 Episodic Unclassified (1 source) CONTACT W/AND (SUSP) EXPOS COVID-19; Translations: [CONTACT W/AND (SUSP) EXPOS COVID-19] Onset: 01-20-2022 Results Test Name Value Interpretation Reference Range Facility Office Visiton 08-13-2024 Follow-up visit [id number] Romana Alcocer 1955 Date Provider Department Center 08/13/2024 HEATHER RIOS ARIELA Doherty Family History Problem Relation Age of Onset Coronary artery disease Mother Other Mother Family Status - Relation Status Age at Mother Level of Service:93227 [place] OFFICE/OUTPATIENT NEW MODERATE MDM 45 MINUTES Normal [facility] [place] [facility] Orders Onlyon 08-13-2024 Orders Only [id number] Romana Alcocer 1955 Date Provider Department Center 08/13/2024 TOBI FLORES ARIELA Doherty Family History Problem Relation Age of Onset Coronary artery disease Mother Other Mother Family Status - Relation Status Age at Mother Normal [facility] [place] [facility] Office Visiton 05-22-2024 Follow-up visit [id number] Romana Alcocer 1955 Date Provider Department Center 05/22/2024 JANIYA TOBIN [facility]ELA [facility] Family History Problem Relation Age of Onset Coronary artery disease Mother Other Mother Family Status - Relation Status Age at Mother Level of Service:25072 [place] OFFICE/OUTPATIENT ESTABLISHED MOD MDM 30 MIN Normal [facility] [place] [facility] BASIC METABOLIC PANLon 04-29 Anion gap [Moles/Vol] 11 mmol/L Normal 5-15 [facility] Comment on above: Performed By: #### B MP #### [facility] ([id number]) [address] [place] [address], [address] [place] [address] Calcium [Mass/Vol] 8.9 mg/dL Normal 8.5-10.5 [facility] Comment on above: Performed By: #### B MP #### [facility] ([id number]) [address] [facility], [address] [place] [address] Chloride [Moles/Vol] 104 mmol/L Normal 98-109 [facility] Comment on above: Performed By: #### B MP #### [facility] ([id number]) [address] [place] [address], [address] [place] [address] CO2 [Moles/Vol] 21 mmol/L Low 22-32 [facility] Comment on above: Performed By: #### B MP #### [facility] ([id number]) [address], [address] [place] [address] Creatinine [Mass/Vol] 0.88 mg/dL Normal 0.40-1.00 [facility] Comment on above: Result Comment: METH OD TRACEABLE TO IDMS STANDARD Performed By: #### B MP #### [facility] ([id number]) [address], [address] [place] [address] GFR/1.73 sq M.predicted among non-blacks MDRD (S/P/Bld) [Vol rate/Area] 70 mL/min/{1.73_m2} Normal >59 [facility] Comment on above: Result Comment: Reported eGFR is based on the CKD-EPI 2020 equation that does not use a race coefficient. Performed By: #### B MP #### [facility] ([id number]) [address], [address] [place] [address] Glucose [Mass/Vol] 100 mg/dL High 65-99 [facility] Comment on above: Performed By: #### B MP #### [facility] ([id number]) [address], [address] [place] [address] Potassium [Moles/Vol] 5.3 mmol/L High 3.5-5.0 [facility] Comment on above: Result Comment: SPEC IMEN HEMOLYZED, RESULTS INCREASED MODERATELY HEMOLYZED Performed By: #### B MP #### [facility] ([id number]) [address], [address] [place] [address] Sodium [Moles/Vol] 136 mmol/L Normal 134-146 [facility] Comment on above: Performed By: #### B MP #### [facility] ([id number]) [address], [address] [place] [address] Urea nitrogen [Mass/Vol] 24 mg/dL Normal 5-27 [facility] Comment on above: Performed By: #### B #### [facility] ([id number]) [address], [address] [place] [address] ANESon 04-19-2024 ANES Attestation signed by Janiya Carlson MD at 04/19/2024 8:07 AM Janiya Carlson MD, MPH, [facility], [facility], [facility] Interventional Cardiology Pager Email: [email or web address] Patient: Romana Alcocer Procedure Information Date/Time: 04/19/24 0830 Procedure: Coronary angiography Location: [facility] 3 / [facility] (Cath) Providers: Janiya Carlson MD Clinical information reviewed: Allergies Meds OB Status Physical Exam Airway Mallampati: III TM distance: >3 FB Neck ROM: full Cardiovascular Rhythm: regular Rate: normal Dental Pulmonary Abdominal Anesthesia Plan ASA 3 (Conscious sedation) Anesthetic plan and risks discussed with patient. Use of blood products discussed with patient who consented to blood products. Plan discussed with attending. Additional Equipment Requests Normal [facility] [place] [facility] Abstracton 04-19-2024 Abstract [id number] Romana Alcocer 1955 F Date Provider Department Center 04/19/2024 [id number] MARCANO [facility] Family History Problem Relation Age of Onset Coronary artery disease Mother Other Mother Family Status - Relation Status Age at Mother Normal [facility] [place] [facility] CT ABDOMEN PELVIS W IV CONTR Goyo [...] Mcintosh MD. Not Vldtd Invalid Interpretation Code [facility] Attestation signed by Janiya Carlson MD at 04/19/2024 8:06 AM By using [...] personal documentation from me. Additional Comments: Janiya Carlson MD, MPH, [facility], [facility], [facility] Interventional Cardiology Pager Email: [email or web address] H&P reviewed. The patient was examined and there are no changes to the H&P. The procedure was explained to the patient. The risks and benefits of the procedure were explained to the patient who showed understanding and with full capacity elected to proceed with the procedure. All questions were addressed and answered. Jen Gale MD Barber Shop Operator - PGY6 [facility] NURSNOTEjose luis 04-19-2024 NURSNOTE RN educated pt on d/c [...] off of unit with all of belongings. [facility] Orders Onlyon 04-19-2024 Orders Only [id number] Romana Alcocer 1955 F Date Provider Department Center 04/19/2024 ALFREDITO BRAMBILA [facility] Family History Problem Relation Age of Onset Coronary artery disease Mother Other Mother Family Status - Relation Status Age at Mother [facility] BASIC METABOLIC PANLon 04-15 Anion gap [Moles/Vol] 10 mmol/L Normal 5-15 [facility] Comment on above: Performed By: #### C BCA, BMP #### [facility] ([id number]) [address] [facility], [address] [place] [address] Calcium [Mass/Vol] 9.6 mg/dL Normal 8.5-10.5 [facility] Comment on above: Performed By: #### C TEMI, BMP #### [facility] ([id number]) [address], [address] [place] [address] Chloride [Moles/Vol] 102 mmol/L Normal 98-109 [facility] Comment on above: Performed By: #### C BCA, BMP #### [facility] ([id number]) [address], [address] [place] [address] CO2 [Moles/Vol] 28 mmol/L Normal 22-32 [facility] Comment on above: Performed By: #### C TEMI, BMP #### [facility] ([id number]) [address], [address] [place] [address] Creatinine [Mass/Vol] 0.88 mg/dL Normal 0.40-1.00 [facility] Comment on above: Result Comment: METH OD TRACEABLE TO IDMS STANDARD Performed By: #### C BCA, BMP #### [facility] ([id number]) [address], [address] [place] [address] GFR/1.73 sq M.predicted among non-blacks MDRD (S/P/Bld) [Vol rate/Area] 70 mL/min/{1.73_m2} Normal >59 [facility] Comment on above: Result Comment: Reported eGFR is based on the CKD-EPI 2020 equation that does not use a race coefficient. Performed By: #### C BCA, BMP #### [facility] ([id number]) [address], [address] [place] [address] Glucose [Mass/Vol] 88 mg/dL Normal 65-99 [facility] Comment on above: Performed By: #### C BCA, BMP #### [facility] ([id number]) [address], [address] [place] [address] Potassium [Moles/Vol] 4.1 mmol/L Normal 3.5-5.0 [facility] Comment on above: Performed By: #### C TEMI, BMP #### [facility] ([id number]) [address], [address] [place] [address] Sodium [Moles/Vol] 140 mmol/L Normal 134-146 [facility] Comment on above: Performed By: #### C TEMI, BMP #### [facility] ([id number]) [address] [address] [place] [address] Urea nitrogen [Mass/Vol] 24 mg/dL Normal 5-27 [facility] Comment on above: Performed By: #### C TEMI, BMP #### [facility] ([id number]) [address] [address] CBC AND AUTO DIFFon 04-15-20 24 ABSOLUTE BASOPHIL 0.0 X10E9/L Normal 0.0-0.2 [facility] Comment on above: Performed By: #### C TEMI, BMP #### [facility] ([id number]) [address], [facility] [address] [place] [address] ABSOLUTE NEUTROPHIL 4.5 X10E9/L Normal 1.5-6.6 [facility] Comment on above: Performed By: #### C TEMI, BMP #### [facility] ([id number]) [address] [address] Basophils/100 WBC (Bld) 0.5 % Normal [facility] Comment on above: Performed By: #### C TEMI, BMP #### [facility] ([id number]) [address] [address] Eosinophils (Bld) [#/Vol] 0.1 10*3/uL Normal 0.0-0.4 [facility] Comment on above: Performed By: #### C TEMI, BMP #### [facility] ([id number]) [address], [address] [place] [address] Eosinophils/100 WBC (Bld) 1.8 % Normal [facility] Comment on above: Performed By: #### C TEMI, BMP #### [facility] ([id number]) [address], [address] [place] [address] Erythrocyte distribution width (RBC) [Ratio] 15.7 % High 11.5-15.0 [facility] Comment on above: Performed By: #### C TEMI, BMP #### [facility] ([id number]) [address], [address] [place] [address] Hematocrit (Bld) [Volume fraction] 43.2 % Normal 35-47 [facility] Comment on above: Performed By: #### C TEMI, BMP #### [facility] ([id number]) [address], [address] [place] [address] Hemoglobin (Bld) [Mass/Vol] 13.9 g/dL Normal 11.7-15.5 [facility] Comment on above: Performed By: #### C TEMI, BMP #### [facility] ([id number]) [address], [address] [place] [address] Lymphocytes (Bld) [#/Vol] 1.8 10*3/uL Normal 1.0-3.5 [facility] Comment on above: Performed By: #### C TEMI, BMP #### [facility] ([id number]) [address], [address] [place] [address] Lymphocytes/100 WBC (Bld) 24.9 % Normal [facility] Comment on above: Performed By: #### C BCA, BMP #### [facility] ([id number]) [address], [address] [place] [address] MCH (RBC) [Entitic mass] 28.1 pg Normal 27-34 [facility] Comment on above: Performed By: #### C TEMI, BMP #### [facility] ([id number]) [address], [address] [place] [address] MCHC (RBC) [Mass/Vol] 32.1 g/dL Normal 32-36 [facility] Comment on above: Performed By: #### C TEMI, BMP #### [facility] ([id number]) [address], [address] [place] [address] MCV (RBC) [Entitic vol] 88 fL Normal 80-100 [facility] Comment on above: Performed By: #### C TEMI, BMP #### [facility] ([id number]) [address], [address] [place] [address] Monocytes (Bld) [#/Vol] 0.7 10*3/uL Normal 0-0.9 [facility] Comment on above: Performed By: #### C TEMI, BMP #### [facility] ([id number]) [address], [address] [place] [address] Monocytes/100 WBC (Bld) 9.3 % Normal [facility] Comment on above: Performed By: #### C TEMI, BMP #### [facility] ([id number]) [address], [address] [place] [address] Neutrophils/100 WBC (Bld) 63.5 % Normal [facility] Comment on above: Performed By: #### C TEMI, BMP #### [facility] ([id number]) [address], [address] [place] [address] Platelet mean volume (Bld) [Entitic vol] 8.9 fL Normal 7-12 [facility] Comment on above: Performed By: #### C TEMI, BMP #### [facility] ([id number]) [address], [address] [place] [address] Platelets (Bld) [#/Vol] 234 10*3/uL Normal 150-450 [facility] Comment on above: Performed By: #### C BCA, BMP #### [facility] ([id number]) [address], [address] [place] [address] RBC COUNT 4.94 X10E12/L Normal 3.80-5.20 [facility] Comment on above: Performed By: #### C BCA, BMP #### [facility] ([id number]) [address], [address] [place] [address] WBC (Bld) [#/Vol] 7.2 10*3/uL Normal 4.0-11.0 [facility] Comment on above: Performed By: #### C BCA, BMP #### [facility] ([id number]) [address], [address] [place] [address] [facility] 04-08-2024 [facility] Cardiology Clinic Note Chief Complaint: New patient here to establish care. Ref from Dr. Parra for abnormal echo performed last month. 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 Patient says she gets chest pain every [...] Further recommendations pending the cardiac catheterization Janiya Carlson MD, MPH, [facility], [facility], [facility] Interventional Cardiology Pager Email: [email or web address] Normal [facility] [place] [facility] Office Visiton 04-08-2024 Follow-up visit [id number] Romana Alcocer 1955 F Date Provider Department Center 04/08/2024 JANIYA TOBIN Family History Problem Relation Age of Onset Coronary artery disease Mother Other Mother Family Status - Relation Status Age at Mother Level of Service:67349 [place] OFFICE/OUTPATIENT [facility] MDM 60 MINUTES Normal [facility] [place] [facility] Orders Onlyon 04-08-2024 Orders Only [id number] Romana Alcocer 1955 F Date Provider Department Center 04/08/2024 TOBI FLORES Family History Problem Relation Age of Onset Coronary artery disease Mother Other Mother Family Status - Relation Status Age at Mother Normal [facility] [place] [facility] MG MAMM SCREEN 3D NIKKO CADon 08-15-2022 MG MAMM SCREEN 3D NIKKO CAD Patient: ROMANA ALCOCER. Exam Date: 08/15/2022 : 1955 Gender:F Ordering : DR TEDDY PARRA . Admission #: [id number] Family : Order #: [id number] CLICK HERE TO VIEW EXAM RADIOLOGY REPORT [...] brain cancer at age 47. LOCATION: [facility] BREAST COMPOSITION: Scattered areas fibroglandular density. FINDINGS: [...] MD on 08/15/2022 at 11:16 Normal [facility] Covid-19 PCR (CVDTBH)on 01-03 SARS-CoV-2 (COVID-19) RNA MARITZA+probe Ql (Unsp spec) Detected Critically abnormal NOT DETECTED [facility] Comment on above: Result Comment: This test is not yet approved or cleared by the [place] FDA. When there are no FDA-approved or cleared tests available, and other criteria are met, FDA can make tests available under an emergency access mechanism called an Emergency Use Authorization (EUA). The EUA for this test is supported by the [place] of Health and Human Service's (HHS's) declaration [...] used). Performed By: #### C VDTBH #### [facility] [address] [place], [place] [address] Dr. Tristan Craft CBC AUTO DIFFon 10-14-2021 BASO # 0.1 103/ul Normal 0.0-0.1 [facility] Comment on above: Performed By: #### C BC #### [facility] [address] [place], [place] [address] Dr. Tristan Craft Basophils/100 WBC (Bld) 0.5 % Normal 0.2-2.0 [facility] Comment on above: Performed By: #### C BC #### [facility] [address] [place] [address] Dr. Tristan Craft EO # 0.2 103/ul Normal 0.0-0.7 [facility] Comment on above: Performed By: #### C BC #### [facility] [address] [place] [address] Dr. Tristan Craft Eosinophils/100 WBC (Bld) 1.6 % Normal 0.9-7.0 [facility] Comment on above: Performed By: #### C BC #### [facility] [address] [place] [address] Dr. Tristan Craft Erythrocyte distribution width (RBC) [Ratio] 14.3 % Normal 11.0-15.0 [facility] Comment on above: Performed By: #### C BC #### [facility] [address] [place] [address] Dr. Tristan Craft Hematocrit (Bld) [Volume fraction] 45.7 % Normal 36.0-48.0 [facility] Comment on above: Performed By: #### C BC #### [facility] [address] [place] [address] Dr. Tristan Craft Hemoglobin (Bld) [Mass/Vol] 14.3 g/dL Normal 12.0-16.0 [facility] Comment on above: Performed By: #### C BC #### [facility] [address] [place] [address] Dr. Tristan Craft IG # 0.03 10e3/ul Normal 0.00-0.03 [facility] Comment on above: Performed By: #### C BC #### [facility] [address] [place] [address] Dr. Tristan Craft IG % 0.3 % Normal 0.0-0.5 [facility] Comment on above: Performed By: #### C BC #### [facility] [address] [place] [address] Dr. Tristan Craft LYMPH # 2.5 103/ul Normal 1.2-3.8 [facility] Comment on above: Performed By: #### C BC #### [facility] [address] [place] [address] Dr. Trisatn Craft Lymphocytes/100 WBC (Bld) 26.7 % Normal 20.5-60.0 [facility] Comment on above: Performed By: #### C BC #### [facility] [address] [place] [address] Dr. Tristan Craft MANUAL DIFF REQ NO Normal [facility] Comment on above: Performed By: #### C BC #### [facility] [address] [place] [address] Dr. Tristan Craft MCH (RBC) [Entitic mass] 27.8 pg Normal 26.7-34.0 [facility] Comment on above: Performed By: #### C BC #### [facility] [address] [place] [address] Dr. Tristan Craft MCHC (RBC) [Mass/Vol] 31.3 g/dL Normal 29.9-35.2 [facility] Comment on above: Performed By: #### C BC #### [facility] [address] [place] [address] Dr. Tristan Craft MCV (RBC) [Entitic vol] 88.9 fL Normal 81.0-99.0 [facility] Comment on above: Performed By: #### C BC #### [facility] [address] [place] [address] Dr. Tristan Craft MONO # 0.8 103/ul Normal 0.3-0.8 [facility] Comment on above: Performed By: #### C BC #### [facility] [address] [place] [address] Dr. Tristan Craft Monocytes/100 WBC (Bld) 8.0 % Normal 1.7-12.0 [facility] Comment on above: Performed By: #### C BC #### [facility] [address] [place] [address] Dr. Tristan Craft NEUT # 5.9 103/ul Normal 1.4-6.5 [facility] Comment on above: Performed By: #### C BC #### [facility] [address] [place] [address] [address] Tristan Craft Neutrophils/100 WBC (Bld) 62.9 % Normal 43.0-75.0 [facility] Comment on above: Performed By: #### C BC #### [facility] [address] [place] [address] [address] Tristan Craft Platelet mean volume (Bld) [Entitic vol] 10.4 fL Normal 9.5-13.5 [facility] Comment on above: Performed By: #### C BC #### [facility] [address] [place] [address] Dr. Tristan Craft PLT 302 103/ul Normal 150-450 [facility] Comment on above: Performed By: #### C BC #### [facility] [facility] [address] [place] [address] Dr. Tristan Craft RBC 5.14 106/ul Normal 4.20-5.40 [facility] Comment on above: Performed By: #### C BC #### [facility] [address] [place] [address] Dr. Tristan Craft WBC 9.3 103/ul Normal 4.0-11.0 [facility] Comment on above: Performed By: #### C BC #### [facility] [address] [place] [address] Dr. Tristan Craft FREE T3on 10-14-2021 FREE T3 2.03 pg/mlL Critically low 2.18-3.98 [facility] Comment on above: Performed By: #### T 4, CMP, TSH, LIPID, FT3 #### [facility] [address] [place] [address] Dr. Tristan Craft GLYCOHEMOGLOBIN A1Con 2021 ADA RECOMMENDATION SEE BELOW Normal [facility] Comment on above: Result Comment: ADA RECOMMENDED LIMIT 4.0 - 6.0 ADA THERAPEUTIC TARGET < 7.0 ACTION SUGGESTED > 7.0 Performed By: #### A 1C #### [facility] [address] [place] [address] Dr. Tristan Craft Glucose [Mass/Vol] 123 mg/dL Normal [facility] Comment on above: Performed By: #### A 1C #### [facility] [address] [address] [address] Tristan Craft HbA1c (Bld) [Mass fraction] 5.9 % Normal 4.5-6.2 [facility] Comment on above: Performed By: #### A 1C #### [facility] [address] [address] [address] Tristan Craft LIPID PROFILEon 10-14-2021 CHOL-HDL RATIO NORM SEE BELOW Normal [facility] Comment on above: Result Comment: 3.3 - 4.4 LOW RISK 4.4 - 7.1 AVERAGE RISK 7.1 - 11.0 MODERATE RISK >11.0 HIGH RISK Performed By: #### T 4, CMP, TSH, LIPID, FT3 #### [facility] [address] [address] [address] Tristan Craft Cholesterol [Mass/Vol] 126 mg/dL Normal <=200 [facility] Comment on above: Performed By: #### T 4, CMP, TSH, LIPID, FT3 #### [facility] [address] [address] [address] Tristan Craft Cholesterol in HDL [Mass/Vol] 53 mg/dL Normal 40-60 [facility] Comment on above: Performed By: #### T 4, CMP, TSH, LIPID, FT3 #### [facility] [address] [address] [address] Tristan Craft Cholesterol in LDL [Mass/Vol] 45.0 mg/dL Normal [facility] Comment on above: Performed By: #### T 4, CMP, TSH, LIPID, FT3 #### [facility] [address] [address] [address] Tristan Craft Cholesterol.total/Ch olesterol in HDL [Mass ratio] 2.4 {ratio} Normal [facility] Comment on above: Performed By: #### T 4, CMP, TSH, LIPID, FT3 #### [facility] [address] [place] [address] Dr. Tristan Craft HDL NORMAL > or = 60 mg/dl - LOW CARDIOVASCULAR RISK <40 mg/dl - HIGH CARDIOVASCULAR RISK Normal [facility] Comment on above: Performed By: #### T 4, CMP, TSH, LIPID, FT3 #### [facility] [address] [address] [address] Tristan Craft LDL CALC NORMAL SEE BELOW Normal [facility] Comment on above: Result Comment: <100 mg/dl OPTIMAL 100 - 129 mg/dl NEAR OR ABOVE OPTIMAL 130 - 159 mg/dl BORDERLINE HIGH 160 - 189 mg/dl HIGH >190 mg/dl VERY HIGH Performed By: #### T 4, CMP, TSH, LIPID, FT3 #### [facility] [address] [address] [address] Tristan Craft Triglyceride [Mass/Vol] 140 mg/dL Normal <=150 [facility] Comment on above: Performed By: #### T 4, CMP, TSH, LIPID, FT3 #### [facility] [address] [address] [address] Tristan Craft VLDL CALC 28.0 mg/dL Normal [facility] Comment on above: Performed By: #### T 4, CMP, TSH, LIPID, FT3 #### [facility] [address] [address] [address] Tristan Craft PROF 14(COMP METB)on 022 Albumin [Mass/Vol] 3.8 g/dL Normal 3.4-5.0 [facility] Comment on above: Performed By: #### T 4, CMP, TSH, LIPID, FT3 #### [facility] [address] [place] [address] Dr. Tristan Craft Albumin/Globulin [Mass ratio] 1.1 {ratio} Normal [facility] Comment on above: Performed By: #### T 4, CMP, TSH, LIPID, FT3 #### [facility] [address] [place] [address] Dr. Tristan Craft ALP [Catalytic activity/Vol] 87 U/L Normal 46-116 [facility] Comment on above: Performed By: #### T 4, CMP, TSH, LIPID, FT3 #### [facility] [address] [place] [address] Dr. Tristan Craft ALT [Catalytic activity/Vol] 24 U/L Normal 14-59 [facility] Comment on above: Performed By: #### T 4, CMP, TSH, LIPID, FT3 #### [facility] [address] [place] [address] Dr. Tristan Craft Anion gap [Moles/Vol] 12.9 mmol/L Normal [facility] Comment on above: Performed By: #### T 4, CMP, TSH, LIPID, FT3 #### [facility] [address] [address] [address] Tristan Craft AST [Catalytic activity/Vol] 20 U/L Normal 15-37 [facility] Comment on above: Performed By: #### T 4, CMP, TSH, LIPID, FT3 #### [facility] [address] [place] [address] Dr. Tristan Craft Bilirubin [Mass/Vol] 0.5 mg/dL Normal 0.2-1.0 [facility] Comment on above: Performed By: #### T 4, CMP, TSH, LIPID, FT3 #### [facility] [address] [place] [address] Dr. Tristan Craft Calcium [Mass/Vol] 8.6 mg/dL Normal 8.5-10.1 [facility] Comment on above: Performed By: #### T 4, CMP, TSH, LIPID, FT3 #### [facility] [address] [place] [address] Dr. Tristan Craft Chloride [Moles/Vol] 101 mmol/L Normal 98-107 [facility] Comment on above: Performed By: #### T 4, CMP, TSH, LIPID, FT3 #### [facility] [address] [place] [address] Dr. Tristan Craft CO2 [Moles/Vol] 27.7 mmol/L Normal 21.0-32.0 [facility] Comment on above: Performed By: #### T 4, CMP, TSH, LIPID, FT3 #### [facility] [address] [place] [address] Dr. Tristan Craft Creatinine [Mass/Vol] 0.93 mg/dL Normal 0.55-1.02 [facility] Comment on above: Performed By: #### T 4, CMP, TSH, LIPID, FT3 #### [facility] [address] [address] [address] Tristan Craft EGFR-AF ZIMBABWEAN >60 Normal >=60 [facility] Comment on above: Performed By: #### T 4, CMP, TSH, LIPID, FT3 #### [facility] [address] [address] [address] Tristan Craft EGFR-NON AF ZIMBABWEAN =60 Normal >=60 [facility] Comment on above: Performed By: #### T 4, CMP, TSH, LIPID, FT3 #### [facility] [address] [place] [address] Dr. Tristan Craft Globulin (S) [Mass/Vol] 3.6 g/dL Normal [facility] Comment on above: Performed By: #### T 4, CMP, TSH, LIPID, FT3 #### [facility] [address] [address] [address] Tristan Craft Glucose [Mass/Vol] 108 mg/dL Critically high 74-106 [facility] Comment on above: Performed By: #### T 4, CMP, TSH, LIPID, FT3 #### [facility] [address] [address] [address] Tristan Craft Potassium [Moles/Vol] 3.6 mmol/L Normal 3.5-5.1 [facility] Comment on above: Performed By: #### T 4, CMP, TSH, LIPID, FT3 #### [facility] [address] [address] [address] Tristan Craft Protein [Mass/Vol] 7.4 g/dL Normal 6.4-8.2 [facility] Comment on above: Performed By: #### T 4, CMP, TSH, LIPID, FT3 #### [facility] [address] [address] [address] Tristan Craft Sodium [Moles/Vol] 138 mmol/L Normal 136-145 [facility] Comment on above: Performed By: #### T 4, CMP, TSH, LIPID, FT3 #### [facility] [address] [place] [address] Dr. Tristan Craft Urea nitrogen [Mass/Vol] 18.0 mg/dL Normal 7.0-18.0 [facility] Comment on above: Performed By: #### T 4, CMP, TSH, LIPID, FT3 #### [facility] [address] [place] [address] Dr. Tristan Craft Urea nitrogen/Creatinine [Mass ratio] 19.4 mg/mg Normal [facility] Comment on above: Performed By: #### T 4, CMP, TSH, LIPID, FT3 #### [facility] [address] [place] [address] Dr. Tristan Craft T4on 10-14-2021 T4 [Mass/Vol] 6.80 ug/dL Normal 4.80-13.90 [facility] Comment on above: Performed By: #### T 4, CMP, TSH, LIPID, FT3 #### [facility] [address] [place] [address] Dr. Tristan Craft TSHon 10-14-2021 TSH 2.277 uIU/mL Normal 0.358-3.740 [facility] Comment on above: Performed By: #### T 4, CMP, TSH, LIPID, FT3 #### [facility] [address] [place] [address] Dr. Tristan Craft TSH RANGE SEE BELOW Normal [facility] Comment on above: Result Comment: <0.3 4 UIU/ml HYPERTHYROID 0.34-5.60 UIU/ml EUTHYROID >5.60 UIU/ml HYPOTHYROID Performed By: #### T 4, CMP, TSH, LIPID, FT3 #### [facility] [address] [place] [address] Dr. Tristan Craft VITAMIN D 25 OHon 10-14-2021 VIT D 25-OH 37.9 ng/mL Normal [facility] Comment on above: Performed By: #### V ITAD #### [facility] [address] [address] [address] Tristan Craft VIT D RANGES SEE BELOW Normal [facility] Comment on above: Result Comment: <20 ng/mL Vit D deficient 20 - <30 ng/mL Vit D insufficient 30 - 100 ng/mL Vit D sufficient >100 ng/mL Potential Toxicity Performed By: #### V ITAD #### [facility] [address] [address] [address] Tristan Craft Vital Signs Date Time Vital Sign Value Performing Clinician Faci lity 09-23-2023 09:56-0400 Body height 157.48 cm MD Teddy Parra Work Phone: [facility] 09-23-2023 09:56-0400 Body temperature 97.9 [degF] MD Teddy Parra Work Phone: [facility] 09-23-2023 09:56-0400 Diastolic blood pressure 68 mm[Hg] MD Teddy Parra Work Phone: [facility] 09-23-2023 09:56-0400 Heart rate 59 /min MD Teddy Parra Work Phone: [facility] 09-23-2023 09:56-0400 Respiratory rate 16 /min MD Teddy Parra Work Phone: [facility] 09-23-2023 09:56-0400 SaO2% (BldA) [Mass fraction] 99 % MD Teddy Parra Work Phone: [facility] 09-23-2023 09:56-0400 Systolic blood pressure 116 mm[Hg] MD Teddy Parra Work Phone: [facility] Encounters Encounter Date Encounter Type Care Provider Facility Start: 08-13-2024 End: 08-13-2024 ambulatory HEATHER ARROYO [facility] Start: 05-22-2024 End: [facility]: 04-29-[facility]24 End: 04-29-2024 ambulatory TEDDY PARRA [facility] Start: 04-19-2024 End: 04-19-2024 ambulatory JEN [facility] Start: 04-19-2024 End: 04-19-2024 ambulatory [facility] Start: 04-15-2024 End: 04-15-2024 ambulatory [facility] Start: 04-08-2024 End: 04-08-2024 ambulatory [facility] Start: 02-01-2024 End: 02-01-2024 Evaluation and management of inpatient [facility] Start: 02-01-2024 End: 02-01-2024 Evaluation and management of inpatient [facility] Start: 01-31-2024 End: 01-31-2024 [facility] Start: 01-11-2024 End: 01-11-2024 Evaluation and management of inpatient [facility] Start: 01-11-2024 End: 01-11-2024 Evaluation and management of inpatient [facility] Start: 12-26-2023 End: 12-26-2023 ambulatory [facility] Start: 12-26-2023 Encounter for other preprocedural examination [facility] Start: 09-23-2023 End: 09-23-2023 ambulatory MD Teddy Parra Work Phone: [facility] Work Phone: Start: 09-23-2023 End: 09-23-2023 Patient encounter procedure MD Teddy Parra Work Phone: [facility] Work Phone: Start: 08-15-2022 End: 08-16-[address] TEDDY PARRA . Facility:[facility] Start: 01-20-2022 End: 01-20-[address] TEDDY PARRA . Facility:[facility] Start: 10-14-2021 End: 10-15-[address] TEDDY PARRA . Facility:[facility] Procedures Date Procedure Procedure Detail Performing Clinician Start: 09-23-2023 Plain X-ray of right hand MD Teddy Parra Work Phone: Payers Date Payer Category Payer Medicare [id number] 1961 Unknown [id number] 1955 Unknown [id number] 2.16.84 [id number] 1955 Unknown [id number] 2.16.84 [id number] 1953 Unknown [id number] 2.16.84 [id number] 1953 Unknown [id number] 2.16.8 [id number] 1953 Unknown [id number] 2.16.8 [id number] 1953 Unknown [id number] 2.16.8 [id number] 1953 Unknown [id number] 2.16.8 [id number] 1953 Unknown [id number] 2.16.8 [id number] 1953 Unknown [id number] 2.16.8 [id number] 1953 Unknown [id number] 2.16.8 [id number] 1953 Unknown [id number] 2.16.8 [id number] 1953 Unknown [id number] 2.16.8 [id number] 1953 Unknown [id number] 2.16.8 [id number] 1953 Unknown [id number] 2.16.8 [id number] Unknown [employer] [id number] Social History Date Type Detail Facility Start: 09-23-2023 Tobacco smoking stat us NHIS Never smoked tobacco (finding) [facility] Start: 1955 Sex Assigned At Female F [facility] Progress note 08-13-2024 Note Date & Type Note Facility 08-13-2024 Note [facility] Electrophysiology Consult Note [facility] Reason for visit: Atrial fibrillation HPI: Romana Alcocer is a 69 y.o. year old with past medical history of atrial fibrillation, hypothyroidism, dyslipidemia was previously seen by Dr. OLIVER. She has been noted to have atrial fibrillation for least 23 years but has not had any prior LUIS so I will consider cardioversion she was placed on Eliquis for the A-fib and had a stress test done few years ago. She has never had a history of stroke or TIAs or any DE in the past but has a family history of premature coronary artery disease she had a recent cardiac catheterization on April 2024 which showed mild CAD. With evidence of HFpEF. Given the evidence of a HFpEF and nonischemic cardiomyopathy she was further referred to me for consideration for treatment of A-fib. PMH: Past Medical History: Diagnosis Date Abnormal ECG Arrhythmia Atrial fibrillation (CMS/HCC) Heart valve disease Hyperlipidemia Hypertension PSH: Past Surgical History: Procedure Laterality Date BREAST SURGERY CARDIAC CATHETERIZATION CHOLECYSTECTOMY FOOT SURGERY KNEE SURGERY TONSILLECTOMY SH: Social Determinants of Health Tobacco Use: Low Risk (04/08/2024) Patient History Smoking Tobacco Use: Never Smokeless Tobacco Use: Never Passive Exposure: Not on file Alcohol Use: Not At Risk (02/20/2018) Received from [employer] [employer] Frequency of Alcohol Consumption: Never Average Number of Drinks: Not on file Frequency of Binge Drinking: Not on file Financial Resource Strain: Not on file Food Insecurity: No Food Insecurity (03/14/2023) Received from [employer], [employer] Hunger Screening Within the past 12 months we worried whether our food would run out before we got money to buy more.: Never True Within the past 12 months the food we bought just didn't last and we didn't have money to get more.: Never True Transportation Needs: Not on file Physical Activity: Not on file Stress: Not on file Social Connections: Not on file Intimate Partner Violence: Unknown (07/27/2023) [place] Safety & [place] Fear of Current or Ex-Partner: Not on file Emotionally Abused: Not on file Physically Abused: Not on file Sexually Abused: Not on file Physically or Sexually Abused: Not on file Depression: Not on file Housing Stability: Not on file Utilities: Not on file Health Literacy: Not on file Allergies: Allergies Allergen Reactions Penicillins Hives and Other Yeast infection Codeine Hives and Rash Weight: 125kg Visit Vitals BP 132/88 (BP Location: Left wrist, Patient Position: Sitting) Pulse 56 Ht 1.575 m (5' 2 ) Wt 125 kg (275 lb) SpO2 95% BMI 50.30 kg/m??? OB Status Postmenopausal Smoking Status Never BSA 2.34 m??? Meds: Current Outpatient Medications on File Prior to Visit Medication Sig Dispense Refill alendronate (Fosamax) 70 mg tablet Take 70 mg by mouth every 7 (seven) days. amitriptyline (Elavil) 25 mg tablet Take 25 mg by mouth in the morning. atorvastatin (Lipitor) 20 mg tablet Take 20 mg by mouth at bedtime. celecoxib (CeleBREX) 100 mg capsule TAKE 1 CAPSULE BY MOUTH EVERY DAY 30 DAYS cholecalciferol (Vitamin D-3) 125 MCG (5000 UT) capsule in the morning. dapagliflozin propanediol (Farxiga) 10 mg Take 1 tablet (10 mg) by mouth in the morning. 90 tablet 3 Eliquis 5 mg tablet Take 5 mg by mouth in the morning and at bedtime. furosemide (Lasix) 20 mg tablet Take 1 tablet (20 mg) by mouth in the morning. 30 tablet 0 levothyroxine (Synthroid, Levoxyl) 75 mcg tablet Take 75 mcg by mouth in the morning. liothyronine (Cytomel) 5 mcg tablet Take 10 mcg by mouth in the morning. losartan (Cozaar) 25 mg tablet Take 1 tablet (25 mg) by mouth in the morning. 90 tablet 3 metoprolol succinate XL (Toprol-XL) 25 mg 24 hr tablet Take 1 tablet (25 mg) by mouth in the morning. Do not crush or chew. 30 tablet 0 minocycline (Dynacin) 100 mg tablet Take 100 mg by mouth once daily as directed. pantoprazole (ProtoNix) 40 mg EC tablet Take 40 mg by mouth in the morning. sertraline (Zoloft) 100 mg tablet Take 200 mg by mouth in the morning. No current facility-administered medications on file prior to visit. ROS: Review of Systems Cardiovascular: Positive for dyspnea on exertion (with exertion) and leg swelling (continues more in right leg than left). Negative for chest pain (when sitting, and with exertion). Respiratory: Positive for cough (s/p covid and flu). Musculoskeletal: Positive for joint pain (bilateral knees). Neurological: Negative for light-headedness (with standing). All other systems reviewed and are negative. Physical Exam: Constitutional General Appearance: well-nourished, well-developed, appears stated age Level of Distress: comfortable Eyes ASHUTOSH Neck Neck: supple, trachea midline Carotid Art (more content not included)... [facility] Progress note 05-22-2024 Note Date & Type Note Facility 05-22-2024 Note [facility] Note Chief Complaint: Patient here for follow up heart cath performed on 04/19/2024. She was started on lasix, and had labs the following week. Chest pain has resolved. She isn't able to tell if lasix has helped her dyspnea, as she is just getting over Covid-19. Still has some hematuria on Eliquis. Denies lightheadedness/syncope. HPI: Romana Alcocer is a 69 y.o. [...] family history of premature coronary artery disease. UPDATE 05/22/2024 Cardiology ROS: Review of Systems Cardiovascular: Positive for dyspnea on exertion and palpitations ( sometimes ). Genitourinary: Positive for hematuria. Neurological: Positive for loss of balance. All other systems reviewed and are negative. Past Medical History She has a past medical history of Abnormal ECG, Arrhythmia, Atrial fibrillation (CMS/HCC), Heart valve disease, Hyperlipidemia, and Hypertension. Surgical History She has a past surgical history that includes Tonsillectomy; Cholecystectomy; Breast surgery; Knee surgery; and Foot surgery. Social History She reports that she has never smoked. She has never used smokeless tobacco. She reports that she does not drink alcohol. No history on file for drug use. Family History Family History Problem Relation Name Age of Onset Coronary artery disease Mother Other (heart valve disease) Mother Allergies Penicillins and Codeine Medications Current Outpatient Medications: alendronate (Fosamax) 70 mg tablet, Take 70 mg by mouth every 7 (seven) days., Disp: , Rfl: amitriptyline (Elavil) 25 mg tablet, Take 25 mg by mouth in the morning., Disp: , Rfl: atorvastatin (Lipitor) 20 mg tablet, Take 20 mg by mouth at bedtime., Disp: , Rfl: celecoxib (CeleBREX) 100 mg capsule, TAKE 1 CAPSULE BY MOUTH EVERY DAY 30 DAYS, Disp: , Rfl: cholecalciferol (Vitamin D-3) 125 MCG (5000 UT) capsule, in the morning., Disp: , Rfl: dapagliflozin propanediol (Farxiga) 10 mg, Take 1 tablet (10 mg) by mouth in the morning., Disp: 90 tablet, Rfl: 3 Eliquis 5 mg tablet, Take 5 mg by mouth in the morning and at bedtime., Disp: , Rfl: furosemide (Lasix) 20 mg tablet, Take 1 tablet (20 mg) by mouth in the morning., Disp: 30 tablet, Rfl: 0 levothyroxine (Synthroid, Levoxyl) 75 mcg tablet, Take 75 mcg by mouth in the morning., Disp: , Rfl: liothyronine (Cytomel) 5 mcg tablet, Take 10 mcg by mouth in the morning., Disp: , Rfl: losartan (Cozaar) 25 mg tablet, Take 1 tablet (25 mg) by mouth in the morning., Disp: 30 tablet, Rfl: 0 metoprolol succinate XL (Toprol-XL) 25 mg 24 hr tablet, Take 1 tablet (25 mg) by mouth in the morning. Do not crush or chew., Disp: 30 tablet, Rfl: 0 minocycline (Dynacin) 100 mg tablet, Take 100 mg by mouth once daily as directed., Disp: , Rfl: pantoprazole (ProtoNix) 40 mg EC tablet, Take 40 mg by mouth in the morning., Disp: , Rfl: sertraline (Zoloft) 100 mg tablet, Take 200 mg by mouth in the morning., Disp: , Rfl: Last Recorded Vitals BP 156/88 (BP Location: Right wrist, Patient Position: Sitting) Pulse 65 Ht 1.549 m (5' 1 ) Wt 123 kg (272 lb) SpO2 97% BMI 51.39 kg/m??? Physical Examination: GENERAL: alert and oriented [...] limits in size with reduced systolic function (more content not included)... [facility] Progress note 04-19-2024 Note Date & Type [...] appropriate She is to follow-up with Dr. Carlson in the [facility] in the next 1 to 2 months [...] internal jugular vein was obtained. A 6 Malian 11 cm sheath was inserted without difficulty. [...] left radial artery was obtained. A 6 Malian glide sheath was inserted without difficulty. Difficulty [...] be ordered. INDICATIONS: (more content not included)... [facility] Progress note 04-08-2024 Note Date & Type Note Facility 04-08-2024 Note [facility] Note Chief Complaint: New patient here to establish care. Ref from Dr. Parra for abnormal echo performed last month. 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 Patient says she gets chest pain every [...] Further recommendations pending the cardiac catheterization Janiya Carlson MD, MPH, FACC, [facility], [facility] Interventional Cardiology Pager Email: [email or web address] Evaluation note Note Date & Type Note Facility Evaluation note No assessment [facility] Work [facility]: Summary Purpose Family History [...] and content) DATE CREATED AUTHOR 08/16/2022 [facility] DATE CREATED AUTHOR AUTHOR'S ORGANIZ ATION 05/01/2024 [facility] DATE CREATED AUTHOR AUTHOR'S ORGANIZ ATION 08/21/2024 [facility] Care Teams (unrecognized sec tion and content) Team Status: Active Member Role Status Dates Teddy Parra MD Primary Care Provider Active Team [...] BE BASED ON THE PRIMARY CLINICAL RECORDS. [facility]. provides no warranty or guarantee of the accuracy or completeness of information in this document.
[2024-09-19 10:22] LABS: Basophils Absolute Auto 0.1 10^3/uL (0.0-0.1); Basophils Percent Auto 0.6 % (0.2-2.0); Eosinophils Absolute Auto 0.1 10^3/uL (0.0-0.7); Hematocrit 44.1 % (36.0-48.0); Hemoglobin 13.9 g/dL (12.0-16.0); Immature Granulocytes Abs Auto 0.05 10^3/uL (0.00-0.03); Immature Granulocytes Pct Auto 0.6 % (0.0-0.5); Mean Corpuscular HGB Conc 31.5 g/dL (29.9-35.2); Mean Corpuscular Hemoglobin 28.4 pg (26.7-34.0); Mean Platelet Volume 10.1 fL (9.5-13.5); Monocytes Absolute Auto 0.7 10^3/uL (0.3-0.8); Monocytes Percent Auto 7.8 % (1.7-12.0); Platelet Count 211 10^3/uL (150-450); Red Cell Distribution Width 14.6 % (11.0-15.0); White Blood Count 8.9 10^3/uL (4.0-11.0)
[2024-09-19 10:58] LABS: Anion Gap 11.2; BUN Creatinine Ratio 17.5; Calcium 9.2 mg/dL (8.5-10.1); Carbon Dioxide 30.7 mmol/L (21.0-32.0); Chloride 101 mmol/L (98-107); Estimated GFR (African America >60 (>=60 mL/min/1.73m^2); Estimated GFR (Non-African Ame 53 (>=60 mL/min/1.73m^2); Glucose 86 mg/dL (74-106); Potassium 3.9 mmol/L (3.5-5.1); Sodium 139 mmol/L (136-145)
== END 2024-09-19 09:41 | disposition home or self-care (01) ==
PROVIDERS: PCP Family Medicine; Visit Provider Internal Medicine Cardiovascular Disease
DX: I48.0 Paroxysmal atrial fibrillation (principal)
CPT/HCPCS: 36415; 80048; 85025

== ENCOUNTER 2024-10-21 11:02 | Outpatient (OUT) | payer MEDICARE, BC, SELFPAY ==
--- NOTE | 2024-10-21 11:09 | XR_ITS ---
The [address] [address] Patient Name: MIGUEL ALCOCER MRN: [id number] date: 1955 Sex: F Assigned Patient Location: LAB Current Patient Location: LAB Accession/Order Number: [id number] Exam Date: 10/21/2024 13:21 Report Date: 10/21/2024 13:29 At the request of: TEDDY FINK MD Procedure: XR hip BI w PEL 1V LUMBAR SPINE - 6 views: CLINICAL HISTORY: Osteoarthritis, Compression Deformity Of Vertebra COMPARISON: 11/05/2022 CT AP, lateral, both oblique and AP and lateral coned-down views of the lumbosacral junction were obtained. There is osteopenia. Study is read with the assumption there are hypoplastic 12th ribs. There is similar compression deformity involving the inferior endplate of T12. No new compression fractures are noted. There is slight retrolisthesis of T12 on L1, L1 on L2 and L2 on L3. There is multilevel disc space narrowing and endplate spurring. Mid and lower lumbar facet hypertrophy is also seen. No pars defects are visualized. There is sclerosis at the SI joints. There are no paraspinal soft tissue abnormalities. There is redemonstration of a rim calcified lesion at the left upper quadrant which was present within the spleen on the comparison CT exam. XR/XR hip BI w PEL 1V IMPRESSION: OSTEOPENIA AND DEGENERATIVE CHANGES, DESCRIBED. 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 ADULT PELVIS WITH BILATERAL HIPS - 5 views CLINICAL HISTORY: Osteoarthritis, Compression Deformity Of Vertebra COMPARISON: 08/14/2019 AP view of the pelvis as well as AP and frog-lateral views of both hips were obtained. There is osteopenia. No fracture, dislocation or bony destruction is seen. The hip joint spaces are symmetric. There is minor marginal spurring at the periphery of the femoral heads and superior acetabula. There are small enthesophytes at the greater trochanters and slightly larger at the iliac crests. Minor sclerosis is present at the SI joints. The soft tissues are unremarkable. IMPRESSION: OSTEOPENIA AND MINOR DEGENERATIVE CHANGES. NO ACUTE PLAIN FILM FINDINGS. Impression dictated by: Ana Cristina Paulson M.D. 10/21/2024 1:29 PM Dictation Location: [place] [address] Electronically authenticated by: [id number] Y Date: 10/21/2024 13:29
--- NOTE | 2024-10-21 11:09 | XR_ITS ---
The [address] [address] Patient Name: MIGUEL ALCOCER MRN: [id number] date: 1955 Sex: F Assigned Patient Location: LAB Current Patient Location: LAB Accession/Order Number: [id number] Exam Date: 10/21/2024 13:21 Report Date: 10/21/2024 13:29 At the request of: TEDDY FINK MD Procedure: XR hip BI w PEL 1V LUMBAR SPINE - 6 views: CLINICAL HISTORY: Osteoarthritis, Compression Deformity Of Vertebra COMPARISON: 11/05/2022 CT AP, lateral, both oblique and AP and lateral coned-down views of the lumbosacral junction were obtained. There is osteopenia. Study is read with the assumption there are hypoplastic 12th ribs. There is similar compression deformity involving the inferior endplate of T12. No new compression fractures are noted. There is slight retrolisthesis of T12 on L1, L1 on L2 and L2 on L3. There is multilevel disc space narrowing and endplate spurring. Mid and lower lumbar facet hypertrophy is also seen. No pars defects are visualized. There is sclerosis at the SI joints. There are no paraspinal soft tissue abnormalities. There is redemonstration of a rim calcified lesion at the left upper quadrant which was present within the spleen on the comparison CT exam. XR/XR lumbar spine min 4V IMPRESSION: OSTEOPENIA AND DEGENERATIVE CHANGES, DESCRIBED. 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 ADULT PELVIS WITH BILATERAL HIPS - 5 views CLINICAL HISTORY: Osteoarthritis, Compression Deformity Of Vertebra COMPARISON: 08/14/2019 AP view of the pelvis as well as AP and frog-lateral views of both hips were obtained. There is osteopenia. No fracture, dislocation or bony destruction is seen. The hip joint spaces are symmetric. There is minor marginal spurring at the periphery of the femoral heads and superior acetabula. There are small enthesophytes at the greater trochanters and slightly larger at the iliac crests. Minor sclerosis is present at the SI joints. The soft tissues are unremarkable. IMPRESSION: OSTEOPENIA AND MINOR DEGENERATIVE CHANGES. NO ACUTE PLAIN FILM FINDINGS. Impression dictated by: Ana Cristina Paulson M.D. 10/21/2024 1:29 PM Dictation Location: [place] [address] Electronically authenticated by: [id number] Y Date: 10/21/2024 13:29
--- OUTSIDE RECORDS SUMMARY | 2024-10-21 11:20 | XMS_ITS | CCD ---
Author Organization [facility] CliniSyfl Care Team Providers Care Radar Air Traffic Controller Name Role Phone ALEKS ., DR ESPINAL Admitting Unavailable HOY ., DR ESPINAL Attending Unavailable HOY ., DR ESPINAL Primary Care Unavailable HOY ., DR ESPNIAL Consulting Unavailable [place], DR TERRIE Maldonado Consulting Unavailable HOY ., DR ESPINAL Admitting Unavailable HOY ., DR ESPINAL Attending Unavailable HOY ., DR ESPINAL Primary Care Unavailable HOY ., DR ESPINAL Consulting Unavailable HOY ., DR ESPINAL Admitting Unavailable HOY ., DR ESPINAL Attending Unavailable HOY ., DR ESPINAL Primary Care Unavailable HOY ., DR ESPINAL Consulting Unavailable MD Teddy Parra Primary Care Provider [phone] JUANCARLOS Smith Attending Provider NAGA ANGELES Referring [...] EHAB Attending Unavailable JEN GALE Referring Unavailable LAMINE SHEEHAN Referring Unavailable ELTAHAWY, EHAB Attending Unavailable LAMINE SHEEHAN Attending Unavailable JOYATAFIDEY, EHAB Attending Unavailable LAMINE SHEEHAN Referring Unavailable LAMINE SHEEHAN Admitting Unavailable LAMINE SHEEHAN Attending Unavailable Allergies Allergy Classification Reported Allergen(s) Allergy Type Date of Onset Reaction(s) Facility (3 sources) Amoxicillin Drug Allergy 4 Unknown Reaction [facility] Repository (5 sources) Codeine; Translations: [CODEINE] Drug Allergy 4 Hives [facility] Repository (3 sources) Morphine Drug Allergy 4 Unknown Reaction [facility] Repository (2 sources) Penicillins; Translations: [PENICILLINS] Propensity [...] PO Daily September 23, 2023 12:00am Vitamins A,C,V-Fiem-Pxrrew (Preservision Areds) 4,296 mcg-226 mg-90 mg capsule (2 sources) Start: 09-23-2023 take 1 capsule by mouth twice daily Vitamins A,C,J-Ybfi-Egaqkp (Preservision Areds) 4,296 mcg-226 mg-90 mg capsule Active 1 CAP PO Twice daily September 23, 2023 12:00am Problems Active Problems Problem Classification Problem Date Documented Da te Episodic/Chronic Cardiac dysrhythmias (2 sources) Paroxysmal atrial fibrillation; Translations: [Paroxysmal atrial fibrillation] Onset: 08-19-2024 Chronic Cataract (1 source) Cataract Onset: 01-11-2024 Congestive heart failure; nonhypertensive (4 sources) Acute on chronic diastolic (congestive) heart failure; Translations: [Acute systolic (congestive) heart failure] Onset: 04-19-2024 Chronic Coronary atherosclerosis and other heart disease (5 sources) Unstable angina; Translations: [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 Sheehan patient is to take Amiodarone 200 mg 1 time per day until instructed to stop, at least until after the ablation. Advised patient, patient verbalized understand and has a follow up appointment with cardiology November 01. Normal [facility] ANESon 09-26-2024 ANES - Attestation signed by Lamine Sheehan MD at 09/26/2024 11:18 PM By using the attestations below, the signing clinician agrees that I have read and verify that the documentation has been personally reviewed by me and ensure that the documentation accurately reflects the encounter. GC: I performed the terry portion(s) of the service and participated in the management and confirm the resident's documentation. Please note there may be an additional personal documentation from me. Patient: Rmoana Alcocer Procedure Information Date/Time: 09/26/24829 Procedure: Cardioversion Location: [facility] HOLDING ROOM / [facility] (Cath) Providers: Lamine Sheehan MD Clinical information reviewed: Allergies Meds Physical Exam Airway Mallampati: III TM distance: >3 FB Neck ROM: full Cardiovascular Rhythm: irregular Rate: normal Dental Pulmonary Breath sounds clear to auscultation Abdominal Anesthesia Plan ASA 3 other (Conscious sedation) Anesthetic plan and risks discussed with patient. Use of blood products discussed with patient who consented to blood products. Plan discussed with attending. Additional Equipment Requests Normal [facility] HPon 09-26-2024 [facility] Electrophysiology Consult Note [place] [facility] - [facility] Reason for visit: Atrial fibrillation HPI: [...] history of stroke or TIAs or any DC in the past but has a family [...] Use: Not At Risk (02/20/2018) Received from [employer], [employer] AUDIT-C Frequency of Alcohol Consumption: Never Average Number of Drinks: Not on file Frequency of Binge Drinking: Not on file Financial Resource Strain: Not on file Food Insecurity: No Food Insecurity (03/14/2023) Received from [employer], [employer] Hunger Screening Within the past 12 months [...] on file Intimate Partner Violence: Unknown (07/27/2023) [place] Safety & Environment Fear of Current or [...] and Rash Weight: 125kg Visit Vitals BP 133/86 Pulse 90 Resp 16 SpO2 100% OB Status Postmenopausal Smoking Status Never Meds: No current facility-administered medications on file prior to encounter. Current Outpatient Medications on File Prior to Encounter Medication Sig Dispense Refill alendronate (Fosamax) 70 mg tablet Take 70 mg by mouth every 7 (seven) days. amiodarone (Pacerone) 200 mg tablet Take 2 tablets (400 mg) by mouth two times daily for 14 days, THEN 1 tablet (200 mg) in the morning. Do not start before August 28, 2024. (Patient taking differently: 1 tablet (200 mg) in the morning. Do not start before August 28, 2024.) 104 tablet 0 amitriptyline (Elavil) 25 mg tablet Take 25 [...] (20 mg) by mouth in the morning. 90 tablet 3 levothyroxine (Synthroid, Levoxyl) 75 mcg tablet Take [...] 200 mg by mouth in the morning. ROS: Review of Systems Cardiovascular: Positive for dyspnea on exertion (with exertion) and leg swelling (continues more in right leg than left). Negative for chest pain (when sitting, and with exertion). Respiratory: Positive for cough (s/p covid and flu). Musculoskeletal: Positive for joint pain (bilateral knees). Neurological: Negative for light-headedness (with standing). All other systems reviewed and are negative. Physical Exam: Consti (more content not included)... Normal [facility] NURSNOTEon 09-26-2024 NURSNOTE RN educated pt on d/ c instructions. This included: site care, limited physical activity, resume normal diet, future appointments, medications, and moderate sedation instructions. RN educated pt on when to notify physician and when to go to the hospital. RN encouraged pt to voice any questions or concerns, and answered any questions or concerns if pt verbalized. Pt was wheeled off of unit with all of belongings. Normal [facility] Orders Onlyon 09-18-2024 Orders Only [id number] Romana Alcocer 1955 Date Provider Department Center 09/18/2024 ERIN GROVER [facility] [place] [facility] Family History Problem Relation Age of Onset Coronary artery disease Mother Other Mother Family Status - Relation Status Age at Mother [facility] Office Visiton 08-13-2024 Follow-up visit [id number] Romana Alcocer 1955 Provider Department Center 08/13/2024 LAMINE RIOS [facility] Family History Problem Relation Age of Onset Coronary artery disease Mother Other Mother Family Status - Relation Status Age at Mother Level of Service:62803 [place] OFFICE/OUTPATIENT NEW MODERATE MDM 45 MINUTES Normal [facility] Orders Onlyon 08-13-2024 Orders Only [id number] Romana Alcocer 1955 Provider Department Center 08/13/2024 TOBI FLORES [facility] Family History Problem Relation Age of Onset Coronary artery disease Mother Other Mother Family Status - Relation Status Age at Mother Normal [facility] Office Visiton 05-22-2024 Follow-up visit [id number] Romana Alcocer 1955 F Date Provider Department Center 05/22/2024 Cody-JANIYA CARLSON Aarti Doherty Family History Problem Relation Age of Onset Coronary artery disease Mother Other Mother Family Status - Relation Status Age at Mother Level of Service:39190 MT OFFICE/OUTPATIENT ESTABLISHED MOD MDM 30 MIN Normal [facility] BASIC METABOLIC PANLon 04-29 Anion gap [Moles/Vol] 11 mmol/L Normal 5-15 [facility] Comment on above: Performed By: #### B MP #### [facility] ([id number]) [address], [address] [place] [address] Calcium [Mass/Vol] 8.9 mg/dL Normal 8.5-10.5 [facility] Comment on above: Performed By: #### B MP #### [facility] ([id number]) [address], [address] [place] [address] Chloride [Moles/Vol] 104 mmol/L Normal 98-109 [facility] Comment on above: Performed By: #### B MP #### [facility] ([id number]) [address], [address] [place] [address] CO2 [Moles/Vol] 21 mmol/L Low 22-32 [facility] Comment on above: Performed By: #### B MP #### [facility] ([id number]) [address], [address] [place] [address] Creatinine [Mass/Vol] 0.88 mg/dL Normal 0.40-1.00 [facility] Comment on above: Result Comment: METH OD TRACEABLE TO IDMS STANDARD Performed By: #### B MP #### [facility] ([id number]) [address], [address] [place] [address] GFR/1.73 sq M.predicted among non-blacks MDRD (S/P/Bld) [Vol rate/Area] 70 mL/min/{1.73_m2} Normal >59 [facility] Comment on above: Result Comment: Reported eGFR is based on the CKD-EPI 2020 equation that does not use a race coefficient. Performed By: #### B MP #### [facility] ([id number]) [address], [address] [place] [address] Glucose [Mass/Vol] 100 mg/dL High 65-99 [facility] Comment on above: Performed By: #### B MP #### [facility] ([id number]) [address], [address] [place] [address] Potassium [Moles/Vol] 5.3 mmol/L High 3.5-5.0 [facility] Comment on above: Result Comment: SPEC IMEN HEMOLYZED, RESULTS INCREASED MODERATELY HEMOLYZED Performed By: #### B MP #### [facility] ([id number]) [address], [address] [place] [address] Sodium [Moles/Vol] 136 mmol/L Normal 134-146 [facility] Comment on above: Performed By: #### B MP #### [facility] ([id number]) [address], [address] [place] [address] Urea nitrogen [Mass/Vol] 24 mg/dL Normal 5-27 [facility] Comment on above: Performed By: #### B MP #### [facility] ([id number]) [address], [address] [place] [address] Sonido 04-19-2024 ANES - Attestation signed by Janiya Carlson MD at 04/19/2024 8:07 AM Janiya Carlson MD, MPH, [facility], [facility], [facility] Interventional Cardiology Pager Email: [email or web address] Patient: Romana Alcocer Procedure Information Date/Time: 04/19/24 0830 Procedure: Coronary angiography Location: [facility] / [facility] (Cath) Providers: Janiya Carlson MD [...] discussed with attending. Additional Equipment Requests Normal [facility] Abstracton 04-19-2024 Abstract [id number] Romana Alcocer 1955 F Date Provider Department Center 04/19/2024 [id number] MARCANO [facility] Family History Problem Relation Age of Onset Coronary artery disease Mother Other Mother Family Status - Relation Status Age at Mother Normal [facility] CT ABDOMEN PELVIS W IV CONTR [...] Mcintosh MD. Not Vldtd Invalid Interpretation Code [facility] HPon 04-19-2024 HP - Attestation signed by Janiya Carlson MD at [...] me. Additional Comments: Janiya Carlson MD, MPH, [facility], [facility], [facility] Interventional Cardiology Pager Email: [email or web address] H&P reviewed. The patient was examined and there are no changes to the H&P. The procedure was explained to the patient. The risks and benefits of the procedure were explained to the patient who showed understanding and with full capacity elected to proceed with the procedure. All questions were addressed and answered. Jen Gale MD Corporate Travel Consultant - PGY6 [facility] NURSNOTEon 04-19-2024 NURSNOTE RN educated pt on d/ c instructions. This included: site care, limited physical activity, resume normal diet, future appointments, medications, and moderate sedation instructions. RN educated pt on when to notify physician and when to go to the hospital. RN encouraged pt to voice any questions or concerns, and answered any questions or concerns if pt verbalized. Pt was wheeled off of unit with all of belongings. [facility] Orders Onlyon 04-19-2024 Orders Only [id number] Romana Alcocer 1955 F Date Provider Department Center 04/19/2024 ALFREDITO BRAMBILA [facility] Family History Problem Relation Age of Onset Coronary artery disease Mother Other Mother Family Status - Relation Status Age at Mother [facility] BASIC METABOLIC PANLon 04-15 Anion gap [Moles/Vol] 10 mmol/L Normal 5-15 [facility] Comment on above: Performed By: #### C BCA, BMP #### [facility] ([id number]) [address], [address] [place] [address] Calcium [Mass/Vol] 9.6 mg/dL Normal 8.5-10.5 [facility] Comment on above: Performed By: #### C BCA, BMP #### [facility] ([id number]) [address] [place] [address] Chloride [Moles/Vol] 102 mmol/L Normal 98-109 [facility] Comment on above: Performed By: #### C BCA, BMP #### [facility] ([id number]) [address], [address] [place] [address] CO2 [Moles/Vol] 28 mmol/L Normal 22-32 [facility] Comment on above: Performed By: #### C BCA, BMP #### [facility] ([id number]) [address], [address] [place] [address] Creatinine [Mass/Vol] 0.88 mg/dL Normal 0.40-1.00 [facility] Comment on above: Result Comment: METH OD TRACEABLE TO IDMS STANDARD Performed By: #### C BCA, BMP #### [facility] ([id number]) [address], [address] [place] [address] GFR/1.73 sq M.predicted among non-blacks MDRD (S/P/Bld) [Vol rate/Area] 70 mL/min/{1.73_m2} Normal >59 [facility] Comment on above: Result Comment: Reported eGFR is based on the CKD-EPI 2020 equation that does not use a race coefficient. Performed By: #### C BCA, BMP #### [facility] ([id number]) [address], [address] [place] [address] Glucose [Mass/Vol] 88 mg/dL Normal 65-99 [facility] Comment on above: Performed By: #### C BCA, BMP #### [facility] ([id number]) [address] [address] [place] [address] Potassium [Moles/Vol] 4.1 mmol/L Normal 3.5-5.0 [facility] Comment on above: Performed By: #### C BCA, BMP #### [facility] ([id number]) [address], [address] [place] [address] Sodium [Moles/Vol] 140 mmol/L Normal 134-146 [facility] Comment on above: Performed By: #### C BCA, BMP #### [facility] ([id number]) [address] [address] [place] [address] Urea nitrogen [Mass/Vol] 24 mg/dL Normal 5-27 [facility] Comment on above: Performed By: #### C BCA, BMP #### [facility] ([id number]) [address], [address] [place] [address] CBC AND AUTO DIFFon 11-11-20 24 ABSOLUTE BASOPHIL 0.0 X10E9/L Normal 0.0-0.2 [facility] Comment on above: Performed By: #### C TEMI, BMP #### [facility] ([id number]) [address], [address] [place] [address] ABSOLUTE NEUTROPHIL 4.5 X10E9/L Normal 1.5-6.6 [facility] Comment on above: Performed By: #### C TEMI, BMP #### [facility] ([id number]) [address], [address] [place] [address] Basophils/100 WBC (Bld) 0.5 % Normal [facility] Comment on above: Performed By: #### C TEMI, BMP #### [facility] ([id number]) [address], [address] [place] [address] Eosinophils (Bld) [#/Vol] 0.1 10*3/uL Normal 0.0-0.4 [facility] Comment on above: Performed By: #### C TEMI, BMP #### [facility] ([id number]) [address], [address] [place] [address] Eosinophils/100 WBC (Bld) 1.8 % Normal [facility] Comment on above: Performed By: #### C TEMI, BMP #### [facility] ([id number]) [address], [address] [place] [address] Erythrocyte distribution width (RBC) [Ratio] 15.7 % High 11.5-15.0 [facility] Comment on above: Performed By: #### C TEMI, BMP #### [facility] ([id number]) [address], [address] [place] [address] Hematocrit (Bld) [Volume fraction] 43.2 % Normal 35-47 [facility] Comment on above: Performed By: #### C BCA, BMP #### [facility] ([id number]) [address] [address] [place] [address] Hemoglobin (Bld) [Mass/Vol] 13.9 g/dL Normal 11.7-15.5 [facility] Comment on above: Performed By: #### C BCA, BMP #### [facility] ([id number]) [address], [address] [place] [address] Lymphocytes (Bld) [#/Vol] 1.8 10*3/uL Normal 1.0-3.5 [facility] Comment on above: Performed By: #### C BCA, BMP #### [facility] ([id number]) [address] [address] [place] [address] Lymphocytes/100 WBC (Bld) 24.9 % Normal [facility] Comment on above: Performed By: #### C BCA, BMP #### [facility] ([id number]) [address], [facility] [address] [place] [address] MCH (RBC) [Entitic mass] 28.1 pg Normal 27-34 [facility] Comment on above: Performed By: #### C BCA, BMP #### [facility] ([id number]) [address], [address] [place] [address] MCHC (RBC) [Mass/Vol] 32.1 g/dL Normal 32-36 [facility] Comment on above: Performed By: #### C BCA, BMP #### [facility] ([id number]) [address], [address] [place] [address] MCV (RBC) [Entitic vol] 88 fL Normal 80-100 [facility] Comment on above: Performed By: #### C BCA, BMP #### [facility] ([id number]) [address], [address] [place] [address] Monocytes (Bld) [#/Vol] 0.7 10*3/uL Normal 0-0.9 [facility] Comment on above: Performed By: #### C TEMI, BMP #### [facility] ([id number]) [address], [address] [place] [address] Monocytes/100 WBC (Bld) 9.3 % Normal [facility] Comment on above: Performed By: #### C TEMI, BMP #### [facility] ([id number]) [address], [address] [place] [address] Neutrophils/100 WBC (Bld) 63.5 % Normal [facility] Comment on above: Performed By: #### C TEMI, BMP #### [facility] ([id number]) [address], [address] [place] [address] Platelet mean volume (Bld) [Entitic vol] 8.9 fL Normal 7-12 [facility] Comment on above: Performed By: #### Buster MEMBRENO, BMP #### [facility] ([id number]) [address] [place] [address] Platelets (Bld) [#/Vol] 234 10*3/uL Normal 150-450 [facility] Comment on above: Performed By: #### C TEMI, BMP #### [facility] ([id number]) [address], [address] [place] [address] RBC COUNT 4.94 X10E12/L Normal 3.80-5.20 [facility] Comment on above: Performed By: #### Buster MEMBRENO, BMP #### [facility] ([id number]) [address], [address] [place] [address] WBC (Bld) [#/Vol] 7.2 10*3/uL Normal 4.0-11.0 [facility] Comment on above: Performed By: #### C BCA, BMP #### [facility] ([id number]) [address] [place] [address] [facility] 04-08-2024 [facility] Cardiology Clinic Note Chief Complaint: New patient here to establish care. Ref from Dr. Parra for abnormal echo performed last month. 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 Patient says she gets chest pain every [...] the cardiac catheterization Janiya Carlson MD, MPH, [facility], [facility], [facility] Interventional Cardiology Pager Email: [email or web address] Office Visiton 04-08-2024 Follow-up visit [id number] Romana Alcocer 1955 F Date Provider Department Center 04/08/2024 271-JANIYA CARLSON [facility] Family History Problem Relation Age of Onset Coronary artery disease Mother Other Mother Family Status - Relation Status Age at Mother Level of Service:63993 MT OFFICE/OUTPATIENT NEW HIGH MDM 60 MINUTES Normal [facility] Orders Onlyon 04-08-2024 Orders Only [id number] Romana Alcocer 1955 F Date Provider Department Center 04/08/2024 Yao-TOBI ANDREW [facility] Family History Problem Relation Age of Onset Coronary artery disease Mother Other Mother Family Status - Relation Status Age at Mother Normal [facility] MG MAMM SCREEN 3D NIKKO CADon 08-15-2022 MG MAMM SCREEN 3D NIKKO CAD Patient: ROMANA ALCOCER. Exam Date: 08/15/2022 : 1955 Gender:F Ordering : DR TEDDY PARRA . Admission #: [id number] Family : Order #: [id number] CLICK HERE TO VIEW EXAM RADIOLOGY REPORT [...] brain cancer at age 47. LOCATION: [facility] BREAST COMPOSITION: Scattered areas fibroglandular [...] MD on 08/15/2022 at 11:16 Normal [facility] Covid-19 PCR (CVDTBH)on 01-03 SARS-CoV-2 (COVID-19) RNA MARITZA+probe Ql (Unsp spec) Detected Critically abnormal NOT DETECTED [facility] Comment on above: Result Comment: This test is not yet approved or cleared by the [place] FDA. When there are no FDA-approved or cleared tests available, and other criteria are met, FDA can make tests available under an emergency access mechanism called an Emergency Use Authorization (EUA). The EUA for this test is supported by the Shell Assembler of Health and Human Service's (HHS's) declaration [...] used). Performed By: #### C VDTB #### [facility] [address] [place] [address] Dr. Tristan Craft CBC AUTO DIFFon 10-14-2021 BASO # 0.1 103/ul Normal 0.0-0.1 [facility] Comment on above: Performed By: #### C BC #### [facility] [address] [place] [address] Dr. Tristan Craft Basophils/100 WBC (Bld) 0.5 % Normal 0.2-2.0 [facility] Comment on above: Performed By: #### C BC #### [facility] [address] [place] [address] Dr. Tristan Craft EO # 0.2 103/ul Normal 0.0-0.7 [facility] Comment on above: Performed By: #### C BC #### [facility] [address] [place] [address] Dr. Tristan Craft Eosinophils/100 WBC (Bld) 1.6 % Normal 0.9-7.0 [facility] Comment on above: Performed By: #### C BC #### [facility] [address] [place] [address] Dr. Tristan Craft Erythrocyte distribution width (RBC) [Ratio] 14.3 % Normal 11.0-15.0 [facility] Comment on above: Performed By: #### C BC #### [facility] [address] [place] [address] Dr. Tristan Craft Hematocrit (Bld) [Volume fraction] 45.7 % Normal 36.0-48.0 [facility] Comment on above: Performed By: #### C BC #### [facility] [address] [place] [address] Dr. Tristan Craft Hemoglobin (Bld) [Mass/Vol] 14.3 g/dL Normal 12.0-16.0 [facility] Comment on above: Performed By: #### C BC #### [facility] [address] [place] [address] Dr. Tristan Craft IG # 0.03 10e3/ul Normal 0.00-0.03 [facility] Comment on above: Performed By: #### C BC #### [facility] [address] [place] [address] Dr. Tristan Craft IG % 0.3 % Normal 0.0-0.5 [facility] Comment on above: Performed By: #### C BC #### [facility] [address] [place] [address] Dr. Tristan Craft LYMPH # 2.5 103/ul Normal 1.2-3.8 [facility] Comment on above: Performed By: #### C BC #### [facility] [address] [place] [address] Dr. Tristan Craft Lymphocytes/100 WBC (Bld) 26.7 % Normal 20.5-60.0 [facility] Comment on above: Performed By: #### C BC #### [facility] [address] [place] [address] Dr. Tristan Craft MANUAL DIFF REQ NO Normal [facility] Comment on above: Performed By: #### C BC #### [facility] [address] [place] [address] Dr. Tristan Craft MCH (RBC) [Entitic mass] 27.8 pg Normal 26.7-34.0 [facility] Comment on above: Performed By: #### C BC #### [facility] [address] [address] [address] Tristan Craft MCHC (RBC) [Mass/Vol] 31.3 g/dL Normal 29.9-35.2 [facility] Comment on above: Performed By: #### C BC #### [facility] [address] [address] [address] Tristan Craft MCV (RBC) [Entitic vol] 88.9 fL Normal 81.0-99.0 [facility] Comment on above: Performed By: #### C BC #### [facility] [address] [address] [address] Tristan Craft MONO # 0.8 103/ul Normal 0.3-0.8 [facility] Comment on above: Performed By: #### C BC #### [facility] [address] [place] [address] Dr. Tristan Craft Monocytes/100 WBC (Bld) 8.0 % Normal 1.7-12.0 [facility] Comment on above: Performed By: #### C BC #### [facility] [address] [address] [address] Tristan Craft NEUT # 5.9 103/ul Normal 1.4-6.5 [facility] Comment on above: Performed By: #### C BC #### [facility] [address] [place] [address] Dr. Tristan Craft Neutrophils/100 WBC (Bld) 62.9 % Normal 43.0-75.0 [facility] Comment on above: Performed By: #### C BC #### [facility] [address] [place] [address] Dr. Tristan Craft Platelet mean volume (Bld) [Entitic vol] 10.4 fL Normal 9.5-13.5 [facility] Comment on above: Performed By: #### C BC #### [facility] [address] [place] [address] Dr. Tristan Craft PLT 302 103/ul Normal 150-450 [facility] Comment on above: Performed By: #### C BC #### [facility] [address] [place] [address] Dr. Tristan Craft RBC 5.14 106/ul Normal 4.20-5.40 [facility] Comment on above: Performed By: #### C BC #### [facility] [address] [place] [address] Dr. Tristan Craft WBC 9.3 103/ul Normal 4.0-11.0 [facility] Comment on above: Performed By: #### C BC #### [facility] [address] [place] [address] Dr. Tristan Craft FREE T3on 10-14-2021 FREE T3 2.03 pg/mlL Critically low 2.18-3.98 [facility] Comment on above: Performed By: #### T 4, CMP, TSH, LIPID, FT3 #### [facility] [address] [place] [address] Dr. Tristan Craft GLYCOHEMOGLOBIN A1Con 2021 ADA RECOMMENDATION SEE BELOW Normal [facility] Comment on above: Result Comment: ADA RECOMMENDED LIMIT 4.0 - 6.0 ADA THERAPEUTIC TARGET < 7.0 ACTION SUGGESTED > 7.0 Performed By: #### A 1C #### [facility] [address] [place] [address] Dr. Tristan Craft Glucose [Mass/Vol] 123 mg/dL Normal [facility] Comment on above: Performed By: #### A 1C #### [facility] [address] [place] [address] Dr. Tristan Craft HbA1c (Bld) [Mass fraction] 5.9 % Normal 4.5-6.2 [facility] Comment on above: Performed By: #### A 1C #### [facility] [address] [place] [address] Dr. Tristan Craft LIPID PROFILEon 10-14-2021 CHOL-HDL RATIO NORM SEE BELOW Normal [facility] Comment on above: Result Comment: 3.3 - 4.4 LOW RISK 4.4 - 7.1 AVERAGE RISK 7.1 - 11.0 MODERATE RISK >11.0 HIGH RISK Performed By: #### T 4, CMP, TSH, LIPID, FT3 #### [facility] [address] [address] [address] Tristan Craft Cholesterol [Mass/Vol] 126 mg/dL Normal <=200 [facility] Comment on above: Performed By: #### T 4, CMP, TSH, LIPID, FT3 #### [facility] [address] [address] [address] Tristan Craft Cholesterol in HDL [Mass/Vol] 53 mg/dL Normal 40-60 [facility] Comment on above: Performed By: #### T 4, CMP, TSH, LIPID, FT3 #### [facility] [address] [address] [address] Tristan Craft Cholesterol in LDL [Mass/Vol] 45.0 mg/dL Normal [facility] Comment on above: Performed By: #### T 4, CMP, TSH, LIPID, FT3 #### [facility] [address] [address] [address] Tristan Craft Cholesterol.total/C holesterol in HDL [Mass ratio] 2.4 {ratio} Normal [facility] Comment on above: Performed By: #### T 4, CMP, TSH, LIPID, FT3 #### [facility] [address] [address] [address] Tristan Craft HDL NORMAL > or = 60 mg/dl - LO W CARDIOVASCULAR RISK <40 mg/dl - HIGH CARDIOVASCULAR RISK Normal [facility] Comment on above: Performed By: #### T 4, CMP, TSH, LIPID, FT3 #### [facility] [address] [address] [address] Tristan Craft LDL CALC NORMAL SEE BELOW Normal [facility] Comment on above: Result Comment: <100 mg/dl OPTIMAL 100 - 129 mg/dl NEAR OR ABOVE OPTIMAL 130 - 159 mg/dl BORDERLINE HIGH 160 - 189 mg/dl HIGH >190 mg/dl VERY HIGH Performed By: #### T 4, CMP, TSH, LIPID, FT3 #### [facility] [address] [address] [address] Tristan Craft Triglyceride [Mass/Vol] 140 mg/dL Normal <=150 [facility] Comment on above: Performed By: #### T 4, CMP, TSH, LIPID, FT3 #### [facility] [address] [address] [address] Tristan Craft VLDL CALC 28.0 mg/dL Normal [facility] Comment on above: Performed By: #### T 4, CMP, TSH, LIPID, FT3 #### [facility] [address] [address] [address] Tristan Craft PROF 14(COMP METB)on 022 Albumin [Mass/Vol] 3.8 g/dL Normal 3.4-5.0 [facility] Comment on above: Performed By: #### T 4, CMP, TSH, LIPID, FT3 #### [facility] [address] [place] [address] Dr. Tristan Craft Albumin/Globulin [Mass ratio] 1.1 {ratio} Normal [facility] Comment on above: Performed By: #### T 4, CMP, TSH, LIPID, FT3 #### [facility] [address] [place] [address] Dr. Tristan Craft ALP [Catalytic activity/Vol] 87 U/L Normal 46-116 [facility] Comment on above: Performed By: #### T 4, CMP, TSH, LIPID, FT3 #### [facility] [address] [place] [address] Dr. Tristan Craft ALT [Catalytic activity/Vol] 24 U/L Normal 14-59 [facility] Comment on above: Performed By: #### T 4, CMP, TSH, LIPID, FT3 #### [facility] [address] [place] [address] Dr. Tristan Craft Anion gap [Moles/Vol] 12.9 mmol/L Normal [facility] Comment on above: Performed By: #### T 4, CMP, TSH, LIPID, FT3 #### [facility] [address] [place] [address] Dr. Tristan Craft AST [Catalytic activity/Vol] 20 U/L Normal 15-37 [facility] Comment on above: Performed By: #### T 4, CMP, TSH, LIPID, FT3 #### [facility] [address] [place] [address] Dr. Tristan Craft Bilirubin [Mass/Vol] 0.5 mg/dL Normal 0.2-1.0 [facility] Comment on above: Performed By: #### T 4, CMP, TSH, LIPID, FT3 #### [facility] [address] [place] [address] Dr. Tristan Craft Calcium [Mass/Vol] 8.6 mg/dL Normal 8.5-10.1 [facility] Comment on above: Performed By: #### T 4, CMP, TSH, LIPID, FT3 #### [facility] [address] [place] [address] Dr. Tristan Craft Chloride [Moles/Vol] 101 mmol/L Normal 98-107 [facility] Comment on above: Performed By: #### T 4, CMP, TSH, LIPID, FT3 #### [facility] [address] [place] [address] Dr. Tristan Craft CO2 [Moles/Vol] 27.7 mmol/L Normal 21.0-32.0 [facility] Comment on above: Performed By: #### T 4, CMP, TSH, LIPID, FT3 #### [facility] [address] [place] [address] Dr. Tristan Craft Creatinine [Mass/Vol] 0.93 mg/dL Normal 0.55-1.02 [facility] Comment on above: Performed By: #### T 4, CMP, TSH, LIPID, FT3 #### [facility] [address] [place] [address] Dr. Tristan Craft EGFR-AF BELIZEAN >60 Normal >=60 [facility] Comment on above: Performed By: #### T 4, CMP, TSH, LIPID, FT3 #### [facility] [address] [place] [address] Dr. Tristan Craft EGFR-NON AF BELIZEAN =60 Normal >=60 [facility] Comment on above: Performed By: #### T 4, CMP, TSH, LIPID, FT3 #### [facility] [address] [place] [address] Dr. Tristan Craft Globulin (S) [Mass/Vol] 3.6 g/dL Normal [facility] Comment on above: Performed By: #### T 4, CMP, TSH, LIPID, FT3 #### [facility] [address] [place] [address] Dr. Tristan Craft Glucose [Mass/Vol] 108 mg/dL Critically high 74-106 [facility] Comment on above: Performed By: #### T 4, CMP, TSH, LIPID, FT3 #### [facility] [address] [place] [address] Dr. Tristan Craft Potassium [Moles/Vol] 3.6 mmol/L Normal 3.5-5.1 [facility] Comment on above: Performed By: #### T 4, CMP, TSH, LIPID, FT3 #### [facility] [address] [place] [address] Dr. Tristan Craft Protein [Mass/Vol] 7.4 g/dL Normal 6.4-8.2 [facility] Comment on above: Performed By: #### T 4, CMP, TSH, LIPID, FT3 #### [facility] [address] [place] [address] Dr. Tristan Craft Sodium [Moles/Vol] 138 mmol/L Normal 136-145 [facility] Comment on above: Performed By: #### T 4, CMP, TSH, LIPID, FT3 #### [facility] [address] [place] [address] Dr. Tristan Craft Urea nitrogen [Mass/Vol] 18.0 mg/dL Normal 7.0-18.0 [facility] Comment on above: Performed By: #### T 4, CMP, TSH, LIPID, FT3 #### [facility] [address] [place] [address] Dr. Tristan Craft Urea nitrogen/Creatinine [Mass ratio] 19.4 mg/mg Normal [facility] Comment on above: Performed By: #### T 4, CMP, TSH, LIPID, FT3 #### [facility] [address] [place] [address] Dr. Tristan Craft T4on 10-14-2021 T4 [Mass/Vol] 6.80 ug/dL Normal 4.80-13.90 [facility] Comment on above: Performed By: #### T 4, CMP, TSH, LIPID, FT3 #### [facility] [address] [address] [address] Tristan Craft TSHon 10-14-2021 TSH 2.277 uIU/mL Normal 0.358-3.740 [facility] Comment on above: Performed By: #### T 4, CMP, TSH, LIPID, FT3 #### [facility] [address] [place] [address] Dr. Tristan Craft TSH RANGE SEE BELOW Normal [facility] Comment on above: Result Comment: <0.3 4 UIU/ml HYPERTHYROID 0.34-5.60 UIU/ml EUTHYROID >5.60 UIU/ml HYPOTHYROID Performed By: #### T 4, CMP, TSH, LIPID, FT3 #### [facility] [address] [place] [address] Dr. Tristan Craft VITAMIN D 25 OHon 10-14-2021 VIT D 25-OH 37.9 ng/mL Normal [facility] Comment on above: Performed By: #### V ITAD #### [facility] [address] [place] [address] Dr. Tristan Craft VIT D RANGES SEE BELOW Normal [facility] Comment on above: Result Comment: <20 ng/mL Vit D deficient 20 - <30 ng/mL Vit D insufficient 30 - 100 ng/mL Vit D sufficient >100 ng/mL Potential Toxicity Performed By: #### V ITAD #### [facility] [address] [place] [address] Dr. Tristan Craft Vital Signs Date Time Vital Sign Value Performing Clinician Faci lity 09-23-2023 09:56-0400 Body height 157.48 cm MD Teddy Parra Work Phone: [facility] 09-23-2023 09:56-0400 Body temperature 97.9 [degF] MD Teddy Parra Work Phone: [facility] 09-23-2023 09:56-0400 Diastolic blood pressure 68 mm[Hg] MD Teddy Parra Work Phone: [facility] 09-23-2023 09:56-0400 Heart rate 59 /min MD Teddy Parra Work Phone: [facility] 09-23-2023 09:56-0400 Respiratory rate 16 /min MD Teddy Parra Work Phone: [facility] 09-23-2023 09:56-0400 SaO2% (BldA) [Mass fraction] 99 % MD Teddy Parra Work Phone: [facility] 09-23-2023 09:56-0400 Systolic blood pressure 116 mm[Hg] MD Teddy Parra Work Phone: [facility] Encounters Encounter Date Encounter Type Care Provider Facility Start: 09-26-2024 ambulatory [facility] Start: 09-26-2024 End: 09-26-2024 ambulatory [facility] Start: 08-13-2024 End: 08-13-2024 ambulatory [facility] Start: 05-22-2024 End: 05-22-2024 [facility] Start: 04-29-2024 End: 04-29-2024 ambulatory TEDDY PARRA [facility] Start: 04-19-2024 End: 04-19-2024 ambulatory JEN [facility] Start: 04-19-2024 End: 04-19-2024 ambulatory [facility] Start: 04-15-2024 End: 04-15-2024 ambulatory [facility] Start: 04-08-2024 End: 04-08-2024 [facility] Start: 02-01-2024 End: 02-01-2024 Evaluation and management of inpatient TERRIE JOYCE [facility] Start: 02-01-2024 End: 02-01-2024 Evaluation and management of inpatient NAGA ANGELES [facility] Start: 01-31-2024 End: 01-31-2024 ambulatory TEDDY PARRA [facility] Start: 01-11-2024 End: 01-11-2024 Evaluation and management of inpatient TERRIE JOYCE [facility] Start: 01-11-2024 End: 01-11-2024 Evaluation and management of inpatient NAGA ANGELES [facility] Start: 12-26-2023 End: 12-26-2023 ambulatory NAGA ANGELES [facility] Start: 12-26-2023 Encounter for other preprocedural examination NAGA [facility] Start: 09-23-2023 End: 09-23-2023 ambulatory MD Teddy Parra Work Phone: [facility] Work Phone: Start: 09-23-2023 End: 09-23-2023 Patient encounter procedure MD Teddy Parra Work Phone: [facility] Work Phone: Start: 08-15-2022 End: 08-16-[address] TEDDY PARRA . Facility:[facility] Start: 01-20-2022 End: 01-20-[address] TEDDY PARRA . Facility:[facility] Start: 10-14-2021 End: 10-15-[address] TEDDY PARRA . Facility:[facility] Procedures Date Procedure Procedure Detail Performing Clinician Start: 09-23-2023 Plain X-ray of right hand MD Teddy Parra Work Phone: Payers Date Payer Category Payer Medicare [id number] 1961 Unknown [id number] 1955 Unknown [id number] 2.16.84 [id number] 1955 Unknown [id number] 2.16.84 [id number] 1953 Unknown [id number] 2.16.84 [id number] 1953 Unknown [id number] 2.16.8 [id number] 1953 Unknown [id number] 2.16.8 [id number] 1953 Unknown [id number] 2.16.8 [id number] 1953 Unknown [id number] 2.16.8 [id number] 1953 Unknown [id number] 2.16.8 [id number] 1953 Unknown [id number] 2.16.8 [id number] 1953 Unknown [id number] 2.16.8 [id number] 1953 Unknown [id number] 2.16.8 [id number] 1953 Unknown [id number] 2.16.8 [id number] 1953 Unknown [id number] 2.16.8 [id number] 1953 Unknown [id number] 2.16.8 [id number] Unknown [facility] [id number] Social History Date Type Detail Facility Start: [facility]23-[facility]23 [facility] Start: 1955 Sex Assigned At Female F [facility] Clinical Note 09-26-2024 Note Date & Type Note Facility 04-24-2025 Note Patient: Romana Bragg fman Procedure Information Date/Time: 09/26/24 0830 Procedure: Cardioversion Location: [facility] HOLDING ROOM / [facility]ASCULAR [facility] (Cath) Providers: Lamine Sheehan MD Clinical information reviewed: Allergies Meds Physical Exam Airway Mallampati: II TM distance: >3 FB Neck ROM: full Cardiovascular Dental Pulmonary Abdominal Anesthesia Plan ASA 3 CSE Anesthetic plan and risks discussed with patient. Use of blood products discussed with patient who. Additional Equipment Requests [facility] Progress note 08-13-2024 Note Date & Type Note Facility 08-13-2024 Note [place] Electrophysiology Consult Note [place] [facility] Reason for visit: Atrial fibrillation [...] history of stroke or TIAs or any DC in the past but has a family [...] Use: Not At Risk (02/20/2018) Received from [employer] Frequency of Alcohol Consumption: Never Average Number of Drinks: Not on file Frequency of Binge Drinking: Not on file Financial Resource Strain: Not on file Food Insecurity: No Food Insecurity (03/14/2023) Received from [employer], [employer] Hunger Screening Within the past 12 months [...] midline Carotid Art (more content not included)... [facility] Progress note 05-22-2024 Note Date & Type Note Facility 05-22-2024 Note [facility] Cardiology Clinic Note Chief Complaint: Patient here [...] reduced systolic function (more content not included)... [facility] Progress note 04-19-2024 Note Date & [...] to follow-up with Dr. Carlson in the [facility] in the next 1 to 2 months [...] internal jugular vein was obtained. A 6 Barbadian 11 cm sheath was inserted without difficulty. [...] left radial artery was obtained. A 6 Barbadian glide sheath was inserted without difficulty. Difficulty [...] be ordered. INDICATIONS: (more content not included)... [facility] Progress note 04-08-2024 Note Date & Type Note Facility 04-08-2024 Note [facility] Cardiology Clinic Note Chief Complaint: New patient here to establish care. Ref from Dr. Parra for abnormal echo performed last month. 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 Patient says she gets chest pain every [...] cardiac catheterization Janiya Carlson MD, MPH, FACC, [facility], [facility] Interventional Cardiology Pager Email: [email or web address] Evaluation note Note Date & Type Note Facility Evaluation note No assessment information [facility]: Summary Purpose Family History No [...] content) DATE CREATED AUTHOR 08/16/2022 [facility] DATE CREATED AUTHOR AUTHOR'S ORGANIZ ATION 05/01/2024 [facility] DATE CREATED AUTHOR AUTHOR'S ORGANIZ ATION 09/30/2024 [facility] Care Teams (unrecognized sec tion and content) Team Status: Active Member Role Status Dates Teddy Parra MD Primary Care Provider Active Team Status: Inactive Member Role Status Ant Smith APRN Attending Provider Active Start: September 23, 2023 End: September 23, 2023 Teddy Parra MD Primary Care Provider Active Start: September 23, 2023 End: September 23, 2023 Team Status: Active Member Role Status Ant Parra MD Primary Care Provider Active Start: September 23, 2023 Viola Smith APRN Attending Provider Active Start: September 23, 2023 Team Status: Inactive Member Role Status Ant Parra MD Primary Care Provider Active Start: [...] BE BASED ON THE PRIMARY CLINICAL RECORDS. [employer] provides no warranty or guarantee of the accuracy or completeness of information in this document.
== END 2024-10-21 11:03 | disposition home or self-care (01) ==
LOC: LAB 11:05
PROVIDERS: PCP Family Medicine; Visit Provider Family Medicine
DX: M51.369 Other intervertebral disc degeneration, lumbar region without mention of lumbar back pain or lower extremity pain (principal); M19.90 Unspecified osteoarthritis, unspecified site; M43.9 Deforming dorsopathy, unspecified; M85.80 Other specified disorders of bone density and structure, unspecified site
CPT/HCPCS: 72110; 73523

== ENCOUNTER 2024-11-15 14:39 | Outpatient (OUT) | payer MEDICARE, BC, SELFPAY ==
--- OUTSIDE RECORDS SUMMARY | 2023-09-25 06:00 | XMS_ITS ---
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 Role Phone Klaus Parra Primary Care Provider Jesu Trujillo [facility] [phone] Allergies Allergen (clinical drug ingredient) Drug/Non Drug Allergy documented on EMR Reaction Allergy Type Onset Date Status penicillin (uncoded) Unknown Allergy Active codeine codeine Unknown Drug Allergy Active REASON FOR VISIT left shoulder - [place] Medications Medication SIG (Take, Route, Frequency, Duration) Notes Start Date End Date Status minocycline Active amLODIPine Active propranolol Active atorvastatin Active celecoxib Active amitriptyline Active pantoprazole Active levothyroxine Active sertraline Active liothyronine Active Vitamin D2 Active alendronate Active Eliquis Active Retin-A Active Social History Tobacco Use: Social History Observation Description Date Details (start date - stop date) Never Smoker NA - NA Smoking History Question Answer Notes Smoking Status NonSmoker AUDIT-C (Standard) Question Answer Notes Did you have a drink containing alcohol in the p ast year? 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 confirmed Vital Signs Height 62 in 09/25/2023 Weight 285 lbs 09/25/2023 BMI 52.12 09/25/2023 Encounters Encounter Location Date Provider Diagnosis [facility] Office [address] [place] [address] [address] [place] [address] 09/25/2023 Jesu Riley Nontraumatic incomplete tear of left rotator cuff M75.112 Assessments Encounter Date Diagnosis (ICD Code) Assessment Notes Treatment Notes Treatment Clinical Notes Section Notes 09/25/2023 Nontraumatic incomplete tear of left rotator cuff (ICD-10 - M75.112) 09/25/2023 Other I discussed both conservative and surgical treatment options with the patient. I discussed the high risk of retear of the rotator cuff after surgery due to age greater than 65, significant retraction, and muscle atrophy. I have discussed conservative treatments including therapy, medications and injections. She is not interested at this point in time and surgical treatment and does not feel symptoms are significant enough to warrant a steroid injection. She will plan to follow-up if she desires any additional treatment. Import medication Plan Of Treatment Treatment Notes Assessment Notes Other I discussed both conservative and surgical treatment options with the patient. I discussed the high risk of retear of the rotator cuff after surgery due to age greater than 65, significant retraction, and muscle atrophy. I have discussed conservative treatments including therapy, medications and injections. She is not interested at this point in time and surgical treatment and does not feel symptoms are significant enough to warrant a steroid injection. She will plan to follow-up if she desires any additional treatment. Import medication Next Appt Details Follow Up: prn, Reason: Progress Notes * MIGUEL ALCOCER SDOB:[birth year] (68 yo F)Acc No.[id number]:09/25/2023 Patient: MIGUEL TAYLOR Provider: Aicha Riley MD :1955 A ge:68 Y S ex:Female Date:09/25/2023 Address:[facility] [address], [facility], [id number] Pcp:Klaus Parra Subjective: * Chief Complaints: * l eft shoulder - [place] * HPI: G eneral Info per Patient Report: [facility] Questions H eight (ft): 5 ft. G eneral Follow Up Information: Patient presents today for chronic left shoulder pain. She denies any specific injury. She reports 20 years ago having a right shoulder rotator cuff tear. She remembers the long recovery associated with the surgery. * ROS: C onstitutional: Fever N o. W eight loss N o. F atigue N o.?Headache Y es. L oss of Appetite N o. A ppetite Change N o. D ifficulty Sleeping N o. U nexplained Weight Loss N o. M arked Fatigue N o. ? E ar/Nose/Throat: Difficulty Swallowing N o. L oss of Hearing N o.?Hoarseness N o. E ar pain N o. N ose bleed N o. E yes: Glasses/ Contacts Y es. C hange in Vision N o. T eeth: Gum Trouble N o. G astrointestinal: Bloody Stool N o. N ausea/Vomiting N o. R eflux?Yes. S tomach Pain/Ulcers N o. F requent Diarrhea N o. F requent Constipation N o. H emorrhoids N o. U ncontrolled Loss of Stool N o. H eartburn/Acid Stomach Y es. S kin: Frequent Rashes N o. F requent Itchiness N o. E asy Bruising Y es. S wollen Ankles Y es. M usculoskeletal: Joint Swelling N o. J oint pain Y es. J oint stiffness Y es. B ack Pain Y es. J oint Weakness Y es. M uscle Cramps N o.?Muscle Weakness N o. N scott Pain N o. C old Hands/Feet N o. ? H ematologic: Bleeding problem N o. A nemia N o. B ruising?Yes. R espiratory: Shortness of Breath Y es. M orning Cough N o. P roductive Cough/Sputum N o. C ardiovascular: Heart or Chest Pain N o. A bnormal Heart Beat Y es.?Leg Swelling N o. P oor Heart Function N o. S welling of Feet Y es. ? G enitourinary: Burning on Urination N o. I ncontinence N o. P elvic Pain N o. D ifficulty Starting to Urinate N o. U rinate at Night More Than Once Y es. U nable to Completely Empty Bladder N o. N eurological: Numbness/ Tingling N o. S eizures/ Epilepsy N o.?Weakness/ Paralysis of Feet/Hands N o. M tyler loss N o. B alance Problems Y es. C oordination Problems N o. T remors N o. D izziness N o. F ainting No. B lackouts/Fainting N o. H eadaches/Migraines Y es. P sychiatric: Depression Y es. A nxiety N o. N ervous Exhaustion N o. P aranoia N o. O bsessive/Compulsive Behavior N o. * Medical History: * Surgical History: N o Surgical History documented. * Family History: F ather: Cancer. * Social History: S moking History S moking Status N onSmoker. A BLAINE-C (Standard) D id you have a drink containing alcohol in the past year? N o. * Medications: T akingEliquis Retin-A Vitamin D2 alendronate sertraline liothyronine levothyroxine amitriptyline pantoprazole amLODIPine propranolol atorvastatin celecoxib minocycline Medication List reviewed and reconciled with the patientTaking Eliquis Taking Retin-A Taking Vitamin D2 Taking alendronate Taking sertraline Taking liothyronine Taking levothyroxine Taking amitriptyline Taking pantoprazole Taking amLODIPine Taking propranolol Taking atorvastatin Taking celecoxib Taking minocycline Medication List reviewed and reconciled with the patient * Allergies: c odeinepenicillinno[Allergies Verified] Objective: * Vitals: H t: 62 , Wt: 285 lbs, BMI:52.12. * Examination: G eneral examination: E xamination today of her left shoulder reveals full active range of motion with mild discomfort. She has pain and mild weakness with resisted supraspinatus testing. X -ray Imaging Studies: M RI Imaging Studies: I have reviewed her MRI report and images of her left shoulder and agree with the findings of a large rotator cuff tear retraction to the glenoid in the setting of muscle atrophy. . Assessment: * Assessment: 1. N ontraumatic incomplete tear of left rotator cuff - M75.112 (Primary) Plan: * Treatment: * Procedure Codes: * Preventive Medicine: MIPS Measures: C MS139 Fall Risk S creening: T wo or more falls with injury in the past year. # 155 - Falls Plan of Care P thomas of Care: D ocumented. * Follow Up: p rn Forms: * Images: * Sign off status: Completed true * Provider: Aicha Riley MD Date: 0 09/25/2023 Generated for Erin guerrero/Jose Guadalupe/eTransmitting on: 0 11/15/2024 02:45 PM EDT History and Physical Notes * HPI (History of Present Illness) Category Sub-Category Detail Notes Category Not es General Follow Up Information Patient presents today for chronic left shoulder pain. She denies any specific injury. She reports 20 years ago having a right shoulder rotator cuff tear. She remembers the long recovery associated with the surgery. General Info per Patient Report [facility] Height (ft):: 5 ft Examination Category Sub-Category Detail Notes Category Not es General examination Examinat ion today of her left shoulder reveals full active range of motion with mild discomfort. She has pain and mild weakness with resisted supraspinatus testing. X-ray Imaging Studies MRI Imaging Studies I have reviewed her MRI report and images of her left shoulder and agree with the findings of a large rotator cuff tear retraction to the glenoid in the setting of muscle atrophy.
--- OUTSIDE RECORDS SUMMARY | 2024-10-01 05:45 | XMS_ITS ---
Author Organization [facility] in [place] Address [address] [place] [address] Care Team Providers Care Bulk Station Operator Name Role Phone Victor Hugo Parra Primary Care Provider Allergies Allergen (clinical drug ingredient) Drug/Non Drug Allergy documented on EMR Reaction Allergy Type Onset Date Status codeine Codeine hives Drug Allergy Active Penicillin yeast infection Drug Allergy Active REASON FOR VISIT bilateral knee pain, wants both injected Medications Medication SIG (Take, Route, Frequency, Duration) Notes Start Date End Date Status Lasix 20 MG 1 tablet Orally Once a day for 30 days 03/14/2024 Active Liothyronine Sodium 5 MCG TAKE 2 TABLETS BY MOUTH EVERY DAY for 90 Active Levothyroxine Sodium 75 MCG TAKE 1 TABLE T BY MOUTH EVERY DAY for 90 Active Farxiga 10 MG 1 tablet Orally Once a day 06/04/2024 Active Eliquis 5 MG TAKE 1 TABLET BY ADRIAN TH TWICE A DAY for 30 Active Amitriptyline HCl 25 MG TAKE 1 TABLET BY MOUTH EVERY DAY for 90 Active Celecoxib 100 MG TAKE 1 CAPSULE BY MO UTH EVERY DAY for 30 days Active Azithromycin 250 MG 2 tabs today then 1 tab Orally daily for 5 days 08/09/2024 Active Atorvastatin Calcium 20 MG TAKE 1 TABLET BY MOUTH EVERY DAY for 90 days Active Vitamin D-3 125 MCG (5000 UT) as directed Orally once daily Active Amiodarone HCl 200 MG Oral for 60 Days Active Alendronate Sodium 70 MG TAKE 1 TABLET B Y MOUTH ONE TIME PER WEEK for 84 Active Potassium Chloride ER 10 MEQ 1 capsule w ith food Orally Twice a day for 30 days 03/14/2024 Active Sertraline HCl 100 MG TAKE 1 TABLET BY M OUTH EVERY DAY for 90 Active Metoprolol Succinate 25 MG 1 capsule Ora lly Once a day for 30 days Active Losartan Potassium 25 MG 1 tablet Orally Once a day for 30 days 06/04/2024 Active Pantoprazole Sodium 40 MG TAKE 1 TABLET BY MOUTH EVERY DAY for 90 days Active Minocycline HCl 100 MG TAKE 1 CAPSULE BY MOUTH EVERY DAY for 90 Active Social History Tobacco Use: Social History Observation Description Date Details (start date - stop date) Never Smoker NA - NA Tobacco Use/Smoking Question Answer Notes Patient is a nonsmoker Problems Problem Type SNOMED Code ICD Code Onset Dates Problem Status W/U Status Risk Notes Problem Osteoarthritis o f knees, bilateral (M17.0) Active confirmed Vital Signs Blood pressure systolic 122 mm Hg 10/02/19 25 Blood pressure diastolic 74 mm Hg 025 Height 62 in 10/01/2024 Weight 271.8 lbs 10/01/2024 BMI 49.71 kg/m2 10/01/2024 Encounters Encounter Location Date Provider Diagnosis [facility] [address] [place] [address] 10/01/2024 Victor Hugo Hoy Osteoarthritis M19.9 0 and Osteoarthritis of knees, bilateral M17.0 Assessments Encounter Date Diagnosis (ICD Code) Assessment Notes Treatment Notes Treatment Clinical Notes Section Notes 10/01/2024 Osteoarthritis (ICD-10 - M19.90) 10/01/2024 Osteoarthritis of knees, bilateral (ICD-10 - M17.0) Plan Of Treatment No Information Procedure Notes * Category Sub-Category Detail Notes (FTFP) Knee Injection Procedure: Injection of bilateral knee joints Indication: osteoarthritis Pre-Procedure: Risk, benefits and a lternatives were discussed with the patient. Verbal consent was obtained prior to the procedure. Prior to the start of the procedure a time out was taken and the identity of the patient was confirmed via name and date of with the patient. The correct site and the procedure to be performed were confirmed and the site marked as appropriate. The correct side was confirmed if applicable. The positioning of the patient was verified. The availability of the correct equipment was verified Procedure Note: Using sterile techni que, the aspiration/injection needle was then directed from a lateral aspect. Fluid was aspirated with a 22-gauge. The syringe was changed and the same needle was left in place and was used to inject 1 mL of 1% Lidocaine and 2 mL 40mg/mL methylprednisolone. A bandage was applied Post-Procedure: The patient tolerate d the procedure well Complications: none Patient Instructed to avoid strenuous ac tivity for 1 days Progress Notes * Romana ALCOCER SDOB:[birth year] (69 yo F)Acc No.[id number]:10/01/2024 Progress Note Patient: Romana TAYLOR Provider: Kiana Parra ([facility])MD :1955 A ge:69 Y S ex:Female Date:10/01/2024 Address:[facility] [address], [facility], [id number] Check In:09:36 AM ESTCheck O ut:10:01 AM EST Subjective: * Chief Complaints: * B ilateral knee pain, wants both injected * HPI: G eneral: kneepain acting up - injections lay ve helped in krish past. * Active Problem List M79.661 Pain in right lower leg Modified On:10/24/2022U Status:confirmed M19.90 Osteoarthritis Modified On:09/11/2023 Status:confirmed K57.90 Diverticulosis Modified On:10/19/2022U Status:confirmed J02.9 Pharyngitis Modified On:10/19/2022 Status:confirmed J20.9 Acute bronchitis Modified On:07/24/2023U Status:confirmed M79.672 Pain in left foot Modified On:10/19/2022U Status:confirmed G43.009 Common migraine Modified On:10/19/2022U Status:confirmed Z91.81 At risk for falls Modified On:10/19/2022U Status:confirmed I49.1 Premature atrial con tractions Modified On:10/19/2022U Status:confirmed U07.1 COVID-19 virus infec tion Modified On:10/19/2022 Status:confirmed R05.8 Other cough Modified On:10/19/2022U Status:confirmed I48.0 Paroxysmal atrial fi brillation Modified On:10/17/2022U Status:confirmed I10 Essential (primary) hypertension Modified On:10/17/2022U Status:confirmed K21.9 Gastro-esophageal re flux disease without esophagitis Modified On:10/17/2022 Status:confirmed E03.9 Hypothyroidism, unsp ecified Modified On:10/17/2022 Status:confirmed M85.80 Other specified diso rders of bone density and structure, unspecified site Modified On:10/17/2022 Status:confirmed F32.9 Depression Modified On:10/24/2022U Status:confirmed 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 Modified On:11/10/2022 Status:confirmed M85.80 Osteopenia Modified On:02/27/2023 Status:confirmed M25.512 Left shoulder pain Modified On:09/11/2023 Status:confirmed M75.100 Rotator cuff tear Modified On:08/23/2023U Status:confirmed M25.531 Right wrist pain Modified On:10/02/2023U Status:confirmed W19.XXXA Fall Modified On:10/02/2023U Status:confirmed Z23 Encounter for immuni zation Modified On:03/07/2024 Status:confirmed M17.9 Knee osteoarthritis Modified On:03/07/2024U Status:confirmed D73.89 Lesion of spleen Modified On:05/08/2024U Status:confirmed M17.0 Osteoarthritis of kn ees, bilateral Modified On:10/07/2024U Status:confirmed * Medical History: * Surgical History: T onsillectomy Appendectomy Breast biospy Neuroma excision Breast Reduction Rt Knee Arthroscopy Rt Rotator Duff Repair Cholecystectomy Bilateral Cataract Cardiac Cath 04/19/2024oronary angiography Cardioversion- Dr Sheehan 09/26/2024 * Hospitalization/Major Diagno stic Procedure: s ee above * Family History: F ather: , Brain Cancer 49 years old. M other: alive 87 yrs, diagnosed with Unspecified heart disease. B rother(s): alive, diagnosed with Unspecified heart disease. S ister(s): Pancreatic Cancer-45 years old, diagnosed with Other malignant neoplasm of unspecified site. 1 brother(s) , 2 sister(s) . . * Social History: T obacco Use: T obacco Use/Smoking P atient is a n onsmoker * Medications: T akingAlendronate Sodium 70 MG Tablet TAKE 1 TABLET BY MOUTH ONE TIME PER WEEK Amiodarone HCl 200 MG Tablet Oral Amitriptyline HCl 25 MG Tablet TAKE 1 TABLET BY MOUTH EVERY DAY Atorvastatin Calcium 20 MG Tablet TAKE 1 TABLET BY MOUTH EVERY DAY Azithromycin 250 MG Tablet 2 tabs today then 1 tab Orally daily Celecoxib 100 MG Capsule TAKE 1 CAPSULE BY MOUTH EVERY DAY Eliquis(Apixaban) 5 MG Tablet TAKE 1 TABLET BY MOUTH TWICE A DAY Farxiga(Dapagliflozin Propanediol) 10 MG Tablet 1 tablet Orally Once a day Lasix(Furosemide) 20 MG Tablet 1 tablet Orally Once a day Levothyroxine Sodium 75 MCG Tablet TAKE 1 TABLET BY MOUTH EVERY DAY Liothyronine Sodium 5 MCG Tablet TAKE 2 TABLETS BY MOUTH EVERY DAY Losartan Potassium 25 MG Tablet 1 tablet Orally Once a day Metoprolol Succinate 25 MG Capsule ER 24 Hour Sprinkle 1 capsule Orally Once a day Minocycline HCl 100 MG Capsule TAKE 1 CAPSULE BY MOUTH EVERY DAY Pantoprazole Sodium 40 MG Tablet Delayed Release TAKE 1 TABLET BY MOUTH EVERY DAY Potassium Chloride ER 10 MEQ Capsule Extended Release 1 capsule with food Orally Twice a day Sertraline HCl 100 MG Tablet TAKE 1 TABLET BY MOUTH EVERY DAY Vitamin D-3 125 MCG (5000 UT) Tablet as directed Orally once daily Taking Alendronate Sodium 70 MG Tablet TAKE 1 TABLET BY MOUTH ONE TIME PER WEEK Taking Amiodarone HCl 200 MG Tablet Oral Taking Amitriptyline HCl 25 MG Tablet TAKE 1 TABLET BY MOUTH EVERY DAY Taking Atorvastatin Calcium 20 MG Tablet TAKE 1 TABLET BY MOUTH EVERY DAY Taking Azithromycin 250 MG Tablet 2 tabs today then 1 tab Orally daily Taking Celecoxib 100 MG Capsule TAKE 1 CAPSULE BY MOUTH EVERY DAY Taking Eliquis(Apixaban) 5 MG Tablet TAKE 1 TABLET BY MOUTH TWICE A DAY Taking Farxiga(Dapagliflozin Propanediol) 10 MG Tablet 1 tablet Orally Once a day Taking Lasix(Furosemide) 20 MG Tablet 1 tablet Orally Once a day Taking Levothyroxine Sodium 75 MCG Tablet TAKE 1 TABLET BY MOUTH EVERY DAY Taking Liothyronine Sodium 5 MCG Tablet TAKE 2 TABLETS BY MOUTH EVERY DAY Taking Losartan Potassium 25 MG Tablet 1 tablet Orally Once a day Taking Metoprolol Succinate 25 MG Capsule ER 24 Hour Sprinkle 1 capsule Orally Once a day Taking Minocycline HCl 100 MG Capsule TAKE 1 CAPSULE BY MOUTH EVERY DAY Taking Pantoprazole Sodium 40 MG Tablet Delayed Release TAKE 1 TABLET BY MOUTH EVERY DAY Taking Potassium Chloride ER 10 MEQ Capsule Extended Release 1 capsule with food Orally Twice a day Taking Sertraline HCl 100 MG Tablet TAKE 1 TABLET BY MOUTH EVERY DAY Taking Vitamin D-3 125 MCG (5000 UT) Tablet as directed Orally once daily DiscontinueddexAMETHasone 6 MG Tablet 1 tablet Orally daily Paxlovid (300/100)(Nirmatrelvir&Ritonavir 300/100) 20 x 150 MG & 10 x 100MG Tablet Therapy Pack 3 tablets Orally Twice a day Medication List reviewed and reconciled with the patientDiscontinued dexAMETHasone 6 MG Tablet 1 tablet Orally daily Discontinued Paxlovid (300/100)(Nirmatrelvir&Ritonavir 300/100) 20 x 150 MG & 10 x 100MG Tablet Therapy Pack 3 tablets Orally Twice a day Medication List reviewed and reconciled with the patient * Allergies: C odeine: hivesPenicillin: yeast infection - Side Effectsno[Allergies Verified] Objective: * Vitals: W t:271.8lbs, Ht: 62 in, BP:122/74mm Hg, BMI:49.71Index, Ht-cm: 157.48 cm, Wt-k.29 kg. * Examination: A bdomen Exam:: b ilatearl knee oinjections wtih wsteroids. Assessment: * Assessment: 1. O steoarthritis - M19.90 (Primary) 2 . O steoarthritis of knees, bilateral - M17.0 Plan: * Treatment: * Procedures: ( FTFP) Knee Injection: Procedure: I njection of bilateral knee joints. Indication: o steoarthritis. Pre-Procedure: R isk, benefits and alternatives were discussed with the patient. Verbal consent was obtained prior to the procedure. Prior to the start of the procedure a time out was taken and the identity of the patient was confirmed via name and date of with the patient. The correct site and the procedure to be performed were confirmed and the site marked as appropriate. The correct side was confirmed if applicable. The positioning of the patient was verified. The availability of the correct equipment was verified. Procedure Note: U sing sterile technique, the aspiration/injection needle was then directed from a lateral aspect. Fluid was aspirated with a 22-gauge. The syringe was changed and the same needle was left in place and was used to inject 1 mL of 1% Lidocaine and 2 mL 40mg/mL methylprednisolone. A bandage was applied. Post-Procedure: T he patient tolerated the procedure well.? Complications: n one. Patient Instructed to a void strenuous activity for 1 days.? * Procedure Codes: 2 0610 ASPIRINJ. MAJOR WO, Modifiers: 50 J3301 TMC ACET,PER 10MG. * * Sign off status: Completed Visit Status: C HK (Check Out) true * Provider: Kiana Parra ([facility])MD Date: 0 10/01/2024 Generated for Erin guerrero/Jose Guadalupe/Sangitaitting on: 0 11/15/2024 02:45 PM EDT History and Physical Notes * HPI (History of Present Illness) Category Sub-Category Detail Notes Category Not es General kneepain acting up - injections lay ve helped in krish past Examination Category Sub-Category Detail Notes Category Not es Abdomen Exam: bilatearl knee oinjections wtih wsteroids
--- OUTSIDE RECORDS SUMMARY | 2024-10-21 06:30 | XMS_ITS ---
Author Organization [facility] in [place] Address [address] [place] [address] Care Team Providers Care Sap Manager Name Role Phone Victor Hugo Parra Primary Care Provider Allergies Allergen (clinical drug ingredient) Drug/Non Drug Allergy documented on EMR Reaction Allergy Type Onset Date Status codeine Codeine hives Drug Allergy Active Penicillin yeast infection Drug Allergy Active REASON FOR VISIT Presents to office for c/o right hip and low back pain x2 weeks. Did have a fall 6 weeks ago but not pain at the time Medications Medication SIG (Take, Route, Frequency, Duration) Notes Start Date End Date Status Vitamin D-3 125 MCG (5000 UT) as directe d Orally once daily Active Minocycline HCl 100 MG TAKE 1 CAPSULE BY MOUTH EVERY DAY for 90 Active Sertraline HCl 100 MG TAKE 1 TABLET BY M OUTH EVERY DAY for 90 Active Potassium Chloride ER 10 MEQ 1 capsule w ith food Orally Twice a day for 30 days 03/14/2024 Active Pantoprazole Sodium 40 MG TAKE 1 TABLET BY MOUTH EVERY DAY for 90 days Active Levothyroxine Sodium 75 MCG TAKE 1 TABLE T BY MOUTH EVERY DAY for 90 days Active Lasix 20 MG 1 tablet Orally Once a day for 30 days 03/14/2024 Active Metoprolol Succinate 25 MG 1 capsule Ora lly Once a day for 30 days Active Losartan Potassium 25 MG 1 tablet Orally Once a day for 30 days 06/04/2024 Active Liothyronine Sodium 5 MCG TAKE 2 TABLETS BY MOUTH EVERY DAY for 90 Active Farxiga 10 MG 1 tablet Orally Once a day 06/04/2024 Active Eliquis 5 MG TAKE 1 TABLET BY ADRIAN TH TWICE A DAY for 30 Active Celecoxib 100 MG TAKE 1 CAPSULE BY [facility] EVERY DAY for 30 days Active Atorvastatin Calcium 20 MG TAKE 1 TABLET BY MOUTH EVERY DAY for 90 days Active Cyclobenzaprine HCl 10 MG 1 tablet at be dtime as needed Orally Once a day for 30 days 10/21/2024 Active Amitriptyline HCl 25 MG TAKE 1 TABLET BY MOUTH EVERY DAY for 90 Active Amiodarone HCl 200 MG Oral for 60 Days Active Alendronate Sodium 70 MG TAKE 1 TABLET B Y MOUTH ONE TIME PER WEEK for 84 Active Social History Tobacco Use: Social History Observation Description Date Details (start date - stop date) Never Smoker NA - NA Tobacco Use/Smoking Question Answer Notes Patient is a nonsmoker Vital Signs Blood pressure systolic 130 mm Hg 10/22/19 25 Blood pressure diastolic 76 mm Hg 025 Height 62 in 10/21/2024 Weight 269.8 lbs 10/21/2024 BMI 49.34 kg/m2 10/21/2024 Encounters Encounter Location Date Provider Diagnosis [facility] [address] [place] [address] 10/21/2024 Victor Hugo Hoy Osteoarthritis M19.9 0 and Compression deformity of vertebra M43.9 Assessments Encounter Date Diagnosis (ICD Code) Assessment Notes Treatment Notes Treatment Clinical Notes Section Notes 10/21/2024 Osteoarthritis (ICD-10 - M19.90) 10/21/2024 Compression deformity of vertebra (ICD-10 - M43.9) 10/21/2024 Other Recommended to rest and use a heating pad on the area. Take NSAIDs for pain as needed Plan Of Treatment Medication Medication Name Sig Start Date Stop Date Notes Cyclobenzaprine HCl 10 MG 1 tablet at be dtime as needed Orally Once a day for 30 days 10/21/2024 Treatment Notes Assessment Notes Other Recommended to rest and use a heating pad on the area. Take NSAIDs for pain as needed Pending Test Test Name Order Date XR HIP LT 2 3V W PELVIS 10/21/2024 XR LSPINE MIN 4 VIEWS 10/21/2024 XR HIP RT 2 3V W PELVIS 10/21/2024 Progress Notes * Romana ALCOCER SDOB:[birth year] (69 yo F)Acc No.[id number]:10/21/2024 Progress Note Patient: Micha GUNN Romana S Provider: Kiana Parra ([facility])MD :1955 A ge:69 Y S ex:Female Date:10/21/2024 Address:[facility] [address], [place], [id number] Check In:10:21 AM ESTCheck O ut:10:51 AM EST Subjective: * Chief Complaints: * P resents to office for c/o right hip and low back pain x2 weeks. Did have a fall 6 weeks ago but not pain at the time * HPI: G eneral: Fell about 6-7 weeka go - ws better in last 2-3 week s getting worse - no symptominto leg not had x-ray yet tylenopl not helping hx lumbar compression fx - healed on it own worse in AM. B ack Pain: The patient complains of -. The symptoms have been present for 1-2 days. The patient believes symptoms are injury related No. The symptoms are mild. Symptomatic treatment has included heating pad, stretching. Associated symptoms include None. * ROS: G eneral/Constitutional: Lightheadedness d enies. C hange in appetite d enies. W eight Change d enies. C ardiovascular: Irregular heartbeat d enies. S welling in hands/feet?denies. R espiratory: Shortness of breath d enies. S hortness of breath with exertion d enies. W heezing d enies. M usculoskeletal: Comments S ee [facility] for details. N eurologic: Dizziness d enies. F ainting d enies. H eadache?denies. * Active Problem List M79.661 Pain in right lower leg Modified On:10/24/2022W/U Status:confirmed M19.90 Osteoarthritis Modified On:09/11/2023/U Status:confirmed K57.90 Diverticulosis Modified On:10/19/2022/U Status:confirmed J02.9 Pharyngitis Modified On:10/19/2022/U Status:confirmed J20.9 Acute bronchitis Modified On:07/24/2023W/U Status:confirmed M79.672 Pain in left foot Modified On:10/19/2022/U Status:confirmed G43.009 Common migraine Modified On:10/19/2022 Status:confirmed Z91.81 At risk for falls Modified On:10/19/2022 Status:confirmed I49.1 Premature atrial con tractions Modified On:10/19/2022 Status:confirmed U07.1 COVID-19 virus infec tion Modified On:10/19/2022 Status:confirmed R05.8 Other cough Modified On:10/19/2022U Status:confirmed I48.0 Paroxysmal atrial fi brillation Modified On:10/17/2022 Status:confirmed I10 Essential (primary) hypertension Modified On:10/17/2022 Status:confirmed K21.9 Gastro-esophageal re flux disease without esophagitis Modified On:10/17/2022 Status:confirmed E03.9 Hypothyroidism, unsp ecified Modified On:10/17/2022 Status:confirmed M85.80 Other specified diso rders of bone density and structure, unspecified site Modified On:10/17/2022 Status:confirmed F32.9 Depression Modified On:10/24/2022 Status:confirmed 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 Modified On:11/10/2022 Status:confirmed M85.80 Osteopenia Modified On:02/27/2023 Status:confirmed M25.512 Left shoulder pain Modified On:09/11/2023U Status:confirmed M75.100 Rotator cuff tear Modified On:08/23/2023U Status:confirmed M25.531 Right wrist pain Modified On:10/02/2023U Status:confirmed W19.XXXA Fall Modified On:10/02/2023U Status:confirmed Z23 Encounter for immuni zation Modified On:03/07/2024U Status:confirmed M17.9 Knee osteoarthritis Modified On:03/07/2024U Status:confirmed [...] TAKE 1 TABLET BY MOUTH EVERY DAY Celecoxib 100 MG Capsule TAKE 1 CAPSULE [...] 1 TABLET BY MOUTH EVERY DAY Taking Celecoxib 100 MG Capsule TAKE 1 [...] UT) Tablet as directed Orally once daily DiscontinuedAzithromycin 250 MG Tablet 2 tabs today then 1 tab Orally daily Medication List reviewed and reconciled with the patientDiscontinued Azithromycin 250 MG Tablet 2 tabs today then 1 tab Orally daily Medication List reviewed and reconciled with the patient * Allergies: C odeine: hivesPenicillin: yeast infection - Side Effectsno[Allergies Verified] Objective: * Vitals: W t:269.8lbs, Ht: 62 in, BP:130/76mm Hg, BMI:49.34Index, Ht-cm: 157.48 cm, Wt-k.38 kg. * Examination: G eneral Examination: GENERAL APPEARANCE: i n no acute distress, well developed, well nourished. LUNGS: clear to auscultation bilaterally. CARDIO: S1, S2 normal, no murmurs, rubs, gallops. MUSCULOSKELETAL: + paeralumbar tendenrness as well as midline tenderness. EXTREMITIES: no clubbing, cyanosis, or edema. NEUROLOGIC: alert, oriented to time, place, & person.? Assessment: * Assessment: 1. O steoarthritis - M19.90 (Primary) 2 . C ompression deformity of vertebra - M43.9 Plan: * Treatment: 2. C ompression deformity of vertebra I maging: XR HIP LT 2 3V W PELVIS I maging: XR LSPINE MIN 4 VIEWS I maging: XR HIP RT 2 3V W PELVIS 3. O thers Notes: Recommended to rest and use a heating pad on the area. Take NSAIDs for pain as needed ? * Procedure Codes: * Preventive Medicine: Screenings/Counseling: B PA ACTION PLAN Above Normal BMI Follow-up D ietary management education, guidance, and counseling See treatment section of progress note for complete details of management plan. F ALL RISK SCREENING Fall Risk Assessment: O ne fall without injury in the past year Are you afraid of falling? Y es * * Sign off status: Completed Visit Status: C HK (Check Out) true * Provider: Kiana Parra ([facility])MD Date: 0 10/21/2024 Generated for Mariahi yolanda/Jose Guadalupe/eTransmitting on: 0 11/15/2024 02:46 PM EDT History and Physical Notes * HPI (History of Present Illness) Category Sub-Category Detail Notes Category Not es General Fell about 6-7 weeka go - ws better in last 2-3 week s getting worse - no symptominto leg not had x-ray yet tylenopl not helping hx lumbar compression fx - healed on it own worse in AM Examination Category Sub-Category Detail Notes Category Not es General Examination GENERAL APPEARANCE: in no ac burns paiute distress, well developed, well nourished CARDIO: S1, S2 normal, no mu rmurs, rubs, gallops LUNGS: clear to auscultatio n bilaterally NEUROLOGIC: alert, oriented to t michelle, place, & person EXTREMITIES: no clubbing, cyanosi s, or edema MUSCULOSKELETAL: + paeralumbar tenden rness as well as midline tenderness
--- OUTSIDE RECORDS SUMMARY | 2024-10-21 09:54 | XMS_ITS ---
Author Organization [facility] in [place] Address [address] [place] [address] Care Team Providers Care Display Designer Outside Name Role Phone Victor Hugo Parra Primary Care Provider REASON FOR VISIT xr results Encounters Encounter Location Date Provider Diagnosis [facility] [address] [place] [address] 10/21/2024 Victor Hugo Parra Plan Of Treatment No Information Progress Notes * Romana ALCOCER SDOB:[birth year] (69 yo F)Acc No.[id number]:10/21/2024 Patient: Micha GUNN Romana S :1955 A ge:69 Y S ex:Female Address:[place] [address] [address] * true * Date: Generated for Erin guerrero/Jose Guadalupe/eTransmitting on: 0 11/15/2024 02:45 PM EDT
--- OUTSIDE RECORDS SUMMARY | 2024-11-15 14:00 | XMS_ITS | Encounter Summary ---
Author Organization [facility] Address [address] [place] [address] Care Team Providers Care Health Advisor Name Role Phone Klaus Parra MD Primary Care Provider [phone] Reason for Referral * Imaging (Routine) - Pending Review Specialty Diagnoses / Procedures Referred By Lucy castellanos Referred To Contact Cardiology Diagnoses Heart failure with mildly reduced ejection fraction (CMS/HCC) Nonrheumatic mitral valve regurgitation Pulmonary hypertension (CMS/HCC) Procedures Complete Echo (TTE) w/wo Imaging Agent, Strain, 3D, Bubble Study Eliezer Dickey CNP [address] [place] [address] Phone: tel: fax: Referral ID Status Reason Start Date Expiration Date Visits Requested Visits Authorized [id number] Pending Review Perform Procedure 11/15/2024 11/15/2025 1 1 Encounter Details Date Type Department Care Team (Late st Contact Info) Description 11/15/2024 2:00 PM EDT Follow-Up [facility] Heart at [facility] [address] [place] [address] Eliezer Dickey CNP [address] [place] [address] Paroxysmal atrial fibrillation (CMS/HCC) (Primary Dx); Heart failure with mildly reduced ejection fraction (CMS/HCC); Nonrheumatic mitral valve regurgitation; 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; Pulmonary hypertension (CMS/HCC); Benign hypertensive heart disease with heart failure (CMS/HCC) Social History Tobacco Use Types Packs/Day Years Used Date Smoking Tobacco: Never Smokeless Tobacco: Never Alcohol Use Standard Drinks/Week Comments Never 0 (1 standard drink = 0.6 oz pur e alcohol) [place] Safety & Environment Answer Date Rec orded Fear of Current or Ex-Partner Not on file Emotionally Abused Not on file 07/27/2023 Physically Abused Not on file 07/27/2023 Sexually Abused Not on file 07/27/2023 Physically or Sexually Abused Not on file Comments No Sex and Gender Information Value Date Recorded Sex Assigned at Not on file Legal Sex Female 10:56 PM EDT Gender Identity Not on file Sexual Orientation Not on file documented as of this encounter Last Filed Vital Signs Vital Sign Reading Time Taken Comments Blood Pressure 147/84 11/15/2024 1:56 PM EDT Pulse 81 11/15/2024 1:56 PM EDT Temperature - - Respiratory Rate - - Oxygen Saturation 99% 11/15/2024 1:56 PM EDT Inhaled Oxygen Concentration - - Weight 127 kg (279 lb) 11/15/2024 1:56 PM EDT Height 157.5 cm (5' 2 ) 11/15/2024 1:56 PM EDT Body Mass Index 51.03 11/15/2024 1:56 PM EDT documented in this encounter Plan of Treatment Upcoming Encounters Date Type Department Care Team (Late st Contact Info) Description 12/16/2024 9:20 AM EDT Office Visit [facility] Heart at [facility] [address] [place] [address] Eliezer Dickey, [employer] [address] [place] [address] Scheduled Orders Name Type Priority Associated Diagnoses Orde r Schedule Complete Echo (TTE) w/wo Imaging Agent, Strain, 3D, Bubble Study Echocardiography Routine Heart failure with mildly reduced ejection fraction (CMS/HCC) Nonrheumatic mitral valve regurgitation Pulmonary hypertension (CMS/HCC) Expected: 11/15/2024 (Approximate), Expires: 11/15/2026 Comprehensive metabolic panel Lab Routine Heart failure with mildly reduced ejection fraction (CMS/HCC) Ordered: 11/15/2024 B-type natriuretic peptide Lab Routine Heart failure with mildly reduced ejection fraction (CMS/HCC) Ordered: 11/15/2024 CBC and differential Lab Routine Paroxysmal atrial fibrillation (CMS/HCC) Heart failure with mildly reduced ejection fraction (CMS/HCC) Nonrheumatic mitral valve regurgitation 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 Ordered: 11/15/2024 Basic metabolic panel Lab Routine Heart failure with mildly reduced ejection fraction (CMS/HCC) Benign hypertensive heart disease with heart failure (CMS/HCC) Expected: 11/22/2024 (Approximate), Expires: 11/15/2025 CBC auto differential Lab Routine Paroxysmal atrial fibrillation (CMS/HCC) Heart failure with mildly reduced ejection fraction (CMS/HCC) Nonrheumatic mitral valve regurgitation 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 Ordered: 11/15/2024 documented as of this encounter Visit Diagnoses Diagnosis Paroxysmal atrial fibrillation (CMS/HCC)- Primary Atrial fibrillation Heart failure with mildly reduced ejection fraction (CMS/HCC) Nonrheumatic mitral valve regurgitation 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
--- OUTSIDE RECORDS SUMMARY | 2024-11-15 14:45 | XMS_ITS | Clinical Summary ---
Author Organization [employer] [facility] Address [id number] [address] [place] [address] Care Team Providers Care Well Services Operator Name Role Phone Klaus Parra MD Primary Care Provider [phone] Allergies Active Allergy Reactions Criticality Noted Date Comments Codeine Hives 02/20/2018 Penicillins Other (See Comments) 04/18/2023 Yeast infection Medications minocycline (MINOCIN,DYNACI N) 100 mg capsule Take 1 capsule (100 mg total) by mouth once daily. Active amLODIPine (NORVASC) 2.5 mg tablet Take 2 tablets (5 mg total) by mouth in the morning. Active amitriptyline (ELAVIL) 25 mg tablet Take 1 tablet (25 mg total) by mouth nightly. Active propranolol (INDERAL) 20 mg tablet Take 1 tablet (20 mg total) by mouth in the morning. Active sertraline (ZOLOFT) 100 mg tablet Take 1 tablet (100 mg total) by mouth in the morning and at bedtime. Active atorvastatin (LIPITOR) 20 mg tablet Take 1 tablet (20 mg total) by mouth in the morning. Active pantoprazole (PROTONIX) 40 mg EC tablet Take 1 tablet (40 mg total) by mouth in the morning. Active alendronate (FOSAMAX) 70 mg tablet Take 1 tablet (70 mg total) by mouth every 7 days. In a.m. with water on empty stomach, nothing else by mouth and remain upright for 30min Active celecoxib (CeleBREX) 100 mg capsule Take 1 capsule (100 mg total) by mouth in the morning. Active levothyroxine (SYNTHROID, LEVOTHROID) 75 MCG tablet Take 1 tablet (75 mcg total) by mouth in the morning. Active liothyronine (CYTOMEL) 25 MCG tablet Take 1 tablet (25 mcg total) by mouth in the morning. Active cholecalciferol , vitamin D3, 5,000 units tablet Take 1 tablet (5,000 Units total) by mouth in the morning. Active apixaban (ELIQUIS) 5 mg tablet Take 1 tablet (5 mg total) by mouth in the morning and 1 tablet (5 mg total) before bedtime. Active NON FORMULARY Take 1 each by mouth in the morning and 1 each before bedtime. Med Name: Retinavites. Active Active Problems No known active problems Family History Medical History Relation Name Comments Diabetes Brother Heart disease Brother Brain cancer Father Heart disease Mother Breast cancer Sister Lung cancer Sister Relation Name Status Comments Brother Father Mother Sister Social History Tobacco Use Types Packs/Day Years Used Date Smoking Tobacco: Never Smokeless Tobacco: Never Alcohol Use Standard Drinks/Week Comments No 0 (1 standard drink = 0.6 oz pur e alcohol) AUDIT-C Answer Date Recorded Frequency of Alcohol Consumption Never 02/20/2018 Average Number of Drinks Not on file 018 Frequency of Binge Drinking Not on file 02/03 Childcare Answer Date Recorded Childcare Unknown 11/14/2018 Employment Answer Date Recorded Employment Unknown 11/14/2018 Hunger Screening Answer Date Recorded Within the past 12 months we worried whether our food would run out before we got money to buy more. Never True 03/14/2023 Within the past 12 months th e food we bought just didn't last and we didn't have money to get more. Never True 03/14/2023 Purpose - Life Answer Date Recorded Purpose and direction in life Unknown Comments No Sex and Gender Information Value Date Recorded Sex Assigned at Not on file Legal Sex Female 11:37 AM EDT Gender Identity Not on file Sexual Orientation Not on file Last Filed Vital Signs Vital Sign Reading Time Taken Comments Blood Pressure 131/89 02/01/2024 12:45 PM EDT Pulse 93 02/01/2024 12:45 PM EDT Temperature 36.6 C (97.8 F) 02/01/2024 11:06 AM EDT Respiratory Rate 11 02/01/2024 12:45 PM EDT Oxygen Saturation 97% 02/01/2024 12:45 PM EDT Inhaled Oxygen Concentration - - Weight 128.8 kg (284 lb) 02/01/2024 11:06 AM EDT Height 157.5 cm (5' 2 ) 02/01/2024 11:06 AM EDT Body Mass Index 51.94 02/01/2024 11:06 AM EDT Plan of Treatment Health Maintenance Due Date Last Done Comments Depression Screening 1967 Adult BMI Follow Up Plan 1971 Zoster (Shingles) Vaccine (1 of 2) 2003 Fall Risk Screening 2018 COVID-19 Vaccine (2023-2 5 season) 2024 03/23/2024, 03/22/2023, 04/05/2022, Additional history exists Adult BMI Screening 01/31/2025 02/01/2024 Tobacco Screening 01/31/2025 02/01/2024 Influenza Vaccine 02/03/2025 03/22/2023, , 03/14/2021, Additional history exists DTaP,Tdap and Td Vaccines (2 - Td or Tdap) 02/28/2025 02/28/2015 Colonoscopy 05/04/2028 05/04/2023, 04/07, 03/12/2018, Additional history exists Medical Devices Implanted Type Area Title I Paraprofessional Device Identifier Shelf Expiration Date Model / Serial / Lot Lens Iol [employer] Fld Asph Uv [employer] Lght Fltr [facility] - [id number] - [id number] Implanted:Qty: 1 on 01/11/2024 by Petrona Box MD at [facility] Lens Left: Eye [employer] 04/12/2027 [id number] / [id number] / NA Lens Iol [id number] [employer] Rpl [id number] - [id number] - [id number] Implanted:Qty: 1 on 02/01/2024 by Petrona Box MD at [facility] Lens Right: Eye [employer] 08/28/2027 SY60WF.220 / [id number] / NA Procedures Procedure Name Priority Date/Time Associated Diagnosis Comments PROVATION COLONOSCOPY Routine 05/04/2023 6:39 AM EST from Last 3 Months or Most Recently Relevant to Health Maintenance Results * Colonoscopy Report (05/04/2023 6:39 AM EST) Narrative SYSTEMGENERATED, DOCUMENTATION - 05/04/2023 6:39 AM EST This order has been auto-finalized for image and report archival in PACs. *For full report details, please reach out to your physician. This image is visible to you in MyChart.* us Robinson Mendoza DO IMG OR IMG ORDERABLES Final Result from Last 3 Months or Most Recently Relevant to Health Maintenance Insurance MEDICARE [facility] Care Teams Well Services Operator Relationship Specialty Start Date End Date Klaus Parra MD [address] [facility] [address] PCP - General Family Medicine 11/11/24
--- OUTSIDE RECORDS SUMMARY | 2024-11-15 14:45 | XMS_ITS | Encounter Summary ---
Author Organization [facility] Address [id number] [address] [place] [address] Care Team Providers Care Armored Machine Operator Name Role Phone Klaus Parra MD Primary Care Provider [phone] Reason for Visit * Reason Comments Med Change Request Encounter Details Date Type Department Care Team (Late st Contact Info) Description 03/14/2023 Refill [facility] [address] [place] [address] Micaela Glass, DUMPING MACHINE OPERATOR-[facility] [address] [place], [place] [id number] History of colon polyps Social History Tobacco Use Types Packs/Day Years [...] on file documented as of this encounter Plan of Treatment Not on file documented as of this encounter Visit Diagnoses Diagnosis History of colon polyps documented in this encounter Care Teams Armored Machine Operator Relationship Specialty Start Date End Date Klaus Parra MD [address] [place] [address] PCP - General Family Medicine 04/15/24 documented as of this encounter
--- OUTSIDE RECORDS SUMMARY | 2024-11-15 14:45 | XMS_ITS | Patient Health Record ---
Author Organization [facility] in [place] Address [address] [place] [address] Care Team Providers Care Library Page Name Role Phone AidaVictor Hugo Primary Care Provider Allergies Allergen (clinical drug ingredient) Drug/Non Drug Allergy documented on EMR Reaction Allergy Type Onset Date Status codeine Codeine hives Drug Allergy Active Penicillin yeast infection Drug Allergy Active Results Component Value Reference Range Notes BNP Reviewed date:03/13/2024 08:24:49 PM Interpretation: Performing Lab: Notes/Report: [facility] , NT Pro B Type Natriuretic Pept 896.0 <=900.0 pg/mL Performing Lab: see note ML - [facility] CBC AUTO DIFF Reviewed date:03/13/2024 08:24:49 PM Interpretation: Performing Lab: Notes/Report: [facility] , White Blood Count 10.9 4.0-11.0 10 3/uL Red Blood Count 4.71 4.20-5.40 10 6/uL Hemoglobin 13.5 12.0-16.0 g/dL Hematocrit 41.9 36.0-48.0 % Mean Corpuscular Volume 89.0 81.0-99.0 fL Mean Corpuscular Hemoglobin 28.7 26.7-34.0 pg Mean Corpuscular HGB Conc 32.2 29.9-35.2 g/dL Red Cell Distribution Width 14.6 11.0-15.0 % Platelet Count 210 150-450 10 3/uL Mean Platelet Volume 9.9 9.5-13.5 fL Neutrophils Percent Auto 71.0 43.0-75.0 % Lymphocytes Percent Auto 18.7 20.5-60.0 % Monocytes Percent Auto 7.9 1.7-12.0 % Eosinophils Percent Auto 1.6 0.9-7.0 % Basophils Percent Auto 0.4 0.2-2.0 % Immature Granulocytes Pct Auto 0.4 0.0-0.5 % Neutrophils Absolute Auto 7.7 1.4-6.5 10 3/uL Lymphocytes Absolute Auto 2.0 1.2-3.8 10 3/uL Monocytes Absolute Auto 0.9 0.3-0.8 10 3/uL Eosinophils Absolute Auto 0.2 0.0-0.7 10 3/uL Basophils Absolute Auto 0.0 0.0-0.1 10 3/uL Immature Granulocytes Abs Auto 0.04 0.00-0.03 10 3/uL Performing Lab: see note ML - [facility] PROF 14(COMP METB) Reviewed date:03/13/2024 08:24:49 PM Interpretation: Performing Lab: Notes/Report: [facility] , Sodium 137 136-145 mmol/L Potassium 4.1 3.5-5.1 mmol/L Chloride 100 98-107 mmol/L Carbon Dioxide 26.8 21.0-32.0 mmol/L Anion Gap 14.3 Glucose 91 74-106 mg/dL Blood Urea Nitrogen 21.0 7.0-18.0 mg/dL Creatinine 0.99 0.55-1.02 mg/dL Estimated GFR ( Kiersten >60 >=60 mL/min/1.73m 2 Estimated GFR (Non- Kimberly 55 >=60 mL/min/1.73m 2 BUN Creatinine Ratio 21.2 Calcium 9.1 8.5-10.1 mg/dL Bilirubin Total 0.7 0.2-1.0 mg/dL Aspartate Amino Transferase 18 15-37 U/L Alanine Aminotransferase 21 14-59 U/L Alkaline Phosphatase 99 46-116 U/L Total Protein 7.1 6.4-8.2 g/dL Albumin Level 3.9 3.4-5.0 g/dL Globulin 3.2 Albumin Globulin Ratio 1.2 Performing Lab: see note ML - [facility] FREE T4 Reviewed date:03/13/2024 08:24:49 PM Interpretation: Performing Lab: Notes/Report: [facility] Free T4 1.11 0.76-1.46 ng/dL Performing Lab: see note ML - [facility] TSH Reviewed date:03/13/2024 08:24:49 PM Interpretation: Performing Lab: Notes/Report: [facility] , Thyroid Stimulating Hormone 3.446 0.358-3.740 uIU/mL Performing Lab: see note ML - [facility] CA echo doppler complete Reviewed date:03/13/2024 08:24:49 PM Interpretation: Performing Lab: Notes/Report: Source Facility: [place] [address] Cardiology Report Signed Patient: ROMANA ALCOCER MR#: [id number] : 1955 Acct:[id number] Age/Sex: 69 / F ADM Date: 03/13/24 Loc: CARD Attending Dr: Teddy Fink M.D. Ordering Physician: Teddy Fink M.D. Date of Service: 03/13/24 Procedure(s): CA echo doppler complete Accession Number(s): [id number] cc: Teddy Fink M.D. Patient Name: ROMANA ALCOCER MR#: [id number] : 1955 Exam Date: 03/13/2024 Ordering Doctor: DR TEDDY FINK . ECHOCARDIOGRAM REPORT PROCEDURE: CA ECHO DOPPLER COMPLETE INDICATIONS: Atrial fibrillation, hypertension COMPARISON: None. DESCRIPTION: COMPLETE ECHOCARDIOGRAM Real-time transthoracic echocardiography with 2D, M-mode, spectral and color flow Doppler performed. QUALITY: Technical quality was good. LEFT VENTRICLE: Normal chamber size. Proximal septal hypertrophy (sigmoid septum). LV EF: Global left ventricular systolic function is difficult to assess but appears reduced; visually estimated ejection fraction is 40 to 45%. Unable to assess regional wall motion abnormality; consider contrast study for better delineation of endocardial borders. DIASTOLIC: Not adequately assessed due to heart rhythm. ATRIAL SEPTUM: Inadequately seen. LEFT ATRIUM: Normal chamber size. RIGHT ATRIUM: Mild dilatation. RIGHT VENTRICLE: Upper normal limits in size. Decreased right ventricular systolic function. TRICUSPID VALVE: Normal mobility and thickness. Mild regurgitation. Doppler studies reveal moderately (45-60) elevated right sided pressures. RVSP 53 mmHg MITRAL VALVE: Normal mobility and thickness. No evidence of mitral valve stenosis. There is no mitral annular calcification. Mild to moderate mitral regurgitation. AORTIC VALVE: Normal trileaflet appearance. No visible sclerosis. Normal leaflet mobility. No evidence of aortic valve stenosis. No aortic regurgitation. AORTIC ROOT: Normal diameter and appearance. Ascending aorta is normal in size. PULMONIC VALVE: Normal thickness and mobility. No stenosis. No regurgitation. PERICARDIUM: No evidence of pericardial effusion. IVC: IVC is mildly dilated with no collapse. CONCLUSION: 1. Global left ventricular systolic function is difficult to assess but appears reduced; visually estimated ejection fraction is 40 to 45% 2. The right ventricle is upper normal limits in size with reduced systolic function 3. The right atrium is dilated 4. Mild tricuspid regurgitation 5. Moderately elevated right ventricular systolic pressure; RVSP 53 mmHg 6. Mild to moderate mitral regurgitation Adult Echocardiography Procedure Report Left Ventricle LVEDD (3.7 - 5.6 cm): 4.42 cm LVESD (2.2 - 4.0 cm): 3.59 cm LVIVS thickness (0.6 - 1.2 cm): 1.35 cm LVPW thickness (0.5 - 1.0 cm): 0.94 cm LVOT Max Gradient: 3.13 mm[Hg] LVOT Area (cm2): 0.89 m/s Peak Velocity (LVOT): 0.89 m/s LVOT Diameter 1.74 cm Left Atrium LA Volume Index (2D A2C): 28.81 ml/m2 Left Atrium Systolic Dimension: 4.36 cm Mitral Valve Mitral Valve E-Wave Peak Velocity: 0.99 m/s Right Ventricle Aorta AO Root Diam: 2.96 cm Ascending Ao Diam: 2.39 cm Aortic Valve AoV Area (Peak Jerzy): 1.55 cm2, 1.55 cm2 Peak Velocity(Antegrade Flow): 1.35 m/s Peak Gradient(Antegrade Flow): 7.32 mm[Hg] Tricuspid Valve Peak Velocity (Regurgitant Flow): 2.76 m/s, 3.06 m/s Pulmonic Valve Peak Velocity: 0.90 m/s Peak Gradient: 3.53 mm[Hg], 2.92 mm[Hg] Right Atrium Right Atrium Systolic Pressure: 54.35 ml, 54.35 ml Dictated by: Janiya Carlson M.D. on 03/13/2024 at 17:25 Approved by: Janiya Carlson M.D. on 03/13/2024 at 17:30 Dictated By: Janiya Carlson M.D. Signed By: 03/13/241730 DD/ 29 TD/TT: Va Underwriter: [place] [address] Cardiology Report Signed Patient: NORBERTO ALCOCER RA MR#: [id number] : 1955 Acct:[id number] Age/Sex: 69 / F ADM Date: 03/13/24 Loc: CARD Attending Dr: Elder Fink M.D. Ordering Physician: Teddy Fink M.D. Date of Service: 03/13/24 Procedure(s): CA ech o doppler complete Accession Number(s): [id number] cc: Teddy Fink M.D. Patient Name: ROMANA ALCOCER MR#: [id number] : 1955 Exam Date: 03/13/2024 Ordering Doctor: DR TEDDY FINK . ECHOCARDIOGRAM REPORT PROCEDURE: CA ECHO DOPPLER COMPLETE INDICATIONS: Atrial fibrillation, hypertension COMPARISON: None. DESCRIPTION: COMPLET E ECHOCARDIOGRAM Real-time transthoracic echocardiography wit h 2D, M-mode, spectral and color flow Doppler performed. QUALITY: Technical quality was good. LEFT VENTRICLE: Norm al chamber size. Proximal septal hypertrophy (sigmoid septum). LV EF: Global left ventricular systolic function is difficult to assess but appears reduced; visually estimated ejection fraction is 40 to 45%. Unable to assess reg ional wall motion abnormality; consider contrast study for better delineation o f endocardial borders. DIASTOLIC: Not adequately assessed due to heart rhythm. ATRIAL SEPTUM: Inadequately seen. LEFT ATRIUM: Normal chamber size. RIGHT ATRIUM: Mild dilatation. RIGHT VENTRICLE: Upp er normal limits in size. Decreased right ventricular systolic function. TRICUSPID VALVE: Nor mal mobility and thickness. Mild regurgitation. Doppler studies reve al moderately (45-60) elevated right sided pressures. RVSP 53 mmHg MITRAL VALVE: Normal mobility and thickness. No evidence of mitral valve stenosis. There is n o mitral annular calcification. Mild to moderate mitral regurgitation. AORTIC VALVE: Normal trileaflet appearance. No visible sclerosis. Normal leaflet mobility. No evidence of aortic valve stenosis. No aortic regurgitation. AORTIC ROOT: Normal diameter and appearance. Ascending aorta is normal in size. PULMONIC VALVE: Norm al thickness and mobility. No stenosis. No regurgitation. PERICARDIUM: No evid ence of pericardial effusion. IVC: IVC is mildly dilated with no collapse. CONCLUSION: 1. Global left ventricular systolic function is difficult to assess but appears reduced; vis ually estimated ejection fraction is 40 to 45% 2. The right ventric le is upper normal limits in size with reduced systolic function 3. The right atrium is dilated 4. Mild tricuspid regurgitation 5. Moderately elevat ed right ventricular systolic pressure; RVSP 53 mmHg 6. Mild to moderate mitral regurgitation Adult Echocardiograp hy Procedure Report Left Ventricle LVEDD (3.7 - 5.6 cm) : 4.42 cm LVESD (2.2 - 4.0 cm) : 3.59 cm LVIVS thickness (0.6 - 1.2 cm): 1.35 cm LVPW thickness (0.5 - 1.0 cm): 0.94 cm LVOT Max Gradient: 3 .13 mm[Hg] LVOT Area (cm2): 0.89 m/s Peak Velocity (LVOT) : 0.89 m/s LVOT Diameter 1.74 cm Left Atrium LA Volume Index (2D A2C): 28.81 ml/m2 Left Atrium Systolic Dimension: 4.36 cm Mitral Valve Mitral Valve E-Wave Peak Velocity: 0.99 m/s Right Ventricle Aorta AO Root Diam: 2.96 cm Ascending Ao Diam: 2 .39 cm Aortic Valve AoV Area (Peak Jerzy): 1.55 cm2, 1.55 cm2 Peak Velocity(Antegr yeny Flow): 1.35 m/s Peak Gradient(Antegr yeny Flow): 7.32 mm[Hg] Tricuspid Valve Peak Velocity (Regurgitant Flow): 2.76 m/s, 3.06 m/s Pulmonic Valve Peak Velocity: 0.90 m/s Peak Gradient: 3.53 mm[Hg], 2.92 mm[Hg] Right Atrium Right Atrium Systoli c Pressure: 54.35 ml, 54.35 ml Dictated by: Janiya Carlson M.D. on 03/13/2024 at 17:25 Approved by: Janiya Carlson M.D. on 03/13/2024 at 17:30 Dictated By: Janiya Carlson M.D. Signed By: 03/13/241730 DD/ 29 TD/TT: Va Underwriter: [employer] Reviewed date:05/22/2024 03:58:17 PM Interpretation: Performing Lab: Notes/Report: [facility] , Potassium 4.0 3.5-5.1 mmol/L Performing Lab: see note - [facility] PROF CHEM 8 (BAS METB) Reviewed date:09/19/2024 09:03:58 PM Interpretation: Performing Lab: Notes/Report: [facility] , Sodium 139 136-145 mmol/L Potassium 3.9 3.5-5.1 mmol/L Chloride 101 98-107 mmol/L Carbon Dioxide 30.7 21.0-32.0 mmol/L Anion Gap 11.2 Glucose 86 74-106 mg/dL Blood Urea Nitrogen 18.0 7.0-18.0 mg/dL Creatinine 1.03 0.55-1.02 mg/dL Estimated GFR ( Kiersten >60 >=60 mL/min/1.73m 2 Estimated GFR (Non- Kimberly 53 >=60 mL/min/1.73m 2 BUN Creatinine Ratio 17.5 Calcium 9.2 8.5-10.1 mg/dL Performing Lab: see note ML - [facility] XR lumbar spine min 4V Reviewed date:10/21/2024 01:54:34 PM Interpretation: Performing Lab: Notes/Report: Source Facility: [facility]-[address] [place] [address] [place] [address] XRay Report Signed Patient: ROMANA ALCOCER MR#: [id number] : 1955 Acct:[id number] Age/Sex: 69 / F ADM Date: 10/21/24 Loc: LAB Attending Dr: Teddy Fink M.D. Ordering Physician: Teddy Fink M.D. Date of Service: 10/21/24 Procedure(s): XR lumbar spine min 4V Accession Number(s): [id number] cc: Teddy Fink M.D. The [place] [address] Patient Name: ROMANA ALCOCER MRN: [id number] date: 1955 Sex: F Assigned Patient Location: LAB Current Patient Location: LAB Accession/Order Number: [id number] Exam Date: 10/21/2024 13:21 Report Date: 10/21/2024 13:29 At the request of: TEDDY FINK MD Procedure: XR hip BI w PEL 1V LUMBAR SPINE - 6 views: CLINICAL HISTORY: Osteoarthritis, Compression Deformity Of Vertebra COMPARISON: 11/05/2022 CT AP, lateral, both oblique and AP and lateral coned-down views of the lumbosacral junction were obtained. There is osteopenia. Study is read with the assumption there are hypoplastic 12th ribs. There is similar compression deformity involving the inferior endplate of T12. No new compression fractures are noted. There is slight retrolisthesis of T12 on L1, L1 on L2 and L2 on L3. There is multilevel disc space narrowing and endplate spurring. Mid and lower lumbar facet hypertrophy is also seen. No pars defects are visualized. There is sclerosis at the SI joints. There are no paraspinal soft tissue abnormalities. There is redemonstration of a rim calcified lesion at the left upper quadrant which was present within the spleen on the comparison CT exam. XR/XR lumbar spine min 4V IMPRESSION: OSTEOPENIA AND DEGENERATIVE CHANGES, DESCRIBED. 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 ADULT PELVIS WITH BILATERAL HIPS - 5 views CLINICAL HISTORY: Osteoarthritis, Compression Deformity Of Vertebra COMPARISON: 08/14/2019 AP view of the pelvis as well as AP and frog-lateral views of both hips were obtained. There is osteopenia. No fracture, dislocation or bony destruction is seen. The hip joint spaces are symmetric. There is minor marginal spurring at the periphery of the femoral heads and superior acetabula. There are small enthesophytes at the greater trochanters and slightly larger at the iliac crests. Minor sclerosis is present at the SI joints. The soft tissues are unremarkable. IMPRESSION: OSTEOPENIA AND MINOR DEGENERATIVE CHANGES. NO ACUTE PLAIN FILM FINDINGS. Impression dictated by: Ana Cristina Paulson M.D. 10/21/2024 1:29 PM Dictation Location: [place] [address] Electronically authenticated by: [id number] Y Date: 10/21/2024 13:29 Dictated By: Ana Cristina Paulson M.D. Signed By: 10/21/24 1331 DD/ 1329 TD/TT: Va Underwriter: The [place] [id number] XRay Report Signed Patient: NORBERTO ALCOCER RA MR#: [id number] : 1955 Acct:[id number] Age/Sex: 69 / F ADM Date: 10/21/24 Loc: LAB Attending Dr: Elder Fink M.D. Ordering Physician: Teddy Fink M.D. Date of Service: 10/21/24 Procedure(s): XR lum bar spine min 4V Accession Number(s): [id number] cc: Teddy Fink M.D. [place] [id number] Patient Name: ROMANA ALCOCER MRN: [id number] date: 1955 Sex: F Assigned Patient Location: LAB Current Patient Loca tion: LAB Accession/Order Numb er: [id number] Exam Date: 10/21/2024 13:21 Report Date: 10/21/2024 13:29 At the request of: TEDDY FINK MD Procedure: XR hip BI w PEL 1V LUMBAR SPINE - 6 views: CLINICAL HISTORY: Osteoarthritis, Compression Deformity Of Vertebra COMPARISON: 11/05/2022 CT AP, lateral, both ob lique and AP and lateral coned-down views of the lumbosacral junction were obtained. There is osteopenia. Study is read with the assumption there are hypoplastic 12th ribs. There is similar compression deformity involving the inferior endplate of T12. No new compression fractures are noted. There is slight retrolisthesis of T12 on L1, L1 on L2 and L2 on L3. There is multilevel disc space narrowing and endplate spurring. Mid and lower lumbar facet hypertrophy is also seen. No pars defects are visualized. There is sclerosis at the SI joints. There are no paraspinal soft tissue abnormalities. There is redemonstration of a rim calcified lesion at the left upper quadrant which was present within the spleen on the comparison CT exam. X R/XR lumbar spine min 4V IMPRESSION: OSTEOPENIA AND DEGENERATIVE CHANGES, DESCRIBED. 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 ADULT PELVIS WITH BILATERAL HIPS - 5 views CLINICAL HISTORY: Osteoarthritis, Compression Deformity Of Vertebra COMPARISON: 08/14/2019 AP view of the pelvi s as well as AP and frog-lateral views of both hips were obtained. There is osteopenia. No fracture, dislocation or bony destruction is seen. The hip collins nt spaces are symmetric. There is minor marginal spurring at the periphery of the femoral heads and superior acetabula. There are small enthesophytes at the greater trochanters and slightly larger at the iliac crests. Minor sclero sis is present at the SI joints. The soft tissues are unremarkable. IMPRESSION: OSTEOPENIA AND MINOR DEGENERATIVE CHANGES. NO ACUTE PLAIN FILM FINDINGS. Impression dictated by: Ana Cristina Paulson M.D. 10/21/2024 1:29 PM Dictation Location: [place] [address] Electronically authenticated by: [id number] Y Date: 10/21/2024 13:29 Dictated By: Ana Cristina Paulson M.D. Signed By: 10/21/24 1331 DD/ 1329 TD/TT: Va Underwriter: XR hip BI w PEL 1V Reviewed date:10/21/2024 01:54:34 PM Interpretation: Performing Lab: Notes/Report: Source Facility: [place] [address] XRay Report Signed Patient: ROMANA ALCOCER MR#: [id number] : 1955 Acct:[id number] Age/Sex: 69 / F ADM Date: 10/21/24 Loc: LAB Attending Dr: Teddy Fink M.D. Ordering Physician: Teddy Fink M.D. Date of Service: 10/21/24 Procedure(s): XR hip BI w PEL 1V Accession Number(s): [id number] cc: Teddy Fink M.D. [place] [address] Patient Name: ROMANA ALCOCER MRN: [id number] date: 1955 Sex: F Assigned Patient Location: LAB Current Patient Location: LAB Accession/Order Number: [id number] Exam Date: 10/21/2024 13:21 Report Date: 10/21/2024 13:29 At the request of: TEDDY FINK MD Procedure: XR hip BI w PEL 1V LUMBAR SPINE - 6 views: CLINICAL HISTORY: Osteoarthritis, Compression Deformity Of Vertebra COMPARISON: 11/05/2022 CT AP, lateral, both oblique and AP and lateral coned-down views of the lumbosacral junction were obtained. There is osteopenia. Study is read with the assumption there are hypoplastic 12th ribs. There is similar compression deformity involving the inferior endplate of T12. No new compression fractures are noted. There is slight retrolisthesis of T12 on L1, L1 on L2 and L2 on L3. There is multilevel disc space narrowing and endplate spurring. Mid and lower lumbar facet hypertrophy is also seen. No pars defects are visualized. There is sclerosis at the SI joints. There are no paraspinal soft tissue abnormalities. There is redemonstration of a rim calcified lesion at the left upper quadrant which was present within the spleen on the comparison CT exam. XR/XR hip BI w PEL 1V IMPRESSION: OSTEOPENIA AND DEGENERATIVE CHANGES, DESCRIBED. 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 ADULT PELVIS WITH BILATERAL HIPS - 5 views CLINICAL HISTORY: Osteoarthritis, Compression Deformity Of Vertebra COMPARISON: 08/14/2019 AP view of the pelvis as well as AP and frog-lateral views of both hips were obtained. There is osteopenia. No fracture, dislocation or bony destruction is seen. The hip joint spaces are symmetric. There is minor marginal spurring at the periphery of the femoral heads and superior acetabula. There are small enthesophytes at the greater trochanters and slightly larger at the iliac crests. Minor sclerosis is present at the SI joints. The soft tissues are unremarkable. IMPRESSION: OSTEOPENIA AND MINOR DEGENERATIVE CHANGES. NO ACUTE PLAIN FILM FINDINGS. Impression dictated by: Ana Cristina Paulson M.D. 10/21/2024 1:29 PM Dictation Location: [place] [address] Electronically authenticated by: [id number] Y Date: 10/21/2024 13:29 Dictated By: Ana Cristina Paulson M.D. Signed By: 10/21/24 1331 DD/ 1329 TD/TT: Va Underwriter: The [address] [address] XRay Report Signed Patient: NORBERTO ALCOCER RA MR#: [id number] : 1955 Acct:[id number] Age/Sex: 69 / F ADM Date: 10/21/24 Loc: LAB Attending Dr: Elder Fink M.D. Ordering Physician: Teddy Fink M.D. Date of Service: 10/21/24 Procedure(s): XR hip BI w PEL 1V Accession Number(s): [id number] cc: Teddy Fink M.D. [address] [address] Patient Name: ROMANA ALCOCER MRN: [id number] date: 1955 Sex: F Assigned Patient Location: LAB Current Patient Loca tion: LAB Accession/Order Numb er: [id number] Exam Date: 10/21/2024 13:21 Report Date: 10/21/2024 13:29 At the request of: TEDDY FINK MD Procedure: XR hip BI w PEL 1V LUMBAR SPINE - 6 views: CLINICAL HISTORY: Osteoarthritis, Compression Deformity Of Vertebra COMPARISON: 11/05/2022 CT AP, lateral, both ob lique and AP and lateral coned-down views of the lumbosacral junction were obtained. There is osteopenia. Study is read with the assumption there are hypoplastic 12th ribs. There is similar compression deformity involving the inferior endplate of T12. No new compression fractures are noted. There is slight retrolisthesis of T12 on L1, L1 on L2 and L2 on L3. There is multilevel disc space narrowing and endplate spurring. Mid and lower lumbar facet hypertrophy is also seen. No pars defects are visualized. There is sclerosis at the SI joints. There are no paraspinal soft tissue abnormalities. There is redemonstration of a rim calcified lesion at the left upper quadrant which was present within the spleen on the comparison CT exam. X R/XR hip BI w PEL 1V IMPRESSION: OSTEOPENIA AND DEGENERATIVE CHANGES, DESCRIBED. 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 ADULT PELVIS WITH BILATERAL HIPS - 5 views CLINICAL HISTORY: Osteoarthritis, Compression Deformity Of Vertebra COMPARISON: 08/14/2019 AP view of the pelvi s as well as AP and frog-lateral views of both hips were obtained. There is osteopenia. No fracture, dislocation or bony destruction is seen. The hip collins nt spaces are symmetric. There is minor marginal spurring at the periphery of the femoral heads and superior acetabula. There are small enthesophytes at the greater trochanters and slightly larger at the iliac crests. Minor sclero sis is present at the SI joints. The soft tissues are unremarkable. IMPRESSION: OSTEOPENIA AND MINOR DEGENERATIVE CHANGES. NO ACUTE PLAIN FILM FINDINGS. Impression dictated by: Ana Cristina Paulson M.D. 10/21/2024 1:29 PM Dictation Location: [place] [address] Electronically authenticated by: [id number] Y Date: 10/21/2024 13:29 Dictated By: Ana Cristina Paulson M.D. Signed By: 10/21/24 1331 DD/ 1329 TD/TT: Va Underwriter: MM tomosynthesis screening B I Reviewed date:08/27/2024 08:38:52 PM Interpretation: Performing Lab: Notes/Report: Source Facility: [place] [address] Mammography Report Signed Patient: ROMANA ALCOCER MR#: [id number] : 1955 Acct:[id number] Age/Sex: 69 / F ADM Date: 08/27/24 Loc: MAMMO Attending Dr: Teddy Fink M.D. Ordering Physician: Teddy Fink M.D. Results: Date of Service: 08/27/24 Follow Up: Procedure(s): MM tomosynthesis screening BI Accession Number(s): [id number] cc: Teddy Fink M.D. Patient Name: ROMANA ALCOCER MR#: [id number] : 1955 Exam Date: 08/27/2024 Ordering Doctor: DR Teddy Fink . RADIOLOGY REPORT PROCEDURE: MM TOMOSYNTHESIS SCREENING BI COMPARISON: MM TOMOSYNTHESIS SCREENING BI, 08/25/2023. MG MAMM SCREEN 3D NIKKO CAD, 08/15/2022. MG MAMM SCREEN 3D NIKKO CAD, 08/12/2021. MG MAMM NIKKO SCRN W CAD DIG, 08/20/2013. INDICATIONS: Screening Calculator Name NCI Breast Cancer Risk Assessment Tool 5 Year Breast Cancer Risk 3.00% Lifetime Breast Cancer Risk 9.90% Personal Breast Cancer No Personal Ovarian Cancer No Treatments None Family Cancers Sister with breast cancer at age 46; Father with brain cancer at age 49. LOCATION: [facility] BREAST COMPOSITION: There are scattered areas of fibroglandular density. FINDINGS: Scattered benign-appearing nodules are present. Scattered benign-appearing calcifications are present. DIAGNOSTIC CATEGORY 2--BENIGN FINDING: RECOMMENDATIONS: ROUTINE MAMMOGRAM AND CLINICAL EVALUATION IN 12 MONTHS. PLEASE NOTE: A NORMAL MAMMOGRAM DOES NOT EXCLUDE THE POSSIBILITY OF BREAST CANCER. A CLINICALLY SUSPICIOUS PALPABLE LUMP SHOULD BE BIOPSIED. Dictated by: David Jimenez DO on 08/27/2024 at 13:21 Approved by: David Jimenez DO on 08/27/2024 at 13:30 Dictated By: David Jimenez D.O. Signed By: 08/27/24 1331 DD/ 1330 TD/TT: Va Underwriter: [place] [address] Mammography Report Signed Patient: NORBERTO ALCOCER RA MR#: [id number] : 1955 Acct:[id number] Age/Sex: 69 / F ADM Date: 08/27/24 Loc: MAMMO Attending Dr: Elder Fink M.D. Ordering Physician: Teddy Fink M.D. Results: Date of Service: Follow Up: Procedure(s): MM tomosynthesis screening BI Accession Number(s): [id number] cc: Teddy Fink M.D. Patient Name: ROMANA ALCOCER MR#: [id number] : 1955 Exam Date: 08/27/2024 Ordering Doctor: DR Teddy Fink . RADIOLOGY REPORT PROCEDURE: MM TOMOSYNTHESIS SCREENING BI COMPARISON: MM TOMOSYNTHESIS SCREENING BI, 08/25/2023. MG MAMM SCREEN 3D NIKKO CAD, 08/15/2022. MG MAMM SCREEN 3D NIKKO CAD, 08/12/2021. MG MAMM NIKKO SCRN W CAD DIG, 08/20/2013. INDICATIONS: Screening Calculator Name NCI Breast Cancer Risk Assessment Tool 5 Year Breast Cancer Risk 3.00% Lifetime Breast Canc er Risk 9.90% Personal Breast Cancer No Personal Ovarian Can cer No Treatments None Family Cancers Siste r with breast cancer at age 46; Father with brain cancer at age 49. LOCATION: [facility] BREAST COMPOSITION: There are scattered areas of fibroglandular density. FINDINGS: Scattered benign-appearing nodules are present. Scattered benign-appearing calcifications are present. DIAGNOSTIC CATEGORY 2--BENIGN FINDING: RECOMMENDATIONS: ROUTINE MAMMOGRAM AN D CLINICAL EVALUATION IN 12 MONTHS. PLEASE NOTE: A ANGEL LUIS L MAMMOGRAM DOES NOT EXCLUDE THE POSSIBILITY OF BREAST CANCER. A CLINICALLY SUSPICIOUS PALPABLE LUMP SHOULD BE BIOPSIED. Dictated by: David Jimenez DO on 08/27/2024 at 13:21 Approved by: David Jimenez DO on 08/27/2024 at 13:30 Dictated By: Willie Jimenez D.O. Signed By: 08/27/24 1331 DD/ 1330 TD/TT: Va Underwriter: MR dior wo/w monica Reviewed date:05/23/2024 02:50:47 PM Interpretation: Performing Lab: Notes/Report: Source Facility: [place] [address] [place] [address] Magnetic Resonance Report Signed Patient: ROMANA ALCOCER MR#: [id number] : 1955 Acct:[id number] Age/Sex: 69 / F ADM Date: 05/22/24 Loc: LAB Attending Dr: Teddy Fink M.D. Ordering Physician: Teddy Fink M.D. Date of Service: 05/22/24 Procedure(s): abdomen wo/w con Accession Number(s): [id number] cc: Teddy Fink M.D. [place] [address] Patient Name: ROMANA ALCOCER MRN: [id number] date: 1955 Sex: F Assigned Patient Location: LAB Current Patient Location: Accession/Order Number: [id number] Exam Date: 05/22/2024 13:00 Report Date: 05/23/2024 06:31 At the request of: TEDDY FINK Procedure: MR abdomen wo/w con EXAMINATION: MR abdomen wo/w con HISTORY: lesion of spleen D73.89 COMPARISON: CT lumbar spine 11/05/2022 TECHNIQUE: A comprehensive MRI examination of the abdomen was performed to optimize visualization of suspected pathology. Images were obtained with and/or without intravenous Dotarem contrast as indicated by exam type. FINDINGS: LIVER: No enlargement, atrophy, abnormal signal, or significant focal lesion. BILIARY: Cholecystectomy. PANCREAS: No lesion, fluid collection, ductal dilatation, or atrophy. SPLEEN: 5.2 cm smoothly circumscribed thin-walled, nonenhancing, proteinaceous cyst within posterior spleen. KIDNEYS: No mass or obstruction. ADRENALS: No mass or enlargement. AORTA/VASCULAR: No aneurysm or dissection. RETROPERITONEUM: No mass or adenopathy. BOWEL/MESENTERY: No visible mass, obstruction, or bowel wall thickening. ABDOMINAL WALL: No mass or hernia. BONES: No bony lesion or fracture. LUNG BASES: No visible pleural disease. Lung bases not well assessed with MRI. OTHER: Negative. MR/MR abdomen wo/w con IMPRESSION: 1. Benign-appearing cyst/proteinaceous cyst within spleen favoring benign etiology. Electronically authenticated by: JESU BENDER Date: 05/23/2024 06:31 Dictated By: Jesu Bender M.D. Signed By: 05/23/2434 DD/ 0 TD/TT: Va Underwriter: [place] [address] Magnetic Resonance Report Signed Patient: NORBERTO ALCOCER RA MR#: [id number] : 1955 Acct:[id number] Age/Sex: 69 / F ADM Date: 05/22/24 Loc: LAB Attending Dr: Elder Fink M.D. Ordering Physician: Teddy Fink M.D. Date of Service: 05/22/24 Procedure(s): MR gita omen wo/w con Accession Number(s): [id number] cc: Teddy Fink M.D. [facility] [place] [id number] Patient Name: ROMANA ALCOCER MRN: [id number] date: 1955 Sex: F Assigned Patient Location: LAB Current Patient Location: Accession/Order Numb er: [id number] Exam Date: 13:00 Report Date: 05/23/2024 06:31 At the request of: TEDDY FINK Procedure: MR abdome n wo/w con EXAMINATION: MR abdo men wo/w con HISTORY: lesion of s pleen D73.89 COMPARISON: CT lumba r spine 11/05/2022 TECHNIQUE: A comprehensive MRI examination of the abdomen was performed to optimize visualizati on of suspected pathology. Images were obtained with and/or without intravenous Dotarem contrast as indicated by exam type. FINDINGS: LIVER: No enlargemen t, atrophy, abnormal signal, or significant focal lesion. BILIARY: Cholecystectomy. PANCREAS: No lesion, fluid collection, ductal dilatation, or atrophy. SPLEEN: 5.2 cm rafal hly circumscribed thin-walled, nonenhancing, proteinaceous cyst within posterio r spleen. KIDNEYS: No mass or obstruction. ADRENALS: No mass or enlargement. AORTA/VASCULAR: No aneurysm or dissection. RETROPERITONEUM: No mass or adenopathy. BOWEL/MESENTERY: No visible mass, obstruction, or bowel wall thickening. ABDOMINAL WALL: No m ass or hernia. BONES: No bony lesio n or fracture. LUNG BASES: No visib le pleural disease. Lung bases not well assessed with MRI. OTHER: Negative. M R/MR abdomen wo/w con IMPRESSION: 1. Benign-appearing cyst/proteinaceous cyst within spleen favoring benign etiology. Electronically authenticated by: JESU BENDER Date: 05/23/2024 06:31 Dictated By: Jesu Bender M.D. Signed By: 05/23/2434 DD/ 0 TD/TT: Va Underwriter: CREATININE Reviewed date:05/22/2024 03:58:17 PM Interpretation: Performing Lab: Notes/Report: [facility] , Creatinine 0.99 0.55-1.02 mg/dL Estimated GFR ( Kiersten >60 >=60 mL/min/1.73m 2 Estimated GFR (Non- Kimberly 55 >=60 mL/min/1.73m 2 Performing Lab: see note ML - [facility] BUN Reviewed date:05/22/2024 03:58:17 PM Interpretation: Performing Lab: Notes/Report: [facility] , Blood Urea Nitrogen 18.0 7.0-18.0 mg/dL Performing Lab: see note ML - [facility] COVID-19, Flu A+B IH Reviewed date:05/22/2024 03:58:17 PM Interpretation: Performing Lab: Notes/Report: COVID positive FLU A neg FLU B neg Control present CBC AUTO DIFF Reviewed date:09/19/2024 09:03:58 PM Interpretation: Performing Lab: Notes/Report: [facility] , White Blood Count 8.9 4.0-11.0 10 3/uL Red Blood Count 4.90 4.20-5.40 10 6/uL Hemoglobin 13.9 12.0-16.0 g/dL Hematocrit 44.1 36.0-48.0 % Mean Corpuscular Volume 90.0 81.0-99.0 fL Mean Corpuscular Hemoglobin 28.4 26.7-34.0 pg Mean Corpuscular HGB Conc 31.5 29.9-35.2 g/dL Red Cell Distribution Width 14.6 11.0-15.0 % Platelet Count 211 150-450 10 3/uL Mean Platelet Volume 10.1 9.5-13.5 fL Neutrophils Percent Auto 67.0 43.0-75.0 % Lymphocytes Percent Auto 23.0 20.5-60.0 % Monocytes Percent Auto 7.8 1.7-12.0 % Eosinophils Percent Auto 1.0 0.9-7.0 % Basophils Percent Auto 0.6 0.2-2.0 % Immature Granulocytes Pct Auto 0.6 0.0-0.5 % Neutrophils Absolute Auto 6.0 1.4-6.5 10 3/uL Lymphocytes Absolute Auto 2.0 1.2-3.8 10 3/uL Monocytes Absolute Auto 0.7 0.3-0.8 10 3/uL Eosinophils Absolute Auto 0.1 0.0-0.7 10 3/uL Basophils Absolute Auto 0.1 0.0-0.1 10 3/uL Immature Granulocytes Abs Auto 0.05 0.00-0.03 10 3/uL Performing Lab: see note ML - [facility] Reason For Referral Diagnosis 1 Paroxysmal atrial fi brillation (I48.0) Referral Organization [facility] Referring Provider First Name Victor Hugo Referring Provider Last Name Dwightcarole Referring Provider [facility] dasha Referred Provider Janiya Carlson Referred Provider Specialty Cardiology Referral Priority Routine Diagnosis 1 Abnormal echocardiog екатерина (R93.1) Diagnosis 2 Paroxysmal atrial fi brillation (I48.0) Referral Organization [facility] Referring Provider First Name Victor Hugo Referring Provider Last Name Aida [facility] Jan[facility] Carl[facility] Referred Provider Specialty Cardiology Referral Priority Routine Medications Medication SIG (Take, Route, Frequency, Duration) Notes Start Date End Date Status Cyclobenzaprine HCl 10 MG 1 tablet at be dtime as needed Orally Once a day for 30 days 10/21/2024 Active Amitriptyline HCl 25 MG TAKE 1 TABLET BY MOUTH EVERY DAY for 90 Active Minocycline HCl 100 MG TAKE 1 CAPSULE BY MOUTH EVERY DAY for 90 Active Amiodarone HCl 200 MG Oral for 60 Days Active Metoprolol Succinate 25 MG 1 capsule Ora lly Once a day for 30 days Active Alendronate Sodium 70 MG TAKE 1 TABLET B Y MOUTH ONE TIME PER WEEK for 84 Active Losartan Potassium 25 MG 1 tablet Orally Once a day for 30 days 06/04/2024 Active Liothyronine Sodium 5 MCG TAKE 2 TABLETS BY MOUTH EVERY DAY for 90 Active Eliquis 5 MG TAKE 1 TABLET BY [facility] TWICE A DAY for 30 Active Celecoxib 100 MG TAKE 1 CAPSULE BY [facility] EVERY DAY for 30 days Active Potassium Chloride ER 10 MEQ 1 capsule w ith food Orally Twice a day for 30 days 03/14/2024 Active Atorvastatin Calcium 20 MG TAKE 1 TABLET BY MOUTH EVERY DAY for 90 days Active Pantoprazole Sodium 40 MG TAKE 1 TABLET BY MOUTH EVERY DAY for 90 days Active Sertraline HCl 100 MG TAKE 2 TABLETS BY MOUTH EVERY DAY FOR 90 DAYS for 90 Active Levothyroxine Sodium 75 MCG TAKE 1 TABLE T BY MOUTH EVERY DAY for 90 days Active Lasix 20 MG 1 tablet Orally Once a day for 30 days 03/14/2024 Active Farxiga 10 MG 1 tablet Orally Once a day 06/04/2024 Active Vitamin D-3 125 MCG (5000 UT) as directe d Orally once daily Active Immunizations Vaccine Route Administration Date Status Comme nts Flu, Fluad (18260) 65 yrs and older, single-dose syringe IM Intramuscular 03/07/2024 Administered Social History Tobacco Use: Social History Observation Description Date Details (start date - stop date) Never Smoker NA - NA Tobacco Use/Smoking Question Answer Notes Patient is a nonsmoker Alcohol Screen (Audit-C) Question Answer Notes Did you have a drink containing alcohol in the p ast year? No Points 0 Interpretation Negative AUDIT-C (Standard) Question Answer Notes Did you have a drink containing alcohol in the p ast year? No Points 0 Interpretation Negative Problems Problem Type SNOMED Code ICD Code Onset Dates Problem Status W/U Status Risk Notes Problem 62558461 Essential (primary) hypertension (I10) Active confirmed Problem Vaccination given (773098256) Encounter for immunization (Z23) Active confirmed Problem 68551607 Hypothyroidism, unspecified (E03.9) Active confirmed Problem 898626572 Gastro-esophagea l reflux disease without esophagitis (K21.9) Active confirmed Problem 023367316 Paroxysmal atria l fibrillation (I48.0) Active confirmed Problem Pain in limb (66913258) Pain in right lower leg (M79.661) Active confirmed Problem 874658386 Other specified disorders of bone density and structure, unspecified site (M85.80) Active confirmed Problem Osteoarthritis (496046961) Osteoarthritis (M19.90) Active confirmed Problem Depression (611425765) Depression (F32.9) Active confirmed Problem Osteopenia (621888684) Osteopenia (M85.80) Active confirmed Problem Osteoarthritis of knee (039483764) Knee osteoarthritis (M17.9) Active confirmed Problem Diverticular disease of colon (757281605) Diverticulosis (K57.90) Active confirmed Problem Pharyngitis (617713238) Pharyngitis (J02.9) Active confirmed Problem Left shoulder pain (6859917558) Left shoulder pain (M25.512) Active confirmed Problem Fall () Fall (W19.XXXA) Active confirmed Problem Osteoarthritis of knee (712432682) Osteoarthritis of knees, bilateral (M17.0) Active confirmed Problem Acute bronchitis (24291338) Acute bronchitis (J20.9) Active confirmed Problem Pain in left foot (915538250741656) Pain in left foot (M79.672) Active confirmed Problem Rotator cuff tear (553272555) Rotator cuff tear (M75.100) Active confirmed Problem Common migraine (69938545) Common migraine (G43.009) Active confirmed Problem Pain in wrist (66548436) Right wrist pain (M25.531) Active confirmed Problem Compression fracture of vertebral column (81665854) Compression deformity of vertebra (M43.9) Active confirmed Problem At risk for falls (931548565) At risk for falls (Z91.81) Active confirmed Problem Atrial premature contractions (859704729) Premature atrial contractions (I49.1) Active confirmed Problem Disease caused by Severe acute respiratory syndrome coronavirus 2 (disorder) (979750251) COVID-19 virus infection (U07.1) Active confirmed Problem Lesion of spleen (070710690158314) Lesion of spleen (D73.89) Active confirmed Problem Cough (finding) (64063096) Other cough (R05.8) Active confirmed Vital Signs Temperature 99.7 degrees Fahrenheit 05/08/2024 Blood pressure diastolic 76 mm Hg 10/21/2024 Height 62 in 10/21/2024 Blood pressure systolic 130 mm Hg 10/21/2024 Weight 269.8 lbs 10/21/2024 BMI 49.34 kg/m2 10/21/2024 Procedures Procedure Date Ordered Date Performed Result Body Sit e CARDIO Echocardiogram 03/07/2024 N/A Encounters Encounter Location Date Provider Diagnosis [facility] [address] [place] [address] 08/09/2024 Victor Hugo Fink [facility] [address] [place] [address] 08/27/2024 Victor Hugo Fink [facility] [address] [place] [address] 10/21/2024 Victor Hugo Fink [facility] [address] [place] [address] 03/13/2024 Victor Hugo Fink Abnormal echocardiog екатерина R93.1 and Paroxysmal atrial fibrillation I48.0 [facility] [address] [place] [address] 05/08/2024 Victor Hugo Hoy Lesion of spleen D73 .89 [facility] [address] [place] [address] 05/09/2024 Victor Hugo Hoy Pre-procedural examination Z01.818 [facility] [address] [place] [address] 05/23/2024 Victor Hugo Hoy [facility] [address] [place] [address] 06/03/2024 Victor Hugo Hoy [facility] [address] [place] [address] 03/07/2024 Victor Hugo Hoy Paroxysmal atrial fibrillation I48.0 ; Encounter for immunization Z23 ; Essential (primary) hypertension I10 ; Hypothyroidism, unspecified E03.9 and Primary localized osteoarthritis of right knee M17.11 [address] [place] [address] 05/08/2024 Victor Hugo Hoy Sinus congestion R09 .81 ; Body aches R52 and Acute bronchitis, unspecified organism J20.9 [address] [place] [address] 10/01/2024 Victor Hugo Hoy Osteoarthritis M19.9 0 and Osteoarthritis of knees, bilateral M17.0 [facility] [address] [place] [address] 10/21/2024 Victor Hugo Hoy Osteoarthritis M19.9 0 and Compression deformity of vertebra M43.9 Assessments Encounter Date Diagnosis (ICD Code) Assessment Notes Treatment Notes Treatment Clinical Notes Section Notes 03/07/2024 Paroxysmal atrial fibrillation (ICD-10 - I48.0) needs labs and echo nad se Dr Elliott 03/07/2024 Encounter for immunization (ICD-10 - Z23) 10/01/2024 Osteoarthritis (ICD-10 - M19.90) 10/01/2024 Osteoarthritis of knees, bilateral (ICD-10 - M17.0) 10/21/2024 Osteoarthritis (ICD-10 - M19.90) 10/21/2024 Compression deformity of vertebra (ICD-10 - M43.9) 05/08/2024 Sinus congestion (ICD-10 - R09.81) 05/08/2024 Body aches (ICD-10 - R52) 03/13/2024 Abnormal echocardiogram (ICD-10 - R93.1) 03/13/2024 Paroxysmal atrial fibrillation (ICD-10 - I48.0) 05/08/2024 Lesion of spleen (ICD-10 - D73.89) 05/09/2024 Pre-procedural examination (ICD-10 - Z01.818) 03/07/2024 Essential (primary) hypertension (ICD-10 - I10) stable here 03/07/2024 Hypothyroidism, unspecified (ICD-10 - E03.9) checking labs 05/08/2024 Acute bronchitis, unspecified organism (ICD-10 - J20.9) Rest and drink more liquids, especially water. You may use a humidifier or vaporizer to help keep the drainage moist. Osxq-gii-gglpfns Nasal Saline may help the stuffy and runny nose. Use Ibuprofen and or Tylenol as needed for fever, chills, body aches or pain. Children 5 years old should not be given euim-ufq-rgwoxgh cough and cold medications such as guaifenesin and dextromethorphan. If you're over age 5, you may try tskz-tqu-jovviwb cold medications such as guaifenesin and dextromethorphan, or multi-symptom cold reliever such as Dayquil to help reduce the symptoms. Antibiotics have been prescribed. You should take these until completed and follow the directions. Antibiotics can sometimes cause upset stomach, and in rare cases, serious allergic reactions or serious gastrointestinal problems. If you start having severe abdominal pain, severe vomiting, or bloody diarrhea, you should be reevaluated by your physician or urgent care immediately. Follow up with your Primary Care Provider or return to clinic if symptoms do not improve within 3-5 days. If you develop severe symptoms such as shortness of breath, repeated vomiting, coughing up blood, or chest pain you should go to the emergency room or call 911 03/07/2024 Primary localized osteoarthritis of right knee (ICD-10 - M17.11) 03/07/2024 Other knee injeted 10/21/2024 Other Recommended to rest and use a heating pad on the area. Take NSAIDs for pain as needed Plan Of Treatment Pending Test Test Name Order Date CMP (COMPLETE METABOLIC PANEL) 3 CMP (COMPLETE METABOLIC PANEL) 4 CARDIO Echocardiogram 03/07/2024 BUN/Creatinine 05/09/2024 MRI Abdomen w/ + w/o Contrast 05/08/2024 CBC W/AUTO DIFF 10/12/2023 CBC W/AUTO DIFF 10/14/2022 STOOL OCCULT BLOOD 10/14/2022 STOOL OCCULT BLOOD 10/12/2023 MRI Shoulder Arthrogram w/ Contrast Left 08/17/2023 MRI Abdomen w/o Contrast 05/08/2024 THYROID PROFILE WITH TSH 03/07/2024 XR HIP LT 2 3V W PELVIS 10/21/2024 XR LSPINE MIN 4 VIEWS 10/21/2024 XR SHOULDER LT 2V or > 08/17/2023 XR WRIST RT MIN 3 V 10/02/2023 THYROID PANEL (T4/TSH/FREE T3) 4 THYROID PANEL (T4/TSH/FREE T3) 3 XR HIP RT 2 3V W PELVIS 10/21/2024 Insurance Providers Payer Name Payer Address Payer Phone Subscriber Number Group Number Insured Name Patient Relationship to Insured Coverage Start Date Coverage End Date [place] [address] [place] [address] [id number] Romana Alcocer Self - patient is the insured [facility] MEDICARE SUPPLEMENT [address] [place] [address] [id number] Romana Alcocer Self - patient is the insured Medications Administered Medication Instructions Date of Administration Dosage Notes Kenalog-40 10/24/2022 80 mg Kenalog-40 08/17/2023 80 mg with 1 cc lido lucio Kenalog-40 03/07/2024 80 mg with 1 cc lido lucio Medical (General) History Medical History History ICD Code COVID-19 virus infection U07.1 Pain in left foot M79.672 Acute bronchitis J20.9 Pharyngitis J02.9 Other cough R05.8 Pain in right lower leg M79.661 At risk for falls Z91.81 Diverticulosis K57.90 Premature atrial contractions I49.1 Osteoarthritis M19.90 Common migraine G43.009 supraspinatus rotator cuff tear cataract right eye mild to moderate mitral regurgitation Surgical History Surgery Date(Month/Year) Breast Reduction Neuroma excision Breast biospy Appendectomy Tonsillectomy Rt Knee Arthroscopy Rt Rotator Duff Repair Cholecystectomy Bilateral Cataract Cardiac Cath 04/19/2024 coronary angiography Cardioversion- Dr Sheehan 09/26/2024 Hospitalization History Reason Date(Month/Year) see above
--- OUTSIDE RECORDS SUMMARY | 2024-11-15 14:45 | XMS_ITS | Clinical Summary ---
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 Active atorvastatin (Lipitor) 20 MG tablet TAKE 1 TABLET ONCE DAILY for 90 Active pantoprazole (ProtoNix) 40 MG EC tablet TAKE 1 TABLET BY MOUTH EVERY DAY for 30 Active propranolol (Inderal) 20 MG tablet TAKE 1 TABLET ONCE DAILY for 90 Active sertraline (Zoloft) 100 MG tablet 1 (one) time each day at the same time. Active apixaban (Eliquis) 5 MG tablet Take 5 mg by mouth in the morning and 5 mg before bedtime. Active liothyronine (Cytomel) 25 MCG tablet Take 25 mcg by mouth in the morning. Active levothyroxine (Synthroid, Levoxyl) 75 MCG tablet Take by mouth Daily before meals. Active celecoxib (CeleBREX) 100 MG capsule Take 100 mg by mouth in the morning and 100 mg before bedtime. Active minocycline (Dynacin) 100 MG tablet Take 100 mg by mouth in the morning and 100 mg before bedtime. Active Cholecalciferol (Vitamin D) 50 MCG (1999 UT) capsule Take by mouth. Activ e calcitonin, salmon, (Miacalcin) 200 UNIT/ACT nasal sprayIndication s:Acute midline low back pain without sciatica Administer 1 spray into one nostril in the morning. 3.7 mL 3 Active Active Problems No known active problems Family History Medical History Relation Name Comments Brain cancer Father Heart disease Mother Hypertension Mother Diabetes Sibling Heart disease Sibling Hypertension Sibling Relation Name Status Comments Father Mother Alive Sibling Alive Social History Tobacco Use Types Packs/Day Years Used Date Smoking Tobacco: Never Smokeless Tobacco: Never Tobacco Cessation:Counseling Given: Not Answered Alcohol Use Standard Drinks/Week Comments Never 0 (1 standard drink = 0.6 oz pure alcohol) Caffine intake: 2-3 cups per day, soda Comments Unknown Sex and Gender Information Value Date Recorded Sex Assigned at Not on file Legal Sex Female 6:48 PM EDT Gender Identity Not on file Sexual Orientation Not on file Last Filed Vital Signs Vital Sign Reading Time Taken Comments Blood Pressure 104/76 07/20/2017 12:00 PM EST Pulse - - Temperature - - Respiratory Rate - - Oxygen Saturation - - Inhaled Oxygen Concentration - - Weight 129 kg (285 lb) 01/03/2023 8:06 AM EDT Height 157.5 cm (5' 2 ) 01/03/2023 8:06 AM EDT Body Mass Index 52.13 01/03/2023 8:06 AM EDT Plan of Treatment Health Maintenance Due Date Last Done Comments CT Colonography 1955 FIT-DNA 1955 FIT 1955 FOBT 1955 Sigmoidoscopy 1955 Pneumococcal Vaccine: 65+ Ye ars (1 of 1 - PCV) 2003 Mammogram 03/09/2018 03/09/2017 Colonoscopy 09/10/2022 09/10/2012, 09/10/2012 Colorectal Cancer Screening 09/10/2022 Influenza Vaccine (Season Ended) 2025 03/31/2022, 03/14/2021, 02/20/2020, Additional history exists Procedures Procedure Name Priority Date/Time Associated Diagnosis Comments COLONOSCOPY Routine 09/10/2012 12:00 PM EDT from Last 3 Months or Most Recently Relevant to Health Maintenance Results * Colonoscopy (09/10/2012 12:00 PM EDT) Anatomical Region Laterality Modality Endoscopy 09/10/2012 12:0 0 PM EDT Narrative 09/10/2012 12:00 PM EDT PERFORMED AT [facility] LOCATION:[id number] diverticulosis Procedure Note CONVERSION, GENERIC - 10/20/2022 PERFORMED AT [facility] LOCATION:[id number] diverticulosis Obdulio Davis MD ENDOSCOPY PROCEDURE ORDERABLES Final Result from Last 3 Months or Most Recently Relevant to Health Maintenance Insurance MEDICARE [facility] Care Teams Cut Press Operator Relationship Specialty Start Date End Date Klaus Parra MD PCP - General Family Medicine 11/25/22
--- OUTSIDE RECORDS SUMMARY | 2024-11-15 14:46 | XMS_ITS | Patient Health Record ---
Author Organization [facility] Address [address] [place] [address] Care Team Providers Care Museum Informatics Specialist Name Role Phone Klaus Parra Primary Care Provider Unavailabl e Allergies Allergen (clinical drug ingredient) Drug/Non Drug Allergy documented on EMR Reaction Allergy Type Onset Date Status penicillin (uncoded) Unknown Allergy Active codeine codeine Unknown Drug Allergy Active Reason For Referral No Information Medications Medication SIG (Take, Route, Frequency, Duration) Notes Start Date End Date Status amitriptyline Active pantoprazole Active levothyroxine Active Vitamin D2 Active minocycline Active alendronate Active sertraline Active liothyronine Active amLODIPine Active propranolol Active Eliquis Active atorvastatin Active Retin-A Active celecoxib Active Social History Tobacco Use: Social History Observation Description Date Details (start date - stop date) Never Smoker NA - NA Smoking History Question Answer Notes Smoking Status NonSmoker AUDIT-C (Standard) Question Answer Notes Did you have a drink containing alcohol in the p ast year? 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 Plan Of Treatment No Information Insurance Providers Payer Name Payer Address Payer Phone Subscriber Number Group Number Insured Name Patient Relationship to Insured Coverage Start Date Coverage [place] [address] [place] [phone] [id number] MIGUEL ALCOCER Self - patient is the insured Paia [address] [place] [phone] [id number] MIGUEL ALCOCER Self - patient is the insured Medical (General) History Medical History History ICD Code Abnormal Heart Rhythm: Yes Bleeding/Bruising tendency: : Yes Cancer Type: Breast,Gallbladder Chronic back pain:: Yes CPAP Machine:: No Depression: Yes DRUG ALLERGIES: Yes Fibromyalgia: Yes Gastric Reflux: Yes Healthcare worker: No High Blood Pressure: Yes Hypothyroidism: Yes Irregular heartbeat: : Yes Latex Allergy: No Osteoarthritis: Yes Osteoporosis: Yes Have you been in close conta ct with someone who has had MRSA within the last year?: No Have you ever had or presently have MRSA ?: No Have you been seen by a dentist in the l ast year?: Yes Do you have any dental probl ems i.e. Broken, loose, or chipped teeth, absess, gum disease?: No
--- OUTSIDE RECORDS SUMMARY | 2024-11-15 14:46 | XMS_ITS | Encounter Summary ---
Author Organization [facility] Address [address] [place] [address] Care Team Providers Care Sculpture Conservator Name Role Phone Klaus Parra MD Primary Care Provider [phone] Encounter Details Date Type Department Care Team (Late st Contact Info) Description 11/24/2022 Abstract [facility] [address] [facility] [address] [place] [address] Flex Martinez PA [address] [facility] [address] [place] [address] Social History Tobacco Use Types Packs/Day Years [...] documented as of this encounter Visit Diagnoses Not on filedocumented in this encounter Care Teams Sculpture Conservator Relationship Specialty Start Date End Date Klaus Parra MD PCP - General Family Medicine 11/25/22 documented as of this encounter
--- OUTSIDE RECORDS SUMMARY | 2024-11-15 14:46 | XMS_ITS | Encounter Summary ---
Author Organization [facility] Address [address] [place] [address] Care Team Providers Care Farm Agent Name Role Phone Klaus Parra MD Primary Care Provider [phone] Encounter Details Date Type Department Care Team (Late st Contact Info) Description 12/26/2022 Orders Only [facility] [address] [place] [address] [place] [id number] Michlea Jiménez ARRT Social History Tobacco Use Types Packs/Day Years [...] on filedocumented in this encounter Care Teams Farm Agent Relationship Specialty Start Date End Date Klaus Parra MD PCP - General Family Medicine 11/25/22 documented as of this encounter
--- OUTSIDE RECORDS SUMMARY | 2024-11-15 14:57 | XMS_ITS | CCD ---
Author Organization [facility] CliniSyin Care Team Providers Care Insurance Broker Name Role Phone ALEKS ., DR ESPINAL Admitting Unavailable HOY ., DR ESPINAL Attending Unavailable HOY ., DR ESPINAL Primary Care Unavailable HOY ., DR ESPINAL Consulting Unavailable PAWHUSKA, DR TERRIE Maldonado Consulting Unavailable HOY ., DR ESPINAL Admitting Unavailable HOY ., DR ESPINAL Attending Unavailable HOY ., DR ESPINAL Primary Care Unavailable HOY ., DR ESPINAL Consulting Unavailable HOY ., DR ESPINAL Admitting Unavailable HOY ., DR ESPINAL Attending Unavailable HOY ., DR ESPINAL Primary Care Unavailable HOY ., DR ESPINAL Consulting Unavailable MD Teddy Parra Primary Care Provider [phone] JUANCARLOS Smith Attending Provider NAGA ANGELES Referring [...] Amoxicillin Drug Allergy [address] [facility] Rep[facility] (5 sources) Codeine; Translations: [CODEINE] Drug Allergy [address] [facility] (3 sources) Morphine Drug Allergy [address] 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 Normal [facility] ANESon 09-26-2024 ANES - Attestation signed [...] an additional personal documentation from me. Patient: Romana Alcocer Procedure Information Date/Time: 09/26/24829 Procedure: Cardioversion Location: [facility] [employer] HOLDING ROOM / [facility] (Cath) Providers: Lamine Sheehan MD [...] discussed with attending. Additional Equipment Requests Normal [facility] HPon 09-26-2024 [facility] Electrophysiology Consult Note [place] [facility] - [facility] Reason for visit: Atrial fibrillation [...] history of stroke or TIAs or any MO in the past but has a family [...] Use: Not At Risk (02/20/2018) Received from [employer] AUDIT-C Frequency of Alcohol Consumption: Never Average Number of Drinks: Not on file Frequency of Binge Drinking: Not on file Financial Resource Strain: Not on file Food Insecurity: No Food Insecurity (03/14/2023) Received from [employer], [employer] Hunger Screening Within the past 12 months [...] on file Intimate Partner Violence: Unknown (07/27/2023) [place] Safety & Environment Fear of Current or [...] Exam: Consti (more content not included)... Normal [facility] NURSNOTEon 09-26-2024 NURSNOTE RN educated pt [...] of unit with all of belongings. Normal [facility] Orders Onlyon 09-18-2024 Orders Only [id number] Romana Alcocer 1955 Date Provider Department Center 09/18/2024 ERIN GROVER [facility] Family History Problem Relation Age of Onset Coronary artery disease Mother Other Mother Family Status - Relation Status Age at Mother [facility] Office Visiton 08-13-2024 Follow-up visit [id number] Romana Alcocer 1955 Provider Department Center 08/13/2024 LAMINE RIOS [facility] Family History Problem Relation Age of Onset Coronary artery disease Mother Other Mother Family Status - Relation Status Age at Mother Level of Service:04130 [place] OFFICE/OUTPATIENT NEW MODERATE MDM 45 MINUTES Normal [facility] Orders Onlyon 08-13-2024 Orders Only [id number] Romana Alcocer 1955 Provider Department Center 08/13/2024 TOBI FLORES [facility]ELA [facility] Family History Problem Relation Age of Onset Coronary artery disease Mother Other Mother Family Status - Relation Status Age at Mother Normal [facility] Office Visiton 05-22-2024 Follow-up visit [id number] Romana Alcocer 1955 F Date Provider Department Center 05/22/2024 Cody-JANIYA CARLSON Aarti Doherty Family History Problem Relation Age of Onset Coronary artery disease Mother Other Mother Family Status - Relation Status Age at Mother Level of Service:75877 [place] OFFICE/OUTPATIENT ESTABLISHED MOD MDM 30 MIN Normal [facility] BASIC METABOLIC PANLon 04-29 Anion gap [Moles/Vol] 11 mmol/L Normal 5-15 [facility] Comment on above: Performed By: #### B MP #### [facility] ([id number]) [address], [address] [place] [address] Calcium [Mass/Vol] 8.9 mg/dL Normal 8.5-10.5 [facility] Comment on above: Performed By: #### B MP #### [facility] ([id number]) [address], [address] [place] [address] Chloride [Moles/Vol] 104 mmol/L Normal 98-109 [facility] Comment on above: Performed By: #### B MP #### [facility] ([id number]) [address], [address] [place] [address] CO2 [Moles/Vol] 21 mmol/L Low 22-32 [facility] Comment on above: Performed By: #### B MP #### [facility] ([id number]) [address], [address] [place] [address] Creatinine [Mass/Vol] 0.88 mg/dL Normal 0.40-1.00 [facility] Comment on above: Result Comment: METH OD TRACEABLE TO IDMS STANDARD Performed By: #### B MP #### [facility] ([id number]) [address], [address] [place] [address] GFR/1.73 sq M.predicted among non-blacks MDRD (S/P/Bld) [Vol rate/Area] 70 mL/min/{1.73_m2} Normal >59 [facility] Comment on above: Result Comment: Reported eGFR is based on the CKD-EPI 2020 equation that does not use a race coefficient. Performed By: #### B MP #### [facility] ([id number]) [address], [address] [place] [address] Glucose [Mass/Vol] 100 mg/dL High 65-99 [facility] Comment on above: Performed By: #### B MP #### [facility] ([id number]) [address], [address] [place] [address] Potassium [Moles/Vol] 5.3 mmol/L High 3.5-5.0 [facility] Comment on above: Result Comment: SPEC IMEN HEMOLYZED, RESULTS INCREASED MODERATELY HEMOLYZED Performed By: #### B MP #### [facility] ([id number]) [address], [address] [place] [address] Sodium [Moles/Vol] 136 mmol/L Normal 134-146 [facility] Comment on above: Performed By: #### B MP #### [facility] ([id number]) [address], [address] [place] [address] Urea nitrogen [Mass/Vol] 24 mg/dL Normal 5-27 [facility] Comment on above: Performed By: #### B MP #### [facility] ([id number]) [address], [address] [place] [address] Sonido 04-19-2024 ANES - Attestation signed by Janiya Carlson MD at 04/19/2024 8:07 AM Janiya Carlson MD, MPH, [facility], [facility], [facility] Interventional Cardiology Pager Email: [email or web address] Patient: Romana Alcocer Procedure Information Date/Time: 04/19/24 0830 Procedure: Coronary angiography Location: [facility] [employer] [facility] 3 / [facility] (Cath) Providers: Janiya Carlson MD [...] discussed with attending. Additional Equipment Requests Normal [facility] Abstracton 04-19-2024 Abstract [id number] Romana Alcocer 1955 F Date Provider Department Center 04/19/2024 3244-WALE MARCANO MC [facility] Family History Problem Relation Age of Onset Coronary artery disease Mother Other Mother Family Status - Relation Status Age at Mother Normal [facility] CT ABDOMEN PELVIS W IV CONTR [...] Mcintosh MD. Not Vldtd Invalid Interpretation Code [facility] HPon 04-19-2024 HP - Attestation signed [...] me. Additional Comments: Janiya Carlson MD, MPH, [facility], [facility], [facility] Interventional Cardiology Pager Email: [email or web address] H&P reviewed. The patient was examined and there are no changes to the H&P. The procedure was explained to the patient. The risks and benefits of the procedure were explained to the patient who showed understanding and with full capacity elected to proceed with the procedure. All questions were addressed and answered. Jen Gale MD Unit Leader - PGY6 [facility] NURSNOTEon 04-19-2024 NURSNOTE RN educated pt [...] off of unit with all of belongings. [facility] Orders Onlyon 04-19-2024 Orders Only [id number] Romana Alcocer 1955 F Date Provider Department Center 04/19/2024 ALFREDITO BRAMBILA [facility] Family History Problem Relation Age of Onset Coronary artery disease Mother Other Mother Family Status - Relation Status Age at Mother [facility] BASIC METABOLIC PANLon 04-15 Anion gap [Moles/Vol] 10 mmol/L Normal 5-15 [facility] Comment on above: Performed By: #### C BCA, BMP #### [facility] ([id number]) [address], [address] [place] [address] Calcium [Mass/Vol] 9.6 mg/dL Normal 8.5-10.5 [facility] Comment on above: Performed By: #### C BCA, BMP #### [facility] ([id number]) [address] [facility], [address] [place] [address] Chloride [Moles/Vol] 102 mmol/L Normal 98-109 [facility] Comment on above: Performed By: #### C BCA, BMP #### [facility] ([id number]) [address], [address] [place] [address] CO2 [Moles/Vol] 28 mmol/L Normal 22-32 [facility] Comment on above: Performed By: #### C BCA, BMP #### [facility] ([id number]) [address], [address] [place] [address] Creatinine [Mass/Vol] 0.88 mg/dL Normal 0.40-1.00 [facility] Comment on above: Result Comment: METH OD TRACEABLE TO IDMS STANDARD Performed By: #### C BCA, BMP #### [facility] ([id number]) [address], [address] [place] [address] GFR/1.73 sq M.predicted among non-blacks MDRD (S/P/Bld) [Vol rate/Area] 70 mL/min/{1.73_m2} Normal >59 [facility] Comment on above: Result Comment: Reported eGFR is based on the CKD-EPI 2020 equation that does not use a race coefficient. Performed By: #### C BCA, BMP #### [facility] ([id number]) [address], [address] [place] [address] Glucose [Mass/Vol] 88 mg/dL Normal 65-99 [facility] Comment on above: Performed By: #### C BCA, BMP #### [facility] ([id number]) [address] [address] [place] [address] Potassium [Moles/Vol] 4.1 mmol/L Normal 3.5-5.0 [facility] Comment on above: Performed By: #### C BCA, BMP #### [facility] ([id number]) [address], [address] [place] [address] Sodium [Moles/Vol] 140 mmol/L Normal 134-146 [facility] Comment on above: Performed By: #### C BCA, BMP #### [facility] ([id number]) [address] [address] [place] [address] Urea nitrogen [Mass/Vol] 24 mg/dL Normal 5-27 [facility] Comment on above: Performed By: #### C BCA, BMP #### [facility] ([id number]) [address], [address] [place] [address] CBC AND AUTO DIFFon 11-11-20 24 ABSOLUTE BASOPHIL 0.0 X10E9/L Normal 0.0-0.2 [facility] Comment on above: Performed By: #### C TEMI, BMP #### [facility] ([id number]) [address], [address] [place] [address] ABSOLUTE NEUTROPHIL 4.5 X10E9/L Normal 1.5-6.6 [facility] Comment on above: Performed By: #### C TEMI, BMP #### [facility] ([id number]) [address] [place] [address] Basophils/100 WBC (Bld) 0.5 % Normal [facility] Comment on above: Performed By: #### C TEMI, BMP #### [facility] ([id number]) [address], [address] [place] [address] Eosinophils (Bld) [#/Vol] 0.1 10*3/uL Normal 0.0-0.4 [facility] Comment on above: Performed By: #### C TEMI, BMP #### [facility] ([id number]) [address], [address] [place] [address] Eosinophils/100 WBC (Bld) 1.8 % Normal [facility] Comment on above: Performed By: #### C TEMI, BMP #### [facility] ([id number]) [address], [address] [place] [address] Erythrocyte distribution width (RBC) [Ratio] 15.7 % High 11.5-15.0 [facility] Comment on above: Performed By: #### C TEMI, BMP #### [facility] ([id number]) [address], [address] [place] [address] Hematocrit (Bld) [Volume fraction] 43.2 % Normal 35-47 [facility] Comment on above: Performed By: #### C BCA, BMP #### [facility] ([id number]) [address] [address] [place] [address] Hemoglobin (Bld) [Mass/Vol] 13.9 g/dL Normal 11.7-15.5 [facility] Comment on above: Performed By: #### C BCA, BMP #### [facility] ([id number]) [address], [address] [place] [address] Lymphocytes (Bld) [#/Vol] 1.8 10*3/uL Normal 1.0-3.5 [facility] Comment on above: Performed By: #### C BCA, BMP #### [facility] ([id number]) [address] [address] [place] [address] Lymphocytes/100 WBC (Bld) 24.9 % Normal [facility] Comment on above: Performed By: #### C BCA, BMP #### [facility] ([id number]) [address], [facility] [address] [place] [address] MCH (RBC) [Entitic mass] 28.1 pg Normal 27-34 [facility] Comment on above: Performed By: #### C BCA, BMP #### [facility] ([id number]) [address], [address] [place] [address] MCHC (RBC) [Mass/Vol] 32.1 g/dL Normal 32-36 [facility] Comment on above: Performed By: #### C BCA, BMP #### [facility] ([id number]) [address], [address] [place] [address] MCV (RBC) [Entitic vol] 88 fL Normal 80-100 [facility] Comment on above: Performed By: #### C BCA, BMP #### [facility] ([id number]) [address], [address] [place] [address] Monocytes (Bld) [#/Vol] 0.7 10*3/uL Normal 0-0.9 [facility] Comment on above: Performed By: #### C TEMI, BMP #### [facility] ([id number]) [address], [address] [place] [address] Monocytes/100 WBC (Bld) 9.3 % Normal [facility] Comment on above: Performed By: #### C TEMI, BMP #### [facility] ([id number]) [address], [address] [place] [address] Neutrophils/100 WBC (Bld) 63.5 % Normal [facility] Comment on above: Performed By: #### C TEMI, BMP #### [facility] ([id number]) [address], [address] [place] [address] Platelet mean volume (Bld) [Entitic vol] 8.9 fL Normal 7-12 [facility] Comment on above: Performed By: #### Buster MEMBRENO, BMP #### [facility] ([id number]) [address], [address] [place] [address] Platelets (Bld) [#/Vol] 234 10*3/uL Normal 150-450 [facility] Comment on above: Performed By: #### C TEMI, BMP #### [facility] ([id number]) [address], [address] [place] [address] RBC COUNT 4.94 X10E12/L Normal 3.80-5.20 [facility] Comment on above: Performed By: #### Buster MEMBRENO, BMP #### [facility] ([id number]) [address], [address] [place] [address] WBC (Bld) [#/Vol] 7.2 10*3/uL Normal 4.0-11.0 [facility] Comment on above: Performed By: #### C BCA, BMP #### [facility] ([id number]) [address] [facility] [place] [address] [facility] 04-08-2024 [facility] Cardiology Clinic Note Chief Complaint: New patient here to establish care. Ref from Dr. Parra for abnormal echo performed last month. Says she was diagnosed with afib a few years ago but has never seen a customer service agent. Patient says she gets chest pain every [...] the cardiac catheterization Janiya Carlson MD, MPH, [facility], [facility], [facility] Interventional Cardiology Pager Email: [email or web address] Office Visiton 04-08-2024 Follow-up visit [id number] Romana Alcocer 1955 F Date Provider Department Center 04/08/2024 271-JANIYA CARLSON [facility] Family History Problem Relation Age of Onset Coronary artery disease Mother Other Mother Family Status - Relation Status Age at Mother Level of Service:85867 [place] OFFICE/OUTPATIENT NEW HIGH MDM 60 MINUTES Normal [facility] Orders Onlyon 04-08-2024 Orders Only [id number] Romana Alcocer 1955 F Date Provider Department Center 04/08/2024 Yao-TOBI ANDREW [facility] Family History Problem Relation Age of Onset Coronary artery disease Mother Other Mother Family Status - Relation Status Age at Mother Normal [facility] MG MAMM SCREEN 3D NIKKO CADon 08-15-2022 MG MAMM SCREEN 3D NIKKO CAD Patient: ROMANA ALCOCER. Exam Date: 08/15/2022 : 1955 Gender:F Ordering : DR TEDDY PARRA . Admission #: [id number] Family : Order #: [id number] CLICK HERE TO VIEW EXAM RADIOLOGY REPORT [...] brain cancer at age 47. LOCATION: [facility] BREAST COMPOSITION: Scattered areas fibroglandular density. [...] MD on 08/15/2022 at 11:[address] [facility] Covid-19 PCR (CVDTBH)on 01-03 SARS-CoV-2 (COVID-19) RNA MARITZA+probe Ql (Unsp spec) Detected Critically abnormal NOT DETECTED [facility] Comment on above: Result Comment: This test is not yet approved or cleared by the [place] FDA. When there are no FDA-approved or cleared tests available, and other criteria are met, FDA can make tests available under an emergency access mechanism called an Emergency Use Authorization (EUA). The EUA for this test is supported by the [place] of Health and Human Service's (HHS's) declaration [...] used). Performed By: #### C VDTB #### [facility] [address] [place] [address] Dr. Tristan Craft CBC AUTO DIFFon 10-14-2021 BASO # 0.1 103/ul Normal 0.0-0.[address] [facility] Comment on above: Performed By: #### C BC #### [facility] [address] [place] [address] Dr. Tristan Craft Basophils/100 WBC (Bld) 0.5 % Normal 0.2-2.[address] [facility] Comment on above: Performed By: #### C BC #### [facility] [address] [place] [address] Dr. Tristan Craft EO # 0.2 103/ul Normal 0.0-0.[address] [facility] Comment on above: Performed By: #### C BC #### [facility] [address] [place] [address] Dr. Tristan Craft Eosinophils/100 WBC (Bld) 1.6 % Normal 0.9-7.0 [facility] Comment on above: Performed By: #### C BC #### [facility] [address] [place] [address] Dr. Tristan Craft Erythrocyte distribution width (RBC) [Ratio] 14.3 % Normal 11.0-15.0 [facility] Comment on above: Performed By: #### C BC #### [facility] [address] [place] [address] Dr. Tristan Craft Hematocrit (Bld) [Volume fraction] 45.7 % Normal 36.0-48.0 [facility] Comment on above: Performed By: #### C BC #### [facility] [address] [place] [address] Dr. Tristan Craft Hemoglobin (Bld) [Mass/Vol] 14.3 g/dL Normal 12.0-16.0 [facility] Comment on above: Performed By: #### C BC #### [facility] [address] [place] [address] Dr. Tristan Craft IG # 0.03 10e3/ul Normal 0.00-0.03 [facility] Comment on above: Performed By: #### C BC #### [facility] [address] [place] [address] Dr. Tristan Craft IG % 0.3 % Normal 0.0-0.5 [facility] Comment on above: Performed By: #### C BC #### [facility] [address] [place] [address] Dr. Tristan Craft LYMPH # 2.5 103/ul Normal 1.2-3.8 [facility] Comment on above: Performed By: #### C BC #### [facility] [address] [place] [address] Dr. Tristan Craft Lymphocytes/100 WBC (Bld) 26.7 % Normal 20.5-60.0 [facility] Comment on above: Performed By: #### C BC #### [facility] [address] [place] [address] Dr. Tristan Craft MANUAL DIFF REQ NO Normal [facility] Comment on above: Performed By: #### C BC #### [facility] [address] [place] [address] Dr. Tristan Craft MCH (RBC) [Entitic mass] 27.8 pg Normal 26.7-34.0 [facility] Comment on above: Performed By: #### C BC #### [facility] [address] [address] [address] Tristan Craft MCHC (RBC) [Mass/Vol] 31.3 g/dL Normal 29.9-35.2 [facility] Comment on above: Performed By: #### C BC #### [facility] [address] [address] [address] Tristan Craft MCV (RBC) [Entitic vol] 88.9 fL Normal 81.0-99.0 [facility] Comment on above: Performed By: #### C BC #### [facility] [address] [address] [address] Tristan Craft MONO # 0.8 103/ul Normal 0.3-0.8 [facility] Comment on above: Performed By: #### C BC #### [facility] [address] [place] [address] Dr. Tristan Craft Monocytes/100 WBC (Bld) 8.0 % Normal 1.7-12.0 [facility] Comment on above: Performed By: #### C BC #### [facility] [address] [address] [address] Tristan Craft NEUT # 5.9 103/ul Normal 1.4-6.5 [facility] Comment on above: Performed By: #### C BC #### [facility] [address] [place] [address] Dr. Tristan Craft Neutrophils/100 WBC (Bld) 62.9 % Normal 43.0-75.[address] [facility] Comment on above: Performed By: #### C BC #### [facility] [address] [place] [address] Dr. Tristan Craft Platelet mean volume (Bld) [Entitic vol] 10.4 fL Normal 9.5-13.[address] [facility] Comment on above: Performed By: #### C BC #### [facility] [address] [place] [address] Dr. Tristan Craft PLT 302 103/ul Normal 150-[address] [facility] Comment on above: Performed By: #### C BC #### [facility] [address] [place] [address] Dr. Tristan Craft RBC 5.14 106/ul Normal 4.20-5.40 [facility] Comment on above: Performed By: #### C BC #### [facility] [address] [place] [address] Dr. Tristan Craft WBC 9.3 103/ul Normal 4.0-11.0 [facility] Comment on above: Performed By: #### C BC #### [facility] [address] [place] [address] Dr. Tristan Craft FREE T3on 10-14-2021 FREE T3 2.03 pg/mlL Critically low 2.18-3.98 [facility] Comment on above: Performed By: #### T 4, CMP, TSH, LIPID, FT3 #### [facility] [address] [place] [address] Dr. Tristan Craft GLYCOHEMOGLOBIN A1Con 2021 ADA RECOMMENDATION SEE BELOW Normal [facility] Comment on above: Result Comment: ADA RECOMMENDED LIMIT 4.0 - 6.0 ADA THERAPEUTIC TARGET < 7.0 ACTION SUGGESTED > 7.0 Performed By: #### A 1C #### [facility] [address] [place] [address] Dr. Tristan Craft Glucose [Mass/Vol] 123 mg/dL Normal [facility] Comment on above: Performed By: #### A 1C #### [facility] [address] [place] [address] Dr. Tristan Craft HbA1c (Bld) [Mass fraction] 5.9 % Normal 4.5-6.2 [facility] Comment on above: Performed By: #### A 1C #### [facility] [address] [place] [address] Dr. Tristan Craft LIPID PROFILEon 10-14-2021 CHOL-HDL RATIO NORM SEE BELOW Normal [facility] Comment on above: Result Comment: 3.3 - 4.4 LOW RISK 4.4 - 7.1 AVERAGE RISK 7.1 - 11.0 MODERATE RISK >11.0 HIGH RISK Performed By: #### T 4, CMP, TSH, LIPID, FT3 #### [facility] [address] [address] [address] Tristan Craft Cholesterol [Mass/Vol] 126 mg/dL Normal <=200 [facility] Comment on above: Performed By: #### T 4, CMP, TSH, LIPID, FT3 #### [facility] [address] [address] [address] Tristan Craft Cholesterol in HDL [Mass/Vol] 53 mg/dL Normal 40-[address] [facility] Comment on above: Performed By: #### T 4, CMP, TSH, LIPID, FT3 #### [facility] [address] [address] [address] Tristan Craft Cholesterol in LDL [Mass/Vol] 45.0 mg/dL Normal [facility] Comment on above: Performed By: #### T 4, CMP, TSH, LIPID, FT3 #### [facility] [address] [address] [address] Tristan Craft Cholesterol.total/C holesterol in HDL [Mass ratio] 2.4 {ratio} Normal [facility] Comment on above: Performed By: #### T 4, CMP, TSH, LIPID, FT3 #### [facility] [address] [address] [address] Tristan Craft HDL NORMAL > or = 60 mg/dl - LO W CARDIOVASCULAR RISK <40 mg/dl - HIGH CARDIOVASCULAR RISK Normal [facility] Comment on above: Performed By: #### T 4, CMP, TSH, LIPID, FT3 #### [facility] [address] [address] [address] Tristan Craft LDL CALC NORMAL SEE BELOW Normal [facility] Comment on above: Result Comment: <100 mg/dl OPTIMAL 100 - 129 mg/dl NEAR OR ABOVE OPTIMAL 130 - 159 mg/dl BORDERLINE HIGH 160 - 189 mg/dl HIGH >190 mg/dl VERY HIGH Performed By: #### T 4, CMP, TSH, LIPID, FT3 #### [facility] [address] [address] [address] Tristan Craft Triglyceride [Mass/Vol] 140 mg/dL Normal <=[address] [facility] Comment on above: Performed By: #### T 4, CMP, TSH, LIPID, FT3 #### [facility] [address] [address] [address] Tristan Craft VLDL CALC 28.0 mg/dL Normal [facility] Comment on above: Performed By: #### T 4, CMP, TSH, LIPID, FT3 #### [facility] [address] [address] [address] Tristan Craft PROF 14(COMP METB)on 022 Albumin [Mass/Vol] 3.8 g/dL Normal 3.4-5.0 [facility] Comment on above: Performed By: #### T 4, CMP, TSH, LIPID, FT3 #### [facility] [address] [place] [address] Dr. Tristan Craft Albumin/Globulin [Mass ratio] 1.1 {ratio} Normal [facility] Comment on above: Performed By: #### T 4, CMP, TSH, LIPID, FT3 #### [facility] [address] [place] [address] Dr. Tristan Craft ALP [Catalytic activity/Vol] 87 U/L Normal 46-116 [facility] Comment on above: Performed By: #### T 4, CMP, TSH, LIPID, FT3 #### [facility] [address] [place] [address] Dr. Tristan Craft ALT [Catalytic activity/Vol] 24 U/L Normal 14-59 [facility] Comment on above: Performed By: #### T 4, CMP, TSH, LIPID, FT3 #### [facility] [address] [place] [address] Dr. Tristan Craft Anion gap [Moles/Vol] 12.9 mmol/L Normal [facility] Comment on above: Performed By: #### T 4, CMP, TSH, LIPID, FT3 #### [facility] [address] [place] [address] Dr. Tristan Craft AST [Catalytic activity/Vol] 20 U/L Normal 15-37 [facility] Comment on above: Performed By: #### T 4, CMP, TSH, LIPID, FT3 #### [facility] [address] [place] [address] Dr. Tristan Craft Bilirubin [Mass/Vol] 0.5 mg/dL Normal 0.2-1.0 [facility] Comment on above: Performed By: #### T 4, CMP, TSH, LIPID, FT3 #### [facility] [address] [place] [address] Dr. Tristan Craft Calcium [Mass/Vol] 8.6 mg/dL Normal 8.5-10.1 [facility] Comment on above: Performed By: #### T 4, CMP, TSH, LIPID, FT3 #### [facility] [address] [place] [address] Dr. Tristan Craft Chloride [Moles/Vol] 101 mmol/L Normal 98-107 [facility] Comment on above: Performed By: #### T 4, CMP, TSH, LIPID, FT3 #### [facility] [address] [place] [address] Dr. Tristan Craft CO2 [Moles/Vol] 27.7 mmol/L Normal 21.0-32.0 [facility] Comment on above: Performed By: #### T 4, CMP, TSH, LIPID, FT3 #### [facility] [address] [place] [address] Dr. Tristan Craft Creatinine [Mass/Vol] 0.93 mg/dL Normal 0.55-1.[address] [facility] Comment on above: Performed By: #### T 4, CMP, TSH, LIPID, FT3 #### [facility] [address] [place] [address] Dr. Tristan Craft EGFR-AF GUATEMALAN >60 Normal >=60 [facility] Comment on above: Performed By: #### T 4, CMP, TSH, LIPID, FT3 #### [facility] [address] [place] [address] Dr. Tristan Craft EGFR-NON AF GUATEMALAN =60 Normal >=[address] [facility] Comment on above: Performed By: #### T 4, CMP, TSH, LIPID, FT3 #### [facility] [address] [place] [address] Dr. Tristan Craft Globulin (S) [Mass/Vol] 3.6 g/dL Normal [facility] Comment on above: Performed By: #### T 4, CMP, TSH, LIPID, FT3 #### [facility] [address] [place] [address] Dr. Tristan Craft Glucose [Mass/Vol] 108 mg/dL Critically high 74-106 [facility] Comment on above: Performed By: #### T 4, CMP, TSH, LIPID, FT3 #### [facility] [address] [place] [address] Dr. Tristan Craft Potassium [Moles/Vol] 3.6 mmol/L Normal 3.5-5.1 [facility] Comment on above: Performed By: #### T 4, CMP, TSH, LIPID, FT3 #### [facility] [address] [place] [address] Dr. Tristan Craft Protein [Mass/Vol] 7.4 g/dL Normal 6.4-8.2 [facility] Comment on above: Performed By: #### T 4, CMP, TSH, LIPID, FT3 #### [facility] [address] [place] [address] Dr. Tristan Craft Sodium [Moles/Vol] 138 mmol/L Normal 136-145 [facility] Comment on above: Performed By: #### T 4, CMP, TSH, LIPID, FT3 #### [facility] [address] [place] [address] Dr. Tristan Craft Urea nitrogen [Mass/Vol] 18.0 mg/dL Normal 7.0-18.0 [facility] Comment on above: Performed By: #### T 4, CMP, TSH, LIPID, FT3 #### [facility] [address] [place] [address] Dr. Tristan Craft Urea nitrogen/Creatinine [Mass ratio] 19.4 mg/mg Normal [facility] Comment on above: Performed By: #### T 4, CMP, TSH, LIPID, FT3 #### [facility] [address] [place] [address] Dr. Tristan Craft T4on 10-14-2021 T4 [Mass/Vol] 6.80 ug/dL Normal 4.80-13.90 [facility] Comment on above: Performed By: #### T 4, CMP, TSH, LIPID, FT3 #### [facility] [address] [address] [address] Tristan Craft TSHon 10-14-2021 TSH 2.277 uIU/mL Normal 0.358-3.740 [facility] Comment on above: Performed By: #### T 4, CMP, TSH, LIPID, FT3 #### [facility] [address] [place] [address] Dr. Tristan Craft TSH RANGE SEE BELOW Normal [facility] Comment on above: Result Comment: <0.3 4 UIU/ml HYPERTHYROID 0.34-5.60 UIU/ml EUTHYROID >5.60 UIU/ml HYPOTHYROID Performed By: #### T 4, CMP, TSH, LIPID, FT3 #### [facility] [address] [place] [address] Dr. Tristan Craft VITAMIN D 25 OHon 10-14-2021 VIT D 25-OH 37.9 ng/mL Normal [facility] Comment on above: Performed By: #### V ITAD #### [facility] [address] [place] [address] Dr. Tristan Craft VIT D RANGES SEE BELOW Normal [facility] Comment on above: Result Comment: <20 ng/mL Vit D deficient 20 - <30 ng/mL Vit D insufficient 30 - 100 ng/mL Vit D sufficient >100 ng/mL Potential Toxicity Performed By: #### V ITAD #### [facility] [address] [place] [address] Dr. Tristan Craft Vital Signs Date Time Vital Sign Value Performing Clinician Faci lity 09-23-2023 09:56-0400 Body height 157.48 cm MD Teddy Parra Work Phone: [facility] 09-23-2023 09:56-0400 Body temperature 97.9 [degF] MD Teddy Parra Work Phone: [facility] 09-23-2023 09:56-0400 Diastolic blood pressure 68 mm[Hg] MD Teddy Parra Work Phone: [facility] 09-23-2023 09:56-0400 Heart rate 59 /min MD Teddy Parra Work Phone: [facility] 09-23-2023 09:56-0400 Respiratory rate 16 /min MD Teddy Parra Work Phone: [facility] 09-23-2023 09:56-0400 SaO2% (BldA) [Mass fraction] 99 % MD Teddy Parra Work Phone: [facility] 09-23-2023 09:56-0400 Systolic blood pressure 116 mm[Hg] MD Teddy Parra Work Phone: [facility] Encounters Encounter Date Encounter Type Care Provider Facility Start: 09-26-2024 ambulatory [facility] Start: 09-26-2024 End: 09-26-2024 ambulatory [facility] Start: 08-13-2024 End: 08-13-2024 ambulatory [facility] Start: 05-22-2024 End: 05-22-2024 [facility] Start: 04-29-2024 End: 04-29-2024 ambulatory TEDDY PARRA [facility] Start: 04-19-2024 End: 04-19-2024 ambulatory JEN [facility] Start: 04-19-2024 End: 04-19-2024 ambulatory [facility] Start: 04-15-2024 End: 04-15-2024 ambulatory [facility] Start: 04-08-2024 End: 04-08-2024 [facility] Start: 02-01-2024 End: 02-01-2024 Evaluation and management of inpatient TERRIE JOYCE [facility] Start: 02-01-2024 End: 02-01-2024 Evaluation and management of inpatient NAGA ANGELES [facility] Start: 01-31-2024 End: 01-31-2024 ambulatory TEDDY PARRA [facility] Start: 01-11-2024 End: 01-11-2024 Evaluation and management of inpatient TERRIE JOYCE [facility] Start: 01-11-2024 End: 01-11-2024 Evaluation and management of inpatient NAGA ANGELES [facility] Start: 12-26-2023 End: 12-26-2023 ambulatory NAGA ANGELES [facility] Start: 12-26-2023 Encounter for other preprocedural examination NAGA [facility] Start: 09-23-2023 End: 09-23-2023 ambulatory MD Teddy Parra Work Phone: [facility] Work Phone: Start: 09-23-2023 End: 09-23-2023 Patient encounter procedure MD Teddy Parra Work Phone: [facility] Work Phone: Start: 08-15-2022 End: 08-16-[address] TEDDY PARRA . Facility:[facility] Start: 01-20-2022 End: 01-20-[address] TEDDY PARRA . Facility:[facility] Start: 10-14-2021 End: 10-15-[address] TEDDY PARRA . Facility:[facility] Procedures Date Procedure Procedure Detail Performing Clinician Start: 09-23-2023 Plain X-ray of right hand MD Teddy Parra Work Phone: Payers Date Payer Category Payer Medicare [id number] 1961 Unknown [id number] 1955 Unknown [id number] 2.16.84 [id number] 1955 Unknown [id number] 2.16.84 [id number] 1955 Unknown [id number] 2.16.84 0.1.497013.3.579.2.593 1953 Unknown [id number] 2.16.8 40.1.512757.3.579.2.1286 1955 Unknown [id number] 2.16.8 40.1.847255.3.579.2.128 1955 Unknown [id number] 2.16.8 40.1.510779.3.579.2.1286 1953 Unknown [id number] 2.16.8 40.1.019523.3.579.2.1286 1953 Unknown [id number] 2.16.8 40.1.443334.3.579.2.1286 1953 Unknown [id number] 2.16.8 40.1.880639.3.579.2.1286 1953 Unknown [id number] 2.16.8 40.1.569835.3.579.2.1286 1953 Unknown [id number] 2.16.8 40.1.999195.3.579.2.1286 1953 Unknown [id number] 2.16.8 40.1.822152.3.579.2.1286 1953 Unknown [id number] 2.16.8 40.1.044745.3.579.2.128 1955 Unknown [id number] 2.16.8 40.1.187210.3.579.2.1286 Unknown [facility] [id number] Social History Date Type Detail Facility Start: [facility] Start: 1955 Sex Assigned At Female F [facility] Clinical Note 09-26-2024 Note Date & Type Note Facility 04-24-2025 Note Patient: Romana Bragg fman Procedure Information Date/Time: 09/26/24 0830 Procedure: Cardioversion Location: [facility] [facility] [facility] HOLDING ROOM / [facility]ASC[facility] (Cath) Providers: Lamine Sehehan MD Clinical information reviewed: Allergies Meds Physical Exam Airway Mallampati: II TM distance: >3 FB Neck ROM: full Cardiovascular Dental Pulmonary Abdominal Anesthesia Plan ASA 3 CSE Anesthetic plan and risks discussed with patient. Use of blood products discussed with patient who. Additional Equipment Requests [facility] Progress note 08-13-2024 Note Date & Type Note Facility 08-13-2024 Note [facility] Electrophysiology Consult Note [facility] Cardiology [facility] Reason for visit: Atrial fibrillation [...] history of stroke or TIAs or any MO in the past but has a family [...] Use: Not At Risk (02/20/2018) Received from [employer] [employer] [facility] Frequency of Alcohol Consumption: Never Average Number of Drinks: Not on file Frequency of Binge Drinking: Not on file Financial Resource Strain: Not on file Food Insecurity: No Food Insecurity (03/14/2023) Received from [employer], [employer] Hunger Screening Within the past 12 months [...] midline Carotid Art (more content not included)... [facility] Progress note 05-22-2024 Note Date & Type Note Facility 05-22-2024 Note [facility] Cardiology Clinic Note Chief Complaint: Patient here [...] reduced systolic function (more content not included)... [facility] Progress note 04-19-2024 Note Date & [...] to follow-up with Dr. Carlson in the [facility] in the next 1 to 2 months [...] internal jugular vein was obtained. A 6 Moldovan 11 cm sheath was inserted without difficulty. [...] left radial artery was obtained. A 6 Moldovan glide sheath was inserted without difficulty. Difficulty [...] be ordered. INDICATIONS: (more content not included)... [facility] Progress note 04-08-2024 Note Date & Type Note Facility 04-08-2024 Note [facility] Cardiology Clinic Note Chief Complaint: New patient here to establish care. Ref from Dr. Parra for abnormal echo performed last month. Says she was diagnosed with afib a few years ago but has never seen a customer service agent. Patient says she gets chest pain every [...] cardiac catheterization Janiya Carlson MD, MPH, FACC, [facility], [facility] Interventional Cardiology Pager Email: [email or web address] Evaluation note Note Date & Type Note Facility Evaluation note No assessment [facility]: Summary Purpose Family History No [...] content) DATE CREATED AUTHOR 08/16/2022 [facility] DATE CREATED AUTHOR AUTHOR'S ORGANIZ ATION 05/01/2024 [facility] DATE CREATED AUTHOR AUTHOR'S ORGANIZ ATION 09/30/2024 [facility] Care Teams (unrecognized sec tion and content) [...] BE BASED ON THE PRIMARY CLINICAL RECORDS. [employer] provides no warranty or guarantee of the accuracy or completeness of information in this document.
[2024-11-15 15:12] LABS: Basophils Percent Auto 0.4 % (0.2-2.0); Eosinophils Absolute Auto 0.1 10^3/uL (0.0-0.7); Eosinophils Percent Auto 1.1 % (0.9-7.0); Hematocrit 40.3 % (36.0-48.0); Hemoglobin 12.6 g/dL (12.0-16.0); Immature Granulocytes Abs Auto 0.05 10^3/uL (0.00-0.03); Immature Granulocytes Pct Auto 0.5 % (0.0-0.5); Lymphocytes Absolute Auto 1.4 10^3/uL (1.2-3.8); Lymphocytes Percent Auto 15.1 % (20.5-60.0); Mean Corpuscular HGB Conc 31.3 g/dL (29.9-35.2); Mean Corpuscular Hemoglobin 28.6 pg (26.7-34.0); Mean Corpuscular Volume 91.6 fL (81.0-99.0); Monocytes Absolute Auto 0.7 10^3/uL (0.3-0.8); Monocytes Percent Auto 7.5 % (1.7-12.0); Neutrophils Absolute Auto 7.2 10^3/uL (1.4-6.5); Neutrophils Percent Auto 75.4 % (43.0-75.0); Platelet Count 221 10^3/uL (150-450); Red Cell Distribution Width 16.2 % (11.0-15.0); White Blood Count 9.5 10^3/uL (4.0-11.0)
[2024-11-15 15:32] LABS: Alanine Aminotransferase 25 U/L (14-59); Albumin Globulin Ratio 1.2; Albumin Level 3.8 g/dL (3.4-5.0); Alkaline Phosphatase 80 U/L (46-116); Anion Gap 10.3; Aspartate Amino Transferase 22 U/L (15-37); BUN Creatinine Ratio 22.3; Bilirubin Total 0.6 mg/dL (0.2-1.0); Calcium 9.1 mg/dL (8.5-10.1); Chloride 103 mmol/L (98-107); Estimated GFR (African America >60 (>=60 mL/min/1.73m^2); Estimated GFR (Non-African Ame 59 (>=60 mL/min/1.73m^2); Globulin 3.3 g/dL; Glucose 103 mg/dL (74-106); Potassium 4.3 mmol/L (3.5-5.1); Sodium 142 mmol/L (136-145); Total Protein 7.1 g/dL (6.4-8.2)
[2024-11-15 15:33] LABS: Thyroid Stimulating Hormone 2.734 uIU/mL (0.358-3.740)
[2024-11-15 16:14] LABS: Free T4 1.15 ng/dL (0.76-1.46)
== END 2024-11-15 14:40 | disposition home or self-care (01) ==
LOC: LAB 14:43
PROVIDERS: PCP Family Medicine
DX: I48.0 Paroxysmal atrial fibrillation (principal); I50.22 Chronic systolic (congestive) heart failure; I34.0 Nonrheumatic mitral (valve) insufficiency; I25.10 Atherosclerotic heart disease of native coronary artery without angina pectoris; Z79.899 Other long term (current) drug therapy
CPT/HCPCS: 36415; 80053; 83880; 84439; 84443; 85025

== ENCOUNTER 2024-12-23 06:57 | Outpatient (OUT) | payer MEDICARE, BC, SELFPAY ==
--- OUTSIDE RECORDS SUMMARY | 2013-09-27 06:30 | XMS_ITS | Continuity of Care Document ---
Author Organization [facility] Address [address] [place] [address] Phone Care Team Providers Care Sas Etl Developer Name Role Phone Kenzie DONOVAN, Che Unavailable Unavailable Allergies, Adverse Reactions, Alerts Substance Reaction Status Criticality Penicillins Active No Information Medications Medication Instructions Dosage Effective Dates (start - stop) Status Comments gabapentin 300 mg/6 mL (6 mL) Oral Soln - Active FOLIC ACID (unknown strength) Not Available - Active CLORAZEPATE DIPOTASSIUM (unknown strength) Not Available - Active TRAZODONE HCL (unknown strength) Not Available - Active TOPIRAMATE (unknown strength) Not Available - Active CYMBALTA (unknown strength) Not Available - Active PROMETHAZINE HCL (unknown strength) Not Available - Active ZOLPIMIST (unknown strength) Not Available - Active MOBIC (unknown strength) Not Available - Active PROTONIX (unknown strength) Not Available - Active GABLOFEN (unknown strength) Not Available - Active IMITREX (unknown strength) Not Available - Active DEPLIN (unknown strength) Not Available - Active DOC-Q-LACE (unknown strength) Not Available - Active IBUPROFEN (unknown strength) Not Available - Active IRON (unknown strength) Not Available - Ac tive Procedures Procedure Date OCT Retina Offic/outpt E&m New VeriTainer 45 4 Advance Directives Directive Yes / No Effective Date File Name No Information Encounters Encounter Description Practice Location Reason(s) For Visit Diagnoses Date Provider Providers Copied on Encounter Offic/outpt E&m New Mod-hi 45 [facility], [address], [place], [place], [id number] , [place] tel:[phone] [facility] Shepherd Posterior Vitreous DegenerationSenile Nuclear CataractTear Film Insuffic NosTear Film Insuffic NosPosterior Vitreous DegenerationSenile Nuclear CataractExudative Macular Degeneration 4 Kenzie Bolton. [address] [facility], [place], [address]. tel:[phone] Referring Provider: Che Kerr, [address] [facility], [place], [address]. tel:[phone] Family History Family Member Type Diagnosis Age At Onset Mother Problem (finding) cataract Mother Problem (finding) Heart Disease Father Problem (finding) Cancer Father Problem (finding) Respiratory Disease Multiple Problem (finding) Arthritis Payers Payer name Insurance type Covered constitution party ID Authorlogan arabellajose luis(s) [facility] [id number] Social History Type Description Quantity Date Captured Comments Alcohol Use Details No Caffeine Use Details occasional per day Tobacco Use Status No Information Smoking Status Former smoker Smoking Tobacco Use Details Cigarette: Years Used 3 Cigarette: 1 Packs per day, Pack Year: 3 Sex Female Vital Signs Date / Time: Height Weight BMI Pulse Rate Blood Pressure Temperature Respiratory Rate Body Surface Area Head Circumference Head Circ. Percentile Wt./Rudy. Percentile BMI percentile Pulse Ox Inhaled Ox 11:02 AM 89 /min 122/73 mm[Hg] Chief Complaint And Reason For Visit No Information Reason For Referral Reason For Referral No Information History Of Present Illness Encounter Date Complaint History Of Prese nt Illness No Information Functional Status Date Functional Assessmen t No Information Instructions Date Instruction Additional Infor yonathan - Return in PRN Related to Senil e Nuclear Cataract Tear Film Insuffic N os (OU). 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 - Explained that from a retina standpoint exam is stable and no treatment is needed from a retina standpoint. The blurred vision when reading or doing near activities and resolves when patient is blinking is from eyes drying out and suggest using lubrication when reading or doing near activities. Gave patient sample of Refrehs Optive. Suggested patient start with using drops TID. Can use drops right before sitting down to read. Patient to call if vision or symptoms worsen. Related to Senile Nuclear Cataract Assessments Type Assessment Date No Information Patient Care Teams Name Effective Dates (start - stop) Status Members No Information
--- OUTSIDE RECORDS SUMMARY | 2016-05-31 10:44 | XMS_ITS | Continuity of Care Document ---
Author Organization [facility] Address [address] [place] [address] Phone Care Team Providers Care Keno Dealer Name Role Phone Unavailable Unavailable Unavailable Allergies, Adverse Reactions, Alerts Substance Reaction Status Criticality Penicillins Active No Information Medications Medication Instructions Dosage Effective Dates (start - stop) Status Comments ferrous sulfate 325 mg (65 mg iron) tablet take 1 tablet by oral route 2 times every day 325 MG - Active Cymbalta 60 mg capsule,delayed release take 2 tablets by mouth every day - Active Senokot 8.6 mg tablet take 2 tablet by oral route every day as needed for constipation - Active Imitrex 50 mg tablet take 1 Tablet by oral route once once with fluids as early as possible after the onset of a migraine attack;may repeat after 2 hours 50 MG - Active sucralfate 1 gram tablet take 1 tablet by oral route 4 times every day on an empty stomach 1 hour before meals and at bedtime 1 G - Active gabapentin 600 mg tablet take 1 tablet by oral route 3 times every day 600 MG - Active amitriptyline 10 mg tablet take 1 tablet by oral route 3 times every day 10 MG - Active loratadine 10 mg tablet take 1 tablet by oral route every day 10 MG - Active Topamax 200 mg tablet take 1 tablet (200MG) by oral route 2 times every day - Active trazodone 150 mg tablet take 2 tabletS (150MG) by oral route every day at bedtime - Active Tylenol Arthritis Pain 650 mg tablet,extended release take 1 - 2 (650MG) by oral route every 5 hours as needed swallowing whole with water. Do not break, crush, dissolve and/or chew. 650 MG - Active fludrocortisone 0.1 mg tablet take 1 tablet by oral route 2 times every day 0.1 MG - Active FOR ORTHOSTATIC HYPOTENSION Voltaren 1 % topical gel apply (2G) by topical route 2 times every day to the affected area(s) 2 G - Active folic acid 1 mg tablet take 1 tablet (1MG) by oral route every day 1 MG - Active Vitamin D3 5,000 unit tablet take 1 by Oral route once 1 - Active Protonix 40 mg tablet,delayed release take 1 tablet (40MG) by oral route every day - Active lisinopril 5 mg tablet take 1 tablet by oral route every day 5 MG - Active docusate sodium 100 mg capsule take 1 capsule by oral route 2 times every day at bedtime as needed 100 MG - Active Advance Directives Directive Yes / No Effective Date File Name No Information Encounters Encounter Description Practice Location Reason(s) For Visit Diagnoses Date Provider [facility], [address], [place], [id number], tel:[phone] [facility] No Information 6 No Information [facility], [address], [place], [id number], [place] tel:[phone] [facility] post R total knee replacement (chief complaint)fib romyalgia (chief complaint)anx iety (chief complaint) ArthritisDepression with anxietyEssential (primary) hypertensionFibromyalgi aStatus post right knee replacementFamily history of diabetes mellitus in first degree relative 6 No Information [facility], [address], [place], [id number], [place] tel:[phone] [facility] No Information 6 No Information [facility], [address], [place], [id number], [place] tel:[phone] [facility] fatigue (chief complaint)dep ression (chief complaint) Fatigue, unspecified typeSeizure disorderDepression with anxiety 6 No Information [facility], [address], [place], [id number], [place] tel:[phone] [facility] wound (chief complaint) Superficial incisional surgical site infection, sequelaBody mass index (BMI) 22.0-22.9, adult Aug- 6 No Information [facility], [address], [place], [id number], [place] tel:[phone] [facility] OMT (chief complaint) Chronic bilateral thoracic back painThoracic region somatic dysfunctionSomatic dysfunction of cervical regionSomatic dysfunction of lumbar regionWound healing, delayed Aug-2 6 No Information [facility], [address], [place], [id number], [place] tel:[phone] [facility] No Information 6 No Information [facility], [address], [place], [id number], [place] tel:[phone] [facility] back pain (chief complaint) Bilateral thoracic back painCervical somatic dysfunction Aug-0 6 No Information [facility], [address], [place], [id number], [place] tel:[phone] [facility] back pain (chief complaint) Bilateral thoracic back painEssential hypertension 6 Bryant De La Rosa. [address], [place], [id number], [place]. tel:[phone] [facility], [address], [place], [id number], [place] tel:[phone] [facility] back pain (chief complaint)nec k pain (chief complaint) Bilateral thoracic back painNeck pain 6 Bryant De La Rosa. [address], [place], [id number], [place]. tel:[phone] [facility], [address], [place], [id number], [place] tel:[phone] [facility] back pain (chief complaint)URI (chief complaint) Other dorsalgiaPain in right wristAcute recurrent frontal sinusitis 6 Dyar Maddie. [address], [place], [id number], [place]. tel:[phone] [facility], [address], [place], [id number], [place] tel:[phone] [facility] back pain (chief complaint) Other dorsalgiaArthritisMajor depressive disorder, single episode, unspecified 6 No Information [facility], [address], [place], [id number], [place] tel:[phone] [facility] F/u vaginitis (chief complaint) H/O vaginitis 5 Meche Corrie. [address], [place], [id number], [place]. tel:[phone] [facility], [address], [place], [id number], [place] tel:[phone] [facility] Presence of right artificial knee joint 5 No Information [facility], [address], [place], [id number], [place] tel:[phone] [facility] vaginal bleeding after hyster (chief complaint) Acute vaginitis 5 Meche Corrie. [address], [place], [id number], [place]. tel:[phone] [facility], [address], [place], [id number], [place] tel:[phone] [facility] vaginal itching (chief complaint)art hritis (chief complaint) Vaginal candidaVaginal lesionArthritisPrimary osteoarthritis of both handsPrimary osteoarthritis, left hand 0- 5 No Information [facility], [address], [place], [id number], [place] tel:[phone] [facility] UTI (chief complaint) DysuriaHematuria of undiagnosed causeVaginal lesionBilateral low back pain without sciaticaFamily history of kidney stone 5 No Information [facility], [address], [place], [id number], [place] tel:[phone] [facility] Follow Up of hypertension (chief complaint)fat igue (chief complaint)collins nt pain (chief complaint) Essential (primary) hypertensionOther fatigueVitamin D deficiency 5 No Information [facility], [address], [place], [id number], [place] tel:[phone] [facility] OMT (chief complaint)ramin mb pain (chief complaint) Cervical somatic dysfunctionThoracic region somatic dysfunctionSacral region somatic dysfunctionRib cage region somatic dysfunctionDe Quervain's tenosynovitis, bilateral 5 No Information [facility], [address], [place], [id number], [place] tel:[phone] [facility] Major depressive disorder, single episode, unspecified 5 No Information [facility], [address], [place], [id number], [place] tel:[phone] [facility] lower back pain (chief complaint)ken ulder pain (chief complaint) Cervical somatic dysfunctionThoracic region somatic dysfunctionLumbar region somatic dysfunctionSacral region somatic dysfunctionSomatic dysfunction of rib cage region 5 Reyna Chong. [address], [place], [id number], [place]. tel:[phone] [facility], [address], [place], [id number], [place] tel:[phone] [facility] influenza immunization (chief complaint) Needs flu shot 5 Mj Sorensen. [address], [place], [id number], [place]. tel:[phone] [facility], [address], [place], [id number], [place] tel:[phone] [facility] headache (chief complaint) Dietary surveillance and counselingArm skin lesion, rightOtitis media, leftSinusitis 5 No Information [facility], [address], [place], [id number], [place] tel:[phone] [facility] left bruised heel (chief complaint)hyp ertension (chief complaint) Pain of right heelElevated BP - 5 No Information [facility], [address], [place], [address], [place] tel:[phone] [facility] right hand pain (chief complaint)ear pain (chief complaint) Right wrist painLesion of right external ear 5 Axel Schwarz. [address], [place], [id number], [place]. tel:[phone] [facility], [address], [place], [id number], [place] tel:[phone] [facility] Medicare preventive (chief complaint) Medicare annual wellness visit, initialScreening for depression 5 No Information [facility], [address], [place], [id number], [place] tel:[phone] [facility] neuropathy (chief complaint)hyp okalemia (chief complaint) NeuropathyHypokalemiaAn emiaUpper extremity weaknessElevated BP 5 No Information [facility], [address], [place], [id number], [place] tel:[phone] [facility] fibromyalgia (chief complaint) Fibromyalgia muscle pain 5 Dyar Maddie. [address], [place], [id number], [place]. tel:[phone] [facility], [address], [place], [id number], [place] tel:[phone] [facility] back pain (chief complaint) Fibromyalgia muscle painBack painOtitis media 5 [facility]. [address], [place], [id number], [place]. tel:[phone] [facility], [address], [place], [id number], [place] tel:[phone] [facility] URI (chief complaint) Sinusitis 0 5 No Information [facility], [address], [place], [id number], [place] tel:[phone] [facility] back pain (chief complaint) Back painKnee pain, chronic 3 0 5 No Information [facility], [address], [place], [id number], [place] tel:[phone] [facility] ear infection (chief complaint)syn copal episodes (chief complaint) Otitis mediaDizzinessNonallopa thic lesions of head region, not elsewhere classified 0 5 No Information [facility], [address], [place], [id number], [place] tel:[phone] [facility] Back pain (chief complaint) Screening for breast cancerBack painOtitis media 2 5 No Information [facility], [address], [place], [id number], [place] tel:[phone] [facility] right knee pain (chief complaint)fat igue (chief complaint) Pain due to total right knee replacementHx of iron deficiency anemiaHyperlipidemiaFat igue 0 5 No Information [facility], [address], [place], [address], [place] tel:[phone] [facility] medicare preventive (chief complaint) Medicare annual wellness visit, subsequent - 5 No Information [facility], [address], [place], [id number], [place] tel:[phone] [facility] neck pain (chief complaint)ear pain (chief complaint)yesy k pain (chief complaint) Ear painFatigueNeck painBack painNonallopathic lesions of upper extremities, not elsewhere classified 5 No Information [facility], [address], [place], [id number], [place] tel:[phone] [facility] Arthalgias (chief complaint)Yesy k pain (chief complaint)hea dache (chief complaint) Back painKnee pain, chronicOther chronic painMigraineDM (diabetes mellitus screen)HypokalemiaScree venkat for hyperlipidemiaNonallopa thic lesions of sacral region, not elsewhere classifiedNonallopathic lesions of lower extremities, not elsewhere classified 4 Bryant De La Rosa. [address], [place], [id number], [place]. tel:[phone] [facility], [address], [place], [address], [place] tel:[phone] [facility] back pain (chief complaint)sea raquel allergies (chief complaint) Seasonal allergiesBack pain 4 No Information [facility], [address], [place], [address], [place] tel:[phone] [facility] back pain (chief complaint)vac cinations (chief complaint) Back painNeck painDysphagiaEncounter for immunization 4 [facility]. [address], [place], [id number], [place]. tel:[phone] [facility], [address], [place], [id number], [place] tel:[phone] [facility] back pain (chief complaint) Back painSomatic dysfunction of thoracic regionNonallopathic lesions of lumbar region, not elsewhere classified 4 No Information [facility], [address], [place], [address], [place] tel:[phone] [facility] Burning on urination (chief complaint) UTI (lower urinary tract infection)Gain of weightDysuria 4 No Information [facility], [address], [place], [id number], [place] tel:[phone] [facility] Dysuria 4 No Information [facility], [address], [place], [id number], [place] tel:[phone] [facility] back pain (chief complaint) Back painNeck painWeight loss 4 No Information [facility], [address], [place], [id number], [place] tel:[phone] [facility] knee replacement (chief complaint) Status post right knee replacement 4 [facility]. [address], [place], [address], [place]. tel:[phone] [facility], [address], [place], [address], [place] tel:[phone] [facility] Weight loss (chief complaint)kne e pain (chief complaint)ACE D (chief complaint) Loss of weightDysphagiaKnee painGERD (gastroesophageal reflux disease) 4 No Information [facility], [address], [place], [id number], [place] tel:[phone] [facility] dyphagia (chief complaint) Dysphagia, unspecified No Information [facility], [address], [place], [id number], [place] tel:[phone] [facility] weight loss (chief complaint)Diz ziness (chief complaint) Weight lossDizziness 4 No Information [facility], [address], [place], [id number], [place] tel:[phone] [facility] follow up on lab test(s) (chief complaint)hyp okalemia (chief complaint)donnell ght loss (chief complaint) MalnutritionLosing weightHypokalemiaBack painLeft knee pain 4 No Information [facility], [address], [place], [id number], [place] tel:[phone] [facility] OMT (chief complaint)donnell ght loss (chief complaint) Weight lossSomatic dysfunction of thoracic regionDM (diabetes mellitus screen)Screening for hyperlipidemiaFatigue 4 No Information [facility], [address], [place], [id number], [place] tel:[phone] [facility] back pain (chief complaint) Back pain 4 No Information [facility], [address], [place], [id number], [place] tel:[phone] [facility] back pain (chief complaint) Back pain 4 No Information [facility], [address], [place], [id number], [place] tel:[phone] [facility] annual physical (chief complaint) Annual physical examRoutine Medical Exam 4 No Information [facility], [address], [place], [address], [place] tel:[phone] [facility] omt (chief complaint)wou nd (chief complaint) Other chronic painArm skin lesion, right 4 No Information [facility], [address], [place], [id number], [place] tel:[phone] [facility] dizziness (chief complaint)med ical management (chief complaint) Syncope and collapseEar painDepressionBack pain 4 Bryant De La Rosa. [address], [place], [id number], [place]. tel:[phone] [facility], [address], [place], [id number], [place] tel:[phone] [facility] falling (chief complaint)med ication managment (chief complaint)fol low up on lab test(s) (chief complaint) BradycardiaOtitis mediaDepressionLow ironDizzinessInsomnia 4 Dyar Maddie. [address], [place], [id number], [place]. tel:[phone] [facility], [address], [place], [address], [place] tel:[phone] [facility] referral for VNS (chief complaint) S/P placement of VNS (vagus nerve stimulation) dev 4 [facility]. [address], [place], [id number], [place]. tel:[phone] [facility], [address], [place], [id number], [place] tel:[phone] [facility] constipation (chief complaint)yesy k pain (chief complaint)hea ring concerns (chief complaint) ConstipationBack painHearing lossHeart murmurScreening for breast cancerEncounter for screening colonoscopyScreening for hyperlipidemiaFatigue 4 No Information [facility], [address], [place], [address], [place] tel:[phone] [facility] OMT (chief complaint)ken ulder pain (chief complaint)dep ression (chief complaint) DepressionSomatic dysfunction of cervical regionSomatic dysfunction of spine, thoracicPain in joint involving shoulder region 3 No Information [facility], [address], [place], [id number], [place] tel:[phone] [facility] referral (chief complaint) Referral of patientPain in joint involving shoulder region 3 No Information [facility], [address], [place], [id number], [place] tel:[phone] [facility] OMT (chief complaint)nee ds Topiramate refilled (chief complaint) Somatic dysfunctionDepressionMi graineRight shoulder painKnee joint replacement 3 No Information [facility], [address], [place], [address], [place] tel:[phone] [facility] arthralgias (chief complaint)fol low up on lab test(s) (chief complaint) Fibromyalgia muscle painKnee joint replacement by other meansRight shoulder painGERD (gastroesophageal reflux disease)Nausea & vomiting 3 No Information [facility], [address], [place], [address], [place] tel:[phone] [facility] shoulder pain (chief complaint)rig ht knee (chief complaint) Pain due to total right knee replacementKnee joint replacement by other meansRight shoulder pain 3 [facility]. [address], [place], [id number], [place]. tel:[phone] [facility], [address], [place], [id number], [place] tel:[phone] [facility] Hearing loss 0 3 Bryant De La Rosa. [address], [place], [id number], [place]. tel:[phone] [facility], [address], [place], [address], [place] tel:[phone] [facility] establish care (chief complaint)dep ression (chief complaint)chr onic conditions (chief complaint)yesy k pain (chief complaint)hea dache (chief complaint)sei zure (chief complaint) Connective tissue diseaseHypertensionMigr aineFibromyalgia muscle painChronic lower back painOther chronic painSeizures 3 [facility]. [address], [place], [address], [place]. tel:[phone] Family History Family Member Type Diagnosis Age At Onset Sister Problem (finding) Maternal history of caleb betes mellitus Brother Problem (finding) coronary arterioscleros is 68 Father Problem (finding) malignant neop lasm of lung (Cause Of ) 57 Brother Problem (finding) Maternal history of caleb betes mellitus Mother Problem (finding) Maternal history of caleb betes mellitus 92 Paternal uncle Problem (finding) malignant neoplasm of lung Paternal aunt Problem (finding) malignant neoplasm of lung Immunizations Vaccine Date Status Comments Influenza, seasonal, injectable administered Source: New Immuniza tion Record Flu (split) (3 yrs or older) administered Source: New Immunization Record Payers Payer name Insurance type Covered democrat ID Authoriza tijose luis(s) Mervat [employer] Mgd [id number] [facility] [id number] [employer] ABD Mgd [id number] [facility] [id number] [employer] ABD Mgd [id number] [facility] [id number] Social History Type Description Quantity Date Captured Comments Alcohol Use Details Unknown Caffeine Use Details Unknown Tobacco Use Status Smoking Status No Information Sex Female Sexual Orientation Don't Know Chief Complaint And Reason For Visit No Information Plan Of Treatment Date Type Action Status Goal Dietary manageme nt education, guidance, and counseling completed Referral Ordered: HAND - R/L (ANY 3 VIEWS) Bilateral hand ordered Referral Ordered: Referrals: Orthopedic Surgery Appointment date/timeframe: 06/15/2015 ordered Referral Ordered: Urine culture and sensitivity ordered Referral Ordered: Culture and sensitivity of specimen ordered Referral Ordered: ABDOMEN, KUB ordered Referral Referred To: Renetta Mcgregor Ordered: Referrals: Gynecology. Renetta Mcgregor Appointment date/timeframe: 05/20/2015 ordered Referral Ordered: Referrals: Neurology. Evaluate and treat Appointment date/timeframe: 07/14/2015 ordered Referral Ordered: Muscle test 2 limbs ordered Referral Ordered: Referrals: Physical Therapy Appointment date/timeframe: 08/20/2014 ordered Referral Ordered: CBC WITHOUT DIFF ordered Referral Ordered: CMP Appointment date/timeframe: today ordered Referral Ordered: LIPID PANEL Appointment date/timeframe: today ordered Referral Ordered: CBC Appointment date/timeframe: today ordered Referral Ordered: Vitamin D, 25-Hydroxy ordered Referral Ordered: X-RAY EXAM OF KNEES ordered Referral Ordered: Referrals: Orthopedics Appointment date/timeframe: 01/23/2014 ordered Referral Ordered: Referrals: Gastroenterology Appointment date/timeframe: 01/13/2014 ordered Referral Ordered: CHEST PA & LATERAL (2 VIEWS) ordered Referral Ordered: [facility] (related to Depression) ordered Referral Ordered: ENT (related to Ear pain) ordered Referral Ordered: Physical Therapist/Independent (related to Back pain) ordered Referral Ordered: Referral: Pain Management. ordered Referral Referred To: [facility] Ordered: Referral: [facility]. ordered Referral Ordered: Referral: Physical Therapist/Independent. ordered Referral Ordered: ECHO EXAM OF HEART Appointment date/timeframe: 10/02/2013 ordered Referral Ordered: Cardiology (related to Bradycardia) ordered Referral Referred To: [phone] Ordered: Referral: [phone]. ordered Referral Ordered: 24 to 48 hour Holter electrocardiographic monitoring Appointment date/timeframe: 09/02/2013 ordered Referral Ordered: ELECTROCARDIOGRAM, COMPLETE ordered Referral Ordered: Referral: Cardiology. ordered Referral Ordered: [facility] (related to S/P placement of VNS (vagus nerve stimulation) dev) ordered Referral Referred To: [facility] Ordered: Referral: [facility]. ordered Referral Ordered: Referral: ENT. Appointment date/timeframe: 08/13/2013 ordered Referral Ordered: MAMMOGRAM, SCREENING ordered Referral Ordered: Referral: [facility]. ordered Referral Referred To: Eugenia Ordered: Referral: [facility]. ordered Referral Ordered: Referral: Ortho Surg. Appointment date/timeframe: 03/28/2013 ordered Referral Ordered: SHOULDER - R/L ordered Referral Ordered: Referral: [facility]/Independent. Appointment date/timeframe: 02/23/2013 ordered Patient Education A Healthy Lifestyle: Ca re Instructions completed Patient Education Depression Treatment: A fter Your Visit completed Future Order: Lab Order HEMOGLOB IN A1C ([id number]), Ordered on: Ordered Future Order: Lab Order Vitamin B12 and Folate ([id number]), Ordered on: Ordered Future Order: Lab Order Iron/TIB C ([id number]), Ordered on: Ordered Future Order: Lab Order T4 FREE ([id number]), Ordered on: Ordered Future Order: Lab Order TSH ([id number]), O rdered on: Ordered Future Order: Lab Order Vitamin D, 25-Hydroxy ([id number]), Ordered on: Ordered History Of Present Illness Encounter Date Complaint History Of Prese nt Illness anxiety There is improve ment of initial symptoms. The patient reports functioning as somewhat difficult. The patient presents with difficulty falling asleep, excessive worry and fatigue but denies compulsive thoughts, decreased need for sleep, depressed mood, difficulty concentrating, diminished interest or pleasure, easily startled, feelings of guilt, feelings of invulnerability, increased energy, hallucinations, loss of appetite, paranoia, poor judgment, racing thoughts, restlessness or thoughts of or suicide. The anxiety is aggravated by conflict or stress and social interactions. The patient's relieving factors are exercise and medication. The anxiety is associated with chronic pain. The patient denies any headache, irritability, nausea, sweating, trembling, urinary frequency and vomiting. fibromyalgia It occurs occasi onally and is stable. Location: bilateral shoulder and hips. There is no radiation. The pain is aching and throbbing. Context: there is no injury. The pain is aggravated by bending, climbing (and descending) stairs, lifting and pushing. The pain is relieved by exercise, ice, massage, pain/RX meds, mobility and stretching. Associated symptoms include decreased mobility, difficulty initiating sleep, joint tenderness, swelling and tingling in the arms. Pertinent negatives include crepitus, joint instability, limping, locking, nocturnal awakening, nocturnal pain, numbness, popping, spasms, tingling in the legs and weakness. Additional information: Doing well on medications. Interested in restarting OMT. post R total knee replacement Do ing well. Finished with PT/OT. Minimal pain. fatigue This is an initi al visit. The symptoms have remained unchanged. The fatigue occurs constantly. The patient presents with fatigue. The patient does not present with abdominal pain, anorexia, arthralgia, back pain, cough, difficulty concentrating, fever, headache, lymphadenopathy, muscle weakness, nausea, pharyngitis, somnolence, rash, vomiting or weight loss. Risk factors include depression but exclude anemia, thyroid disease, obesity, peptic ulcers and exposure to sick contacts. The symptoms are aggravated by illness, pain, excessive sleep and stress. Interventions the patient has tried have not provided any relief. The fatigue is associated with change in sleep cycle and loss of interest. The patient denies any change in appetite, chills, constipation, diaphoresis, diarrhea, dyspnea, flank pain, generalized weakness, heartburn, hematemesis, hematochezia, hoarseness, increased abdominal girth, jaundice, lightheadedness, malaise, melena, myalgia, pallor, pruritus and weight gain. depression This is a follow up visit. There is worsening of previously reported symptoms. The patient reports functioning as somewhat difficult. The patient presents with anxious/fearful thoughts, depressed mood, difficulty staying asleep, diminished interest or pleasure, fatigue and feelings of guilt but denies difficulty concentrating, difficulty falling asleep, restlessness or thoughts of or suicide. The patient's risk factors include chronic illness, family history of depression and history of depression. The patient's risk factors exclude history of suicidal attempts. The depression is associated with chronic pain and irritability. The patient denies any headache, nausea, sweating, trembling, urinary frequency, vomiting and weight gain. Additional information: Reports increased depression and anxiety since removal of VNS. wound This is a follow up visit. Symptoms related to the injury have improved. The patient denies any history of trauma. The injury was not work related. Mechanism of injury details: Battery replacements of VNS. Saw Dr. Rios 08/27/15 and reports it has not improved not has it gotten worse. Previous diagnostic studies and/or treatments that have been performed/administered include medication(s) (Keflex). Interventions the patient has tried have not provided any relief. The injury is associated with localized swelling. The patient denies any abdominal pain, change in appetite, chills, decreased mobility, diarrhea, fatigue, fever, generalized weakness, headache, joint pain, lymphadenopathy, malaise, nausea, rash, somnolence, vomiting or weight loss. OMT The symptoms beg an on 08/27/2015. The symptoms are reported as being mild. The symptoms occur constantly. Aggravating factors include allostatic load. Relieving factors include yoga, OMT. She states the symptoms are chronic and are fairly controlled. 60 y/o female who presents today for OMT. C/O upper thoracic and low back pain. back pain Severity level i s 6. The problem is fluctuating. Location of pain is upper back.There is no radiation of pain. The patient describes the pain as an ache. Symptoms are aggravated by daily activities. Symptoms are relieved by heat, movement and stretching. back pain It occurs interm ittently. Location of pain is upper back, middle back and lower back.There is no radiation of pain. The patient describes the pain as an ache, deep and sharp. Symptoms are aggravated by changing positions. Symptoms are relieved by heat and lying down. back pain The problem is f luctuating. Location of pain is middle back and lower back. Pain is radiated to the back.The patient describes the pain as burning and deep. Symptoms are aggravated by daily activities. Symptoms are relieved by rest and sitting. neck pain The severity of the problem is mild. The frequency of pain is intermittent. Location of pain is bilateral lateral neck and bilateral posterior neck. Aggravating factors include rotation, stress and turning head. Relieving factors include cold compresses, heating pad and manipulation. Associated symptoms include joint pain. back pain The problem is f luctuating. Location of pain is middle back and lower back.There is no radiation of pain. The patient describes the pain as an ache, deep and shooting. Symptoms are aggravated by bending. URI The patient pres ents with arthralgia, cough and fatigue. URI The patient pres ents with arthralgia, cough and fatigue. back pain The problem is f luctuating. It occurs persistently. Location of pain is middle back and lower back.The patient describes the pain as burning, deep, shooting and stabbing. Context: no injury. Symptoms are aggravated by daily activities and walking. Symptoms are relieved by over the counter medication: acetaminophen and rest. F/u vaginitis The symptoms beg an 3 weeks ago. The symptoms are reported as being moderate. Pt originally saw dr rodriguez - vaginal abrasion present - culture obtained. I saw pt 05/20 - culture returned +strep - tx with cipro - abrasion was resolved - f/u today - pt states she is completely better - denies any oitching, discharge or bleeding vaginal bleeding after hyster Th e symptoms began 2 weeks ago. The symptoms are reported as being moderate. This is pts third visit to clinic - 05/11 and 05/13 - c/o vaginal itching - culture was obtained 05/11 - pt never heard back on results - was tx with diflucan and vaginal cream - sl blood noted occasionally on toilet paper when wping. Was check for renal calculi (KUB) - neg. I found culture results at todays visit - heavy growth of staph arthritis Location of the pain is bilateral wrist and bilateral hand. It occurs persistently. vaginal itching The symptoms are reported as being mild. Presently the patient is experiencing vaginal irritation. Presently the patient is not experiencing vaginal odor. The patient is postmenopausal. Her symptoms are associated with dysuria, genital lesions and itching skin of vaginal/groin. UTI Onset: 4 Days. T he severity of the problem is moderate. The problem has not changed. The symptoms are constant. Presenting/Initial symptoms include burning, dysuria, frequency and hematuria. Symptoms are not associated with diabetes, or recent catheterization. Denies aggravating factors. Denies relieving factors. Associated symptoms include dysuria, flank pain, frequency, hematuria, hesitancy and vaginal discharge. Pertinent negatives include fever. Follow Up of hypertension It is currently stable. Risk factors include depression. The hypertension is exacerbated by anxiety and stress. Associated symptoms include fatigue. Pertinent negatives include chest pain, claudication, dyspnea, nausea and vomiting. fatigue The fatigue occu rs intermittently. The patient presents with back pain and fatigue. The patient does not present with abdominal pain, cough, fever, nausea, rash or vomiting. The symptoms are aggravated by lack of sleep. The patient had a response to exercise. The patient denies any chills, constipation, diarrhea and dyspnea. joint pain Onset: year ago. The problem is fluctuating. Location: bilateral hand (thumb(s)). The pain is sharp. Context: there is no injury. The pain is aggravated by movement. The pain is relieved by mobility. Associated symptoms include joint tenderness and weakness. Hand Dominance: right. OMT Pt here for OMT since she has neck, back, and hip pain. Her pain is worst along her neck, upper back, and hips. thumb pain Location: bilate ral. The pain is aching. The pain is aggravated by movement. The pain is relieved by rest. Additional information: Pt w/ PMH of carpal tunnel c/o of thumb pain since her last OMT visit. She does not want to receive pain meds but is open to steroid injection for treatment. She is wondering if symptoms are an extension of her carpal tunnel. shoulder pain Location: should er. The pain is burning. The pain is relieved by massage. Associated symptoms include decreased mobility, spasms and tingling in the legs. Additional information: Pt wants OMT for neck, shoulder, and rib pain. lower back pain PT wants OMT for PMH of EDS, OA, double jointedness, and fibromyalgia has been feeling increased pain in lumbar back and hips plus pain in groin. She states after not being able to have normal ROM to execute ADL like driniking coffee without pain, she made an HC appointment today. influenza immunization This ten ent is here for influenza immunization. She has not had any recent illness or fever. She has tolerated this vaccination well in the past. headache Onset: 4 Days. L ocations affected include left frontal. Aggravating factors include allergies. Associated symptoms include blurred vision and nausea. Pertinent negatives include diplopia, dizziness, fever, hemianopsia left, hemianopsia right, loss of consciousness, memory loss, personality changes, phonophobia, photophobia, neck stiffness, vision loss left, vision loss right, visual aura, vertigo or vomiting. Additional information: pain behinde L eye and in Lmaxilla no temporal pain not worst h/a of life just like my sinus infection. hx of chronic seen dr alan. hypertension The symptoms beg an gradually. Risk factors include depression. The hypertension is exacerbated by anxiety. Associated symptoms include fatigue and headache. Pertinent negatives include chest pain and dyspnea. left bruised heel She states the symptoms are acute and are of new onset. states has increased activity, shoes are old and souls appear worn, advised may need new tennis shoes. states new sx sdmits to pain with ambulation. soaks in epsom salt help ear pain Additional infor mation: lesion on internal tragus. right hand pain Location: right hand. The pain is aching and sharp. Context: there is no injury. There are no relieving factors. Hand Dominance: right. Medicare preventive The patient has not felt depressed and has had interest and pleasure doing things recently. SLUMS assessment completed, with a total score of 26, Mild Neurocognitive Disorder. The ''Up and Go'' test took less than 30 seconds and the patient does not need help with activities of daily living.The patient is at risk for falls.The patient has in the last year.The fall(s) resulted in injury.Details:bruises. Patient's activity level is moderate. Patient exercises 2-3 times/week. The patient has smoke detectors, carbon monoxide detectors, gas heating in the home. The patient does not have firearms in the home. There is no radon in the patient's home. Patient reports using a seatbelt in vehicles. Patient reports a healthy diet. Patient takes calcium supplements. Patient reports taking Vitamin D. Patient does not take a multivitamin. Patient reports taking folic acid. Relevant history is negative for tobacco use, passive smoke exposure, alcohol use. neuropathy Onset was sub ac sherman. Severity level is moderate. The problem occurs intermittently. There are no relieving factors. hypokalemia She states the s ymptoms are chronic and are fairly controlled. placed on supplement fibromyalgia Location: bilate ral shoulder (scapula). The pain is dull, piercing and sharp. Context: there is no injury. The pain is aggravated by movement and walking. The pain is relieved by mobility and rest. Hand Dominance: right. back pain The problem is f luctuating. It occurs persistently. Location of pain is upper back and middle back. Pain is radiated to the back, left arm, right arm, left thigh and right thigh.The patient describes the pain as an ache and dull. Symptoms are relieved by movement and rest. URI The patient pres ents with fatigue and pharyngitis. back pain Location of pain is upper back, middle back and lower back.The patient describes the pain as an ache, burning, piercing and sharp. Context: bending forward and walking. Symptoms are aggravated by daily activities. Symptoms are relieved by over the counter medication: acetaminophen and rest. syncopal episodes She states the symptoms are acute and have resolved. being treated for otitis media, may be 2nd to eustachian dysfynction ear infection She states the s ymptoms are acute and are unchanged. pt currently treated for otitis media, hx of recurrent ear infections, here today d/t near syncope episodes, was told to go to ER is sx persist, pt prefers to come to clinic if possible. Back pain The problem is f luctuating. It occurs intermittently. Location of pain is middle back and lower back.There is no radiation of pain. Context: no injury. Symptoms are aggravated by sitting, twisting and walking. Symptoms are relieved by massage, movement, over the counter medication: ibuprofen and stretching. fatigue The symptoms hav e worsened. The patient presents with somnolence. Risk factors exclude heavy menses and obesity. The patient denies any associated symptoms. right knee pain Location: right knee. The pain is aggravated by movement. The pain is relieved by brace/splint, OTC medicines (ibuprofen) and rest. Associated symptoms include swelling. Hand Dominance: right. medicare preventive The patient has not felt depressed and has had interest and pleasure doing things recently. SLUMS assessment completed, with a total score of 28, Normal. The patient does not need help with activities of daily living.The patient is not at risk for falls.The patient has fallen 1 times in the last year.The fall(s) did not result in injury. The patient does not have firearms in the home. Patient reports using a seatbelt in vehicles. Patient reports getting calcium from dietary sources. Patient reports taking a calcium supplement. Patient reports taking a multivitamin daily. Relevant history is positive for tobacco use. Relevant history is negative for passive smoke exposure, alcohol use. ear pain Onset: sudden. D uration: > 1 hour. The patient states the earache is in both ears. It occurs daily. The problem is worse. Denies relieving factors. back pain Location of pain is middle back.There is no radiation of pain. The patient describes the pain as an ache and burning. Symptoms are aggravated by pushing. Symptoms are relieved by heat. neck pain The severity of the problem is moderate. The problem has improved. Location of pain is bilateral lateral neck, bilateral posterior neck, bilateral shoulder and bilateral upper back. Aggravating factors include bending, straining and stress. Relieving factors include manipulation, massage, NSAIDs and rest. Back pain Location of pain is upper back, middle back and lower back. Pain is radiated to the left thigh and right thigh.The patient describes the pain as deep, sharp, shooting, stabbing and throbbing. Symptoms are aggravated by standing. Symptoms are relieved by over the counter medication: ibuprofen and rest. Arthalgias Location: knee ( medial). Associated symptoms include decreased mobility, joint tenderness and swelling. Hand Dominance: right. headache The severity of the problem is moderate. The symptoms are intermittent. Locations affected include frontal. back pain Severity level i s mild-moderate. The problem is improving. Location of pain is upper back, middle back and lower back.There is no radiation of pain. The patient describes the pain as an ache, burning and deep. seasonal allergies She states th e symptoms are acute and are of new onset. describes nasal drainage and occational cough, thinks 2nd to post nasal drip back pain Severity level i s moderate. It occurs persistently. Pain is radiated to the back.The patient describes the pain as deep and discomforting. vaccinations She states the s ymptoms are acute and have resolved. flu shot today back pain Severity level i s moderate. Location of pain is upper back, middle back and neck. Symptoms are aggravated by daily activities. Symptoms are relieved by movement and rest. Burning on urination Presenting/ Initial symptoms include burning, flank pain, lower back pain, nocturia and urgency. Denies aggravating factors. Denies relieving factors. Associated symptoms include dysuria, hematuria and urgency. Pertinent negatives include fever. back pain Location of pain is lower back.There is no radiation of pain. The patient describes the pain as an ache, burning and deep. Symptoms are aggravated by daily activities. Symptoms are relieved by heat, massage, movement, stretching, rest and OMM. knee replacement GERD The location is epigastric. Symptoms are relieved by proton pump inhibitors, rest and vomiting. Associated symptoms include vomiting (frequency is 3x weekly). Pertinent negatives include constipation, diaphoresis, diarrhea and fever. knee pain Onset: 1 year ag o. Duration: more than 1 hour. Severity level is moderate-severe. It occurs intermittently and is fluctuating. Location: right knee. The pain is sharp. The pain is aggravated by movement. Associated symptoms include crepitus. Hand Dominance: right. Weight loss The context of t he weight loss includes esophageal stricture and swallowing disorder. Factors resulting in weight stabilization or gain include: esophageal dilation. Associated symptoms include vomiting. Pertinent negatives include constipation and diaphoresis. Additional information: vomit x3 in last 2 weeks. may be d/t esophageal stricture. weight loss The patient has lost 2lbs (0.91kgs) over a period of 2 weeks. The patient is losing weight. Factors resulting in weight stabilization or gain include: compliance to diet, compliance to regimen and medications. The risk factors for weight loss include depression. Associated symptoms include decreased appetite and diarrhea. Dizziness The patient desc ribes it as (an) imbalance and light-headed. It occurs while bending. Associated symptoms include incoordination and neck stiffness. depression This is an initi al visit. The first episode occurred in 2006. The symptoms occur intermittently. There is improvement of initial symptoms. The patient reports functioning as not difficult at all. The patient presents with anxious/fearful thoughts, compulsive thoughts, depressed mood, difficulty falling asleep, diminished interest or pleasure and fatigue but denies loss of appetite or thoughts of or suicide. The patient's risk factors include of a friend or loved one, history of depression, history of suicidal attempts, medication and unemployment. The patient's risk factors exclude alcoholism. The depression is aggravated by social interactions but not with alcohol use. The depression is associated with chronic pain, headache, nausea and vomiting. Instructions Date Instruction Additional Infor yonathan Will check HEMOGLOBI N A1 C, which is an average of 3 month blood sugars. Will call with results and send to [facility]. Your Physician Today: Dr. Pam Dodson. HAPPY December! If you have any questions or concerns, please call [facility] @ [phone] ACUTE CARE HOURS:Monday thru 7AM-8PMFriday 7AM-5PMSat 9AM-1PMCall to make an appointment: [phone] Related to Family history of diabetes mellitus in first degree relative Stable. Dr. Denson is leaving her practice but your condition is stable. Continue with counseling. We will refill your medications but if you need a new psychiatarist; please let us know and we can put in a referral for you. Related to Depression with anxiety Stable. Medications refilled. Re lated to Fibromyalgia Stable. Refilled TYL ENOL ARTHRITIS and VOLTAREN GEL. Use as prescribed. Related to Arthritis Stable. Will continu e with LISINOPRIL. Refills sent to pharmacy. Related to Essential (primary) hypertension Stable. Continue to follow with Orthopedic Surgery as needed. Related to Status post right knee replacement Dietary needs education Related to Body mass index (BMI) 22.0-22.9, adult Giving encouragement to exercise Related to Body mass index (BMI) 22.0-22.9, adult Increase activity. Related to Es sential (primary) hypertension Follow a low sodium diet. Relate d to Essential (primary) hypertension Medications as instructed Relate d to Fibromyalgia Will check lab work. Continue with vitamin supplements. Related to Fatigue, unspecified type Discuss with Dr. Collins the need for any medication. Will continue to follow. Your Physician Today: Dr. Pam Dodson. Have a wonderful day! If you have any questions or concerns, please call [facility] @ [phone] ACUTE CARE HOURS:Monday thru -Fr-[facility] to make an appoointment: [phone] Related to Depression with anxiety Continue with Neurol ogy and stimulator replacement. Related to Seizure disorder Does not look as if the wound continuing to break down. Keep area clean and dry. Continue your antibiotic and please keep your appointment with your surgeon at [facility]. Call or make an acute care visit if you feel as if the wound is worsening. Your Physician Today: Dr. Pam Dodson. Have a wonderful weekend! If you have any questions or concerns, please call [facility] @ [phone] ACUTE CARE HOURS:Monday thru -PMFr-[facility] to make an appoointment: [phone] Related to Superficial incisional surgical site infection, sequela Giving encouragement to exercise Related to Body mass index (BMI) 22.0-22.9, adult Dietary management e ducation, guidance, and counseling Related to Body mass index (BMI) 22.0-22.9, adult Vaginitis completely resolved - normal exam todayluvena samples given f/u prn - has appt next Monday Dr Flores Related to H/O vaginitis cipro x 1 weekluvena otc moisturizer and body washf/u 2 weeks Related to Acute vaginitis Pt tolerated OMT and had inc ROM of chest wall expansion with breathing. Related to Somatic dysfunction of rib cage region Pt inhalation R 1st rib treated w/ ME, exhaled ribs 4-8 treated reflexively Related to Somatic dysfunction of rib cage region L1-L3 SlRl treated w ith MFR. Pt tolerated OMT, had inc ROM reassessed. Related to Lumbar region somatic dysfunction LoL sacrum and post L inominate treated w OMT, had dec pain on reassessment Related to Sacral region somatic dysfunction Pt T5-T7 SlRl treate d reflexively with cervical OMT. Related to Thoracic region somatic dysfunction C5-C7 SlRl treated w ith ME and MFR. Pt tolerated & had Inc ROM wi/OMT. Related to Cervical somatic dysfunction Retrun if problems or if you wor sen Related to Sinusitis Dietary needs education Related to Dietary surveillance and counseling Mental health care education Rel ated to Depression Counseled on dietary changes Assessments Type Assessment Date No Information
--- OUTSIDE RECORDS SUMMARY | 2024-11-21 10:47 | XMS_ITS ---
Author Organization The [facility] [place] Address [address] [place] [address] Care Team Providers Care Showplace Manager Name Role Phone Victor Hugo Parra Primary Care Provider REASON FOR VISIT hold Eliquis for surgery Encounters Encounter Location Date Provider Diagnosis [facility] [address] [place] [address] 11/21/2024 Victor Hugo Aida Plan Of Treatment Next Appt Details Provider Name:Victor Hugo Parra, 08:45:00 AM, [address] [place], [address], Progress Notes * Romana ALCOCER SDOB:[birth year] (69 yo F)Acc No.[id number]:11/21/2024 Patient: Micha GUNN Romana Holcomb :1955 A ge:69 Y S ex:Female Address:[place] [address] * true * Date: Generated for Printi ng/Faxing/eTransmitting on: 12/23/2024 07:00 AM EDT
--- OUTSIDE RECORDS SUMMARY | 2024-11-25 16:45 | XMS_ITS ---
Author Organization The [facility] [place] Address [address] [place] [address] Care Team Providers Care Refrigeration Manager Name Role Phone Victor Hugo Parra Primary Care Provider REASON FOR VISIT Urine culture Encounters Encounter Location Date Provider Diagnosis [facility] [address] [place] [id number] 11/25/2024 Victor Hugo Parra Plan Of Treatment Next Appt Details Provider Name:Victor Hugo Kerr Dwightcarole, 08:45:00 AM, [address] [place], [address], Progress Notes * ALCOCERRomana SDOB:[birth year] (69 yo F)Acc No.[id number]:11/25/2024 Patient: Micha GUNN Romana S :1955 A ge:69 Y S ex:Female Address[address] [place] [address] * true * Date: Generated for Printi ng/Faxing/eTransmitting on: 0 12/23/2024 06:59 AM EDT
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
--- OUTSIDE RECORDS SUMMARY | 2024-12-23 07:00 | XMS_ITS | Patient Health Record ---
Author Organization [facility] in [place] Address [address] [place] [address] Care Team Providers Care Wildlife Biologist Name Role Phone Aida Victor Hugo Primary Care Provider Allergies Allergen (clinical drug ingredient) Drug/Non Drug Allergy documented on EMR Reaction Allergy Type Onset Date Status codeine Codeine hives Drug Allergy Active Penicillin yeast infection Drug Allergy Active Results Component Value Reference Range Notes COVID-19, Flu A+B IH Reviewed date:05/22/2024 03:58:17 PM Interpretation: Performing Lab: Notes/Report: COVID positive FLU A neg FLU B neg Control present FREE T4 Reviewed date:03/13/2024 08:24:49 PM Interpretation: Performing Lab: Notes/Report: [facility] , Free T4 1.11 0.76-1.46 ng/dL Performing Lab: see note ML - [facility] LB TSH Reviewed date:11/17/2024 12:24:05 PM Interpretation: Performing Lab: Notes/Report: [facility] , Thyroid Stimulating Hormone 2.734 0.358-3.740 uIU/mL Performing Lab: see note ML - [facility] LB PROF 14(COMP METB) Reviewed date:11/17/2024 12:24:05 PM Interpretation: Performing Lab: Notes/Report: [facility] , Sodium 142 136-145 mmol/L Potassium 4.3 3.5-5.1 mmol/L Chloride 103 98-107 mmol/L Carbon Dioxide 33.0 21.0-32.0 mmol/L Anion Gap 10.3 Glucose 103 74-106 mg/dL Blood Urea Nitrogen 21.0 7.0-18.0 mg/dL Creatinine 0.94 0.55-1.02 mg/dL Estimated GFR ( Kiersten >60 >=60 mL/min/1.73m 2 Estimated GFR (Non- Kimberly 59 >=60 mL/min/1.73m 2 BUN Creatinine Ratio 22.3 Calcium 9.1 8.5-10.1 mg/dL Bilirubin Total 0.6 0.2-1.0 mg/dL Aspartate Amino Transferase 22 15-37 U/L Alanine Aminotransferase 25 14-59 U/L Alkaline Phosphatase 80 46-116 U/L Total Protein 7.1 6.4-8.2 g/dL Albumin Level 3.8 3.4-5.0 g/dL Globulin 3.3 Albumin Globulin Ratio 1.2 Performing Lab: see note ML - [facility] LB FREE T4 Reviewed date:11/17/2024 12:24:05 PM Interpretation: Performing Lab: Notes/Report: [facility] , Free T4 1.15 0.76-1.46 ng/dL Performing Lab: see note ML - [facility] LB CBC AUTO DIFF Reviewed date:11/17/2024 12:24:05 PM Interpretation: Performing Lab: Notes/Report: [facility] , White Blood Count 9.5 4.0-11.0 10 3/uL Red Blood Count 4.40 4.20-5.40 10 6/uL Hemoglobin 12.6 12.0-16.0 g/dL Hematocrit 40.3 36.0-48.0 % Mean Corpuscular Volume 91.6 81.0-99.0 fL Mean Corpuscular Hemoglobin 28.6 26.7-34.0 pg Mean Corpuscular HGB Conc 31.3 29.9-35.2 g/dL Red Cell Distribution Width 16.2 11.0-15.0 % Platelet Count 221 150-450 10 3/uL Mean Platelet Volume 10.0 9.5-13.5 fL Neutrophils Percent Auto 75.4 43.0-75.0 % Lymphocytes Percent Auto 15.1 20.5-60.0 % Monocytes Percent Auto 7.5 1.7-12.0 % Eosinophils Percent Auto 1.1 0.9-7.0 % Basophils Percent Auto 0.4 0.2-2.0 % Immature Granulocytes Pct Auto 0.5 0.0-0.5 % Neutrophils Absolute Auto 7.2 1.4-6.5 10 3/uL Lymphocytes Absolute Auto 1.4 1.2-3.8 10 3/uL Monocytes Absolute Auto 0.7 0.3-0.8 10 3/uL Eosinophils Absolute Auto 0.1 0.0-0.7 10 3/uL Basophils Absolute Auto 0.0 0.0-0.1 10 3/uL Immature Granulocytes Abs Auto 0.05 0.00-0.03 10 3/uL Performing Lab: see note ML - [facility] LB BNP Reviewed date:11/17/2024 12:24:05 PM Interpretation: Performing Lab: Notes/Report: [facility] , NT Pro B Type Natriuretic Pept 1062.0 <=900.0 pg/mL Performing Lab: see note - [facility] LB XR hip BI w PEL 1V Reviewed date:10/21/2024 01:54:34 PM Interpretation: Performing Lab: Notes/Report: Source Facility: [place] [address] [place] [address] XRay Report Signed Patient: ROMANA ALCOCER MR#: [id number] : 1955 Acct:[id number] Age/Sex: 69 / F ADM Date: 10/21/24 Loc: LAB Attending Dr: Teddy Fink M.D. Ordering Physician: Teddy Fink M.D. Date of Service: 10/21/24 Procedure(s): XR hip BI w PEL 1V Accession Number(s): [id number] cc: Teddy Fink M.D. [place] [address] Patient Name: ROMANA ALCOCER MRN: [id number] date: 1955 Sex: F Assigned Patient Location: LAB Current Patient Location: LAB Accession/Order Number: [id number] Exam Date: 10/21/2024 13:21 Report Date: 10/21/2024 [...] Paulson M.D. 10/21/2024 1:29 PM Dictation Location: [place] [address] Electronically authenticated by: [id number] Y Date: 10/21/2024 13:29 Dictated By: Ana Cristina Paulson M.D. Signed By: 10/21/24 1331 DD/ 1329 TD/TT: Hebrew Professor: [place] [address] XRay Report Signed Patient: NORBERTO ALCOCER RA MR#: [id number] : 1955 Acct:[id number] Age/Sex: 69 / F ADM Date: 10/21/24 Loc: LAB Attending Dr: Elder Fink M.D. Ordering Physician: Teddy Fink M.D. Date of Service: 10/21/24 Procedure(s): XR hip BI w PEL 1V Accession Number(s): [id number] cc: Teddy Fink M.D. [place] [address] Patient Name: ROMANA ALCOCER MRN: [id number] date: 1955 Sex: F Assigned Patient Location: LAB Current Patient Loca tion: LAB Accession/Order Numb er: [id number] Exam Date: 10/21/2024 13:21 Report Date: 10/21/2024 [...] Paulson M.D. 10/21/2024 1:29 PM Dictation Location: [place] [address] Electronically authenticated by: [id number] Y Date: 10/21/2024 13:29 Dictated By: Ana Cristina Paulson M.D. Signed By: 10/21/24 1331 DD/ 1329 TD/TT: Hebrew Professor: XR lumbar spine min 4V Reviewed date:10/21/2024 01:54:34 PM Interpretation: Performing Lab: Notes/Report: Source Facility: [place] [address] XRay Report Signed Patient: ROMANA ALCOCER MR#: [id number] : 1955 Acct:[id number] Age/Sex: 69 / F ADM Date: 10/21/24 Loc: LAB Attending Dr: Teddy Fink M.D. Ordering Physician: Teddy Fink M.D. Date of Service: 10/21/24 Procedure(s): XR lumbar spine min 4V Accession Number(s): [id number] cc: Teddy Fink M.D. [place] [address] Patient Name: ROMANA ALCOCER MRN: [id number] date: 1955 Sex: F Assigned Patient Location: LAB Current Patient Location: LAB Accession/Order Number: [id number] Exam Date: 10/21/2024 13:21 Report Date: 10/21/2024 [...] Paulson M.D. 10/21/2024 1:29 PM Dictation Location: [place] [address] Electronically authenticated by: [id number] Y Date: 10/21/2024 13:29 Dictated By: Ana Cristina Paulson M.D. Signed By: 10/21/24 1331 DD/ 1329 TD/TT: Hebrew Professor: [place] [address] XRay Report Signed Patient: NORBERTO ALCOCER RA MR#: [id number] : 1955 Acct:[id number] Age/Sex: 69 / F ADM Date: 10/21/24 Loc: LAB Attending Dr: Elder Fink M.D. Ordering Physician: Teddy Fink M.D. Date of Service: 10/21/24 Procedure(s): XR lum bar spine min 4V Accession Number(s): [id number] cc: Teddy Fink M.D. [place] [id number] Patient Name: ROMANA ALCOCER MRN: [id number] date: 1955 Sex: F Assigned Patient Location: LAB Current Patient Loca tion: LAB Accession/Order Numb er: [id number] Exam Date: 10/21/2024 13:21 Report Date: 10/21/2024 [...] Paulson M.D. 10/21/2024 1:29 PM Dictation Location: [place] [address] Electronically authenticated by: [id number] Y Date: 10/21/2024 13:29 Dictated By: Ana Cristina Paulson M.D. Signed By: 10/21/24 1331 DD/ 1329 TD/TT: Hebrew Professor: PROF NILA Ramos ([facility]) Reviewed date:09/19/2024 09:03:58 PM Interpretation: Performing Lab: Notes/Report: [facility] , Sodium 139 136-145 mmol/L Potassium 3.9 [...] mg/dL Performing Lab: see note ML - [facility] LB CBC AUTO DIFF Reviewed date:09/19/2024 09:03:58 PM Interpretation: Performing Lab: Notes/Report: [facility] , White Blood Count 8.9 4.0-11.0 10 [...] Performing Lab: see note ML - [facility] LB MR abdomen wo/w con Reviewed date:05/23/2024 02:50:47 PM Interpretation: Performing Lab: Notes/Report: Source Facility: [place] [address] [place] [address] Magnetic Resonance Report Signed Patient: ROMANA ALCOCER MR#: [id number] : 1955 Acct:[id number] Age/Sex: 69 / F ADM Date: 05/22/24 Loc: LAB Attending Dr: Teddy Fink M.D. Ordering Physician: Teddy Fink M.D. Date of Service: 05/22/24 Procedure(s): MR abdomen wo/w con Accession Number(s): [id number] cc: Teddy Fink M.D. [place] [address] Patient Name: ROMANA ALCOCER MRN: [id number] date: 1955 Sex: F Assigned Patient Location: LAB Current Patient Location: Accession/Order Number: [id number] Exam Date: 05/22/2024 13:00 Report Date: 05/23/2024 [...] M.D. Signed By: 05/23/2434 DD/ 0 TD/TT: Hebrew Professor: [place] [address] Magnetic Resonance Report Signed Patient: NORBERTO ALCOCER RA MR#: [id number] : 1955 Acct:[id number] Age/Sex: 69 / F ADM Date: 05/22/24 Loc: LAB Attending Dr: Elder Fink M.D. Ordering Physician: Teddy Fink M.D. Date of Service: 05/22/24 Procedure(s): MR gita tirado wo/w con Accession Number(s): [id number] cc: Teddy Fink M.D. [address] [address] Patient Name: ROMANA ALCOCER MRN: [id number] date: 1955 Sex: F Assigned Patient Location: LAB Current Patient Location: Accession/Order Numb er: [id number] Exam Date: 13:00 Report Date: 05/23/2024 06:31 [...] Dictated By: Jesu Bender M.D. Signed By: 05/23/24 0634 DD/ TD/TT: Hebrew Professor: CREATININE Reviewed date:05/22/2024 03:58:17 PM Interpretation: Performing Lab: Notes/Report: [facility] , Creatinine 0.99 0.55-1.02 mg/dL Estimated GFR ( Kiersten >60 >=60 mL/min/1.73m 2 Estimated GFR (Non- Kimberly 55 >=60 mL/min/1.73m 2 Performing Lab: see note ML - [facility] LB BUN Reviewed date:05/22/2024 03:58:17 PM Interpretation: Performing Lab: Notes/Report: [facility] , Blood Urea Nitrogen 18.0 7.0-18.0 mg/dL Performing Lab: see note ML - [facility] LB CA echo doppler complete Reviewed date:03/13/2024 08:24:49 PM Interpretation: Performing Lab: Notes/Report: Source Facility: [facility] [place] [address] [place] [address] Cardiology Report Signed Patient: ROMANA ALCOCER MR#: [id number] : 1955 Acct:[id number] Age/Sex: 69 / F ADM Date: 03/13/24 Loc: CARD Attending Dr: Teddy Fink M.D. Ordering Physician: Teddy Fink M.D. Date of Service: 03/13/24 Procedure(s): CA echo doppler complete Accession Number(s): [id number] cc: Teddy Fink M.D. Patient Name: ROMANA ALCOCER MR#: [id number] : 1955 Exam Date: 03/13/2024 Ordering Doctor: [...] M.D. Signed By: 03/13/241730 DD/ 29 TD/TT: Hebrew Professor: [place] [address] Cardiology Report Signed Patient: NORBERTO ALCOCER RA MR#: [id number] : 1955 Acct:[id number] Age/Sex: 69 / F ADM Date: 03/13/24 Loc: CARD Attending Dr: Elder Fink M.D. Ordering Physician: Teddy Fink M.D. Date of Service: 03/13/24 Procedure(s): CA ech o doppler complete Accession Number(s): [id number] cc: Teddy Fink M.D. Patient Name: ROMANA ALCOCER MR#: [id number] : 1955 Exam Date: 03/13/2024 Ordering Doctor: [...] delineation o f endocardial borders. DIASTOLIC: Not adequ ately assessed due to heart rhythm. ATRIAL SEPTUM: [...] Dictated By: Janiya Carlson M.D. Signed By: 03/13/24 1731 DD/ 29 TD/TT: Hebrew Professor: TSH Reviewed date:03/13/2024 08:24:49 PM Interpretation: Performing Lab: Notes/Report: [facility] , Thyroid Stimulating Hormone 3.446 0.358-3.740 uIU/mL Performing Lab: see note ML - [facility] LB PROF 14(COMP METB) Reviewed date:03/13/2024 08:24:49 PM Interpretation: Performing Lab: Notes/Report: [facility] , Sodium 137 136-145 mmol/L Potassium [...] 1.2 Performing Lab: see note ML - [facility] LB CBC AUTO DIFF Reviewed date:03/13/2024 08:24:49 PM Interpretation: Performing Lab: Notes/Report: [facility] , White Blood Count 10.9 4.0-11.0 10 [...] Performing Lab: see note ML - [facility] LB BNP Reviewed date:03/13/2024 08:24:49 PM Interpretation: Performing Lab: Notes/Report: [facility] , NT Pro B Type Natriuretic Pept 896.0 <=900.0 pg/mL Performing Lab: see note ML - [facility] LB POTASSIUM Reviewed date:05/22/2024 03:58:17 PM Interpretation: Performing Lab: Notes/Report: [facility] , Potassium 4.0 3.5-5.1 mmol/L Performing Lab: see note ML - [facility] LB MM tomosynthesis screening B I Reviewed date:08/27/2024 08:38:52 PM Interpretation: Performing Lab: Notes/Report: Source Facility: [facility] [place] [address] [place] [address] Mammography Report Signed Patient: ROMANA ALCOCER MR#: [id number] : 1955 Acct:[id number] Age/Sex: 69 / F ADM Date: 08/27/24 Loc: MAMMO Attending Dr: Teddy Fink M.D. Ordering Physician: Teddy Fink M.D. Results: Date of Service: 08/27/24 Follow Up: Procedure(s): MM tomosynthesis screening BI Accession Number(s): [id number] cc: Teddy Fink M.D. Patient Name: ROMANA ALCOCER MR#: [id number] : 1955 Exam Date: 08/27/2024 Ordering Doctor: [...] brain cancer at age 47. LOCATION: [facility] BREAST COMPOSITION: There are scattered areas [...] Signed By: 08/27/24 1331 DD/ 1330 TD/TT: Hebrew Professor: [place] [address] Mammography Report Signed Patient: NORBERTO ALCOCER RA MR#: [id number] : 1955 Acct:[id number] Age/Sex: 69 / F ADM Date: 08/27/24 Loc: MAMMO Attending Dr: Elder Fink M.D. Ordering Physician: Teddy Fink M.D. Results: Date of Service: Follow Up: Procedure(s): MM tomosynthesis screening BI Accession Number(s): [id number] cc: Teddy Fink M.D. Patient Name: ROMANA ALCOCER MR#: [id number] : 1955 Exam Date: 08/27/2024 Ordering Doctor: [...] brain cancer at age 47. LOCATION: [facility] BREAST COMPOSITION: There are scattered areas [...] Signed By: 08/27/24 1331 DD/ 1330 TD/TT: Hebrew Professor: Reason For Referral Diagnosis 1 Paroxysmal atrial fi brillation (I48.0) Referral Organization [facility] Referring Provider First Name Victor Hugo Referring Provider Last Name Aida Referring Provider Speciality [facility] Referred Provider Janiya Carlson Referred Provider Specialty Cardiology Referral Priority Routine Diagnosis 1 Abnormal echocardiog екатерина (R93.1) Diagnosis 2 Paroxysmal atrial fi brillation (I48.0) Referral Organization [facility] Referring Provider First Name Victor Hugo Referring Provider Last Name Aida Referring Provider Speciality [facility] Referred Provider Janiya Carlson Referred Provider [...] TH TWICE A DAY for 30 Active Potassium Chloride ER 10 MEQ 1 capsule w ith food Orally Twice a day for 30 days 03/14/2024 Active Atorvastatin Calcium 20 MG TAKE 1 TABLET BY MOUTH EVERY DAY for 90 days Active Pantoprazole Sodium 40 MG TAKE 1 TABLET BY MOUTH EVERY DAY for 90 days Active Spironolactone 25 MG 1/2 tablet Orally O nce a day for 30 days 11/18/2024 Active Sertraline HCl 100 MG TAKE 2 [...] as directe d Orally once daily Active Celecoxib 100 MG TAKE 1 CAPSULE BY MO UTH EVERY DAY for 30 days Active Immunizations Vaccine Route Administration Date Status Comme nts Flu, Fluad (68738) 65 yrs and older, single-dose syringe IM [...] Problem Status W/U Status Risk Notes Problem 01730832 Essential (primary) hypertension (I10) Active confirmed Problem Vaccination given (293547947) Encounter for immunization (Z23) Active confirmed Problem 60611200 Hypothyroidism, unspecified (E03.9) Active confirmed Problem 817215921 Gastro-esophagea l reflux disease without esophagitis (K21.9) Active confirmed Problem 785495169 Paroxysmal atria l fibrillation (I48.0) Active confirmed Problem Pain in limb (03489446) Pain in right lower leg (M79.661) Active confirmed Problem 268002293 Other specified disorders of bone density and structure, unspecified site (M85.80) Active confirmed Problem Osteoarthritis (701178416) Osteoarthritis (M19.90) Active confirmed Problem Depression (055714740) Depression (F32.9) Active confirmed Problem Osteopenia (087348251) Osteopenia (M85.80) Active confirmed Problem Osteoarthritis of knee (294221102) Knee osteoarthritis (M17.9) Active confirmed Problem Diverticular disease of colon (279294153) Diverticulosis (K57.90) Active confirmed Problem Pharyngitis (558152149) Pharyngitis (J02.9) Active confirmed Problem Left shoulder pain (8283391427) Left shoulder pain (M25.512) Active confirmed Problem Fall () Fall (W19.XXXA) Active confirmed Problem Osteoarthritis of knee (009784826) Osteoarthritis of knees, bilateral (M17.0) Active confirmed Problem Acute bronchitis (04579457) Acute bronchitis (J20.9) Active confirmed Problem Pain in left foot (571830655100739) Pain in left foot (M79.672) Active confirmed Problem Rotator cuff tear (117403852) Rotator cuff tear (M75.100) Active confirmed Problem Common migraine (82053722) Common migraine (G43.009) Active confirmed Problem Pain in wrist (90895120) Right wrist pain (M25.531) Active confirmed Problem Compression fracture of vertebral column (06149922) Compression deformity of vertebra (M43.9) Active confirmed Problem At risk for falls (972904867) At risk for falls (Z91.81) Active confirmed Problem Atrial premature contractions (341253352) Premature atrial contractions (I49.1) Active confirmed Problem Disease caused by Severe acute respiratory syndrome coronavirus 2 (disorder) (701404096) COVID-19 virus infection (U07.1) Active confirmed Problem Lesion of spleen (481300610168928) Lesion of spleen (D73.89) Active confirmed Problem Cough (finding) (87785697) Other cough (R05.8) Active confirmed Vital Signs Temperature 99.7 degrees Fahrenheit 05/08/2024 Blood pressure diastolic 76 mm Hg 10/21/2024 Height 62 in 10/21/2024 Blood pressure systolic 130 mm Hg 10/21/2024 Weight 269.8 lbs 10/21/2024 BMI 49.34 kg/m2 10/21/2024 Procedures Procedure Date Ordered Date Performed Result Body Sit e CARDIO Echocardiogram 03/07/2024 N/A Encounters Encounter Location Date Provider Diagnosis [address] [place] [address] 11/25/2024 Victor Hugo [facility] [address] [place] [address] 08/09/2024 [facility] [address] [place] [address] 08/27/2024 [address] [place] [address] 10/21/2024 [facility] [address] [place] [address] 11/17/2024 Victor Hugo [facility] [address] [place] [address] 11/20/2024 [facility] [address] [place] [address] 11/21/2024 [facility] [address] [place] [address] 03/13/2024 Victor Hugo Fink Abnormal echocardiog екатерина R93.1 and Paroxysmal atrial fibrillation I48.0 [facility] [address] [place] [address] 05/08/2024 Victor Hugo Hoy Lesion of spleen D73 .89 [facility] [address] [place] [address] 05/09/2024 Victor Hugo Hoy Pre-procedural examination Z01.818 [facility] [address] [place] [address] 05/23/2024 Victor Hugo Hoy [facility] [address] [place] [address] 06/03/2024 Victor Hugo Hoy [facility] [address] [place] [address] 03/07/2024 Victor Hugo Hoy Paroxysmal atrial fibrillation I48.0 ; Encounter for immunization Z23 ; Essential (primary) hypertension I10 ; Hypothyroidism, unspecified E03.9 and Primary localized osteoarthritis of right knee M17.11 [facility] [address] [place] [address] 05/08/2024 Victor Hugo Hoy Sinus congestion R09 .81 ; Body aches R52 and Acute bronchitis, unspecified organism J20.9 [facility] [address] [place] [address] 10/01/2024 Victor Hugo Hoy Osteoarthritis M19.9 0 and Osteoarthritis of knees, bilateral M17.0 [facility] [address] [place] [address] 10/21/2024 Victor Hugo Hoy Osteoarthritis M19.9 0 [...] vaporizer to help keep the drainage moist. Gubz-ooc-iongkfz Nasal Saline may help the stuffy and runny nose. Use Ibuprofen and or Tylenol as needed for fever, chills, body aches or pain. Children 5 years old should not be given ruyi-nwp-nbmichx cough and cold medications such as guaifenesin and dextromethorphan. If you're over age 5, you may try rjzj-zhd-bslfuds cold medications such as guaifenesin and dextromethorphan, [...] HIP RT 2 3V W PELVIS 10/21/2024 Next Appt Details Provider Name:Victor Hugo Fink, 08:45:00 AM, [address] [place], [address], Insurance Providers Payer Name Payer Address Payer Phone Subscriber Number Group Number Insured Name Patient Relationship to Insured Coverage Start Date Coverage End Date [place] [address] [place] [address] [id number] Romana Alcocer Self - patient is the insured [employer] MEDICARE SUPPLEMENT [address] [place] [address] [phone] [id number] Romana Alcocer Self - [...] moderate mitral regurgitation Surgical History Surgery Date(Month/Year) Rt Knee Arthroscopy Rt Rotator Duff Repair Cholecystectomy Bilateral Cataract Cardiac Cath 04/19/2024 coronary angiography Cardioversion- Dr Sheehan 09/26/2024 Tonsillectomy Appendectomy Breast biospy Neuroma excision Breast Reduction Hospitalization History Reason Date(Month/Year) see above
--- OUTSIDE RECORDS SUMMARY | 2024-12-23 07:00 | XMS_ITS | Encounter Summary ---
Author Organization [facility] Address [id number] [address] [place] [address] Care Team Providers Care Furniture And Bedding Inspector Name Role Phone Klaus Parra MD Primary Care Provider [phone] Encounter Details Date Type Department Care Team (Latest Contact Info) Description 12/19/2024 Travel Social History Tobacco Use Types Packs/Day Years [...] as of this encounter Plan of Treatment Upcoming Encounters Date Type Department Care Team ( Contact Info) Description 12/30/2024 8:15 AM EDT Appointment [facility] [place] [facility] [address] [place] [phone] Presence of right artificial shoulder joint; Closed displaced fracture of surgical neck of right humerus, initial encounter; Rotator cuff tear arthropathy of both shoulders documented as of this encounter Visit Diagnoses Not on filedocumented in this encounter Care Teams Furniture And Bedding Inspector Relationship Specialty Start Date End Date Klaus Parra MD [address] [place] [address] PCP - General Family Medicine 04/15/24 documented as of this encounter
--- OUTSIDE RECORDS SUMMARY | 2024-12-23 07:00 | XMS_ITS | Clinical Summary ---
Author Organization [facility] Address [id number] [address] [place] [address] Care Team Providers Care Housekeeper And Laundry Assistant Name Role Phone Klaus Parra MD Primary Care Provider [phone] Allergies Active Allergy Reactions Criticality Noted Date [...] Active Active Problems No known active problems Encounters Date Type Department Care Team Description 12/19/2024 Travel from Last 3 Months Family History Medical History Relation Name Comments [...] 02/01/2024 11:06 AM EDT Plan of Treatment Upcoming Encounters Date Type Department Care Team (Late st Contact Info) Description 12/30/2024 8:15 AM EDT Appointment [facility] [address] [place] [address] Presence of right artificial shoulder joint; Closed displaced fracture of surgical neck of right humerus, initial encounter; Rotator cuff tear arthropathy of both shoulders Health Maintenance Due Date Last Done Comments [...] history exists Medical Devices Implanted Type Area Accounts Receivable Analyst Device Identifier Shelf Expiration Date Model / Serial / Lot Lens Iol [employer] Fld Asph Uv [employer] Lght Fltr Strl Lf - [id number] - [id number] Implanted:Qty: 1 on 01/11/2024 by Petrona Box MD at [facility] Lens Left: Eye [employer] 04/12/2027 [id number] / [id number] / NA Lens Iol Sy60wf.220 [facility] [id number] - [id number] - [id number] Implanted:Qty: 1 on 02/01/2024 by Petrona Box MD at [facility] Lens Right: Eye [employer] 08/28/2027 SY60WF.220 / [id number] / NA Procedures Procedure Name Priority [...] image is visible to you in MyChart.* Robinson Mendoza DO IMG OR IMG ORDERABLES Final Result from Last 3 Months or Most Recently Relevant to Health Maintenance Insurance MEDICARE [facility] Care Teams Housekeeper And Laundry Assistant Relationship Specialty Start Date End Date Klaus Parra MD [address] [place] [address] PCP - General Family Medicine 04/15/24
--- OUTSIDE RECORDS SUMMARY | 2024-12-23 07:00 | XMS_ITS | Patient Health Record ---
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
--- OUTSIDE RECORDS SUMMARY | 2024-12-23 07:00 | XMS_ITS | Clinical Summary ---
Author Organization [facility] Address [address] [place] [address] Care Team Providers Care Route Relief Driver Name Role Phone Klaus Parra MD Primary Care Provider [phone] Allergies Active Allergy Reactions Criticality Noted Date Comments Codeine Hives,Rash Low 02/20/2018 Penicillins Hives,Other 11/24/2022 Yeast infection Medications alendronate (Fosamax) 70 mg tablet Take 70 mg by mouth every 7 (seven) days. Active cholecalciferol (Vitamin D-3) 125 MCG (5000 UT) capsule in the morning. 4 Active minocycline (Dynacin) 100 mg tablet Take 100 mg by mouth once daily as directed. Active amitriptyline (Elavil) 25 mg tablet Take 25 mg by mouth in the morning. Active liothyronine (Cytomel) 5 mcg tablet Take 10 mcg by mouth in the morning. 4 Active pantoprazole (ProtoNix) 40 mg EC tablet Take 40 mg by mouth in the morning. 4 Active celecoxib (CeleBREX) 100 mg capsule TAKE 1 CAPSULE BY MOUTH EVERY DAY 30 DAYS Active sertraline (Zoloft) 100 mg tablet Take 200 mg by mouth in the morning. Active Eliquis 5 mg tablet Take 5 mg by mouth in the morning and at bedtime. Active atorvastatin (Lipitor) 20 mg tablet Take 20 mg by mouth at bedtime. Active levothyroxine (Synthroid, Levoxyl) 75 mcg tablet Take 75 mcg by mouth in the morning. Active metoprolol succinate XL (Toprol-XL) 25 mg 24 hr tabletIndications :Acute systolic heart failure (CMS/HCC) Take 1 tablet (25 mg) by mouth in the morning. Do not crush or chew. 30 tablet 4 Active dapagliflozin propanediol (Farxiga) 10 mgIndications:Acu te on chronic heart failure with preserved ejection fraction (CMS/HCC) Take 1 tablet (10 mg) by mouth in the morning. 90 tablet 3 4 05/16/20 25 Active losartan (Cozaar) 25 mg tabletIndications :Acute systolic heart failure (CMS/HCC) Take 1 tablet (25 mg) by mouth in the morning. 90 tablet 3 4 06/03/20 25 Active furosemide (Lasix) 20 mg tabletIndications :Acute on chronic heart failure with preserved ejection fraction (CMS/HCC) Take 1 tablet (20 mg) by mouth in the morning. 90 tablet 3 5 08/09/19 26 Active amiodarone (Pacerone) 200 mg tabletIndications :Paroxysmal atrial fibrillation (CMS/HCC) Take 1 tablet (200 mg) by mouth in the morning. 90 tablet 1 5 Active spironolactone (Aldactone) 25 mg tabletIndications :Heart failure with mildly reduced ejection fraction (CMS/HCC),Benign hypertensive heart disease with heart failure (CMS/HCC) Take 0.5 tablets (12.5 mg) by mouth in the morning. 15 tablet 11 5 11/16/19 26 Active Active Problems Problem Noted Date Diagnosed Date Osteoarthritis of knees, bilateral 11/15/2024 Paroxysmal atrial fibrillation 08/13/2024 Nontraumatic incomplete tear of left rotator cuf f 05/22/2024 Angina pectoris, unstable 04/08/2024 Abnormal echocardiogram 04/08/2024 Encounters Date Type Department Care Team Description 11/18/2024 Orders Only [facility] [address] [place] [facility] [place] [address] Eliezer Dickey CNP 11/15/2024 2:00 PM EDT Follow-Up [facility] [address] [place] [facility] [place] [facility] [place] [address] Eliezer Dickey CNP Paroxysmal atrial fibrillation (CMS/HCC) (Primary Dx); Heart failure with mildly reduced ejection fraction (CMS/HCC); Benign hypertensive heart disease with heart failure (CMS/HCC); Nonrheumatic mitral valve regurgitation; 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; Pulmonary hypertension (CMS/HCC) 11/15/2024 Orders Only [facility] [address] [place] [address] April Randolph MA custodial current use of amiodarone (Primary Dx) 11/15/2024 Orders Only [facility] [address] [place] [address] April Randolph MA Paroxysmal atrial fibrillation (CMS/HCC) (Primary Dx) 10/04/2024 Refill [facility] [address] [place] [address] Lamine Sheehan MD Paroxysmal atrial fibrillation (CMS/HCC) 09/27/2024 Telephone [facility] [address] [place] [address] Piper Gunter MA 09/26/2024 8:30 AM EDT - 09/26/2024 9:30 AM EDT Surgery [facility] [address] [place] [address] Lamine Sheehan MD Cardioversion [[id number]] 09/26/2024 6:53 AM EDT - 09/26/2024 8:37 AM EDT Hospital Encounter [facility] [address] [place] [address] Lamine Sheehan MD Paroxysmal atrial fibrillation (CMS/HCC) Discharge Disposition: Home or Self Care () 09/26/2024 Travel from Last 3 Months Family History Medical History Relation Name Comments Coronary artery disease Mother heart valve disease Mother Relation Name Status Comments Father Mother Social History Tobacco Use Types Packs/Day Years Used Date Smoking Tobacco: Never Smokeless Tobacco: Never Tobacco Cessation:Counseling Given: Not Answered Alcohol Use Standard Drinks/Week Comments Never 0 (1 standard drink = 0.6 oz pur e alcohol) [place] Safety & Environment Answer Date Rec orded Fear of Current or Ex-Partner Not on file Emotionally Abused Not on file 07/27/2023 Physically Abused Not on file 07/27/2023 Sexually Abused Not on file 07/27/2023 Physically or Sexually Abused Not on file Comments No Sex and Gender Information Value Date Recorded Sex Assigned at Female 12/11/2024 9:24 AM EDT Legal Sex Female 10:56 PM EDT Gender Identity Female 12/11/2024 9:24 AM EDT Sexual Orientation Heterosexual or Straight 02/2025 9:24 AM EDT Last Filed Vital Signs Vital Sign Reading Time Taken Comments Blood Pressure 147/84 11/15/2024 1:56 PM EDT Pulse 81 11/15/2024 1:56 PM EDT Temperature - - Respiratory Rate 15 09/26/2024 8:30 AM EDT Oxygen Saturation 99% 11/15/2024 1:56 PM EDT Inhaled Oxygen Concentration - - Weight 127 kg (279 lb) 11/15/2024 1:56 PM EDT Height 157.5 cm (5' 2 ) 11/15/2024 1:56 PM EDT Body Mass Index 51.03 11/15/2024 1:56 PM EDT Plan of Treatment Upcoming Encounters Date Type Department Care Team (Late st Contact Info) Description 12/31/2024 9:40 AM EDT Office Visit [facility] [address] [place] [address] Eliezer Dickey CNP [address] [place] [address] 02/25/2025 9:00 AM EDT Office Visit [facility] [address] [place] [address] Lamine Sheehan MD [address] [place] [id number] 03/13/2025 8:00 AM EDT Hospital Encounter [facility] [address] [place] [address] Lamine Sheehan MD [address] [place] [address] Paroxysmal atrial fibrillation (CMS/HCC) 03/13/2025 8:00 AM EDT - 03/13/2025 12:00 PM EDT Surgery [facility] [address] [place] [address] Lamine Sheehan MD [address] [place] [address] Ablation a-fib w/ pvi [[id number] (CPT )] 03/13/2025 8:00 AM EDT Appointment [facility] [address] [place] [address] Health Maintenance Due Date Last Done Comments CT Colonography 1953 FIT-DNA 1953 FIT 1953 FOBT 1955 Medicare Annual Wellness (AWV) 1955 Sigmoidoscopy 1953 Depression Screening 1965 Pneumococcal Vaccine: 50+ Years (1 of 2 - PCV) 1972 Mammogram 1993 Zoster Vaccines (1 of 2) 2003 Fall Risk Screening 2018 Colonoscopy 09/10/2022 09/10/2012 Colorectal Cancer Screening 09/10/2022 COVID-19 Vaccine ( season) 2024 03/23/2024, 03/22/2023, 04/05/2022, Additional history exists Influenza Vaccine (#1) 2025 , 03/31/2022, 03/14/2021, Additional history exists Adult Tetanus 02/28/2025 02/28/2015 HIB Vaccines Aged Out No longer eligi ble based on patient's age to complete this topic HPV Vaccines Aged Out No longer eligi ble based on patient's age to complete this topic IPV Vaccines Aged Out No longer eligi ble based on patient's age to complete this topic Meningococcal B Vaccine Aged Out No l onger eligible based on patient's age to complete this topic Meningococcal Vaccine Aged Out No larisa esmer eligible based on patient's age to complete this topic Rotavirus Vaccines Aged Out No longer eligible based on patient's age to complete this topic Procedures Procedure Name Priority Date/Time Associated Diagnosis Comments ECG 12-LEAD Routine 11/15/2024 9:27 AM EDT TSH Routine 11/15/2024 8:46 AM EDT T4 Routine 11/15/2024 8:46 AM EDT CBC Routine 11/15/2024 8:46 AM EDT BASIC METABOLIC PANEL Routine 11/15/2024 8:46 AM EDT COMPREHENSIVE METABOLIC PANEL Routine 11/15/2024 8:46 AM EDT B-TYPE NATRIURETIC PEPTIDE Routine 11/15/2024 8:46 AM EDT ECG 12-LEAD Routine 09/26/2024 8:23 AM EDT CARDIOVERSION Routine 09/26/2024 8:08 AM EDT Paroxysmal atrial fibrillation (CMS/HCC) ECG 12-LEAD Routine 09/26/2024 7:49 AM EDT from Last 3 Months Results * ECG 12 lead (11/15/2024 9:27 AM EDT) Only the most recent of3 resultswithin the time period is included. Historical Provider ECG ORDERABLES Final Res ult * CBC (11/15/2024 8:46 AM EDT) Blood Venous blood specimen / Unknown us Eliezer Dickey CNP LAB BLOOD ORDERABLES Final Resul t * TSH (11/15/2024 8:46 AM EDT) Blood Venous blood specimen / Unknown us Eliezer Dickey CNP LAB BLOOD ORDERABLES Final Resul t * T4 (11/15/2024 8:46 AM EDT) Blood Venous blood specimen / Unknown Result [facility] us Eliezer Dickey [facility] LAB BLOOD ORDERABLES Final Resul t * B-type natriuretic peptide (11/15/2024 8:46 AM EDT) Blood Venous blood specimen / Unknown us Eliezer Dickey [facility] LAB BLOOD ORDERABLES Final Resul t * Comprehensive metabolic panel (11/15/2024 8:46 AM EDT) Blood Venous blood specimen / Unknown Result [facility] us Eliezer Dickey [facility] LAB BLOOD ORDERABLES Final Resul t * Basic metabolic panel (11/15/2024 8:46 AM EDT) Blood Venous blood specimen / Unknown Result [facility] us Eliezer Dickey [facility] LAB BLOOD ORDERABLES Final Resul t * CARDIOVERSION (09/26/2024 8:08 AM EDT) Anatomical Region Laterality Modality Other Narrative 09/26/2024 8:36 AM EDT DIRECT CARDIOVERSION PROCEDURE NOTE Date: 09/26/2024. Type of procedure: DC Cardioversion. Performed by: Lamine Sheehan MD Informed consent: Signed by patient. Preparation and technique: Patient was brought into the procedure room. After an informed consent was obtained following a discussion with the patient where I explained the risk and benefit of the procedure that is not limited to skin cooper, fluid in the lungs, heart attack, stroke, or even , though that is very rare. Patches were placed in anteroposterior direction and once patient was made comfortable with Versed 3mg and Fentanyl 50mcg. Following sedation, the patient underwent synchronized cardioversion using 360J which converted to sinus rhythm. Post procedure, the patient was stable. No complications noted. Plan: Continue anticoagulation and consider ablation. Lamine Sheehan MD Cardiac Electrophysiology us Lamine Sheehan MD CV ELECTROPHYSIOLOGY PROCEDURES Final Result from Last 3 Months Insurance [facility] MEDICARE Care Teams Route Relief Driver Relationship Specialty Start Date End Date Klaus Parra MD [address] [facility] [place] [address] PCP - General 04/04/24
--- OUTSIDE RECORDS SUMMARY | 2024-12-23 07:00 | XMS_ITS | Encounter Summary ---
[id number] [place] [address] Care Team Providers Care Paperhanger And Painter Name Role Phone Klaus Parra MD Primary Care Provider [phone] Reason for Visit * Reason Comments Med Change Request Encounter Details Date Type Department Care Team (Late st Contact Info) Description 03/14/2023 Refill [facility] [address] [place] [address] Micaela Glass, [facility] [address] [place], [place] [id number] History of colon polyps Social History Tobacco [...] Upcoming Encounters Date Type Department Care Team ([facility] Contact Info) Description 12/30/2024 8:15 AM EDT Appointment [facility] [address] [place] [address] Presence of right artificial shoulder joint; Closed displaced fracture of surgical neck of right humerus, initial encounter; Rotator cuff tear arthropathy of both shoulders documented as of this encounter Visit Diagnoses Diagnosis History of colon polyps Presence of right artificial shoulder joint Closed displaced fracture of surgical neck of right humerus, initial encounter Rotator cuff tear arthropathy of both shoulders documented in this encounter Care Teams Paperhanger And Painter Relationship Specialty Start Date End Date Klaus Parra MD [address] [place] [address] PCP - General Family Medicine 04/15/24 documented as of this encounter
--- OUTSIDE RECORDS SUMMARY | 2024-12-23 07:01 | XMS_ITS | CCD ---
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 Additional Equipment Requests Normal [facility] HPon 09-26-2024 [facility] Electrophysiology Consult Note [place] Cardiology [facility] Reason for visit: Atrial [...] history of stroke or TIAs or any CO in the past but has a family [...] Use: Not At Risk (02/20/2018) Received from [facility] [employer] [facility] [employer] [facility] AUDIT-C Frequency of Alcohol Consumption: Never Average Number of Drinks: Not on file Frequency of Binge Drinking: Not on file Financial Resource Strain: Not on file Food Insecurity: No Food Insecurity (03/14/2023) Received from [employer] [facility], [employer] Hunger Screening Within the past 12 months [...] on file Intimate Partner Violence: Unknown (07/27/2023) [place] Safety & [place] Fear of Current or [...] Physical Exam: Consti (more content not included)... [facility] NURSNOTEon 09-26-2024 NURSNOTE RN educated pt on [...] off of unit with all of belongings. [facility] Orders Onlyon 09-18-2024 Orders Only [id number] Mercedes Alcocer ra 1955 F Date Provider Department Center 09/18/2024 [facility] Family History Problem Relation Age of Onset Coronary artery disease Mother Other Mother Family Status - Relation Status Age at Mother [facility] Office Visiton 08-13-2024 Follow-up visit [id number] Mercedes Alcocer ra S 1955 F Date Provider Department Center 08/13/2024 LAMINE RIOS CARD [facility] Family History Problem Relation Age of Onset Coronary artery disease Mother Other Mother Family Status - Relation Status Age at Mother Level of Service:72488 [place] OFFICE/OUTPATIENT NEW MODERATE MDM 45 MINUTES [facility] Orders Onlyon 08-13-2024 Orders Only [id number] AlcocerMercedes byrne ra S 1955 F Date Provider Department Center 08/13/2024 TOBI FLORES CARD [facility] Family History Problem Relation Age of Onset Coronary artery disease Mother Other Mother Family Status - Relation Status Age at Mother [facility] Office Visiton 05-22-2024 Follow-up visit [id number] Mercedes Alcocer ra S 1955 F Date Provider Department Center 05/22/2024 Cody-JANIYA CARLSON CARD [facility] Family History Problem Relation Age of Onset Coronary artery disease Mother Other Mother Family Status - Relation Status Age at Mother Level of Service:63957 AL OFFICE/OUTPATIENT ESTABLISHED MOD MDM 30 MIN [facility] BASIC METABOLIC PANLon 04-29 Anion gap [Moles/Vol] 11 mmol/L Normal 5-15 [facility] Comment on above: Performed By: #### B MP #### [facility] ([id number]) [address], [address] [place] [address] Calcium [Mass/Vol] 8.9 mg/dL Normal 8.5-10.5 [facility] Comment on above: Performed By: #### B MP #### [facility] ([id number]) [address], [address] [place] [address] Chloride [Moles/Vol] 104 mmol/L Normal 98-109 [facility] Comment on above: Performed By: #### B MP #### [facility] ([id number]) [address], [address] [place] [address] CO2 [Moles/Vol] 21 mmol/L Low 22-32 [facility] Comment on above: Performed By: #### B MP #### [facility] ([id number]) [address], [address] [place] [address] Creatinine [Mass/Vol] 0.88 mg/dL Normal 0.40-1.00 [facility] Comment on above: Result Comment: METH OD TRACEABLE TO IDMS STANDARD Performed By: #### B MP #### [facility] ([id number]) [address], [address] [place] [address] GFR/1.73 sq M.predicted among non-blacks MDRD (S/P/Bld) [Vol rate/Area] 70 mL/min/{1.73_m2} Normal >59 [facility] Comment on above: Result Comment: Reported eGFR is based on the CKD-EPI 2020 equation that does not use a race coefficient. Performed By: #### B MP #### [facility] ([id number]) [address], [address] [place] [address] Glucose [Mass/Vol] 100 mg/dL High 65-99 [facility] Comment on above: Performed By: #### B MP #### [facility] ([id number]) [address], [address] [place] [address] Potassium [Moles/Vol] 5.3 mmol/L High 3.5-5.0 [facility] Comment on above: Result Comment: SPEC IMEN HEMOLYZED, RESULTS INCREASED MODERATELY HEMOLYZED Performed By: #### B MP #### [facility] ([id number]) [address], [address] [place] [address] Sodium [Moles/Vol] 136 mmol/L Normal 134-146 [facility] Comment on above: Performed By: #### B MP #### [facility] ([id number]) [address], [address] [place] [address] Urea nitrogen [Mass/Vol] 24 mg/dL Normal 5-27 [facility] Comment on above: Performed By: #### B MP #### [facility] ([id number]) [address], [address] [place] [address] Sonido 04-19-2024 ANES ------ -- Attestation signed by Janiya Carlson MD at 04/19/2024 8:07 AM Janiya Carlson MD, MPH, [facility], [facility], [facility] Interventional Cardiology Pager Email: [email or web address] Patient: Romana Alcocer Procedure Information Date/Time: 04/19/24829 Procedure: Coronary angiography Location: 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 Additional Equipment Requests Normal [facility] Abstracton 04-19-2024 Abstract [id number] Mercedes Alcocer ra 1955 F Date Provider Department Center 04/19/2024 3244-WALE MARCANO [facility] Family History Problem Relation Age of Onset Coronary artery disease Mother Other Mother Family Status - Relation Status Age at Mother Normal [facility] CT ABDOMEN PELVIS W IV [...] Mcintosh MD. Not Vldtd Invalid Interpretation Code [facility] HPon 04-19-2024 HP ------ -- Attestation signed by Janiya Carlson MD at [...] me. Additional Comments: Janiya Carlson MD, MPH, [facility], [facility], [facility] Interventional Cardiology Pager Email: [email or web address] -- H&P reviewed. The patient was examined and there are no changes to the H&P. The procedure was explained to the patient. The risks and benefits of the procedure were explained to the patient who showed understanding and with full capacity elected to proceed with the procedure. All questions were addressed and answered. Jen Gale MD Padding Machine Operator - PGY6 [facility] Normal [facility] Anupama 04-19-2024 MARINO RN educated pt on d/ c instructions. [...] of unit with all of belongings. Normal [facility] Orders Onlyon 04-19-2024 Orders Only [id number] Mercedes Alcocer ra S 1955 F Date Provider Department Center 04/19/2024 ALFREDITO [facility] Family History Problem Relation Age of Onset Coronary artery disease Mother Other Mother Family Status - Relation Status Age at Mother Normal [facility] BASIC METABOLIC PANLon 04-15 Anion gap [Moles/Vol] 10 mmol/L Normal 5-15 [facility] Comment on above: Performed By: #### C BCA, BMP #### [facility] ([id number]) [address], [address] [place] [address] Calcium [Mass/Vol] 9.6 mg/dL Normal 8.5-10.5 [facility] Comment on above: Performed By: #### C BCA, BMP #### [facility] ([id number]) [address], [address] [place] [address] Chloride [Moles/Vol] 102 mmol/L Normal 98-109 [facility] Comment on above: Performed By: #### C BCA, BMP #### [facility] ([id number]) [address], [address] [place] [address] CO2 [Moles/Vol] 28 mmol/L Normal 22-32 [facility] Comment on above: Performed By: #### C BCA, BMP #### [facility] ([id number]) [address], [address] [place] [address] Creatinine [Mass/Vol] 0.88 mg/dL Normal 0.40-1.00 [facility] Comment on above: Result Comment: METH OD TRACEABLE TO IDMS STANDARD Performed By: #### C BCA, BMP #### [facility] ([id number]) [address] [address] GFR/1.73 sq M.predicted among non-blacks MDRD (S/P/Bld) [Vol rate/Area] 70 mL/min/{1.73_m2} Normal >59 [facility] Comment on above: Result Comment: Reported eGFR is based on the CKD-EPI 2020 equation that does not use a race coefficient. Performed By: #### C BCA, BMP #### [facility] ([id number]) [address] [address] Glucose [Mass/Vol] 88 mg/dL Normal 65-99 [facility] Comment on above: Performed By: #### C BCA, BMP #### [facility] ([id number]) [address] [address] Potassium [Moles/Vol] 4.1 mmol/L Normal 3.5-5.0 [facility] Comment on above: Performed By: #### C BCA, BMP #### [facility] ([id number]) [address] [address] Sodium [Moles/Vol] 140 mmol/L Normal 134-146 [facility] Comment on above: Performed By: #### C BCA, BMP #### [facility] ([id number]) [address] [address] Urea nitrogen [Mass/Vol] 24 mg/dL Normal 5-27 [facility] Comment on above: Performed By: #### C BCA, BMP #### [facility] ([id number]) [address] [address] CBC AND AUTO DIFFon 11-11-20 24 ABSOLUTE BASOPHIL 0.0 X10E9/L Normal 0.0-0.2 [facility] Comment on above: Performed By: #### C BCA, BMP #### [facility] ([id number]) [address] [address] ABSOLUTE NEUTROPHIL 4.5 X10E9/L Normal 1.5-6.6 [facility] Comment on above: Performed By: #### C TEMI, BMP #### [facility] ([id number]) [address], [facility] [address] [place] [address] Basophils/100 WBC (Bld) 0.5 % Normal [facility] Comment on above: Performed By: #### C TEMI, BMP #### [facility] ([id number]) [address] [address] [place] [address] Eosinophils (Bld) [#/Vol] 0.1 10*3/uL Normal 0.0-0.4 [facility] Comment on above: Performed By: #### C TEMI, BMP #### [facility] ([id number]) [address], [facility] [address] [place] [address] Eosinophils/100 WBC (Bld) 1.8 % Normal [facility] Comment on above: Performed By: #### C TEMI, BMP #### [facility] ([id number]) [address], [facility] [address] [place] [address] Erythrocyte distribution width (RBC) [Ratio] 15.7 % High 11.5-15.0 [facility] Comment on above: Performed By: #### C TEMI, BMP #### [facility] ([id number]) [address], [facility] [address] [place] [address] Hematocrit (Bld) [Volume fraction] 43.2 % Normal 35-47 [facility] Comment on above: Performed By: #### C TEMI, BMP #### [facility] ([id number]) [address] [address] [place] [address] Hemoglobin (Bld) [Mass/Vol] 13.9 g/dL Normal 11.7-15.5 [facility] Comment on above: Performed By: #### Buster MEMBRENO, BMP #### [facility] ([id number]) [address], [address] [place] [address] Lymphocytes (Bld) [#/Vol] 1.8 10*3/uL Normal 1.0-3.5 [facility] Comment on above: Performed By: #### C TEMI, BMP #### [facility] ([id number]) [address], [address] [place] [address] Lymphocytes/100 WBC (Bld) 24.9 % Normal [facility] Comment on above: Performed By: #### C TEMI, BMP #### [facility] ([id number]) [address] [place] [address] MCH (RBC) [Entitic mass] 28.1 pg Normal 27-34 [facility] Comment on above: Performed By: #### Buster MEMBRENO, BMP #### [facility] ([id number]) [address], [address] [place] [address] MCHC (RBC) [Mass/Vol] 32.1 g/dL Normal 32-36 [facility] Comment on above: Performed By: #### Buster MEMBRENO, BMP #### [facility] ([id number]) [address], [address] [place] [address] MCV (RBC) [Entitic vol] 88 fL Normal 80-100 [facility] Comment on above: Performed By: #### C TEMI, BMP #### [facility] ([id number]) [address] [place] [address] Monocytes (Bld) [#/Vol] 0.7 10*3/uL Normal 0-0.9 [facility] Comment on above: Performed By: #### Buster BCA, BMP #### [facility] ([id number]) [address] [place] [address] Monocytes/100 WBC (Bld) 9.3 % Normal [facility] Comment on above: Performed By: #### C BCA, BMP #### [facility] ([id number]) [address] [place] [address] Neutrophils/100 WBC (Bld) 63.5 % Normal [facility] Comment on above: Performed By: #### C BCA, BMP #### [facility] ([id number]) [address] [place] [address] Platelet mean volume (Bld) [Entitic vol] 8.9 fL Normal 7-12 [facility] Comment on above: Performed By: #### C BCA, BMP #### [facility] ([id number]) [address] [place] [address] Platelets (Bld) [#/Vol] 234 10*3/uL Normal 150-450 [facility] Comment on above: Performed By: #### C BCA, BMP #### [facility] ([id number]) [address] [place] [address] RBC COUNT 4.94 X10E12/L Normal 3.80-5.20 [facility] Comment on above: Performed By: #### C BCA, BMP #### [facility] ([id number]) [address] [place] [address] WBC (Bld) [#/Vol] 7.2 10*3/uL Normal 4.0-11.0 [facility] Comment on above: Performed By: #### C BCA, BMP #### [facility] ([id number]) [address], [address] [place] [address] [facility] 04-08-2024 [facility] Cardiology Clinic Note Chief Complaint: New patient here to establish care. Ref from Dr. Parra for abnormal echo performed last month. 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 Patient says she gets chest pain every [...] the cardiac catheterization Janiya Carlson MD, MPH, [facility], [facility], [facility] Interventional Cardiology Pager Email: [email or web address] Normal [facility] Office Visiton 04-08-2024 Follow-up visit [id number] Mercedes Alcocer ra 1955 F Date Provider Department Center 04/08/2024 271-JANIYA CARLSON Family History Problem Relation Age of Onset Coronary artery disease Mother Other Mother Family Status - Relation Status Age at Mother Level of Service:01235 AL OFFICE/OUTPATIENT [facility] HIGH MDM 60 MINUTES Normal [facility] Orders Onlyon 04-08-2024 Orders Only [id number] Mercedes Alcocer ra 1955 F Date Provider Department Center 04/08/2024 TOBI FLORES Family History Problem Relation Age of Onset Coronary artery disease Mother Other Mother Family Status - Relation Status Age at Mother Normal [facility] MG MAMM SCREEN 3D NIKKO CADon 08-15-2022 MG MAMM SCREEN 3D NIKKO CAD Patient: ROMANA ALCOCER Exam Date: 08/15/2022 : 1955 Gender:F Ordering : DR TEDDY PARRA . Admission #: [id number] Family : Order #: [id number] CLICK HERE TO VIEW EXAM RADIOLOGY REPORT [...] brain cancer at age 47. LOCATION: [facility] BREAST COMPOSITION: Scattered areas fibroglandular density. [...] MD on 08/15/2022 at 11:16 Normal [facility] Covid-19 PCR (CVDTBH)on 01-03 SARS-CoV-2 (COVID-19) RNA MARITZA+probe Ql (Unsp spec) Detected Critically abnormal NOT DETECTED [facility] Comment on above: Result Comment: This test is not yet approved or cleared by the [place] FDA. When there are no FDA-approved or cleared tests available, and other criteria are met, FDA can make tests available under an emergency access mechanism called an Emergency Use Authorization (EUA). The EUA for this test is supported by the [place] of Health and Human Service's (HHS's) declaration [...] used). Performed By: #### C VDTB #### [facility] [address] [place] [address] Dr. Tristan Craft CBC AUTO DIFFon 10-14-2021 BASO # 0.1 103/ul Normal 0.0-0.1 [facility] Comment on above: Performed By: #### C BC #### [facility] [address] [place] [address] Dr. Tristan Craft Basophils/100 WBC (Bld) 0.5 % Normal 0.2-2.0 [facility] Comment on above: Performed By: #### C BC #### [facility] [address] [place] [address] Dr. Tristan Craft EO # 0.2 103/ul Normal 0.0-0.7 [facility] Comment on above: Performed By: #### C BC #### [facility] [address] [place] [address] Dr. Tristan Craft Eosinophils/100 WBC (Bld) 1.6 % Normal 0.9-7.0 [facility] Comment on above: Performed By: #### C BC #### [facility] [address] [place] [address] Dr. Tristan Craft Erythrocyte distribution width (RBC) [Ratio] 14.3 % Normal 11.0-15.0 [facility] Comment on above: Performed By: #### C BC #### [facility] [address] [place] [address] Dr. Tristan Craft Hematocrit (Bld) [Volume fraction] 45.7 % Normal 36.0-48.0 [facility] Comment on above: Performed By: #### C BC #### [facility] [address] [place] [address] Dr. Tristan Craft Hemoglobin (Bld) [Mass/Vol] 14.3 g/dL Normal 12.0-16.0 [facility] Comment on above: Performed By: #### C BC #### [facility] [address] [place] [address] Dr. Tristan Craft IG # 0.03 10e3/ul Normal 0.00-0.03 [facility] Comment on above: Performed By: #### C BC #### [facility] [address] [place] [address] Dr. Tristan Craft IG % 0.3 % Normal 0.0-0.5 [facility] Comment on above: Performed By: #### C BC #### [facility] [address] [place] [address] Dr. Tristan Craft LYMPH # 2.5 103/ul Normal 1.2-3.8 [facility] Comment on above: Performed By: #### C BC #### [facility] [address] [place] [address] Dr. Tristan Craft Lymphocytes/100 WBC (Bld) 26.7 % Normal 20.5-60.0 [facility] Comment on above: Performed By: #### C BC #### [facility] [address] [place] [address] Dr. Tristan Craft MANUAL DIFF REQ NO Normal [facility] Comment on above: Performed By: #### C BC #### [facility] [address] [place] [address] Dr. Tristan Craft MCH (RBC) [Entitic mass] 27.8 pg Normal 26.7-34.0 [facility] Comment on above: Performed By: #### C BC #### [facility] [address] [place] [address] Dr. Tristan Craft MCHC (RBC) [Mass/Vol] 31.3 g/dL Normal 29.9-35.2 [facility] Comment on above: Performed By: #### C BC #### [facility] [address] [place] [address] Dr. Tristan Craft MCV (RBC) [Entitic vol] 88.9 fL Normal 81.0-99.0 [facility] Comment on above: Performed By: #### C BC #### [facility] [address] [place] [address] Dr. Tristan Craft MONO # 0.8 103/ul Normal 0.3-0.8 [facility] Comment on above: Performed By: #### C BC #### [facility] [address] [place] [address] Dr. Tristan Craft Monocytes/100 WBC (Bld) 8.0 % Normal 1.7-12.0 [facility] Comment on above: Performed By: #### C BC #### [facility] [address] [place] [address] Dr. Tristan Craft NEUT # 5.9 103/ul Normal 1.4-6.5 [facility] Comment on above: Performed By: #### C BC #### [facility] [address] [place] [address] Dr. Tristan Craft Neutrophils/100 WBC (Bld) 62.9 % Normal 43.0-75.0 [facility] Comment on above: Performed By: #### C BC #### [facility] [address] [place] [address] Dr. Tristan Craft Platelet mean volume (Bld) [Entitic vol] 10.4 fL Normal 9.5-13.5 [facility] Comment on above: Performed By: #### C BC #### [facility] [address] [place] [address] Dr. Tristan Craft PLT 302 103/ul Normal 150-450 [facility] Comment on above: Performed By: #### C BC #### [facility] [address] [place] [address] Dr. Tristan Craft RBC 5.14 106/ul Normal 4.20-5.40 [facility] Comment on above: Performed By: #### C BC #### [facility] [address] [place] [address] Dr. Tristan Craft WBC 9.3 103/ul Normal 4.0-11.0 [facility] Comment on above: Performed By: #### C BC #### [facility] [address] [address] [address] Tristan Craft FREE T3on 10-14-2021 FREE T3 2.03 pg/mlL Critically low 2.18-3.98 [facility] Comment on above: Performed By: #### T 4, CMP, TSH, LIPID, FT3 #### [facility] [address] [address] [address] Tristan Craft GLYCOHEMOGLOBIN A1Con 2021 ADA RECOMMENDATION SEE BELOW Normal [facility] Comment on above: Result Comment: ADA RECOMMENDED LIMIT 4.0 - 6.0 ADA THERAPEUTIC TARGET < 7.0 ACTION SUGGESTED > 7.0 Performed By: #### A 1C #### [facility] [address] [place] [address] Dr. Tristan Craft Glucose [Mass/Vol] 123 mg/dL Normal [facility] Comment on above: Performed By: #### A 1C #### [facility] [address] [address] [address] Tristan Craft HbA1c (Bld) [Mass fraction] 5.9 % Normal 4.5-6.2 [facility] Comment on above: Performed By: #### A 1C #### [facility] [address] [place] [address] Dr. Tristan Craft LIPID PROFILEon 10-14-2021 CHOL-HDL RATIO NORM SEE BELOW Normal [facility] Comment on above: Result Comment: 3.3 - 4.4 LOW RISK 4.4 - 7.1 AVERAGE RISK 7.1 - 11.0 MODERATE RISK >11.0 HIGH RISK Performed By: #### T 4, CMP, TSH, LIPID, FT3 #### [facility] [address] [address] [address] Tristan Craft Cholesterol [Mass/Vol] 126 mg/dL Normal <=200 Th [facility] Comment on above: Performed By: #### T 4, CMP, TSH, LIPID, FT3 #### [facility] [address] [address] [address] Tristan Craft Cholesterol in HDL [Mass/Vol] 53 mg/dL Normal 40-60 [facility] Comment on above: Performed By: #### T 4, CMP, TSH, LIPID, FT3 #### [facility] [address] [place] [address] Dr. Tristan Craft Cholesterol in LDL [Mass/Vol] 45.0 mg/dL Normal [facility] [facility] Comment on above: Performed By: #### T 4, CMP, TSH, LIPID, FT3 #### [facility] [address] [place] [address] Dr. Tristan Craft Cholesterol.total/Chol esterol in HDL [Mass ratio] 2.4 {ratio} Normal [facility] Comment on above: Performed By: #### T 4, CMP, TSH, LIPID, FT3 #### [facility] [address] [place] [address] Dr. Tristan Craft HDL NORMAL > or = 60 mg/dl - LO W CARDIOVASCULAR RISK <40 mg/dl - HIGH CARDIOVASCULAR RISK Normal [facility] Comment on above: Performed By: #### T 4, CMP, TSH, LIPID, FT3 #### [facility] [address] [place] [address] Dr. Tristan Craft LDL CALC NORMAL SEE BELOW Normal [facility] Comment on above: Result Comment: <100 mg/dl OPTIMAL 100 - 129 mg/dl NEAR OR ABOVE OPTIMAL 130 - 159 mg/dl BORDERLINE HIGH 160 - 189 mg/dl HIGH >190 mg/dl VERY HIGH Performed By: #### T 4, CMP, TSH, LIPID, FT3 #### [facility] [address] [place] [address] Dr. Tristan Craft Triglyceride [Mass/Vol] 140 mg/dL Normal <=150 [facility] Comment on above: Performed By: #### T 4, CMP, TSH, LIPID, FT3 #### [facility] [address] [place] [address] Dr. Tristan Craft VLDL CALC 28.0 mg/dL Normal [facility] Comment on above: Performed By: #### T 4, CMP, TSH, LIPID, FT3 #### [facility] [address] [place] [address] Dr. Tristan Craft PROF 14(COMP METB)on 022 Albumin [Mass/Vol] 3.8 g/dL Normal 3.4-5.0 [facility] Comment on above: Performed By: #### T 4, CMP, TSH, LIPID, FT3 #### [facility] [address] [address] [address] Tristan Craft Albumin/Globulin [Mass ratio] 1.1 {ratio} Normal [facility] Comment on above: Performed By: #### T 4, CMP, TSH, LIPID, FT3 #### [facility] [address] [address] [address] Tristan Craft ALP [Catalytic activity/Vol] 87 U/L Normal 46-116 [facility] Comment on above: Performed By: #### T 4, CMP, TSH, LIPID, FT3 #### [facility] [address] [place] [address] Dr. Tristan Craft ALT [Catalytic activity/Vol] 24 U/L Normal 14-59 [facility] Comment on above: Performed By: #### T 4, CMP, TSH, LIPID, FT3 #### [facility] [address] [address] [address] Tristan Craft Anion gap [Moles/Vol] 12.9 mmol/L Normal [facility] Comment on above: Performed By: #### T 4, CMP, TSH, LIPID, FT3 #### [facility] [address] [place] [address] Dr. Tristan Craft AST [Catalytic activity/Vol] 20 U/L Normal 15-37 [facility] Comment on above: Performed By: #### T 4, CMP, TSH, LIPID, FT3 #### [facility] [address] [address] [address] Tristan Craft Bilirubin [Mass/Vol] 0.5 mg/dL Normal 0.2-1.0 [facility] Comment on above: Performed By: #### T 4, CMP, TSH, LIPID, FT3 #### [facility] [address] [address] [address] Tristan Craft Calcium [Mass/Vol] 8.6 mg/dL Normal 8.5-10.1 [facility] Comment on above: Performed By: #### T 4, CMP, TSH, LIPID, FT3 #### [facility] [address] [place] [address] Dr. Tristan Craft Chloride [Moles/Vol] 101 mmol/L Normal 98-107 [facility] Comment on above: Performed By: #### T 4, CMP, TSH, LIPID, FT3 #### [facility] [address] [place] [address] Dr. Tristan Craft CO2 [Moles/Vol] 27.7 mmol/L Normal 21.0-32.0 [facility] Comment on above: Performed By: #### T 4, CMP, TSH, LIPID, FT3 #### [facility] [address] [place] [address] Dr. Tristan Craft Creatinine [Mass/Vol] 0.93 mg/dL Normal 0.55-1.02 [facility] Comment on above: Performed By: #### T 4, CMP, TSH, LIPID, FT3 #### [facility] [address] [place] [address] Dr. Tristan Craft EGFR-AF FINNISH >60 Normal >=60 [facility] Comment on above: Performed By: #### T 4, CMP, TSH, LIPID, FT3 #### [facility] [address] [place] [address] Dr. Tristan Craft EGFR-NON AF FINNISH =60 Normal >=60 [facility] Comment on above: Performed By: #### T 4, CMP, TSH, LIPID, FT3 #### [facility] [address] [place] [address] Dr. Tristan Craft Globulin (S) [Mass/Vol] 3.6 g/dL Normal [facility] Comment on above: Performed By: #### T 4, CMP, TSH, LIPID, FT3 #### [facility] [address] [place] [address] Dr. Tristan Craft Glucose [Mass/Vol] 108 mg/dL Critically high 74-106 [facility] Comment on above: Performed By: #### T 4, CMP, TSH, LIPID, FT3 #### [facility] [address] [place] [address] Dr. Tristan Craft Potassium [Moles/Vol] 3.6 mmol/L Normal 3.5-5.1 [facility] Comment on above: Performed By: #### T 4, CMP, TSH, LIPID, FT3 #### [facility] [address] [place] [address] Dr. Tristan Craft Protein [Mass/Vol] 7.4 g/dL Normal 6.4-8.2 [facility] Comment on above: Performed By: #### T 4, CMP, TSH, LIPID, FT3 #### [facility] [address] [place] [address] Dr. Tristan Craft Sodium [Moles/Vol] 138 mmol/L Normal 136-145 [facility] Comment on above: Performed By: #### T 4, CMP, TSH, LIPID, FT3 #### [facility] [address] [place] [address] Dr. Tristan Craft Urea nitrogen [Mass/Vol] 18.0 mg/dL Normal 7.0-18.0 [facility] Comment on above: Performed By: #### T 4, CMP, TSH, LIPID, FT3 #### [facility] [address] [place] [address] Dr. Tristan Craft Urea nitrogen/Creatinine [Mass ratio] 19.4 mg/mg Normal [facility] Comment on above: Performed By: #### T 4, CMP, TSH, LIPID, FT3 #### [facility] [address] [place] [address] Dr. Tristan Craft T4on 10-14-2021 T4 [Mass/Vol] 6.80 ug/dL Normal 4.80-13.90 [facility] Comment on above: Performed By: #### T 4, CMP, TSH, LIPID, FT3 #### [facility] [address] [place] [address] Dr. Tristan Craft TSHon 10-14-2021 TSH 2.277 uIU/mL Normal 0.358-3.74 0 [facility] Comment on above: Performed By: #### T 4, CMP, TSH,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
--- NOTE | 2024-12-23 07:03 | CA_ITS ---
Patient Name: MIGUEL ALCOCER MR#: [id number] : 1955 Exam Date: 12/23/2024 Ordering Doctor: KARON WRIGHT ECHOCARDIOGRAM REPORT PROCEDURE: CA ECHO DOPPLER COMPLETE INDICATIONS: Heart failure w/mildly reduced EF, MR, HTN COMPARISON: None. DESCRIPTION: COMPLETE ECHOCARDIOGRAM Real-time transthoracic echocardiography with 2D, M-mode, spectral and color flow Doppler performed. QUALITY: Technical quality was good. LEFT VENTRICLE: Normal chamber size. Thickened septal wall. The septum is abnormal in motion. There is mild global hypokinesis, with more involvement of the septum. Global left ventricular systolic function is mildly decreased. LV EF: Calculated left ventricular ejection fraction is 46%. Estimated LVEF is 45 to 50%. DIASTOLIC: Not adequately assessed due to heart rhythm. ATRIAL SEPTUM: LEFT ATRIUM: Moderate dilatation. RIGHT ATRIUM: Mild dilatation. RIGHT VENTRICLE: Normal chamber size. Normal right ventricular systolic function. TRICUSPID VALVE: Normal mobility and thickness. No stenosis with mild to moderate regurgitation. Mild pulmonary hypertension. RVSP 41 mmHg. MITRAL VALVE: Normal mobility and thickness. No evidence of mitral valve stenosis. There is no mitral annular calcification. Mild mitral regurgitation. AORTIC VALVE: Normal trileaflet appearance. Thickened aortic valve. Normal leaflet mobility. No evidence of aortic valve stenosis. No aortic regurgitation. AORTIC ROOT: Normal diameter and appearance, measuring 3.2 cm. The ascending aorta is normal in size measuring 3.0 cm. PULMONIC VALVE: Normal thickness and mobility. No stenosis. Trivial regurgitation. PERICARDIUM: No evidence of pericardial effusion. IVC: Collapses with inspiration. Normal size. PLEURA: CONCLUSION: 1. The left ventricle is normal in size and exhibits mild global hypokinesis with abnormal septal motion. Estimated LVEF is 45 to 50%. 2. Normal right ventricular size and systolic function. 3. Mild to moderate biatrial dilatation. 4. Mild mitral regurgitation. 5. Mild to moderate tricuspid regurgitation. 6. Mildly elevated right-sided pressures. RVSP is 41 mmHg. Adult Echocardiography Procedure Report Left Ventricle LVEDD (3.7 - 5.6 cm): 4.63 cm LVESD (2.2 - 4.0 cm): 3.88 cm LVIVS thickness (0.6 - 1.2 cm): 1.24 cm LVPW thickness (0.5 - 1.0 cm): 0.94 cm e': 0.18 m/s E - e': 5.46 LVOT Max Gradient: 2.63 mm[Hg] LVOT Area (cm2): 0.81 m/s Peak Velocity (LVOT): 0.81 m/s Mean Velocity (LVOT): 0.55 m/s LVOT Diameter 1.73 cm Left Ventricular Ejection Fraction: 46.23 % Left Atrium LA Volume Index (2D A2C): 38.36 ml/m2 Left Atrium Systolic Dimension: 3.58 cm Mitral Valve MV E to A Ratio: 113.65 Mitral Valve A-Wave Peak Velocity: 0.01 m/s Mitral Valve E-Wave Peak Velocity: 1.00 m/s Right Ventricle RV Internal Diastolic Dimension: 4.02 cm Aorta AO Root Diam: 3.15 cm Ascending Ao Diam: 3.04 cm Aortic Valve AoV Area (Peak Jerzy): 1.35 cm2, 1.35 cm2 AoV Area (VTI): 1.34 cm2, 1.34 cm2 Peak Velocity(Antegrade Flow): 1.41 m/s Peak Gradient(Antegrade Flow): 7.96 mm[Hg] Mean Velocity(Antegrade Flow): 0.94 m/s Mean Gradient(Antegrade Flow): 4.04 mm[Hg] Velocity Time Integral: 28.17 cm Tricuspid Valve Peak Velocity (Regurgitant Flow): 2.53 m/s, 3.05 m/s, 3.01 m/s, 2.95 m/s, 3.08 m/s Pulmonic Valve Mean Gradient: 2.27 mm[Hg], 1.96 mm[Hg] Mean Velocity: 0.70 m/s, 0.65 m/s Peak Velocity: 1.01 m/s Peak Gradient: 4.20 mm[Hg], 3.90 mm[Hg] Right Atrium Right Atrium Systolic Pressure: 71.14 ml, 71.14 ml Dictated by: Eliecer Mccord M.D. on 12/23/2024 at 08:32 Approved by: Eliecer Mccord M.D. on 12/23/2024 at 08:52
== END 2024-12-23 06:58 | disposition home or self-care (01) ==
LOC: CARD 06:57
PROVIDERS: PCP Family Medicine
DX: I50.22 Chronic systolic (congestive) heart failure (principal); I34.0 Nonrheumatic mitral (valve) insufficiency; I27.20 Pulmonary hypertension, unspecified
CPT/HCPCS: 93306

== ENCOUNTER 2025-02-06 09:21 | Outpatient (OUT) | payer MEDICARE, BC, SELFPAY ==
--- OUTSIDE RECORDS SUMMARY | 2013-09-27 06:30 | XMS_ITS | Continuity of Care Document ---
Author Organization [facility] Address [address] [place] [address] Phone Care Team Providers Care Patient Advocate Name Role Phone Kenzie DONOVAN, Che Unavailable [...] Procedure Date OCT Retina Offic/outpt E&m New UBIKOD 45 4 Advance Directives Directive Yes / No Effective Date File Name No Information Encounters Encounter Description Practice Location Reason(s) For Visit Diagnoses Date Provider Providers Copied on Encounter Offic/outpt E&m New Mod-hi 45 [employer], [address], [place], [place], [id number] , [place] tel:[phone] [facility] Shepherd Posterior Vitreous DegenerationSenile Nuclear CataractTear Film Insuffic NosTear Film Insuffic NosPosterior Vitreous DegenerationSenile Nuclear CataractExudative Macular Degeneration 4 Kenzie Bolton. [address] [facility], [place], [address]. tel:[phone] Referring Provider: Che Kerr, [address] [facility], [place], [address]. tel:[phone] Family History Family Member Type Diagnosis Age At Onset Mother Problem (finding) cataract Mother Problem (finding) Heart Disease Father Problem (finding) Cancer Father Problem (finding) Respiratory Disease Multiple Problem (finding) Arthritis Payers Payer name Insurance type Covered constitution party ID Authorlogan arabellajose luis(s) [facility] [id number] Social History Type Description Quantity Date [...]
--- OUTSIDE RECORDS SUMMARY | 2016-05-31 10:44 | XMS_ITS | Continuity of Care Document ---
Author Organization [facility] Address [address] [place] [address] Phone Care Team Providers Care Phlebotomy Coordinator Name Role Phone Unavailable Unavailable Unavailable Allergies, Adverse Reactions, Alerts Substance Reaction Status Criticality Penicillins Active No Information Medications Medication Instructions Dosage Effective Dates (start - stop) Status Comments ferrous sulfate 325 mg (65 mg iron) tablet take 1 tablet by oral route 2 times every day 325 MG - Active fludrocortisone 0.1 mg tablet take 1 tablet by oral route 2 times every day 0.1 MG - Active FOR ORTHOSTATIC HYPOTENSION Tylenol Arthritis Pain 650 mg tablet,extended release take 1 - 2 (650MG) by oral route every 5 hours as needed swallowing whole with water. Do not break, crush, dissolve and/or chew. 650 MG - Active trazodone 150 mg tablet take 2 tabletS (150MG) by oral route every day at bedtime - Active Topamax 200 mg tablet take 1 tablet (200MG) by oral route 2 times every day - Active loratadine 10 mg tablet take 1 tablet by oral route every day 10 MG - Active amitriptyline 10 mg tablet take 1 tablet by oral route 3 times every day 10 MG - Active gabapentin 600 mg tablet take 1 tablet by oral route 3 times every day 600 MG - Active sucralfate 1 gram tablet take 1 tablet by oral route 4 times every day on an empty stomach 1 hour before meals and at bedtime 1 G - Active Imitrex 50 mg tablet take 1 Tablet by oral route once once with fluids as early as possible after the onset of a migraine attack;may repeat after 2 hours 50 MG - Active Senokot 8.6 mg tablet take 2 tablet by oral route every day as needed for constipation - Active Cymbalta 60 mg capsule,delayed release take 2 tablets by mouth every day - Active Voltaren 1 % topical gel apply (2G) by topical route 2 times every day to the affected area(s) 2 G - Active Vitamin D3 5,000 unit tablet take 1 by Oral route once 1 - Active folic acid 1 mg tablet take 1 tablet (1MG) by oral route every day 1 MG - Active docusate sodium 100 mg capsule take 1 capsule by oral route 2 times every day at bedtime as needed 100 MG - Active lisinopril 5 mg tablet take 1 tablet by oral route every day 5 MG - Active Protonix 40 mg tablet,delayed release take 1 tablet (40MG) by oral route every day - Active Advance Directives Directive Yes / No Effective Date File Name No Information Encounters Encounter Description Practice Location Reason(s) For Visit Diagnoses Date Provider [facility], [address], [place], [id number], [place] tel:[phone] [facility] No Information 6 No Information [facility], [address], [place], [id number], [place] tel:[phone] [facility] post R total knee replacement (chief complaint)fib romyalgia (chief complaint)anx iety (chief complaint) ArthritisDepression with anxietyEssential (primary) hypertensionFibromyalgi aStatus post right knee replacementFamily history of diabetes mellitus in first degree relative 6 No Information [facility], [address], [place], [id number], [place] tel:[phone] [facility] No Information 6 No Information [facility], [address], [place], [id number], [place] tel:[phone] [facility] fatigue (chief complaint)dep ression (chief complaint) Fatigue, unspecified typeSeizure disorderDepression with anxiety 6 No Information [facility], [address], [place], [id number], [place] tel:[phone] [facility] wound (chief complaint) Superficial incisional surgical site infection, sequelaBody mass index (BMI) 22.0-22.9, adult Aug- 6 No Information [facility], [address], [place], [id number], [place] tel:[phone] [facility] OMT (chief complaint) Chronic bilateral thoracic back painThoracic region somatic dysfunctionSomatic dysfunction of cervical regionSomatic dysfunction of lumbar regionWound healing, delayed Aug-2 6 No Information [facility], [address], [place], [id number], [place] tel:[phone] [facility] No Information 6 No Information [facility], [address], [place], [id number], [place] tel:[phone] [facility] back pain (chief complaint) Bilateral thoracic back painCervical somatic dysfunction Aug-0 6 No Information [facility], [address], [place], [id number], [place] tel:[phone] [facility] back pain (chief complaint) Bilateral thoracic back painEssential hypertension 6 Bryant De La Rosa. [address], [place], [id number], [place]. tel:[phone] [facility], [address], [place], [address], [place] tel:[phone] [facility] back pain (chief complaint)nec k pain (chief complaint) Bilateral thoracic back painNeck pain 6 Bryant De La Rosa. [address], [place], [id number], [place]. tel:[phone] [facility], [address], [place], [id number], [place] tel:[phone] [facility] back pain (chief complaint)URI (chief complaint) Other dorsalgiaPain in right wristAcute recurrent frontal sinusitis 6 Dyar Maddie. [address], [place], [id number], [place]. tel:[phone] [facility], [address], [place], [address], [place] tel:[phone] [facility] back pain (chief complaint) Other dorsalgiaArthritisMajor depressive disorder, single episode, unspecified 6 No Information [facility], [address], [place], [id number], [place] tel:[phone] [facility] F/u vaginitis (chief complaint) H/O vaginitis 5 Meche Corrie. [address], [place], [id number], [place]. tel:[phone] [facility], [address], [place], [id number], [place] tel:[phone] [facility] Presence of right artificial knee joint 5 No Information [facility], [address], [place], [id number], [place] tel:[phone] [facility] vaginal bleeding after hyster (chief complaint) Acute vaginitis 5 Meche Corrie. [address], [place], [id number], [place]. tel:[phone] [facility], [address], [place], [id number], [place] tel:[phone] [facility] vaginal itching (chief complaint)art hritis (chief complaint) Vaginal candidaVaginal lesionArthritisPrimary osteoarthritis of both handsPrimary osteoarthritis, left hand 0- 5 No Information [facility], [address], [place], [id number], [place] tel:[phone] [facility] UTI (chief complaint) DysuriaHematuria of undiagnosed causeVaginal lesionBilateral low back pain without sciaticaFamily history of kidney stone 5 No Information [facility], [address], [place], [id number], [place] tel:[phone] [facility] Follow Up of hypertension (chief complaint)fat igue (chief complaint)collins nt pain (chief complaint) Essential (primary) hypertensionOther fatigueVitamin D deficiency 5 No Information [facility], [address], [place], [id number], [place] tel:[phone] [facility] OMT (chief complaint)ramin mb pain (chief complaint) Cervical somatic dysfunctionThoracic region somatic dysfunctionSacral region somatic dysfunctionRib cage region somatic dysfunctionDe Quervain's tenosynovitis, bilateral 5 No Information [facility], [address], [place], [id number], [place] tel:[phone] [facility] Major depressive disorder, single episode, unspecified 5 No Information [facility], [address], [place], [address], [place] tel:[phone] [facility] lower back pain (chief complaint)ken ulder pain (chief complaint) Cervical somatic dysfunctionThoracic region somatic dysfunctionLumbar region somatic dysfunctionSacral region somatic dysfunctionSomatic dysfunction of rib cage region 5 Reyna Chong. [address], [place], [id number], [place]. tel:[phone] [facility], [address], [place], [address], [place] tel:[phone] [facility] influenza immunization (chief complaint) Needs flu shot 5 Mj Sorensen. [address], [place], [id number], [place]. tel:[phone] [facility], [address], [place], [address], [place] tel:[phone] [facility] headache (chief complaint) Dietary surveillance and counselingArm skin lesion, rightOtitis media, leftSinusitis 5 No Information [facility], [address], [place], [id number], [place] tel:[phone] [facility] left bruised heel (chief complaint)hyp ertension (chief complaint) Pain of right heelElevated BP - 5 No Information [facility], [address], [place], [id number], [place] tel:[phone] [facility] right hand pain (chief complaint)ear pain (chief complaint) Right wrist painLesion of right external ear 5 Axel Schwarz. [address], [place], [id number], [place]. tel:[phone] [facility], [address], [place], [address], [place] tel:[phone] [facility] Medicare preventive (chief complaint) Medicare annual wellness visit, initialScreening for depression 5 No Information [facility], [address], [place], [id number], [place] tel:[phone] [facility] neuropathy (chief complaint)hyp okalemia (chief complaint) NeuropathyHypokalemiaAn emiaUpper extremity weaknessElevated BP 5 No Information [facility], [address], [place], [id number], [place] tel:[phone] [facility] fibromyalgia (chief complaint) Fibromyalgia muscle pain 5 Dyar Maddie. [address], [place], [id number], [place]. tel:[phone] [facility], [address], [place], [address], [place] tel:[phone] [facility] back pain (chief complaint) Fibromyalgia muscle painBack painOtitis media 5 [facility]. [address], [place], [id number], [place]. tel:[phone] [facility], [address], [place], [address], [place] tel:[phone] [facility] URI (chief complaint) Sinusitis 0 5 No Information [facility], [address], [place], [address], [place] tel:[phone] [facility] back pain (chief complaint) Back painKnee pain, chronic 3 0 5 No Information [facility], [address], [place], [id number], [place] tel:[phone] [facility] ear infection (chief complaint)syn copal episodes (chief complaint) Otitis mediaDizzinessNonallopa thic lesions of head region, not elsewhere classified 0 5 No Information [facility], [address], [place], [address], [place] tel:[phone] [facility] Back pain (chief complaint) Screening for breast cancerBack painOtitis media 2 5 No Information [facility], [address], [place], [id number], [place] tel:[phone] [facility] right knee pain (chief complaint)fat igue (chief complaint) Pain due to total right knee replacementHx of iron deficiency anemiaHyperlipidemiaFat igue 0 5 No Information [facility], [address], [place], [id number], [place] tel:[phone] [facility] medicare preventive (chief complaint) Medicare annual wellness visit, subsequent - 5 No Information [facility], [address], [place], [id number], [place] tel:[phone] [facility] neck pain (chief complaint)ear pain (chief complaint)yesy k pain (chief complaint) Ear painFatigueNeck painBack painNonallopathic lesions of upper extremities, not elsewhere classified 5 No Information [facility], [address], [place], [address], [place] tel:[phone] [facility] Arthalgias (chief complaint)Yesy k pain (chief complaint)hea dache (chief complaint) Back painKnee pain, chronicOther chronic painMigraineDM (diabetes mellitus screen)HypokalemiaScree venkat for hyperlipidemiaNonallopa thic lesions of sacral region, not elsewhere classifiedNonallopathic lesions of lower extremities, not elsewhere classified 4 Bryant De La Rosa. [address], [place], [id number], [place]. tel:[phone] [facility], [address], [place], [address], [place] tel:[phone] [facility] back pain (chief complaint)sea raquel allergies (chief complaint) Seasonal allergiesBack pain 4 No Information [facility], [address], [place], [address], [place] tel:[phone] [facility] back pain (chief complaint)vac cinations (chief complaint) Back painNeck painDysphagiaEncounter for immunization 4 [facility]. [address], [place], [id number], [place]. tel:[phone] [facility], [address], [place], [address], [place] tel:[phone] [facility] back pain (chief complaint) Back painSomatic dysfunction of thoracic regionNonallopathic lesions of lumbar region, not elsewhere classified 4 No Information [facility], [address], [place], [id number], [place] tel:[phone] [facility] Burning on urination (chief complaint) UTI (lower urinary tract infection)Gain of weightDysuria 4 No Information [facility], [address], [place], [address], [place] tel:[phone] [facility] Dysuria 4 No Information [facility], [address], [place], [address], [place] tel:[phone] [facility] back pain (chief complaint) Back painNeck painWeight loss 4 No Information [facility], [address], [place], [address], [place] tel:[phone] [facility] knee replacement (chief complaint) Status post right knee replacement 4 [facility]. [address], [place], [id number], [place]. tel:[phone] [facility], [address], [place], [address], [place] tel:[phone] [facility] Weight loss (chief complaint)kne e pain (chief complaint)ACE D (chief complaint) Loss of weightDysphagiaKnee painGERD (gastroesophageal reflux disease) 4 No Information [facility], [address], [place], [id number], [place] tel:[phone] [facility] dyphagia (chief complaint) Dysphagia, unspecified No Information [facility], [address], [place], [id number], [place] tel:[phone] [facility] weight loss (chief complaint)Diz ziness (chief complaint) Weight lossDizziness 4 No Information [facility], [address], [place], [address], [place] tel:[phone] [facility] follow up on lab test(s) (chief complaint)hyp okalemia (chief complaint)donnell ght loss (chief complaint) MalnutritionLosing weightHypokalemiaBack painLeft knee pain 4 No Information [facility], [address], [place], [address], [place] tel:[phone] [facility] OMT (chief complaint)donnell ght loss (chief complaint) Weight lossSomatic dysfunction of thoracic regionDM (diabetes mellitus screen)Screening for hyperlipidemiaFatigue 4 No Information [facility], [address], [place], [address], [place] tel:[phone] [facility] back pain (chief complaint) Back pain 4 No Information [facility], [address], [place], [address], [place] tel:[phone] [facility] back pain (chief complaint) Back pain 4 No Information [facility], [address], [place], [id number], [place] tel:[phone] [facility] annual physical (chief complaint) Annual physical examRoutine Medical Exam 4 No Information [facility], [address], [place], [id number], [place] tel:[phone] [facility] omt (chief complaint)wou nd (chief complaint) Other chronic painArm skin lesion, right 4 No Information [facility], [address], [place], [address], [place] tel:[phone] [facility] dizziness (chief complaint)med ical management (chief complaint) Syncope and collapseEar painDepressionBack pain 4 Bryant De La Rosa. [address], [place], [id number], [place]. tel:[phone] [facility], [address], [place], [address], [place] tel:[phone] [facility] falling (chief complaint)med ication managment (chief complaint)fol low up on lab test(s) (chief complaint) BradycardiaOtitis mediaDepressionLow ironDizzinessInsomnia 4 Dyar Maddie. [address], [place], [id number], [place]. tel:[phone] [facility], [address], [place], [address], [place] tel:[phone] [facility] referral for VNS (chief complaint) S/P placement of VNS (vagus nerve stimulation) dev 4 [facility]. [address], [place], [address], [place]. tel:[phone] [facility], [address], [place], [address], [place] tel:[phone] [facility] constipation (chief complaint)yesy k pain (chief complaint)hea ring concerns (chief complaint) ConstipationBack painHearing lossHeart murmurScreening for breast cancerEncounter for screening colonoscopyScreening for hyperlipidemiaFatigue 4 No Information [facility], [address], [place], [address], [place] tel:[phone] [facility] OMT (chief complaint)ken ulder pain (chief complaint)dep ression (chief complaint) DepressionSomatic dysfunction of cervical regionSomatic dysfunction of spine, thoracicPain in joint involving shoulder region 3 No Information [facility], [address], [place], [address], [place] tel:[phone] [facility] referral (chief complaint) Referral of patientPain in joint involving shoulder region 3 No Information [facility], [address], [place], [address], [place] tel:[phone] [facility] OMT (chief complaint)nee ds Topiramate refilled (chief complaint) Somatic dysfunctionDepressionMi graineRight shoulder painKnee joint replacement 3 No Information [facility], [address], [place], [address], [place] tel:[phone] [facility] arthralgias (chief complaint)fol low up on lab test(s) (chief complaint) Fibromyalgia muscle painKnee joint replacement by other meansRight shoulder painGERD (gastroesophageal reflux disease)Nausea & vomiting 3 No Information [facility], [address], [place], [address], [place] tel:[phone] [facility] shoulder pain (chief complaint)rig ht knee (chief complaint) Pain due to total right knee replacementKnee joint replacement by other meansRight shoulder pain 3 [facility]. [address], [place], [address], [place]. tel:[phone] [facility], [address], [place], [address], [place] tel:[phone] [facility] Hearing loss 0 3 Bryant De La Rosa. [address], [place], [address], [place]. tel:[phone] [facility], [address], [place], [address], [place] tel:[phone] [facility] establish care (chief complaint)dep ression (chief complaint)chr onic conditions (chief complaint)yesy k pain (chief complaint)hea dache (chief complaint)sei zure (chief complaint) Connective tissue diseaseHypertensionMigr aineFibromyalgia muscle painChronic lower back painOther chronic painSeizures 3 [facility]. [address], [place], [address], [place]. tel:[phone] Family History Family Member Type Diagnosis Age [...] Record Payers Payer name Insurance type Covered alliance party ID Authoriza tijose luis(s) [employer] [id number] [facility] [id number] [employer] [id number] [facility] [id number] [employer] [id number] [facility] [id number] Social History Type Description Quantity Date Captured [...] Surgery Appointment date/timeframe: 06/15/2015 ordered Referral Ordered: ABDOMEN, KUB ordered Referral Ordered: Urine culture and sensitivity ordered Referral Ordered: Culture and sensitivity of specimen ordered Referral Referred To: Renetta Mcgregor Ordered: Referrals: Gynecology. Renetta Mcgregor Appointment date/timeframe: 05/20/2015 ordered Referral Ordered: Referrals: Neurology. Evaluate and treat Appointment date/timeframe: 07/14/2015 ordered Referral Ordered: Muscle test 2 limbs ordered Referral Ordered: Referrals: Physical Therapy Appointment date/timeframe: 08/20/2014 ordered Referral Ordered: CBC WITHOUT DIFF ordered Referral Ordered: LIPID PANEL Appointment date/timeframe: today ordered Referral Ordered: CMP Appointment date/timeframe: today ordered Referral Ordered: CBC Appointment date/timeframe: today ordered Referral Ordered: Vitamin D, 25-Hydroxy ordered Referral Ordered: X-RAY EXAM OF KNEES ordered Referral Ordered: Referrals: Orthopedics Appointment date/timeframe: 01/23/2014 ordered Referral Ordered: Referrals: Gastroenterology Appointment date/timeframe: 01/13/2014 ordered Referral Ordered: CHEST PA & LATERAL (2 VIEWS) ordered Referral Ordered: ENT (related to Ear pain) ordered Referral Ordered: [facility] (related to Depression) ordered Referral Ordered: Physical Therapist/Independent (related to Back pain) ordered Referral Ordered: ECHO EXAM OF HEART Appointment date/timeframe: 10/02/2013 ordered Referral Ordered: Referral: Pain Management. ordered Referral Referred To: [facility] Ordered: Referral: [facility]. ordered Referral Ordered: Referral: Physical Therapist/Independent. ordered Referral Ordered: Cardiology (related to Bradycardia) ordered Referral Ordered: Referral: Cardiology. ordered Referral Referred To: [phone] Ordered: Referral: [phone]. ordered Referral Ordered: 24 to 48 hour Holter electrocardiographic monitoring Appointment date/timeframe: 09/02/2013 ordered Referral Ordered: ELECTROCARDIOGRAM, COMPLETE ordered Referral Ordered: [facility] (related to S/P placement of VNS (vagus nerve stimulation) dev) ordered Referral Referred To: [facility] Ordered: Referral: [facility]. ordered Referral Ordered: Referral: ENT. Appointment date/timeframe: 08/13/2013 ordered Referral Ordered: MAMMOGRAM, SCREENING ordered Referral Ordered: Referral: [facility]. ordered Referral Referred To: [facility] Ordered: Referral: [facility]. ordered Referral Ordered: Referral: Ortho Surg. Appointment date/timeframe: 03/28/2013 ordered Referral Ordered: SHOULDER - R/L ordered Referral Ordered: Referral: Patient Financial Specialist/Independent. Appointment date/timeframe: 02/23/2013 ordered Patient Education A Healthy Lifestyle: Ca re Instructions completed Patient Education Depression Treatment: A fter Your Visit completed Future Order: Lab Order HEMOGLOB IN A1C ([id number]), Ordered on: Ordered Future Order: Lab Order Vitamin B12 and Folate ([id number]), Ordered on: Ordered Future Order: Lab Order Iron/TIB C ([id number]), Ordered on: Ordered Future Order: Lab Order T4 FREE ([id number]), Ordered on: Ordered Future Order: Lab Order TSH ([id number]), O rdered on: Ordered Future Order: Lab Order Vitamin D, 25-Hydroxy ([id number]), Ordered on: Ordered History Of Present Illness [...] vomiting. Instructions Date Instruction Additional Infor yonathan Stable. Dr. Denson is leaving her practice but your condition is stable. Continue with counseling. We will refill your medications but if you need a new psychiatarist; please let us know and we can put in a referral for you. Related to Depression with anxiety Will check HEMOGLOBI N A1 C, which is an average of 3 month blood sugars. Will call with results and send to [facility]. Your Physician Today: Dr. Pam Dodson. HAPPY December! If you have any questions or concerns, please call [facility] @ [phone] HOURS:Monday thru 7AM-8PMFriday 7AM-5PMSatur 9AM-1PMCall to make an appointment: [phone] Related to Family history of diabetes mellitus in first degree relative Stable. Refilled TYL ENOL ARTHRITIS and VOLTAREN GEL. Use as prescribed. Related to Arthritis Stable. Medications refilled. Re lated to Fibromyalgia Stable. Continue to follow with Orthopedic Surgery as needed. Related to Status post right knee replacement Stable. Will continu e with LISINOPRIL. Refills sent to pharmacy. Related to Essential (primary) hypertension Increase activity. Related to Es sential (primary) hypertension Follow a low sodium diet. Relate d to Essential (primary) hypertension Medications as instructed Relate d to Fibromyalgia Dietary needs education Related to Body mass index (BMI) 22.0-22.9, adult Giving encouragement to exercise Related to Body mass index (BMI) 22.0-22.9, adult Will check lab work. Continue with vitamin supplements. Related to Fatigue, unspecified type Discuss with Dr. Collins the need for any medication. Will continue to follow. Your Physician Today: Dr. Pam Dodson. Have a wonderful day! If you have any questions or concerns, please call [facility] @ [phone] ACUTE CARE HOURS:Monday thru -Fr-[facility] to make an appoointment: [phone] Related to Depression with anxiety Continue with [...] have any questions or concerns, please call [facility] @ [phone] ACUTE CARE HOURS:Monday thru -PMFr-[facility] to make an appoointment: [phone] Related to Superficial incisional surgical site infection, [...] 2 weeks Related to Acute vaginitis Pt T5-T7 SlRl treate d reflexively with cervical OMT. Related to Thoracic region somatic dysfunction C5-C7 SlRl treated w ith ME and MFR. Pt tolerated & had Inc ROM wi/OMT. Related to Cervical somatic dysfunction L1-L3 SlRl treated w ith MFR. Pt tolerated OMT, had inc ROM reassessed. Related to Lumbar region somatic dysfunction LoL sacrum and post L inominate treated w OMT, had dec pain on reassessment Related to Sacral region somatic dysfunction Pt tolerated OMT and had inc ROM of chest wall expansion with breathing. Related to Somatic dysfunction of rib cage region Pt inhalation R 1st rib treated w/ ME, exhaled ribs 4-8 treated reflexively Related to Somatic dysfunction of rib cage region Retrun if problems or if you wor sen Related to Sinusitis Dietary needs education Related to Dietary surveillance and counseling Mental health care education Rel ated to Depression Counseled on dietary changes Assessments Type Assessment Date No Information
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
--- OUTSIDE RECORDS SUMMARY | 2025-02-06 09:26 | XMS_ITS | Encounter Summary ---
[id number] [address] [place] [address] Care Team Providers Care Drug Worker Name Role Phone Klaus Parra MD Primary Care Provider [phone] Reason for Visit * Reason Comments Med Change Request Encounter Details Date Type Department Care Team (Late st Contact Info) Description 03/14/2023 Refill [facility] [address] [place] [address] Micaela Glass, TONAL REGULATOR-[facility] [address] [place], [place] [id number] History of colon polyps Social History Tobacco [...] polyps documented in this encounter Care Teams Drug Worker Relationship Specialty Start Date End Date Klaus Parra MD [address] [place] [address] PCP - General Family Medicine 04/15/24 documented as of this encounter
--- OUTSIDE RECORDS SUMMARY | 2025-02-06 09:26 | XMS_ITS | Clinical Summary ---
Author Organization [facility] Address [address] [place] [facility] [place] [address] Care Team Providers Care Hspt Tutor Name Role Phone Klaus Parra MD Primary Care Provider [phone] Allergies Active Allergy Reactions Criticality Noted Date [...] 09/10/2012 Colorectal Cancer Screening 09/10/2022 Influenza Vaccine (#1) 2025 2, 03/14/2021, 02/20/2020, Additional history exists Procedures Procedure Name Priority Date/Time Associated Diagnosis Comments COLONOSCOPY Routine 09/10/2012 12:00 PM EDT from Last 3 Months or Most Recently Relevant to Health Maintenance Results * Colonoscopy (09/10/2012 12:00 PM EDT) Anatomical Region Laterality Modality Endoscopy 09/10/2012 12:0 0 PM EDT Narrative 09/10/2012 12:00 PM EDT PERFORMED AT [facility] LOCATION:[id number] diverticulosis Procedure Note CONVERSION, GENERIC - 10/20/2022 PERFORMED AT [facility] LOCATION:[id number] diverticulosis Obdulio Davis MD ENDOSCOPY PROCEDURE ORDERABLES Final Result from Last 3 Months or Most Recently Relevant to Health Maintenance Insurance MEDICARE [facility] Care Teams Hspt Tutor Relationship Specialty Start Date End Date Klaus Parra MD PCP - General Family Medicine 11/25/22
--- OUTSIDE RECORDS SUMMARY | 2025-02-06 09:26 | XMS_ITS | Encounter Summary ---
Author Organization [facility] Address [address] [facility] [place] [address] Care Team Providers Care Freight Unloader Name Role Phone Klaus Parra MD Primary Care Provider [phone] Encounter Details Date Type Department Care Team (Late st Contact Info) Description 11/24/2022 Abstract [facility] [address] [place] [address] Flex Martinez, PA [address] [place] [address] Social History Tobacco Use Types Packs/Day Years [...] on filedocumented in this encounter Care Teams Freight Unloader Relationship Specialty Start Date End Date Klaus Parra MD PCP - General Family Medicine 11/25/22 documented as of this encounter
--- OUTSIDE RECORDS SUMMARY | 2025-02-06 09:26 | XMS_ITS | Encounter Summary ---
Author Organization [facility] Address [address] [place] [address] Care Team Providers Care Computer Engineering Technologist Name Role Phone Klaus Parra MD Primary Care Provider [phone] Encounter Details Date Type Department Care Team (Late st Contact Info) Description 12/26/2022 Orders Only [facility] [address] [place] [address] Michela Jiménez ARRT Social History Tobacco Use Types [...] on filedocumented in this encounter Care Teams Computer Engineering Technologist Relationship Specialty Start Date End Date Klaus Parra MD PCP - General Family Medicine 11/25/22 documented as of this encounter
--- OUTSIDE RECORDS SUMMARY | 2025-02-06 09:27 | XMS_ITS | Encounter Summary ---
Author Organization [facility] [facility] Address [id number] [address] [place] [address] Care Team Providers Care Patent Paralegal Name Role Phone Klaus Parra MD Primary Care Provider [phone] Encounter Details Date Type Department Care Team (Latest Contact Info) Description 01/31/2025 Travel Social History Tobacco Use Types Packs/Day [...] on filedocumented in this encounter Care Teams Patent Paralegal Relationship Specialty Start Date End Date Klaus Parra MD [address] [place] [address] PCP - General Family Medicine 04/15/24 documented as of this encounter
--- OUTSIDE RECORDS SUMMARY | 2025-02-06 09:27 | XMS_ITS | Clinical Summary ---
Author Organization [facility] Address [id number] [address] [place] [address] Care Team Providers Care Fringe Knotter Name Role Phone Klaus Parra MD Primary Care Provider [phone] Allergies Active Allergy Reactions Criticality Noted Date [...] Encounters Date Type Department Care Team Description 02/04/2025 Travel 01/31/2025 Travel 01/03/2025 Travel 12/30/2024 Travel 12/19/2024 Travel from Last 3 Months Family [...] Health Maintenance Due Date Last Done Comments Statin Use: Cardiovascular 1955 Depression Screening 1965 Zoster (Shingles) Vaccine (1 of 2) 2003 Fall Risk Screening 2018 Adult BMI Screening 01/31/2025 02/01/2024 Tobacco Screening 01/31/2025 02/01/2024 COVID-19 Vaccine (2023-07 5 season) 2025 03/23/2024, 03/22/2023, 04/05/2022, Additional history exists Influenza Vaccine 02/03/2025 03/22/2023, , 03/14/2021, Additional history exists DTaP,Tdap and Td Vaccines (2 - Td or Tdap) 02/28/2025 02/28/2015 Colonoscopy 05/04/2028 05/04/2023, 04/07, 03/12/2018, Additional history exists Medical Devices Implanted Type Area Food And Beverage Outlets Manager Device Identifier Shelf Expiration Date Model / Serial / Lot Lens Iol [employer] Fld Asph Uv [employer] Lght Fltr [facility] - [id number] - [id number] Implanted:Qty: 1 on 01/11/2024 by Petrona Box MD at [facility] Lens Left: Eye [employer] 04/12/2027 [id number] / [id number] / NA Lens Iol [id number] [employer] Rpl [id number] - [id number] - [id number] Implanted:Qty: 1 on 02/01/2024 by Petrona Box MD at [facility] Lens Right: Eye [employer] 08/28/2027 [id number].220 / [id number] / NA Procedures Procedure Name Priority [...] Recently Relevant to Health Maintenance Insurance [facility]IC[facility] Care Teams Fringe Knotter Relationship Specialty Start Date End Date Klaus Parra MD [address] [place] [address] PCP - General Family Medicine 04/15/24
--- OUTSIDE RECORDS SUMMARY | 2025-02-06 09:27 | XMS_ITS | Encounter Summary ---
Author Organization [employer] [facility] Address [id number] [address] [place] [address] Care Team Providers Care Talent Acquisition Coordinator Name Role Phone Klaus Parra MD Primary Care Provider [phone] Encounter Details Date Type Department Care Team (Latest Contact Info) Description 02/04/2025 Travel Social History Tobacco Use Types Packs/Day [...] on filedocumented in this encounter Care Teams Talent Acquisition Coordinator Relationship Specialty Start Date End Date Klaus Parra MD [address] [place] [address] PCP - General Family Medicine 04/15/24 documented as of this encounter
--- OUTSIDE RECORDS SUMMARY | 2025-02-06 09:28 | XMS_ITS | CCD ---
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 [facility] Serum or plasma ethanol ruddy urement (mass/volume)Ordered By: Lin Silverio on 11-19-2024 Ethanol [Mass/Vol] TNP [facility] Comment on above: Test not performed Sodium [Moles/volume] in Ser um or PlasmaOrdered By: Lin Silverio on 11-19-2024 Sodium [Moles/Vol] 140 mmol/L 136-145 [facility] Urea nitrogen [Mass/volume] in Serum or PlasmaOrdered By: Lin Silverio on 11-19-2024 Urea nitrogen [Mass/Vol] 23 mg/dL 12-27 [facility] WBC Auto (Bld) [#/Vol]Ordere d By: Lin Silverio on 11-19-2024 WBC (Bld) [#/Vol] 9.0 10*3/uL 3.8-11.6 [facility] Orders Onlyon 11-18-2024 Orders Only [id number] Mercedes Alcocer ra 1955 F Date Provider Department Center 11/18/2024 KARON FRANKLIN Family History Problem Relation Age of Onset Coronary artery disease Mother Other Mother Family Status - Relation Status Age at Mother Father [facility] Follow-Upon 11-15-2024 Follow-Up [id number] Mercedes Alcocer ra 1955 F Date Provider Department Center 11/15/2024 KARON FRANKLIN Family History Problem Relation Age of Onset Coronary artery disease Mother Other Mother Family Status - Relation Status Age at Mother Father Level of Service:67229 [place] OFFICE/OUTPATIENT ESTABLISHED MOD MDM 30 MIN [facility] 36on 09-27-2024 36 Per text message rohini Ovalle and Dr. Sheehan patient is to take Amiodarone 200 mg 1 time per day until instructed to stop, at least until after the ablation. Advised patient, patient verbalized understand and has a follow up appointment with cardiology November 01. Normal [facility] ANESon 09-26-2024 ANES ------ -- Attestation signed [...] Procedure Information Date/Time: 09/26/24829 Procedure: Cardioversion Location: [facility] DATA ANALYSIS INTERN HOLDING ROOM / [facility] (Cath) Providers: Lamine Sheehan MD [...] discussed with attending. Additional Equipment Requests Normal [facility] HPon 09-26-2024 [facility] Electrophysiology Consult Note [place] [facility] Reason for visit: Atrial fibrillation [...] history of stroke or TIAs or any MS in the past but has a family [...] Use: Not At Risk (02/20/2018) Received from [facility], [facility] AUDIT-C Frequency of Alcohol Consumption: Never Average Number of Drinks: Not on file Frequency of Binge Drinking: Not on file Financial Resource Strain: Not on file Food Insecurity: No Food Insecurity (03/14/2023) Received from [facility], [facility] Hunger Screening Within the past 12 months [...] on file Intimate Partner Violence: Unknown (07/27/2023) [place] Safety & Environment Fear of Current or [...] Physical Exam: Consti (more content not included)... [facility] NURSNOTEon 09-26-2024 NURSNOTE RN educated pt [...] of unit with all of belongings. Normal [facility] Orders Onlyon 09-18-2024 Orders Only [id number] Mercedes Alcocer ra 1955 Provider Department Center 09/18/2024 ERIN GROVER [facility] Family History Problem Relation Age of Onset Coronary artery disease Mother Other Mother Family Status - Relation Status Age at Mother [facility] Office Visiton 08-13-2024 Follow-up visit [id number] Mercedes Alcocer ra 1955 Date Provider Department Center 08/13/2024 LAMINE RIOS CARD [facility] Family History Problem Relation Age of Onset Coronary artery disease Mother Other Mother Family Status - Relation Status Age at Mother Level of Service:00493 [place] OFFICE/OUTPATIENT NEW MODERATE MDM 45 MINUTES [facility] Orders Onlyon 08-13-2024 Orders Only [id number] Mercedes Alcocer ra 1955 Date Provider Department Center 08/13/2024 TOBI FLORES CARD [facility] Family History Problem Relation Age of Onset Coronary artery disease Mother Other Mother Family Status - Relation Status Age at Mother [facility] Office Visiton 05-22-2024 Follow-up visit [id number] Mercedes Alcocer ra 1955 Date Provider Department Center 05/22/2024 Cody-JANIYA CARLSON CARD [facility] Family History Problem Relation Age of Onset Coronary artery disease Mother Other Mother Family Status - Relation Status Age at Mother Level of Service:19377 [place] OFFICE/OUTPATIENT ESTABLISHED MOD MDM 30 MIN [facility] BASIC METABOLIC PANLon 04-29 Anion gap [Moles/Vol] 11 mmol/L Normal 5-15 [facility] Comment on above: Performed By: #### B MP #### [facility] ([id number]) [address], [address] [place] [address] Calcium [Mass/Vol] 8.9 mg/dL Normal 8.5-10.5 [facility] Comment on above: Performed By: #### B MP #### [facility] ([id number]) [address], [address] [place] [address] Chloride [Moles/Vol] 104 mmol/L Normal 98-109 [facility] Comment on above: Performed By: #### B MP #### [facility] ([id number]) [address], [address] [place] [address] CO2 [Moles/Vol] 21 mmol/L Low 22-32 [facility] Comment on above: Performed By: #### B MP #### [facility] ([id number]) [address], [address] [place] [address] Creatinine [Mass/Vol] 0.88 mg/dL Normal 0.40-1.00 [facility] Comment on above: Result Comment: METH OD TRACEABLE TO IDMS STANDARD Performed By: #### B MP #### [facility] ([id number]) [address], [address] [place] [address] GFR/1.73 sq M.predicted among non-blacks MDRD (S/P/Bld) [Vol rate/Area] 70 mL/min/{1.73_m2} Normal >59 [facility] Comment on above: Result Comment: Reported eGFR is based on the CKD-EPI 2020 equation that does not use a race coefficient. Performed By: #### B MP #### [facility] ([id number]) [address], [address] [place] [address] Glucose [Mass/Vol] 100 mg/dL High 65-99 [facility] Comment on above: Performed By: #### B MP #### [facility] ([id number]) [address], [address] [place] [address] Potassium [Moles/Vol] 5.3 mmol/L High 3.5-5.0 [facility] Comment on above: Result Comment: SPEC IMEN HEMOLYZED, RESULTS INCREASED MODERATELY HEMOLYZED Performed By: #### B MP #### [facility] ([id number]) [address], [address] [place] [address] Sodium [Moles/Vol] 136 mmol/L Normal 134-146 [facility] Comment on above: Performed By: #### B MP #### [facility] ([id number]) [address], [address] [place] [address] Urea nitrogen [Mass/Vol] 24 mg/dL Normal 5-27 [facility] Comment on above: Performed By: #### B MP #### [facility] ([id number]) [address], [address] [place] [address] Sonido 04-19-2024 ANES ------ -- Attestation signed by Janiya Carlson MD at 04/19/2024 8:07 AM Janiya Carlson MD, MPH, [facility], [facility], [facility] Interventional Cardiology Pager Email: [email or web address] -- Patient: Romana Alcocer Procedure Information Date/Time: 04/19/24829 Procedure: Coronary angiography Location: [facility] DATA ANALYSIS INTERN 3 / [facility] (Cath) Providers: Janiya Carlson MD [...] discussed with attending. Additional Equipment Requests Normal [facility] Abstracton 04-19-2024 Abstract [id number] Mercedes Alcocer ra 1955 F Date Provider Department Center 04/19/2024 3244-WALE MARCANO [facility] Family History Problem Relation Age of Onset Coronary artery disease Mother Other Mother Family Status - Relation Status Age at Mother Normal [facility] CT ABDOMEN PELVIS W IV CONTR [...] Mcintosh MD. Not Vldtd Invalid Interpretation Code [facility] HPon 04-19-2024 HP ------ -- Attestation signed [...] me. Additional Comments: Janiya Carlson MD, MPH, [facility], [facility], [facility] Interventional Cardiology Pager Email: [email or web address] -- H&P reviewed. The patient was examined and there are no changes to the H&P. The procedure was explained to the patient. The risks and benefits of the procedure were explained to the patient who showed understanding and with full capacity elected to proceed with the procedure. All questions were addressed and answered. Jen Gale MD Respite Provider - PGY6 [facility] Normal [facility] Anupama 04-19-2024 MARINO RN educated pt on [...] of unit with all of belongings. Normal [facility] Orders Onlyon 04-19-2024 Orders Only [id number] Mercedes Alcocer ra 1955 F Date Provider Department Center 04/19/2024 ALFREDITO BRAMBILA [facility] Family History Problem Relation Age of Onset Coronary artery disease Mother Other Mother Family Status - Relation Status Age at Mother Normal [facility] BASIC METABOLIC PANLon 04-15 Anion gap [Moles/Vol] 10 mmol/L Normal 5-15 [facility] Comment on above: Performed By: #### C BCA, BMP #### [facility] ([id number]) [address], [address] [place] [address] Calcium [Mass/Vol] 9.6 mg/dL Normal 8.5-10.5 [facility] Comment on above: Performed By: #### C BCA, BMP #### [facility] ([id number]) [address], [address] [place] [address] Chloride [Moles/Vol] 102 mmol/L Normal 98-109 [facility] Comment on above: Performed By: #### C BCA, BMP #### [facility] ([id number]) [address], [address] [place] [address] CO2 [Moles/Vol] 28 mmol/L Normal 22-32 [facility] Comment on above: Performed By: #### C BCA, BMP #### [facility] ([id number]) [address], [address] [place] [address] Creatinine [Mass/Vol] 0.88 mg/dL Normal 0.40-1.00 [facility] Comment on above: Result Comment: METH OD TRACEABLE TO IDMS STANDARD Performed By: #### C BCA, BMP #### [facility] ([id number]) [address] [address] GFR/1.73 sq M.predicted among non-blacks MDRD (S/P/Bld) [Vol rate/Area] 70 mL/min/{1.73_m2} Normal >59 [facility] Comment on above: Result Comment: Reported eGFR is based on the CKD-EPI 2020 equation that does not use a race coefficient. Performed By: #### C BCA, BMP #### [facility] ([id number]) [address] [address] Glucose [Mass/Vol] 88 mg/dL Normal 65-99 [facility] Comment on above: Performed By: #### C BCA, BMP #### [facility] ([id number]) [address] [address] Potassium [Moles/Vol] 4.1 mmol/L Normal 3.5-5.0 [facility] Comment on above: Performed By: #### C BCA, BMP #### [facility] ([id number]) [address] [address] Sodium [Moles/Vol] 140 mmol/L Normal 134-146 [facility] Comment on above: Performed By: #### C BCA, BMP #### [facility] ([id number]) [address] [address] Urea nitrogen [Mass/Vol] 24 mg/dL Normal 5-27 [facility] Comment on above: Performed By: #### C BCA, BMP #### [facility] ([id number]) [address] [address] CBC AND AUTO DIFFon 11-1120 24 ABSOLUTE BASOPHIL 0.0 X10E9/L Normal 0.0-0.2 [facility] Comment on above: Performed By: #### C BCA, BMP #### [facility] ([id number]) [address] [place] [address] ABSOLUTE NEUTROPHIL 4.5 X10E9/L Normal 1.5-6.6 [facility] Comment on above: Performed By: #### C TEMI, BMP #### [facility] ([id number]) [address], [address] [place] [address] Basophils/100 WBC (Bld) 0.5 % Normal [facility] Comment on above: Performed By: #### C TEMI, BMP #### [facility] ([id number]) [address], [address] [place] [address] Eosinophils (Bld) [#/Vol] 0.1 10*3/uL Normal 0.0-0.4 [facility] Comment on above: Performed By: #### Buster MEMBRENO, BMP #### [facility] ([id number]) [address], [address] [place] [address] Eosinophils/100 WBC (Bld) 1.8 % Normal [facility] Comment on above: Performed By: #### Buster MEMBRENO, BMP #### [facility] ([id number]) [address], [address] [place] [address] Erythrocyte distribution width (RBC) [Ratio] 15.7 % High 11.5-15.0 [facility] Comment on above: Performed By: #### Buster MEMBRENO, BMP #### [facility] ([id number]) [address], [address] [place] [address] Hematocrit (Bld) [Volume fraction] 43.2 % Normal 35-47 [facility] Comment on above: Performed By: #### C TEMI, BMP #### [facility] ([id number]) [address], [address] [place] [address] Hemoglobin (Bld) [Mass/Vol] 13.9 g/dL Normal 11.7-15.5 [facility] Comment on above: Performed By: #### C TEMI, BMP #### [facility] ([id number]) [address], [address] [place] [address] Lymphocytes (Bld) [#/Vol] 1.8 10*3/uL Normal 1.0-3.5 [facility] Comment on above: Performed By: #### Buster MEMBRENO, BMP #### [facility] ([id number]) [address], [address] [place] [address] Lymphocytes/100 WBC (Bld) 24.9 % Normal [facility] Comment on above: Performed By: #### C TEMI, BMP #### [facility] ([id number]) [address], [address] [place] [address] MCH (RBC) [Entitic mass] 28.1 pg Normal 27-34 [facility] Comment on above: Performed By: #### Buster MEMBRENO, BMP #### [facility] ([id number]) [address], [address] [place] [address] MCHC (RBC) [Mass/Vol] 32.1 g/dL Normal 32-36 [facility] Comment on above: Performed By: #### C TEMI, BMP #### [facility] ([id number]) [address], [address] [place] [address] MCV (RBC) [Entitic vol] 88 fL Normal 80-100 [facility] Comment on above: Performed By: #### Buster MEMBRENO, BMP #### [facility] ([id number]) [address], [address] [place] [address] Monocytes (Bld) [#/Vol] 0.7 10*3/uL Normal 0-0.9 [facility] Comment on above: Performed By: #### Buster MEMBRENO, BMP #### [facility] ([id number]) [address], [address] [place] [address] Monocytes/100 WBC (Bld) 9.3 % Normal [facility] Comment on above: Performed By: #### C BCA, BMP #### [facility] ([id number]) [address], [address] [place] [address] Neutrophils/100 WBC (Bld) 63.5 % Normal [facility] Comment on above: Performed By: #### C BCA, BMP #### [facility] ([id number]) [address], [address] [place] [address] Platelet mean volume (Bld) [Entitic vol] 8.9 fL Normal 7-12 [facility] Comment on above: Performed By: #### C BCA, BMP #### [facility] ([id number]) [address], [facility] [address] [place] [address] Platelets (Bld) [#/Vol] 234 10*3/uL Normal 150-450 [facility] Comment on above: Performed By: #### C BCA, BMP #### [facility] ([id number]) [address], [address] [place] [address] RBC COUNT 4.94 X10E12/L Normal 3.80-5.20 [facility] Comment on above: Performed By: #### C BCA, BMP #### [facility] ([id number]) [address], [address] [place] [address] WBC (Bld) [#/Vol] 7.2 10*3/uL Normal 4.0-11.0 [facility] Comment on above: Performed By: #### C BCA, BMP #### [facility] ([id number]) [address], [address] [place] [address] HP 04-08-2024 [facility] Cardiology Clinic Note Chief Complaint: New patient here to establish care. Ref from Dr. Parra for abnormal echo performed last month. 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 Patient says she gets chest pain every [...] the cardiac catheterization Janiya Carlson MD, MPH, [facility], [facility], [facility] Interventional Cardiology Pager Email: [email or web address] Normal [facility] Office Visiton 04-08-2024 Follow-up visit [id number] Mercedes Alcocer ra 1955 F Date Provider Department Center 04/08/2024 Cody-JANIYA CARLSON Family History Problem Relation Age of Onset Coronary artery disease Mother Other Mother Family Status - Relation Status Age at Mother Level of Service:[address] [place] OFFICE/OUTPATIENT [facility] HIGH MDM 60 MINUTES Normal [facility] Orders Onlyon 04-08-2024 Orders Only [id number] Mercedes Alcocer ra 1955 F Date Provider Department Center 04/08/2024 TOBI FLORES Family History Problem Relation Age of Onset Coronary artery disease Mother Other Mother Family Status - Relation Status Age at Mother Normal [facility] MG MAMM SCREEN 3D NIKKO CADon 08-15-2022 MG MAMM SCREEN 3D NIKKO CAD Patient: ROMANA ALCOCER Exam Date: 08/15/2022 : 1955 Gender:F Ordering : DR TEDDY PARRA . Admission #: [id number] Family : Order #: [id number] CLICK HERE TO VIEW EXAM RADIOLOGY REPORT [...] brain cancer at age 47. LOCATION: [facility] BREAST COMPOSITION: Scattered areas fibroglandular [...] MD on 08/15/2022 at 11:16 Normal [facility] Covid-19 PCR (CVDTBH)on 01-03 SARS-CoV-2 (COVID-19) RNA MARITZA+probe Ql (Unsp spec) Detected Critically abnormal NOT DETECTED [facility] Comment on above: Result Comment: This test is not yet approved or cleared by the [place] FDA. When there are no FDA-approved or cleared tests available, and other criteria are met, FDA can make tests available under an emergency access mechanism called an Emergency Use Authorization (EUA). The EUA for this test is supported by the [place] of Health and Human Service's (HHS's) declaration [...] used). Performed By: #### C VDTB #### [facility] [address] [place] [address] Dr. Tristan Craft CBC AUTO DIFFon 10-14-2021 BASO # 0.1 103/ul Normal 0.0-0.1 [facility] Comment on above: Performed By: #### C BC #### [facility] [address] [place] [address] Dr. Tristan Craft Basophils/100 WBC (Bld) 0.5 % Normal 0.2-2.0 [facility] Comment on above: Performed By: #### C BC #### [facility] [address] [place] [address] Dr. Tristan Craft EO # 0.2 103/ul Normal 0.0-0.7 [facility] Comment on above: Performed By: #### C BC #### [facility] [address] [place] [address] Dr. Tristan Craft Eosinophils/100 WBC (Bld) 1.6 % Normal 0.9-7.0 [facility] Comment on above: Performed By: #### C BC #### [facility] [address] [place] [address] Dr. Tristan Craft Erythrocyte distribution width (RBC) [Ratio] 14.3 % Normal 11.0-15.0 [facility] Comment on above: Performed By: #### C BC #### [facility] [address] [place] [address] Dr. Tristan Craft Hematocrit (Bld) [Volume fraction] 45.7 % Normal 36.0-48.0 [facility] Comment on above: Performed By: #### C BC #### [facility] [address] [place] [address] Dr. Tristan Craft Hemoglobin (Bld) [Mass/Vol] 14.3 g/dL Normal 12.0-16.0 [facility] Comment on above: Performed By: #### C BC #### [facility] [address] [place] [address] Dr. Tristan Craft IG # 0.03 10e3/ul Normal 0.00-0.03 [facility] Comment on above: Performed By: #### C BC #### [facility] [address] [place] [address] Dr. Tristan Craft IG % 0.3 % Normal 0.0-0.5 [facility] Comment on above: Performed By: #### C BC #### [facility] [address] [place] [address] Dr. Tristan Craft LYMPH # 2.5 103/ul Normal 1.2-3.8 [facility] Comment on above: Performed By: #### C BC #### [facility] [address] [place] [address] Dr. Tristan Craft Lymphocytes/100 WBC (Bld) 26.7 % Normal 20.5-60.0 [facility] Comment on above: Performed By: #### C BC #### [facility] [address] [place] [address] Dr. Tristan Craft MANUAL DIFF REQ NO Normal [facility] Comment on above: Performed By: #### C BC #### [facility] [address] [place] [address] Dr. Tristan Craft MCH (RBC) [Entitic mass] 27.8 pg Normal 26.7-34.0 [facility] Comment on above: Performed By: #### C BC #### [facility] [address] [place] [address] Dr. Tristan Craft MCHC (RBC) [Mass/Vol] 31.3 g/dL Normal 29.9-35.2 [facility] Comment on above: Performed By: #### C BC #### [facility] [address] [place] [address] Dr. Tristan Craft MCV (RBC) [Entitic vol] 88.9 fL Normal 81.0-99.0 [facility] Comment on above: Performed By: #### C BC #### [facility] [address] [place] [address] Dr. Tristan Craft MONO # 0.8 103/ul Normal 0.3-0.8 [facility] Comment on above: Performed By: #### C BC #### [facility] [address] [place] [address] Dr. Tristan Craft Monocytes/100 WBC (Bld) 8.0 % Normal 1.7-12.0 [facility] Comment on above: Performed By: #### C BC #### [facility] [address] [place] [address] Dr. Tristan Craft NEUT # 5.9 103/ul Normal 1.4-6.5 [facility] Comment on above: Performed By: #### C BC #### [facility] [address] [place] [address] Dr. Tristan Craft Neutrophils/100 WBC (Bld) 62.9 % Normal 43.0-75.0 [facility] Comment on above: Performed By: #### C BC #### [facility] [address] [place] [address] Dr. Tristan Craft Platelet mean volume (Bld) [Entitic vol] 10.4 fL Normal 9.5-13.5 [facility] Comment on above: Performed By: #### C BC #### [facility] [address] [place] [address] Dr. Tristan Craft PLT 302 103/ul Normal 150-450 [facility] Comment on above: Performed By: #### C BC #### [facility] [address] [place] [address] Dr. Tristan Craft RBC 5.14 106/ul Normal 4.20-5.40 [facility] Comment on above: Performed By: #### C BC #### [facility] [address] [place] [address] Dr. Tristan Craft WBC 9.3 103/ul Normal 4.0-11.0 [facility] Comment on above: Performed By: #### C BC #### [facility] [address] [address] [address] Tristan Craft FREE T3on 10-14-2021 FREE T3 2.03 pg/mlL Critically low 2.18-3.98 [facility] Comment on above: Performed By: #### T 4, CMP, TSH, LIPID, FT3 #### [facility] [address] [address] [address] Tristan Craft GLYCOHEMOGLOBIN A1Con 2021 ADA RECOMMENDATION SEE BELOW Normal [facility] Comment on above: Result Comment: ADA RECOMMENDED LIMIT 4.0 - 6.0 ADA THERAPEUTIC TARGET < 7.0 ACTION SUGGESTED > 7.0 Performed By: #### A 1C #### [facility] [address] [address] [address] Tristan Craft Glucose [Mass/Vol] 123 mg/dL Normal [facility] Comment on above: Performed By: #### A 1C #### [facility] [address] [address] [address] Tristan Craft HbA1c (Bld) [Mass fraction] 5.9 % Normal 4.5-6.2 [facility] Comment on above: Performed By: #### A 1C #### [facility] [address] [place] [address] Dr. Tristan Craft LIPID PROFILEon 10-14-2021 CHOL-HDL RATIO NORM SEE BELOW Normal [facility] Comment on above: Result Comment: 3.3 - 4.4 LOW RISK 4.4 - 7.1 AVERAGE RISK 7.1 - 11.0 MODERATE RISK >11.0 HIGH RISK Performed By: #### T 4, CMP, TSH, LIPID, FT3 #### [facility] [address] [address] [address] Tristan Craft Cholesterol [Mass/Vol] 126 mg/dL Normal <=200 [facility] Comment on above: Performed By: #### T 4, CMP, TSH, LIPID, FT3 #### [facility] [address] [address] [address] Tristan Craft Cholesterol in HDL [Mass/Vol] 53 mg/dL Normal 40-60 [facility] Comment on above: Performed By: #### T 4, CMP, TSH, LIPID, FT3 #### [facility] [address] [place] [address] Dr. Tristan Craft Cholesterol in LDL [Mass/Vol] 45.0 mg/dL Normal [facility] Comment on above: Performed By: #### T 4, CMP, TSH, LIPID, FT3 #### [facility] [address] [place] [address] Dr. Tristan Craft Cholesterol.total/Chol esterol in HDL [Mass ratio] 2.4 {ratio} Normal [facility] Comment on above: Performed By: #### T 4, CMP, TSH, LIPID, FT3 #### [facility] [address] [place] [address] Dr. Tristan Craft HDL NORMAL > or = 60 mg/dl - LO W CARDIOVASCULAR RISK <40 mg/dl - HIGH CARDIOVASCULAR RISK Normal [facility] Comment on above: Performed By: #### T 4, CMP, TSH, LIPID, FT3 #### [facility] [address] [place] [address] Dr. Tristan Craft LDL CALC NORMAL SEE BELOW Normal [facility] Comment on above: Result Comment: <100 mg/dl OPTIMAL 100 - 129 mg/dl NEAR OR ABOVE OPTIMAL 130 - 159 mg/dl BORDERLINE HIGH 160 - 189 mg/dl HIGH >190 mg/dl VERY HIGH Performed By: #### T 4, CMP, TSH, LIPID, FT3 #### [facility] [address] [place] [address] Dr. Tristan Craft Triglyceride [Mass/Vol] 140 mg/dL Normal <=150 [facility] Comment on above: Performed By: #### T 4, CMP, TSH, LIPID, FT3 #### [facility] [address] [place] [address] Dr. Tristan Craft VLDL CALC 28.0 mg/dL Normal [facility] Comment on above: Performed By: #### T 4, CMP, TSH, LIPID, FT3 #### [facility] [address] [place] [address] Dr. Tristan Craft PROF 14(COMP METB)on 022 Albumin [Mass/Vol] 3.8 g/dL Normal 3.4-5.0 [facility] Comment on above: Performed By: #### T 4, CMP, TSH, LIPID, FT3 #### [facility] [address] [address] [address] Tristan Craft Albumin/Globulin [Mass ratio] 1.1 {ratio} Normal [facility] Comment on above: Performed By: #### T 4, CMP, TSH, LIPID, FT3 #### [facility] [address] [address] [address] Tristan Craft ALP [Catalytic activity/Vol] 87 U/L Normal 46-116 [facility] Comment on above: Performed By: #### T 4, CMP, TSH, LIPID, FT3 #### [facility] [address] [place] [address] Dr. Tristan Craft ALT [Catalytic activity/Vol] 24 U/L Normal 14-59 [facility] Comment on above: Performed By: #### T 4, CMP, TSH, LIPID, FT3 #### [facility] [address] [address] [address] Tristan Craft Anion gap [Moles/Vol] 12.9 mmol/L Normal [facility] Comment on above: Performed By: #### T 4, CMP, TSH, LIPID, FT3 #### [facility] [address] [address] [address] Tristan Craft AST [Catalytic activity/Vol] 20 U/L Normal 15-37 [facility] Comment on above: Performed By: #### T 4, CMP, TSH, LIPID, FT3 #### [facility] [address] [address] [address] Tristan Craft Bilirubin [Mass/Vol] 0.5 mg/dL Normal 0.2-1.0 [facility] Comment on above: Performed By: #### T 4, CMP, TSH, LIPID, FT3 #### [facility] [address] [address] [address] Tristan Craft Calcium [Mass/Vol] 8.6 mg/dL Normal 8.5-10.1 [facility] Comment on above: Performed By: #### T 4, CMP, TSH, LIPID, FT3 #### [facility] [address] [address] [address] Tristan Craft Chloride [Moles/Vol] 101 mmol/L Normal 98-107 [facility] Comment on above: Performed By: #### T 4, CMP, TSH, LIPID, FT3 #### [facility] [address] [address] [address] Tristan Craft CO2 [Moles/Vol] 27.7 mmol/L Normal 21.0-32.0 [facility] Comment on above: Performed By: #### T 4, CMP, TSH, LIPID, FT3 #### [facility] [address] [place] [address] Dr. Tristan Craft Creatinine [Mass/Vol] 0.93 mg/dL Normal 0.55-1.02 [facility] Comment on above: Performed By: #### T 4, CMP, TSH, LIPID, FT3 #### [facility] [address] [place] [address] Dr. Tristan Craft EGFR-AF SAUDI ARABIAN >60 Normal >=60 [facility] Comment on above: Performed By: #### T 4, CMP, TSH, LIPID, FT3 #### [facility] [address] [place] [address] Dr. Tristan Craft EGFR-NON AF SAUDI ARABIAN =60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
[2025-02-06 09:58] LABS: Hematocrit 43.9 % (36.0-48.0); Hemoglobin 13.7 g/dL (12.0-16.0); Immature Granulocytes Abs Auto 0.04 10^3/uL (0.00-0.03); Immature Granulocytes Pct Auto 0.4 % (0.0-0.5); Lymphocytes Absolute Auto 1.4 10^3/uL (1.2-3.8); Mean Corpuscular HGB Conc 31.2 g/dL (29.9-35.2); Mean Corpuscular Hemoglobin 28.7 pg (26.7-34.0); Mean Corpuscular Volume 92.0 fL (81.0-99.0); Platelet Count 204 10^3/uL (150-450); Red Blood Count 4.77 10^6/uL (4.20-5.40); White Blood Count 9.7 10^3/uL (4.0-11.0)
[2025-02-06 11:26] LABS: Alanine Aminotransferase 34 U/L (14-59); Albumin Globulin Ratio 1.1; Albumin Level 4.0 g/dL (3.4-5.0); Alkaline Phosphatase 77 U/L (46-116); Anion Gap 16.4; Aspartate Amino Transferase 34 U/L (15-37); Blood Urea Nitrogen 33.0 mg/dL (7.0-18.0); Calcium 9.4 mg/dL (8.5-10.1); Carbon Dioxide 25.7 mmol/L (21.0-32.0); Chloride 103 mmol/L (98-107); Cholesterol 158 mg/dL (<=200); Estimated GFR (African America 51 (>=60 mL/min/1.73m^2); Estimated GFR (Non-African Ame 42 (>=60 mL/min/1.73m^2); Free T3 2.31 pg/mL (2.18-3.98); Globulin 3.7 g/dL; Glucose 91 mg/dL (74-106); HDL Cholesterol 67 mg/dL (40-60); Potassium 4.1 mmol/L (3.5-5.1); Sodium 141 mmol/L (136-145); Thyroid Stimulating Hormone 4.088 uIU/mL (0.358-3.740); Total Protein 7.7 g/dL (6.4-8.2); Triglycerides 185 mg/dL (<=150); VLDL CHOLESTEROL 37.0 mg/dL
== END 2025-02-06 09:22 | disposition home or self-care (01) ==
LOC: LAB 09:23
PROVIDERS: PCP Family Medicine; Visit Provider Family Medicine
DX: E03.9 Hypothyroidism, unspecified (principal); I48.0 Paroxysmal atrial fibrillation; I10 Essential (primary) hypertension; K57.90 Diverticulosis of intestine, part unspecified, without perforation or abscess without bleeding; M19.90 Unspecified osteoarthritis, unspecified site
CPT/HCPCS: 36415; 80053; 80061; 83036; 84436; 84443; 84481; 85025

== ENCOUNTER 2025-02-25 10:09 | Outpatient (OUT) | payer MEDICARE, BC, SELFPAY ==
--- OUTSIDE RECORDS SUMMARY | 2025-02-25 10:15 | XMS_ITS | CCD ---
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 Name Role Phone ALEKS ., DR ESPINAL Admitting Unavailable HOY ., DR ESPINAL Attending Unavailable HOY ., DR ESPINAL Primary Care Unavailable HOY ., DR ESPINAL Consulting Unavailable CELINA, DR TERRIE Maldonado Consulting Unavailable HOY ., DR ESPINAL Admitting Unavailable HOY ., DR ESPINAL Attending Unavailable HOY ., DR ESPINAL Primary Care Unavailable HOY ., DR ESPINAL Consulting Unavailable HOY ., DR ESPINAL Admitting Unavailable HOY ., DR ESPINAL Attending Unavailable HOY ., DR ESPINAL Primary Care Unavailable HOY ., DR ESPINAL Consulting Unavailable MD Teddy Parra Primary Care Provider [phone] JUANCARLOS Smith Attending Provider Lin Silverio DO Emergency Provider [phone] Teddy Parra MD Primary Care Provider [phone] Papito Lazo DO Attending Provider Papito Lazo DO Other Provider LAMINE SHEEHAN Attending Unavailable KARON WRIGHT Attending [...] Drug Allergy 4 Unknown Reaction, rash [facility] Repository (9 sources) Codeine; Translations: [CODEINE] Drug Allergy 4 Hives [facility] Repository (7 sources) Morphine Drug Allergy 4 Unknown Reaction, doesn't want to take it [facility] Repository (2 sources) Penicillins; Translations: [PENICILLINS] Propensity to adverse reactions to drug (disorder) 3 [facility] Repository Medications Current Medications Medication Drug [...] ascorbic acid 226 mg / beta carotene 91212 unt / cuprous oxide 0.8 mg / dl-alpha tocopheryl acetate 200 unt / zinc oxide 34.8 mg oral capsule (4 sources) Vitamin C Start: 09-23-2023 take 1 capsule by mouth twice daily Vitamins A,C,A-Tknf-Wiphbb (Preservision Areds) 4,296 mcg-226 mg-90 mg capsule [...] 2024 12:00am Complies with drug therapy Vitamins A,C,X-Sskk-Xraowb (Preservision Areds) 4,296 mcg-226 mg-90 mg capsule (2 sources) Start: 09-23-2023 take 1 capsule by mouth twice daily Vitamins A,C,X-Sxit-Nitomo (Preservision Areds) 4,296 mcg-226 mg-90 mg capsule [...] November 22, 2024 2:52pm polyethylene glycol 3350 71332 mg powder for oral solution (4 sources) [...] disease (5 sources) Atherosclerotic heart disease of cahto coronary artery without angina pectoris; Translations: [Unstable [...] Range Facility Office Visiton 12-31-2024 Follow-up visit [id number] Mercedes Alcocer ra 1955 F Date Provider Department Center 12/31/2024 [id number], ADAM [facility] Family History Problem Relation Age of Onset Coronary artery disease Mother Other Mother Family Status - Relation Status Age at Mother Father Level of Service:81688 DE OFFICE/OUTPATIENT ESTABLISHED MOD MDM 30 MIN Normal [facility] Orders Onlyon 12-23-2024 Orders Only [id number] Mercedes Alcocer ra 1955 Date Provider Department Center 12/23/2024 [id number], HISTORICAL ARIELA [facility] Family History Problem Relation Age of Onset Coronary artery disease Mother Other Mother Family Status - Relation Status Age at Mother Father Normal [facility] Prep for Procedureon 025 Prep for Procedure [id number] Mercedes Alcocer ra 1955 F Date Provider Department Center 12/12/2024 1987-RAYO CHERRY [facility] Family History Problem Relation Age of Onset Coronary artery disease Mother Other Mother Family Status - Relation Status Age at Mother Father Normal [facility] X-ray reportOrdered By: Edu Mejia on 12-10-2024 Study report [facility] [address] [place] [address] XRay Report Signed Patient: Romana Alcocer MR#: [id number] : 1955 Acct:[id number] Age/Sex: 69 / F ADM Date: 5 Loc: [facility] Room: Type: [facility] Attending Dr: Papito Lazo DO Copies to: [...] Mejia M.D. 12/10/2024 3:40 PM Dictation Location: [place] [address] Transcribed By: [facility] 12/10/24 1540 Dictated By: Edu Mejia II, MD 12/10/24 1539 Signed By: 12/10/24 1540 [facility] Work Phone: Appearance of UrineOrdered B y: Papito Lazo on 11-22-2024 Appearance (U) Cloudy Abnormal Clear [facility] Bacteria [Presence] in Urine by AutomatedOrdered By: Papito Lazo on 11-22-2024 Bacteria Auto Ql (U) 3+ [HPF] High None Seen [facility] Bilirubin Test strip Ql (U)O rdered By: Papito Lazo on 11-22-2024 Bilirubin Ql (U) Negative Negative [facility] Color Auto (U)Ordered By: Loco Lazo on 11-22-2024 Color (U) Yellow Yellow [facility] Epithelial cells.non-squamou s [#/area] in Urine sediment by Automated countOrdered By: Papito Lazo on 11-22-2024 Epithelial cells.non-squamous Auto (Urine sed) [#/Area] 5-9 [HPF] High None Seen [facility] Epithelial cells.squamous [# /area] in Urine sediment by Automated countOrdered By: Papito Lazo on 11-22-2024 Epithelial cells.squamous Auto (Urine sed) [#/Area] 20-49 [HPF] High 0-2 [facility] Erythrocytes [#/area] in Uri ne sediment by Automated countOrdered By: Papito Lazo on 11-22-2024 RBC Auto (Urine sed) [#/Area] 10-19 [HPF] High 0-4 [facility] Glucose [Mass/volume] in Uri ne by Test stripOrdered By: Papito Lazo on 11-22-2024 Glucose Test strip (U) [Mass/Vol] 500 mg/dL High Normal [facility] Hemoglobin Test strip Ql (U) Ordered By: Papito Lazo on 11-22-2024 Hemoglobin Ql (U) Negative Negative [facility] Hyaline casts [#/area] in Ur ine sediment by Automated countOrdered By: Papito Lazo on 11-22-2024 Hyaline casts Auto (Urine sed) [#/Area] 9-19 [LPF] High 0-8 [facility] Ketones Test strip Ql (U)Ord ered By: Papito Lazo on 11-22-2024 Ketones Ql (U) Negative Negative [facility] Leukocyte esterase [Presence ] in Urine by Test stripOrdered By: Papito Lazo on 11-22-2024 Leukocyte esterase Test strip Ql (U) 4+ High Negative [facility] Leukocytes [#/area] in Urine sediment by Automated countOrdered By: Papito Lazo on 11-22-2024 WBC Auto (Urine sed) [#/Area] Innumerable [HPF] High 0-4 [facility] Mucus [Presence] in Urine by AutomatedOrdered By: Papito Lazo on 11-22-2024 Mucus Auto Ql (U) 4+ [LPF] Abnormal [facility] Nitrite Test strip Ql (U)Ord ered By: Papito Lazo on 11-22-2024 Nitrite Ql (U) Positive High Negative [facility] Protein Test strip (U) [Mass /Vol]Ordered By: Papito Lazo on 11-22-2024 Protein (U) [Mass/Vol] 50 mg/dL High Negative [facility] Specific gravity Test strip (U) [Rel density]Ordered By: Papito Lazo on 11-22-2024 Specific gravity (U) [Rel density] 1.037 High 1.001-1.03 0 [facility] Urine cultureOrdered By: Sukhjinder Lazo on 11-22-2024 Bacteria identified Cx Nom (U) Escherichia coli Abnormal [facility] Bacteria identified Cx Nom (U) Klebsiella variicola Abnormal [facility] Urobilinogen Test strip (U) [Mass/Vol]Ordered By: Papito Lazo on 11-22-2024 Urobilinogen (U) [Mass/Vol] Normal mg/dL Normal [facility] pH Test strip (U)Ordered By: Papito Lazo on 11-22-2024 pH (U) 6.0 [pH] 5.0-9.0 [facility] Alanine aminotransferase [En zymatic activity/volume] in Serum or PlasmaOrdered By: Lin Silverio on 11-19-2024 ALT [Catalytic activity/Vol] 13 U/L 7-52 [facility] Albumin [Mass/volume] in Ser um or Plasma by Bromocresol green (BCG) dye binding methoOrdered By: Lin Silverio on 11-19-2024 Albumin BCG dye [Mass/Vol] 4.4 g/dL 3.5-5.7 [facility] Alkaline phosphatase [Enzyma tic activity/volume] in Serum or PlasmaOrdered By: Lin Silverio on 11-19-2024 ALP [Catalytic activity/Vol] 68 U/L 34-104 [facility] Aspartate aminotransferase [ Enzymatic activity/volume] in Serum or PlasmaOrdered By: on 11-19-2024 AST [Catalytic activity/Vol] 23 U/L 13-39 [facility] Basophils Auto (Bld) [#/Vol] Ordered By: on 11-19-2024 Basophils (Bld) [#/Vol] 0.0 10*3/uL 0.0-0.2 [facility] Basophils/100 WBC Auto (Bld) Ordered By: on 11-19-2024 Basophils/100 WBC (Bld) 0.5 % . [facility] Bilirubin.total [Mass/volume ] in Serum or PlasmaOrdered By: 11-19-2024 Bilirubin [Mass/Vol] 0.6 mg/dL 0.3-1.0 [facility] Calcium [Mass/volume] in Ser um or PlasmaOrdered By: 11-19-2024 Calcium [Mass/Vol] 9.4 mg/dL 8.6-10.3 [facility] Carbon dioxide, total [Moles /volume] in Serum or PlasmaOrdered By: 11-19-2024 CO2 [Moles/Vol] 30.2 mmol/L 21.0-31.0 [facility] Chloride [Moles/volume] in S tova or PlasmaOrdered By: 11-19-2024 Chloride [Moles/Vol] 102 mmol/L 98-107 [facility] Creatinine [Mass/volume] in Serum or PlasmaOrdered By: 11-19-2024 Creatinine [Mass/Vol] 1.03 mg/dL 0.60-1.20 [facility] Eosinophils Auto (Bld) [#/Vo l]Ordered By: on 11-19-2024 Eosinophils (Bld) [#/Vol] 0.1 10*3/uL 0.0-0.45 [facility] Eosinophils/100 WBC Auto (Bl d)Ordered By: on 11-19-2024 Eosinophils/100 WBC (Bld) 0.9 % . [facility] Erythrocyte distribution wid th Auto (RBC) [Ratio]Ordered By: Lin Silverio 11-19-2024 Erythrocyte distribution width (RBC) [Ratio] 16.5 % High 11.9-15.3 [facility] Ethanol [Mass/volume] in Ser um or PlasmaOrdered By: Lin Silverio 11-19-2024 Ethanol [Mass/Vol] mg/dL [facility] Globulin Calc (S) [Mass/Vol] Ordered By: Lin Silverio 11-19-2024 Globulin (S) [Mass/Vol] 2.5 g/dL [facility] Glucose [Mass/volume] in Ser um or PlasmaOrdered By: Lin Silverio 11-19-2024 Glucose [Mass/Vol] 107 mg/dL High 70-100 [facility] Comment on above: ADA recommended refe rence rangeRandom Glucose Reference Range is dependent on time and content of last meal. Glucose of more than 200 mg/dL in a nonstressed, ambulatory subject supports the diagnosis of Diabetes Mellitus. Hematocrit Auto (Bld) [Volum e fraction]Ordered By: Lin Silverio 11-19-2024 Hematocrit (Bld) [Volume fraction] 38.5 % 34.0-46.4 [facility] Hemoglobin [Mass/volume] in BloodOrdered By: Lin Silverio 11-19-2024 Hemoglobin (Bld) [Mass/Vol] 12.8 g/dL 11.8-15.4 [facility] INR in Platelet poor plasma by Coagulation assayOrdered By: Lin Silverio 11-19-2024 INR Coag (PPP) [Relative time] 1.3 {INR} [facility] Comment on above: INR Therapeutic Rang e [...] RBC Auto (Bld) [#/Vol] 9.0 10*3/uL 3.8-11.6 [facility] Lymphocytes Auto (Bld) [#/Vo l]Ordered By: Lin Silverio on 11-19-2024 Lymphocytes (Bld) [#/Vol] 1.3 10*3/uL 1.00-4.8 [facility] Lymphocytes/100 WBC Auto (Bl d)Ordered By: Linsole Silverio on 11-19-2024 Lymphocytes/100 WBC (Bld) 14.2 % . [facility] MCH Auto (RBC) [Entitic mass ]Ordered By: Linsole Silverio on 11-19-2024 MCH (RBC) [Entitic mass] 29.0 pg 24.7-34.3 [facility] MCHC Auto (RBC) [Mass/Vol]Or dered By: Linsole Silverio on 11-19-2024 MCHC (RBC) [Mass/Vol] 33.3 g/dL 32.0-35.0 [facility] MCV Auto (RBC) [Entitic vol] Ordered By: Lin Silverio on 11-19-2024 MCV (RBC) [Entitic vol] 87.3 fL 80-100 [facility] Monocyte distribution width [Entitic volume] in Blood by AutomatedOrdered By: Lin Silverio on 11-19-2024 Monocyte distribution width Auto (Bld) [Entitic vol] 18.53 % 0.00-20.00 [facility] Monocytes Auto (Bld) [#/Vol] Ordered By: Lin Silverio on 11-19-2024 Monocytes (Bld) [#/Vol] 0.7 10*3/uL 0.0-0.8 [facility] Monocytes/100 WBC Auto (Bld) Ordered By: Linsole Silverio on 11-19-2024 Monocytes/100 WBC (Bld) 7.7 % . [facility] Neutrophils Auto (Bld) [#/Vo l]Ordered By: Linosle Silverio on 11-19-2024 Neutrophils (Bld) [#/Vol] 6.9 10*3/uL 1.8-7.7 [facility] Neutrophils/100 WBC Auto (Bl d)Ordered By: Lin Silverio on 11-19-2024 Neutrophils/100 WBC (Bld) 76.7 % . [facility] No Panel InformationOrdered By: Lin Silverio on 11-19-2024 Estimated GFR (CKD-EPI) 58.132 mL/Min [facility] Creatinine Clearance (Chem 63.95 [facility] Nucleated erythrocytes [Pres ence] in Blood by Automated countOrdered By: Lin Silverio on 11-19-2024 Nucleated RBC Auto Ql (Bld) 0.1 /100{WBC} 0-0.5 [facility] Platelet mean volume Auto (B ld) [Entitic vol]Ordered By: Lin Silverio on 11-19-2024 Platelet mean volume (Bld) [Entitic vol] 7.8 fL 6.3-10.7 [facility] Platelets Auto (Bld) [#/Vol] Ordered By: Lin Silverio on 11-19-2024 Platelets (Bld) [#/Vol] 214 10*3/uL 150-450 [facility] Potassium [Moles/volume] in Serum or PlasmaOrdered By: Lin Silverio on 11-19-2024 Potassium [Moles/Vol] 4.1 mmol/L 3.5-5.1 [facility] Protein [Mass/volume] in Ser um or PlasmaOrdered By: Lin Silverio 11-19-2024 Protein [Mass/Vol] 6.9 g/dL 6.4-8.9 [facility] Prothrombin time (PT)Ordered By: Lin Silverio on 11-19-2024 PT Coag (PPP) [Time] 14.8 s High 9.0-12.9 [facility] Comment on above: A hematocrit value g reater than 55% may lead to inaccurate results in coagulation testing. Patients having hematocrit values >55% require a special collection tube for coagulation studies. Please contact the laboratory at [phone] for redraw instructions. RBC Auto (Bld) [#/Vol]Ordere d By: Lin Silverio on 11-19-2024 RBC (Bld) [#/Vol] 4.40 10*6/uL 3.60-5.00 [facility] Serum or plasma albumin/glob ulin mass ratioOrdered By: Lin Silverio 11-19-2024 Albumin/Globulin [Mass ratio] 1.8 {ratio} [facility] Serum or plasma anion gap de terminationOrdered By: Lin Silverio on 11-19-2024 Anion gap [Moles/Vol] 11.9 mmol/L 6.0-15.0 [facility] Serum or plasma ethanol ruddy urement (mass/volume)Ordered By: Lin Silverio on 11-19-2024 Ethanol [Mass/Vol] TNP [facility] Comment on above: Test not performed Sodium [Moles/volume] in Ser um or PlasmaOrdered By: Lin Silverio on 11-19-2024 Sodium [Moles/Vol] 140 mmol/L 136-145 [facility] Urea nitrogen [Mass/volume] in Serum or PlasmaOrdered By: Lin Silverio on 11-19-2024 Urea nitrogen [Mass/Vol] 23 mg/dL 12-27 [facility] WBC Auto (Bld) [#/Vol]Ordere d By: Lin Silverio on 11-19-2024 WBC (Bld) [#/Vol] 9.0 10*3/uL 3.8-11.6 [facility] Orders Onlyon 11-18-2024 Orders Only [id number] Mercedes Alcocer ra 1955 F Date Provider Department Center 11/18/2024 KARON FRANKLIN Family History Problem Relation Age of Onset Coronary artery disease Mother Other Mother Family Status - Relation Status Age at Mother Father [facility] Follow-Upon 11-15-2024 Follow-Up [id number] Mercedes Alcocer ra 1955 F Date Provider Department Center 11/15/2024 KARON FRANKLIN Family History Problem Relation Age of Onset Coronary artery disease Mother Other Mother Family Status - Relation Status Age at Mother Father Level of Service:13420 DE OFFICE/OUTPATIENT ESTABLISHED MOD MDM 30 MIN [facility] 36on 09-27-2024 36 Per text message rohini Ovalle and Dr. Sheehan patient is to take Amiodarone 200 mg 1 time per day until instructed to stop, at least until after the ablation. Advised patient, patient verbalized understand and has a follow up appointment with cardiology November 01. Normal [facility] ANESon 09-26-2024 ANES ------ -- Attestation [...] Procedure Information Date/Time: 09/26/24829 Procedure: Cardioversion Location: [facility] HOLDING ROOM / [facility] (Cath) Providers: Lamine Sheehan [...] discussed with attending. Additional Equipment Requests Normal [facility] HPon 09-26-2024 [facility] Electrophysiology Consult Note [place] Cardiology [facility] Reason for visit: Atrial fibrillation HPI: [...] history of stroke or TIAs or any HI in the past but has a family [...] Use: Not At Risk (02/20/2018) Received from [facility], [facility] AUDIT-C Frequency of Alcohol Consumption: Never Average Number of Drinks: Not on file Frequency of Binge Drinking: Not on file Financial Resource Strain: Not on file Food Insecurity: No Food Insecurity (03/14/2023) Received from [facility], [facility] Hunger Screening Within the past 12 months [...] on file Intimate Partner Violence: Unknown (07/27/2023) [place] Safety & Environment Fear of Current or [...] Physical Exam: Consti (more content not included)... [facility] NURSNOTEon 09-26-2024 NURSNOTE RN educated pt [...] of unit with all of belongings. Normal [facility] Orders Onlyon 09-18-2024 Orders Only [id number] Mercedes Alcocer ra 1955 Provider Department Center 09/18/2024 ERIN GROVER [facility] Family History Problem Relation Age of Onset Coronary artery disease Mother Other Mother Family Status - Relation Status Age at Mother [facility] Office Visiton 08-13-2024 Follow-up visit [id number] Mercedes Alcocer ra 1955 Date Provider Department Center 08/13/2024 LAMINE RIOS CARD [facility] Family History Problem Relation Age of Onset Coronary artery disease Mother Other Mother Family Status - Relation Status Age at Mother Level of Service:66169 DE OFFICE/OUTPATIENT NEW MODERATE MDM 45 MINUTES [facility] Orders Onlyon 08-13-2024 Orders Only [id number] Mercedes Alcocer ra 1955 Date Provider Department Center 08/13/2024 TOBI FLORES CARD [facility] Family History Problem Relation Age of Onset Coronary artery disease Mother Other Mother Family Status - Relation Status Age at Mother [facility] Office Visiton 05-22-2024 Follow-up visit [id number] Mercedes Alcocer ra 1955 Date Provider Department Center 05/22/2024 Cody-JANIYA CARLSON CARD [facility] Family History Problem Relation Age of Onset Coronary artery disease Mother Other Mother Family Status - Relation Status Age at Mother Level of Service:83102 DE OFFICE/OUTPATIENT ESTABLISHED MOD MDM 30 MIN [facility] BASIC METABOLIC PANLon 04-29 Anion gap [Moles/Vol] 11 mmol/L Normal 5-15 [facility] Comment on above: Performed By: #### B MP #### [facility] ([id number]) [address], [address] [place] [address] Calcium [Mass/Vol] 8.9 mg/dL Normal 8.5-10.5 [facility] Comment on above: Performed By: #### B MP #### [facility] ([id number]) [address], [address] [place] [address] Chloride [Moles/Vol] 104 mmol/L Normal 98-109 [facility] Comment on above: Performed By: #### B MP #### [facility] ([id number]) [address], [address] [place] [address] CO2 [Moles/Vol] 21 mmol/L Low 22-32 [facility] Comment on above: Performed By: #### B MP #### [facility] ([id number]) [address], [address] [place] [address] Creatinine [Mass/Vol] 0.88 mg/dL Normal 0.40-1.00 [facility] Comment on above: Result Comment: METH OD TRACEABLE TO IDMS STANDARD Performed By: #### B MP #### [facility] ([id number]) [address], [address] [place] [address] GFR/1.73 sq M.predicted among non-blacks MDRD (S/P/Bld) [Vol rate/Area] 70 mL/min/{1.73_m2} Normal >59 [facility] Comment on above: Result Comment: Reported eGFR is based on the CKD-EPI 2020 equation that does not use a race coefficient. Performed By: #### B MP #### [facility] ([id number]) [address], [address] [place] [address] Glucose [Mass/Vol] 100 mg/dL High 65-99 [facility] Comment on above: Performed By: #### B MP #### [facility] ([id number]) [address], [address] [place] [address] Potassium [Moles/Vol] 5.3 mmol/L High 3.5-5.0 [facility] Comment on above: Result Comment: SPEC IMEN HEMOLYZED, RESULTS INCREASED MODERATELY HEMOLYZED Performed By: #### B MP #### [facility] ([id number]) [address], [address] [place] [address] Sodium [Moles/Vol] 136 mmol/L Normal 134-146 [facility] Comment on above: Performed By: #### B MP #### [facility] ([id number]) [address], [address] [place] [address] Urea nitrogen [Mass/Vol] 24 mg/dL Normal 5-27 [facility] Comment on above: Performed By: #### B MP #### [facility] ([id number]) [address], [address] [place] [address] Sonido 04-19-2024 ANES ------ -- Attestation signed by Janiya Carlson MD at 04/19/2024 8:07 AM Janiya Carlson MD, MPH, [facility], [facility], [facility] Interventional Cardiology Pager Email: [email or web address] Patient: Romana Alcocer Procedure Information Date/Time: 04/19/24829 Procedure: Coronary angiography Location: [facility] 3 / [facility] (Cath) Providers: Janiya Carlson [...] discussed with attending. Additional Equipment Requests Normal [facility] Abstracton 04-19-2024 Abstract [id number] Mercedes Alcocer ra 1955 F Date Provider Department Center 04/19/2024 [id number] MARCANO [facility] Family History Problem Relation Age of Onset Coronary artery disease Mother Other Mother Family Status - Relation Status Age at Mother Normal [facility] CT ABDOMEN PELVIS W IV [...] Mcintosh MD. Not Vldtd Invalid Interpretation Code [facility] HPon 04-19-2024 HP ------ -- Attestation [...] me. Additional Comments: Janiya Carlson MD, MPH, [facility], [facility], [facility] Interventional Cardiology Pager Email: [email or web address] -- H&P reviewed. The patient was examined and there are no changes to the H&P. The procedure was explained to the patient. The risks and benefits of the procedure were explained to the patient who showed understanding and with full capacity elected to proceed with the procedure. All questions were addressed and answered. Jen Gale MD Research Animal Attendant - PGY6 [facility] Normal [facility] Anupama 04-19-2024 MARINO RN educated pt [...] of unit with all of belongings. Normal [facility] Orders Onlyon 04-19-2024 Orders Only [id number] Mercedes Alcocer ra 1955 F Date Provider Department Center 04/19/2024 ALFREDITO BRAMBILA [facility] Family History Problem Relation Age of Onset Coronary artery disease Mother Other Mother Family Status - Relation Status Age at Mother Normal [facility] BASIC METABOLIC PANLon 04-15 Anion gap [Moles/Vol] 10 mmol/L Normal 5-15 [facility] Comment on above: Performed By: #### C BCA, BMP #### [facility] ([id number]) [address], [address] [place] [address] Calcium [Mass/Vol] 9.6 mg/dL Normal 8.5-10.5 [facility] [facility] Comment on above: Performed By: #### C BCA, BMP #### [facility] ([id number]) [address], [address] [place] [address] Chloride [Moles/Vol] 102 mmol/L Normal 98-109 [facility] Comment on above: Performed By: #### C BCA, BMP #### [facility] ([id number]) [address], [address] [place] [address] CO2 [Moles/Vol] 28 mmol/L Normal 22-32 [facility] Comment on above: Performed By: #### C BCA, BMP #### [facility] ([id number]) [address], [address] [place] [address] Creatinine [Mass/Vol] 0.88 mg/dL Normal 0.40-1.00 [facility] Comment on above: Result Comment: METH OD TRACEABLE TO IDMS STANDARD Performed By: #### C BCA, BMP #### [facility] ([id number]) [address] [address] GFR/1.73 sq M.predicted among non-blacks MDRD (S/P/Bld) [Vol rate/Area] 70 mL/min/{1.73_m2} Normal >59 [facility] Comment on above: Result Comment: Reported eGFR is based on the CKD-EPI 2020 equation that does not use a race coefficient. Performed By: #### C BCA, BMP #### [facility] ([id number]) [address] [address] Glucose [Mass/Vol] 88 mg/dL Normal 65-99 [facility] Comment on above: Performed By: #### C BCA, BMP #### [facility] ([id number]) [address] [address] Potassium [Moles/Vol] 4.1 mmol/L Normal 3.5-5.0 [facility] Comment on above: Performed By: #### C BCA, BMP #### [facility] ([id number]) [address] [address] Sodium [Moles/Vol] 140 mmol/L Normal 134-146 [facility] Comment on above: Performed By: #### C BCA, BMP #### [facility] ([id number]) [address] [address] Urea nitrogen [Mass/Vol] 24 mg/dL Normal 5-27 [facility] Comment on above: Performed By: #### C BCA, BMP #### [facility] ([id number]) [address] [address] CBC AND AUTO DIFFon 11-1120 24 ABSOLUTE BASOPHIL 0.0 X10E9/L Normal 0.0-0.2 [facility] Comment on above: Performed By: #### C BCA, BMP #### [facility] ([id number]) [address] [place] [address] ABSOLUTE NEUTROPHIL 4.5 X10E9/L Normal 1.5-6.6 [facility] Comment on above: Performed By: #### C TEMI, BMP #### [facility] ([id number]) [address], [address] [place] [address] Basophils/100 WBC (Bld) 0.5 % Normal [facility] Comment on above: Performed By: #### C TEMI, BMP #### [facility] ([id number]) [address], [address] [place] [address] Eosinophils (Bld) [#/Vol] 0.1 10*3/uL Normal 0.0-0.4 [facility] Comment on above: Performed By: #### Buster MEMBRENO, BMP #### [facility] ([id number]) [address], [address] [place] [address] Eosinophils/100 WBC (Bld) 1.8 % Normal [facility] Comment on above: Performed By: #### Buster MEMBRENO, BMP #### [facility] ([id number]) [address], [address] [place] [address] Erythrocyte distribution width (RBC) [Ratio] 15.7 % High 11.5-15.0 [facility] Comment on above: Performed By: #### Buster MEMBRENO, BMP #### [facility] ([id number]) [address], [address] [place] [address] Hematocrit (Bld) [Volume fraction] 43.2 % Normal 35-47 [facility] Comment on above: Performed By: #### C TEMI, BMP #### [facility] ([id number]) [address], [address] [place] [address] Hemoglobin (Bld) [Mass/Vol] 13.9 g/dL Normal 11.7-15.5 [facility] Comment on above: Performed By: #### C TEMI, BMP #### [facility] ([id number]) [address], [address] [place] [address] Lymphocytes (Bld) [#/Vol] 1.8 10*3/uL Normal 1.0-3.5 [facility] Comment on above: Performed By: #### Buster MEMBRENO, BMP #### [facility] ([id number]) [address], [address] [place] [address] Lymphocytes/100 WBC (Bld) 24.9 % Normal [facility] Comment on above: Performed By: #### C TEMI, BMP #### [facility] ([id number]) [address], [address] [place] [address] MCH (RBC) [Entitic mass] 28.1 pg Normal 27-34 [facility] Comment on above: Performed By: #### Buster MEMBRENO, BMP #### [facility] ([id number]) [address], [address] [place] [address] MCHC (RBC) [Mass/Vol] 32.1 g/dL Normal 32-36 [facility] Comment on above: Performed By: #### C TEMI, BMP #### [facility] ([id number]) [address], [address] [place] [address] MCV (RBC) [Entitic vol] 88 fL Normal 80-100 [facility] Comment on above: Performed By: #### Buster MEMBRENO, BMP #### [facility] ([id number]) [address], [address] [place] [address] Monocytes (Bld) [#/Vol] 0.7 10*3/uL Normal 0-0.9 [facility] Comment on above: Performed By: #### Buster MEMBRENO, BMP #### [facility] ([id number]) [address], [address] [place] [address] Monocytes/100 WBC (Bld) 9.3 % Normal [facility] Comment on above: Performed By: #### C BCA, BMP #### [facility] ([id number]) [address] [place] [address] Neutrophils/100 WBC (Bld) 63.5 % Normal [facility] Comment on above: Performed By: #### C BCA, BMP #### [facility] ([id number]) [address], [address] [place] [address] Platelet mean volume (Bld) [Entitic vol] 8.9 fL Normal 7-12 [facility] Comment on above: Performed By: #### C BCA, BMP #### [facility] ([id number]) [address], [facility] [address] [place] [address] Platelets (Bld) [#/Vol] 234 10*3/uL Normal 150-450 [facility] Comment on above: Performed By: #### C BCA, BMP #### [facility] ([id number]) [address], [address] [place] [address] RBC COUNT 4.94 X10E12/L Normal 3.80-5.20 [facility] Comment on above: Performed By: #### C BCA, BMP #### [facility] ([id number]) [address], [address] [place] [address] WBC (Bld) [#/Vol] 7.2 10*3/uL Normal 4.0-11.0 [facility] Comment on above: Performed By: #### C BCA, BMP #### [facility] ([id number]) [address], [address] [place] [address] HP 04-08-2024 [facility] Cardiology Clinic Note Chief Complaint: New patient here to establish care. Ref from Dr. Parra for abnormal echo performed last month. 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 Patient says she gets chest pain every [...] the cardiac catheterization Janiya Carlson MD, MPH, [facility], [facility], [facility] Interventional Cardiology Pager Email: [email or web address] Normal [facility] Office Visiton 04-08-2024 Follow-up visit [id number] Mercedes Alcocer ra 1955 F Date Provider Department Center 04/08/2024 Cody-JANIYA CARLSON Family History Problem Relation Age of Onset Coronary artery disease Mother Other Mother Family Status - Relation Status Age at Mother Level of Service:77264 DE OFFICE/OUTPATIENT [facility] HIGH MDM 60 MINUTES Normal [facility] Orders Onlyon 04-08-2024 Orders Only [id number] Mercedes Alcocer ra 1955 F Date Provider Department Center 04/08/2024 TOBI FLORES Family History Problem Relation Age of Onset Coronary artery disease Mother Other Mother Family Status - Relation Status Age at Mother Normal [facility] MG MAMM SCREEN 3D NIKKO CADon 08-15-2022 MG MAMM SCREEN 3D NIKKO CAD Patient: ROMANA ALCOCER Exam Date: 08/15/2022 : 1955 Gender:F Ordering : DR TEDDY PARRA . Admission #: [id number] Family : Order #: [id number] CLICK HERE TO VIEW EXAM RADIOLOGY REPORT [...] brain cancer at age 47. LOCATION: [facility] BREAST COMPOSITION: Scattered areas fibroglandular [...] MD on 08/15/2022 at 11:16 Normal [facility] Covid-19 PCR (CVDTBH)on 01-03 SARS-CoV-2 (COVID-19) RNA MARITZA+probe Ql (Unsp spec) Detected Critically abnormal NOT DETECTED [facility] Comment on above: Result Comment: This test is not yet approved or cleared by the [place] FDA. When there are no FDA-approved or cleared tests available, and other criteria are met, FDA can make tests available under an emergency access mechanism called an Emergency Use Authorization (EUA). The EUA for this test is supported by the [place] of Health and Human Service's (HHS's) declaration [...] used). Performed By: #### C VDTB #### [facility] [address] [place] [address] Dr. Tristan Craft CBC AUTO DIFFon 10-14-2021 BASO # 0.1 103/ul Normal 0.0-0.1 [facility] Comment on above: Performed By: #### C BC #### [facility] [address] [place] [address] Dr. Tristan Craft Basophils/100 WBC (Bld) 0.5 % Normal 0.2-2.0 [facility] Comment on above: Performed By: #### C BC #### [facility] [address] [place] [address] Dr. Tristan Craft EO # 0.2 103/ul Normal 0.0-0.7 [facility] Comment on above: Performed By: #### C BC #### [facility] [address] [place] [address] Dr. Tristan Craft Eosinophils/100 WBC (Bld) 1.6 % Normal 0.9-7.0 [facility] Comment on above: Performed By: #### C BC #### [facility] [address] [place] [address] Dr. Tristan Craft Erythrocyte distribution width (RBC) [Ratio] 14.3 % Normal 11.0-15.0 [facility] Comment on above: Performed By: #### C BC #### [facility] [address] [place] [address] Dr. Tristan Craft Hematocrit (Bld) [Volume fraction] 45.7 % Normal 36.0-48.0 [facility] Comment on above: Performed By: #### C BC #### [facility] [address] [place] [address] Dr. Tristan Craft Hemoglobin (Bld) [Mass/Vol] 14.3 g/dL Normal 12.0-16.0 [facility] Comment on above: Performed By: #### C BC #### [facility] [address] [place] [address] Dr. Tristan Craft IG # 0.03 10e3/ul Normal 0.00-0.03 [facility] Comment on above: Performed By: #### C BC #### [facility] [address] [place] [address] Dr. Tristan Craft IG % 0.3 % Normal 0.0-0.5 [facility] Comment on above: Performed By: #### C BC #### [facility] [address] [place] [address] Dr. Tristan Craft LYMPH # 2.5 103/ul Normal 1.2-3.8 [facility] Comment on above: Performed By: #### C BC #### [facility] [address] [place] [address] Dr. Tristan Craft Lymphocytes/100 WBC (Bld) 26.7 % Normal 20.5-60.0 [facility] Comment on above: Performed By: #### C BC #### [facility] [address] [place] [address] Dr. Tritsan Craft MANUAL DIFF REQ NO Normal [facility] Comment on above: Performed By: #### C BC #### [facility] [address] [place] [address] Dr. Tristan Craft MCH (RBC) [Entitic mass] 27.8 pg Normal 26.7-34.0 [facility] Comment on above: Performed By: #### C BC #### [facility] [address] [place] [address] Dr. Tristan Craft MCHC (RBC) [Mass/Vol] 31.3 g/dL Normal 29.9-35.2 [facility] Comment on above: Performed By: #### C BC #### [facility] [address] [place] [address] Dr. Tristan Craft MCV (RBC) [Entitic vol] 88.9 fL Normal 81.0-99.0 [facility] Comment on above: Performed By: #### C BC #### [facility] [address] [place] [address] Dr. Tristan Craft MONO # 0.8 103/ul Normal 0.3-0.8 [facility] Comment on above: Performed By: #### C BC #### [facility] [address] [place] [address] Dr. Tristan Craft Monocytes/100 WBC (Bld) 8.0 % Normal 1.7-12.0 [facility] Comment on above: Performed By: #### C BC #### [facility] [address] [place] [address] Dr. Tristan Craft NEUT # 5.9 103/ul Normal 1.4-6.5 [facility] Comment on above: Performed By: #### C BC #### [facility] [address] [place] [address] Dr. Tristan Craft Neutrophils/100 WBC (Bld) 62.9 % Normal 43.0-75.0 [facility] Comment on above: Performed By: #### C BC #### [facility] [address] [place] [address] Dr. Tristan Craft Platelet mean volume (Bld) [Entitic vol] 10.4 fL Normal 9.5-13.5 [facility] Comment on above: Performed By: #### C BC #### [facility] [address] [place] [address] Dr. Tristan Craft PLT 302 103/ul Normal 150-450 [facility] Comment on above: Performed By: #### C BC #### [facility] [address] [place] [address] Dr. Tristan Craft RBC 5.14 106/ul Normal 4.20-5.40 [facility] Comment on above: Performed By: #### C BC #### [facility] [address] [place] [address] Dr. Tristan Craft WBC 9.3 103/ul Normal 4.0-11.0 [facility] Comment on above: Performed By: #### C BC #### [facility] [address] [address] [address] Tristan Craft FREE T3on 10-14-2021 FREE T3 2.03 pg/mlL Critically low 2.18-3.98 [facility] Comment on above: Performed By: #### T 4, CMP, TSH, LIPID, FT3 #### [facility] [address] [address] [address] Tristan Craft GLYCOHEMOGLOBIN A1Con 2021 ADA RECOMMENDATION SEE BELOW Normal [facility] Comment on above: Result Comment: ADA RECOMMENDED LIMIT 4.0 - 6.0 ADA THERAPEUTIC TARGET < 7.0 ACTION SUGGESTED > 7.0 Performed By: #### A 1C #### [facility] [address] [address] [address] Tristan Craft Glucose [Mass/Vol] 123 mg/dL Normal [facility] Comment on above: Performed By: #### A 1C #### [facility] [address] [address] [address] Tristan Craft HbA1c (Bld) [Mass fraction] 5.9 % Normal 4.5-6.2 [facility] Comment on above: Performed By: #### A 1C #### [facility] [address] [place] [address] Dr. Tristan Craft LIPID PROFILEon 10-14-2021 CHOL-HDL RATIO NORM SEE BELOW Normal [facility] Comment on above: Result Comment: 3.3 - 4.4 LOW RISK 4.4 - 7.1 AVERAGE RISK 7.1 - 11.0 MODERATE RISK >11.0 HIGH RISK Performed By: #### T 4, CMP, TSH, LIPID, FT3 #### [facility] [address] [address] [address] Tristan Craft Cholesterol [Mass/Vol] 126 mg/dL Normal <=200 [facility] Comment on above: Performed By: #### T 4, CMP, TSH, LIPID, FT3 #### [facility] [address] [address] [address] Tristan Craft Cholesterol in HDL [Mass/Vol] 53 mg/dL Normal 40-60 [facility] Comment on above: Performed By: #### T 4, CMP, TSH, LIPID, FT3 #### [facility] [address] [place] [address] Dr. Tristan Craft Cholesterol in LDL [Mass/Vol] 45.0 mg/dL Normal [facility] Comment on above: Performed By: #### T 4, CMP, TSH, LIPID, FT3 #### [facility] [address] [place] [address] Dr. Tristan Craft Cholesterol.total/Chol esterol in HDL [Mass ratio] 2.4 {ratio} Normal [facility] Comment on above: Performed By: #### T 4, CMP, TSH, LIPID, FT3 #### [facility] [address] [place] [address] Dr. Tristan Craft HDL NORMAL > or = 60 mg/dl - LO W CARDIOVASCULAR RISK <40 mg/dl - HIGH CARDIOVASCULAR RISK Normal [facility] Comment on above: Performed By: #### T 4, CMP, TSH, LIPID, FT3 #### [facility] [address] [place] [address] Dr. Tristan Craft LDL CALC NORMAL SEE BELOW Normal [facility] Comment on above: Result Comment: <100 mg/dl OPTIMAL 100 - 129 mg/dl NEAR OR ABOVE OPTIMAL 130 - 159 mg/dl BORDERLINE HIGH 160 - 189 mg/dl HIGH >190 mg/dl VERY HIGH Performed By: #### T 4, CMP, TSH, LIPID, FT3 #### [facility] [address] [place] [address] Dr. Tristan Craft Triglyceride [Mass/Vol] 140 mg/dL Normal <=150 [facility] Comment on above: Performed By: #### T 4, CMP, TSH, LIPID, FT3 #### [facility] [address] [place] [address] Dr. Tristan Craft VLDL CALC 28.0 mg/dL Normal [facility] Comment on above: Performed By: #### T 4, CMP, TSH, LIPID, FT3 #### [facility] [address] [place] [address] Dr. Tristan Craft PROF 14(COMP METB)on 022 Albumin [Mass/Vol] 3.8 g/dL Normal 3.4-5.0 [facility] Comment on above: Performed By: #### T 4, CMP, TSH, LIPID, FT3 #### [facility] [address] [address] [address] Tristan Craft Albumin/Globulin [Mass ratio] 1.1 {ratio} Normal [facility] Comment on above: Performed By: #### T 4, CMP, TSH, LIPID, FT3 #### [facility] [address] [address] [address] Tristan Craft ALP [Catalytic activity/Vol] 87 U/L Normal 46-116 [facility] Comment on above: Performed By: #### T 4, CMP, TSH, LIPID, FT3 #### [facility] [address] [place] [address] Dr. Tristan Craft ALT [Catalytic activity/Vol] 24 U/L Normal 14-59 [facility] Comment on above: Performed By: #### T 4, CMP, TSH, LIPID, FT3 #### [facility] [address] [address] [address] Tristan Craft Anion gap [Moles/Vol] 12.9 mmol/L Normal [facility] Comment on above: Performed By: #### T 4, CMP, TSH, LIPID, FT3 #### [facility] [address] [address] [address] Tristan Craft AST [Catalytic activity/Vol] 20 U/L Normal 15-37 [facility] Comment on above: Performed By: #### T 4, CMP, TSH, LIPID, FT3 #### [facility] [address] [address] [address] Tristan Craft Bilirubin [Mass/Vol] 0.5 mg/dL Normal 0.2-1.0 [facility] Comment on above: Performed By: #### T 4, CMP, TSH, LIPID, FT3 #### [facility] [address] [address] [address] Tristan Craft Calcium [Mass/Vol] 8.6 mg/dL Normal 8.5-10.1 [facility] Comment on above: Performed By: #### T 4, CMP, TSH, LIPID, FT3 #### [facility] [address] [address] [address] Tristan Craft Chloride [Moles/Vol] 101 mmol/L Normal 98-107 [facility] Comment on above: Performed By: #### T 4, CMP, TSH, LIPID, FT3 #### [facility] [address] [address] [address] Tristan Craft CO2 [Moles/Vol] 27.7 mmol/L Normal 21.0-32.0 [facility] Comment on above: Performed By: #### T 4, CMP, TSH, LIPID, FT3 #### [facility] [address] [place] [address] Dr. Tristan Craft Creatinine [Mass/Vol] 0.93 mg/dL Normal 0.55-1.02 [facility] Comment on above: Performed By: #### T 4, CMP, TSH, LIPID, FT3 #### [facility] [address] [place] [address] Dr. Tristan Craft EGFR-AF GHANAIAN >60 Normal >=60 [facility] Comment on above: Performed By: #### T 4, CMP, TSH, LIPID, FT3 #### [facility] [address] [place] [address] Dr. Tristan Craft EGFR-NON AF GHANAIAN =60 Normal >=60 [facility] Comment on above: Performed By: #### T 4, CMP, TSH, LIPID, FT3 #### [facility] [address] [place] [address] Dr. Tristan Craft Globulin (S) [Mass/Vol] 3.6 g/dL Normal [facility] Comment on above: Performed By: #### T 4, CMP, TSH, LIPID, FT3 #### [facility] [address] [place] [address] Dr. Tristan Craft Glucose [Mass/Vol] 108 mg/dL Critically high 74-106 [facility] Comment on above: Performed By: #### T 4, CMP, TSH, LIPID, FT3 #### [facility] [address] [place] [address] Dr. Tristan Craft Potassium [Moles/Vol] 3.6 mmol/L Normal 3.5-5.1 [facility] Comment on above: Performed By: #### T 4, CMP, TSH, LIPID, FT3 #### [facility] [address] [place] [address] Dr. Tristan Craft Protein [Mass/Vol] 7.4 g/dL Normal 6.4-8.2 [facility] Comment on above: Performed By: #### T 4, CMP, TSH, LIPID, FT3 #### [facility] [address] [place] [address] Dr. Tristan Craft Sodium [Moles/Vol] 138 mmol/L Normal 136-145 [facility] Comment on above: Performed By: #### T 4, CMP, TSH, LIPID, FT3 #### [facility] [address] [place] [address] Dr. Tristan Craft Urea nitrogen [Mass/Vol] 18.0 mg/dL Normal 7.0-18.0 [facility] Comment on above: Performed By: #### T 4, CMP, TSH, LIPID, FT3 #### [facility] [address] [place] [address] Dr. Tristan Craft Urea nitrogen/Creatinine [Mass ratio] 19.4 mg/mg Normal [facility] Comment on above: Performed By: #### T 4, CMP, TSH, LIPID, FT3 #### [facility] [address] [place] [address] Dr. Tristan Craft T4on 10-14-2021 T4 [Mass/Vol] 6.80 ug/dL Normal 4.80-13.90 [facility] Comment on above: Performed By: #### T 4, CMP, TSH, LIPID, FT3 #### [facility] [address] [place] [address] Dr. Tristan Craft TSHon 10-14-2021 TSH 2.277 uIU/mL Normal 0.358-3.74 0 [facility] Comment on above: Performed By: #### T 4, CMP, TSH, LIPID, FT3 #### [facility] [facility] [address] [address] [address] Tristan Craft TSH RANGE SEE BELOW Normal The [facility] Comment on above: Result Comment: <0.3 4 UIU/ml HYPERTHYROID 0.34-5.60 UIU/ml EUTHYROID >5.60 UIU/ml HYPOTHYROID Performed By: #### T 4, CMP, TSH, LIPID, FT3 #### [facility] [address] [address] [address] Tristan Craft VITAMIN D 25 OHon 10-14-2021 VIT D 25-OH 37.9 ng/mL Normal The [facility] Comment on above: Performed By: #### V ITAD #### [facility] [address] [place] [address] Dr. Tristan Craft VIT D RANGES SEE BELOW Normal The [facility] Comment on above: Result Comment: <20 ng/mL Vit D deficient 20 - <30 ng/mL Vit D insufficient 30 - 100 ng/mL Vit D sufficient >100 ng/mL Potential Toxicity Performed By: #### V ITAD #### [facility] [address] [place] [address] Dr. Tristan Craft Vital Signs Date Time Vital Sign Value Performing Clinician Tresa lebron 11-27-2024 12:40-0400 Diastolic blood pressure 73 mm[Hg] Lin Rice DO Work Phone: [facility] 11-27-2024 12:40-0400 Heart rate 84 /min Lin Rice DO Work Phone: [facility] 11-27-2024 12:40-0400 Respiratory rate 20 /min Lin Rice DO Work Phone: [facility] 11-27-2024 12:40-0400 SaO2% (BldA) [Mass fraction] 99 % Lin Rice DO Work Phone: [facility] 11-27-2024 12:40-0400 Systolic blood pressure 112 mm[Hg] Lin Rice DO Work Phone: [facility] 11-27-2024 11:50-0400 Inhaled oxygen flow rate 2 L/min Lin Rice DO Work Phone: [facility] 11-27-2024 10:28-0400 Body temperature 97.5 [degF] Lin Rice DO Work Phone: [facility] 11-27-2024 06:00-0400 Body height 152.4 cm Lin Rice DO Work Phone: [facility] 11-27-2024 06:00-0400 Body weight 124 kg Lin Rice DO Work Phone: [facility] 11-21-2024 14:01-0400 Body height 157.48 cm Lin Rice DO Work Phone: [facility] 11-21-2024 14:01-0400 Body mass index (BMI) [Ratio] 50.3 kg/m2 Lin Rice DO Work Phone: [facility] 11-21-2024 14:01-0400 Body weight 124.99 kg Lin Rice DO Work Phone: [facility] 11-19-2024 16:00-0400 Diastolic blood pressure 85 mm[Hg] Lin Rice DO Work Phone: [facility] 11-19-2024 16:00-0400 Heart rate 95 /min Lin Rice DO Work Phone: [facility] 11-19-2024 16:00-0400 Respiratory rate 17 /min Lin Rice DO Work Phone: [facility] 11-19-2024 16:00-0400 SaO2% (BldA) [Mass fraction] 99 % Lin Rice DO Work Phone: [facility] 11-19-2024 16:00-0400 Systolic blood pressure 151 mm[Hg] Lin Rice DO Work Phone: [facility] 11-19-2024 12:12-0400 Body height 157.48 cm Lin Rice DO Work Phone: [facility] 11-19-2024 12:12-0400 Body weight 127 kg Lin Rice DO Work Phone: [facility] 11-19-2024 11:55-0400 Body temperature 98 [degF] Lin Rice DO Work Phone: [facility] 09-23-2023 09:56-0400 Body height 157.48 cm MD Teddy Parra Work Phone: [facility] 09-23-2023 09:56-0400 Body temperature 97.9 [degF] MD Teddy Parra Work Phone: [facility] 09-23-2023 09:56-0400 Diastolic blood pressure 68 mm[Hg] MD Teddy Parra Work Phone: [facility] 09-23-2023 09:56-0400 Heart rate 59 /min MD Teddy Parra Work Phone: [facility] 09-23-2023 09:56-0400 Respiratory rate 16 /min MD Teddy Parra Work Phone: [facility] 09-23-2023 09:56-0400 SaO2% (BldA) [Mass fraction] 99 % MD Teddy Parra Work Phone: [facility] 09-23-2023 09:56-0400 Systolic blood pressure 116 mm[Hg] MD Teddy Parra Work Phone: [facility] Encounters Encounter Date Encounter Type Care Provider Facility Start: 02-04-2025 End: 02-04-2025 ambulatory Lin L Rice DO Work Phone: [facility] Work Phone: Start: 02-04-2025 End: 02-04-2025 Patient encounter procedure Papito Lazo DO -[facility] Work Phone: Start: 02-04-2025 ambulatory PAPITO Middleton [facility] Start: 01-03-2025 ambulatory PAPITO Middleton [facility] Start: 12-31-2024 End: 12-31-2024 ambulatory [facility] Start: 12-19-2024 ambulatory PAPITO Middleton [facility] Start: 12-10-2024 End: 12-10-2024 ambulatory Lin Silverio DO Work Phone: [facility] Work Phone: Start: 12-10-2024 End: 12-10-2024 Patient encounter procedure Papito Kane [place] [facility] Work Phone: Start: 11-27-2024 Non-patient / Non-visit Papito Kane Vaishali esparza DO [facility] Work Phone: Start: 11-22-2024 End: 11-22-2024 Patient encounter procedure Papito Kane [place] [facility] -Pre-Surgical Testing Work Phone: Start: 11-21-2024 End: 11-21-2024 Patient encounter procedure Papito Kane [place] [facility] Work Phone: Start: 11-21-2024 End: 11-21-2024 Preprocedural examination done Papito Lazo DO [facility] Start: 11-19-2024 End: 11-19-2024 Emergency department patient visit Lin Silverio DO Work Phone: -Emergency Room Work Phone: Start: 11-15-2024 End: 11-15-2024 ambulatory KARON [facility] Start: 09-26-2024 ambulatory [facility] Start: 09-26-2024 End: 09-26-2024 ambulatory [facility] Start: 08-13-2024 End: 08-13-2024 ambulatory [facility] Start: 05-22-2024 End: 05-22-2024 ambulatory [facility] Start: 04-29-2024 End: 04-29-2024 ambulatory TEDDY PARRA [facility] Start: 04-19-2024 End: 04-19-2024 ambulatory J[facility] Start: 04-19-2024 End: 04-19-2024 ambulatory [facility] Start: 04-15-2024 End: 04-15-2024 ambulatory [facility] Start: 04-15-2024 Encounter for other preprocedural examination [facility] Start: 04-08-2024 End: 04-08-2024 ambulatory [facility] Start: 09-23-2023 End: 09-23-2023 ambulatory MD Teddy Parra Work Phone: [facility] Work Phone: Start: 09-23-2023 End: 09-23-2023 Patient encounter procedure MD Teddy Parra Work Phone: [facility] Work Phone: Start: 08-15-2022 [...] right shoulder XR shoulder RT min 2V* [facility] Start: 12-10-2024 XR Shoulder - right Views [facility] Start: 11-28-2024 [facility] Start: 11-27-2024 Referral to home [facility] care service [facility] Start: 11-27-2024 Hospital admission [facility] Start: 11-27-2024 Referral to occupati onal therapist [facility] Start: 11-27-2024 End: 11-27-2024 [facility] Patient Education [facility] Work Phone: Patient referral [facility] Work Phone: Immunizations Immunization Date Immunization Notes Care Provider Romy salas 03-23-2024 COVID-19 (MODERNA) 12Y and older Lin Rice DO Work Phone: [facility] 03-22-2023 COVID-19 (MODERNA) 12Y and older Lin Rice DO Work Phone: [facility] 04-05-2022 COVID-19 mRNA Bivale nt Booster (Moderna) Lin Rice DO Work Phone: [facility] 10-15-2021 COVID-19 Comirnaty (Pfizer) Tri-Sucrose 12+ Lin Rice DO Work Phone: [facility] 04-10-2021 COVID-19 mRNA, Comirnaty (Pfizer) Lin Rice DO Work Phone: [facility] 09-22-2020 COVID-19 mRNA, Comirnaty (Pfizer) Lin Rice DO Work Phone: [facility] 09-03-2020 COVID-19 mRNA, Comirnaty (Pfizer) Lin Rice DO Work Phone: [facility] Payers Date Payer Category Payer Medicare [id number] 1961 Unknown [id number] 1955 Unknown [id number] 2.16.84 [id number] 1955 Unknown [id number] 2.16.84 [id number] 1955 Unknown [id number] 2.16.84 [id number] 1953 Unknown [id number] 2.16. [id number] 1955 Unknown [id number] 2.16. [id number] 1955 Unknown [id number] 2.16. [id number] 1955 Unknown [id number] 2.16.8 [id number] 1953 Unknown [id number] 2.16.8 [id number] Unknown [employer] [id number] Social History Date Type Detail Facility Start: 09-23-2023 End: 11-27-2024 Tobacco smoking status NHIS Never smoked tobacco (finding) [facility] Start: 1955 Sex Assigned At Female [facility] Sex Female (finding) [facility] Medical Equipment Procedure Code Equipment Code Equipment Origin al Text Equipment Identifier Dates Fracture stem screw FDA Start : 11-27-2024 Tornier perform humeral system fracture stem, STD Size 8s, L:130MM FDA Start: 11-27-2024 Orthopaedic bone screw, non-bioabsorbable, non-sterile ()[id number] FDA Start: 11-27-2024 Orthopaedic bone screw, non-bioabsorbable, non-sterile ()[id number] FDA Start: 11-27-2024 Reverse shoulder prosthesis base plate ()[id number] FDA Start: 11-27-2024 Polyethylene rev erse shoulder prosthesis cup ()[id number] FDA Start: 11-27-2024 Reverse shoulder prosthesis head ()[id number] FDA Start: 11-27-2024 Orthopaedic bone screw, non-bioabsorbable, non-sterile ()[id number] FDA Start: 11-27-2024 Orthopaedic bone screw, non-bioabsorbable, non-sterile ()[id number] FDA Start: 11-27-2024 Fracture stem screw FDA [...] a successful synchronized cardioversion on 09/26/2024 with orthodox of sinus rhythm per Dr. Sheehan. Today, [...] history of stroke or TIAs or any HI in the past but has a family [...] on 09/26/2024, Discharg (more content not included)... [facility] 11-21-2024 Evaluation note Diagnosis Onset Date Resolution Fracture of neck of right humerus acute November 21, 2024 1:36pm Rotator cuff arthropathy of right shoulder acute November 21, 2024 1:36pm Pre-op examination noneactive November 032024 1:36pm [facility] Work Phone: 1(349) 231-478306-19-2025 Evaluation note* Diagnosis Onset Date Resolution Status [...] arthroplasty of right shoulder acute 2024 11:30am [facility] Work Phone: 1(143) 987-235206-19-2025 Evaluation note* Diagnosis Onset Date Resolution Status [...] of right shoulder acute February 04 11:56am [facility] Work Phone: 1(285) 628-744506-13-2025 NotePatient is here today for a S/P cardioversion. Patient state nothing has hardly changed since the cardioversion. Patient states she still has LO, and leg swelling, nothing different then what it has been with the leg swelling and LO Review of Systems Cardiovascular: Positive for dyspnea on exertion and leg swelling.[facility]06-13-2025 NoteSUBJECTIVE Reason for Visit: Romana Alcocer [...] a successful synchronized cardioversion on 09/26/2024 with orthodox of sinus rhythm per Dr. Sheehan. Today, [...] history of stroke or TIAs or any HI in the past but has a family [...] Interval 09/26/2024 392 QTC CALCULATION(BAZETT) 09/26/2024 476 R-[place] 09/26/2024 11 T Wave [place] 09/26/2024 3 Ventricular Rate 09/26/2024 60 (more content not included)...[facility]04-24-2025 Note Patient: Romana Alcocer Procedure Information Date/Time: 09/26/24829 Procedure: Cardioversion Location: [facility] HOLDING ROOM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
[2025-02-25 10:34] LABS: Hematocrit 46.0 % (36.0-48.0); Hemoglobin 14.1 g/dL (12.0-16.0); Immature Granulocytes Abs Auto 0.04 10^3/uL (0.00-0.03); Immature Granulocytes Pct Auto 0.5 % (0.0-0.5); Lymphocytes Absolute Auto 1.8 10^3/uL (1.2-3.8); Mean Corpuscular HGB Conc 30.7 g/dL (29.9-35.2); Mean Corpuscular Hemoglobin 28.3 pg (26.7-34.0); Mean Corpuscular Volume 92.2 fL (81.0-99.0); Platelet Count 250 10^3/uL (150-450); Red Blood Count 4.99 10^6/uL (4.20-5.40); White Blood Count 8.4 10^3/uL (4.0-11.0)
[2025-02-25 11:22] LABS: Anion Gap 15.6; Blood Urea Nitrogen 23.0 mg/dL (7.0-18.0); Calcium 9.5 mg/dL (8.5-10.1); Carbon Dioxide 28.0 mmol/L (21.0-32.0); Chloride 100 mmol/L (98-107); Estimated GFR (African America 54 (>=60 mL/min/1.73m^2); Estimated GFR (Non-African Ame 44 (>=60 mL/min/1.73m^2); Glucose 108 mg/dL (74-106); Potassium 4.6 mmol/L (3.5-5.1); Sodium 139 mmol/L (136-145)
== END 2025-02-25 10:10 | disposition home or self-care (01) ==
LOC: LAB 10:11
PROVIDERS: PCP Family Medicine; Visit Provider Internal Medicine Cardiovascular Disease
DX: I48.0 Paroxysmal atrial fibrillation (principal)
CPT/HCPCS: 36415; 80048; 85025